=== PATIENT | male | born 1950 | race Caucasian/White ===

== ENCOUNTER → 2018-07-02 10:53 | Outpatient (CLI) | payer OTHER, MEDICARE, SELFPAY ==
[2017-02-09 10:44] VITALS: BMI 40.9
--- NOTE | 2018-07-02 10:58 | ART_ITS ---
Reason For Study: PVD Left Segmental Pressures The left dorsalis pedis waveforms are triphasic. The left posterior tibial artery waveforms are triphasic. Left brachial= 132mmHg. Right Segmental Pressures The right posterior tibial artery waveforms are triphasic. The right dorsalis pedis waveforms are triphasic. Right brachial= 124mmHg. Indices Ankle PT and Ankle DP are noncompressible. The left ankle brachial index by the dorsalis pedis is 1.16. The left ankle brachial index by the posterior tibial artery is 147. The left digital-brachial index is .64. Interpretation Summary Abnormal examination with non-compressible right PT and DP making ENEIDA's not obtainable Triphasic right PT and DP waveforms. Mildly abnormal right digital index Normal left ABIs and triphasic doppler waveforms. Moderately diminished left digital index. Volume pulse recordings mildly abnormal at digital level. Medial calcification of vessel hurst suspected particularly of the right lower extremity. Mild bilateral lower extremity occlusive disease Mild distal small vessel digital disease. Ordering Physician: Balaji Bates Performed By: BRANDAN GARCIA RVT
--- OUTSIDE RECORDS SUMMARY | 2018-09-03 13:51 | XMS RPT_ITS | Clinical Summary ---
:1950 Author Organization [facility] Address [address] [place] [address] Phone Care Team Providers Name Role Phone Sandy Maharaj PA-C Conditions or Problems Problem Name Problem Onset Status Entry Provider Comment Standard Annotate Code Date Date Description Sleep apnea 91286000 Active Balaji Reilly Sleep apnea (SNOMED 02/01 02/[address]) HTN 74730078 Active Balaji Reilly Hypertensive (Hypertension) (SNOMED 02/01 02/[address]) Osteoarthritis 922902114 Active Balaji Reilly Osteoarthritis (SNOMED 02/01 02/[address]) Diabetic 032632044 Active Balaji Reilly Diabetic neuropathy (SNOMED 02/01 02/[address]) DM 1 49985868 Active Balaji Reilly Type 1 diabetes (SNOMED 02/01 02/[address]) Peripheral 850465293 Active Balaji Reilly 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 Medications Medication Instructions Start Stop Generic Name ND Provider Date Date GLUCOPHAGE XR 500 MG Two tablets METFORMIN HCL [id number] Balaji Reilly [id number] by mouth 02/01 Paulo GALICIA daily NIFEDIPINE ER 30 MG One tablet by NIFEDIPINE [id number] Balaji Reilly [id number] mouth daily 02/01 Paulo GALICIA ATENOLOL 25 MG TABS One tablet by ATENOLOL [id number] Balaji Reilly mouth daily 02/01 Paulo GALICIA HYDROCHLOROTHIAZIDE One tablet by HYDROCHLOROTHIAZIDE 07023635519 Balaji Reilly 25 MG TABS mouth daily 02/01 Paulo GALICIA ASPIRIN 325 MG TABS One tablet by ASPIRIN [id number] Balaji Reilly mouth daily 02/01 Paulo GALICIA SIMVASTATIN 20 MG One tablet by SIMVASTATIN 31537655591 Balaji Reilly TABS mouth daily 02/01 Paulo GALICIA GABAPENTIN 300 MG One tablet by GABAPENTIN 60098047609 Balaji Reilly CAPS mouth daily 02/01 Paulo GALICIA NOVOLOG 100 UNIT/ML as directed INSULIN ASPART [id number] Balaji MACHADO 02/01 Paulo GALICIA LANMoyUS JEANNETTE as directed INSULIN GLARGINE 69298486575 Balaji Reilly 02/01 JEANNETTE Bates MD TRULICITY 1.5 as directed DULAGLUTIDE [id number] Balaji Reilly MG/0.5ML SOPN 02/01 Paulo GALICIA Medications Administered No information available. Allergies, Adverse Reactions, Alerts Allergy Name Reaction Description Start Date Severity Status Provider NKDA none Mild Active Balaji Bates MD Results Date Name Value Unit Range Flag Description Office Visit: Post Op APLL FALLPERCY No Fall risk assessment MEDS REVIEW Done Documentation of current medications (procedure) Plan of Care Type Date Detail Pending order PVR Procedures No information available. Vital Signs Date Name Value Unit Description BMI (Body Mass Index) 41.01 kg/m2 Body Mass Index [Ratio] Body Temperature 97.9 [degF] temperature E&M BP Diastolic 88 mm[Hg] blood pressure, diastolic - 8462-4 BP Systolic 149 mm[Hg] blood pressure, systolic - 8480-6 Heart Rate 80 /min pulse rate E&M - 8867-4 Height 67.5 [in_us] height E&M - 8302-2 Respiratory Rate 22 /min respiratory rate E&M - 9279-1 Weight Measured 265.8 [lb_av] weight E&M - 3141-9
--- OUTSIDE RECORDS SUMMARY | 2018-09-03 13:52 | XMS RPT_ITS | Clinical Summary ---
:1950 Author Organization [facility] Address [address] [place] [address] Phone Care Team Providers Name Role Phone Sandy Maharaj PA-C Conditions or Problems Problem Name Problem Onset Status Entry Provider Comment Standard Annotate Code Date Date Description Sleep apnea 73151764 Active Balaji Reilly Sleep apnea (SNOMED 02/01 02/[address]) HTN 03720906 Active Balaji Reilly Hypertensive (Hypertension) (SNOMED 02/01 02/[address]) Osteoarthritis 756163059 Active Balaji Reilly Osteoarthritis (SNOMED 02/01 02/[address]) Diabetic 592221181 Active Balaji Reilly Diabetic neuropathy (SNOMED 02/01 02/[address]) DM 1 35644801 Active Balaji Reilly Type 1 diabetes (SNOMED 02/01 02/[address]) Peripheral 257541827 Active Balaji Reilly 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 Medications Medication Instructions Start Stop Generic Name ND Provider Date Date GLUCOPHAGE XR 500 MG Two tablets METFORMIN HCL [id number] Balaji Reilly [id number] by mouth 02/01 Paulo GALICIA daily NIFEDIPINE ER 30 MG One tablet by NIFEDIPINE 14405753603 Balaji Reilly [id number] mouth daily 02/01 Paulo GALICIA ATENOLOL 25 MG TABS One tablet by ATENOLOL 11404560317 Balaji Reilly mouth daily 02/01 Paulo GALICIA HYDROCHLOROTHIAZIDE One tablet by HYDROCHLOROTHIAZIDE 36693268471 Balaji Reilly 25 MG TABS mouth daily 02/01 Paulo GALICIA ASPIRIN 325 MG TABS One tablet by ASPIRIN 97320339602 Balaji Reilly mouth daily 02/01 Paulo GALICIA SIMVASTATIN 20 MG One tablet by SIMVASTATIN 56965811894 Balaji Reilly TABS mouth daily 02/01 Paulo GALICIA GABAPENTIN 300 MG One tablet by GABAPENTIN 12867493964 Balaji Reilly CAPS mouth daily 02/01 Paulo GALICIA NOVOLOG 100 UNIT/ML as directed INSULIN ASPART 60482809880 Balaji MACHADO 02/01 Paulo GALICIA LANTUS JEANNETTE as directed INSULIN GLARGINE 38172777543 Balaji Reilly 02/01 JEANNETTE Bates MD TRULICITY 1.5 as directed DULAGLUTIDE 37431948363 Balaji Reilly MG/0.5ML SOPN 02/01 Paulo GALICIA [...] (procedure) Plan of Care Type Date Detail Appointment 01:00 PM Sandy Maharaj PA-C, [address] [place] [address], [address], [place], [address], Pending order PVR Procedures No information available. [...]
--- OUTSIDE RECORDS SUMMARY | 2018-09-03 13:52 | XMS RPT_ITS ---
:1950 Author Organization [facility] Care Team Providers Name Role Phone SABINE SURESH, DR. MARIANO Toth Attending Unavailable SABINE , DR. MARIANO Toth Primary Care Unavailable SABINE SURESH, DR. MARIANO Toth Attending Unavailable SABINE SURESH, DR. MARIANO Toth Primary Care Unavailable Balaji Bates Attending Unavailable Balaji Bates Referring Unavailable Mariano Reid Primary Care Unavailable Balaji Bates Attending Unavailable Balaji Bates Referring Unavailable Mariano Reid Primary Care Unavailable Balaji Bates Consulting Unavailable PROBLEMS PROBLEMS DATE TYPE CONDITION / CODE ATTENDING STATUS SOURCE 07/02/2018 Unknown I73.9 - Balaji Bates Active [place] [facility] vascular disease, [facility] unspecified / Repository I73.9(ICD-10) PROCEDURES PROCEDURES No Procedure Records FoundRESULTS RESULTS ARTERIAL Observed: 07/02/2018 Status: F Source: [place] 5:[address] [facility] REPOSITORY [facility] Cardiovascular Services [address] [place] [address] Lower Ext Art Exam w/o Exercis 07/02/18 1112 MR#: [id number] Acct: [id number] Name: MARCOS VENTURA Rep #: [id number] : 1950 68 From: Balaji Bates MD Attending Dr: Balaji Bates MD Status: REG CLI Ordering Dr: Balaji Bates MD Date: 07/02/18 Location: [facility] Sex: M C Admitted: Reason For Study: PVD Left Segmental Pressures The left dorsalis pedis waveforms are triphasic. The left posterior tibial artery waveforms are triphasic. Left brachial= 132mmHg. Right Segmental Pressures The right posterior tibial artery waveforms are triphasic. The right dorsalis pedis waveforms are triphasic. Right brachial= 124mmHg. Indices Ankle PT and Ankle DP are noncompressible. The left ankle brachial index by the dorsalis pedis is 1.16. The left ankle brachial index by the posterior tibial artery is 147. The left digital-brachial index is .64. Interpretation Summary Abnormal examination with non-compressible right PT and DP making ENEIDA's not obtainable Triphasic right PT and DP waveforms. Mildly abnormal right digital index Normal left ABIs and triphasic doppler waveforms. Moderately diminished left digital index. Volume pulse recordings mildly abnormal at digital level. Medial calcification of vessel hurst suspected particularly of the right lower extremity. Mild bilateral lower extremity occlusive disease Mild distal small vessel digital disease. 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 9:31 AM [facility] REPOSITORY TYPE CODE TESTS RESULT OUT OF REFERENCE UNITS RANGE LAB CHOL(LOINC 0-200 mg/dL ) Cholesterol 128 Result Comment: Cholesterol Reference Interval: Less than 200 Desirable 200-239 Borderline high risk 240 and above High risk LAB TRIG(LOINC) 0-150 mg/dL Triglycerides 37 Result Comment: Triglyceride Reference Interval: Less than 150 Normal 150-199 Borderline high risk 200-499 High risk 500 or higher Very high risk LAB HD(LOINC) 40-60 mg/dL HDL Cholesterol 45 LAB LDL(LOINC) 0-130 mg/dL LDL Cholesterol 76 Performed By: #### LIPID, CMP, GFR #### [place] [address] CMP Collected: 05/18/2018 Status: F Source: [facility] 9:31 AM [facility] REPOSITORY TYPE CODE TESTS RESULT OUT OF REFERENCE UNITS RANGE LAB GLU(LOINC) 80-115 mg/dL Glucose Level 109 LAB NA(LOINC) 136-145 mmol/L Sodium Level 139 LAB K(LOINC) 3.5-5.1 mmol/L Potassium Level 4.7 LAB CL(LOINC) 98-107 mmol/L Chloride 101 LAB CO2(LOINC) 23-31 mmol/L CO2 27 LAB EBAL(LOINC mEq/L ) Electrolyte Balance 11.0 LAB BUN(LOINC) 7-18 mg/dL BUN 18 LAB CRE(LOINC) 0.70-1.30 mg/dL Creatinine Lvl (s) 0.82 LAB BC(LOINC) 7-27 ratio BUN/Creatinine 22 Ratio LAB CA(LOINC) 8.4-10.2 mg/dL Calcium Lvl 9.1 LAB PROT(LOINC 6.4-8.2 G/dL ) Total Protein 7.3 LAB ALB(LOINC) 3.4-4.8 G/dL Albumin Level 3.9 LAB GLB(LOINC) G/dL Globulin 3.4 LAB AG(LOINC) 1.1-2.5 ratio A/G Ratio 1.1 LAB BILT(LOINC 0.2-1.0 mg/dL ) Bili Total 0.7 LAB AP(LOINC) 40-135 U/L Low Alk Phos 34 LAB AST(LOINC) 10-40 U/L AST/SGOT 27 LAB ALT(LOINC) 10-35 U/L ALT/SGPT High 38 Performed By: #### LIPID, CMP, GFR #### [address] [address] .GFR Collected: 05/18/2018 Status: F Source: [facility] 9:31 AM [facility] TYPE CODE TESTS RESULT OUT OF REFERENCE UNITS RANGE LAB GFRAA(LOINC ml/min/1.73 ) sqm GFR 114 Citizen Of [place] Result Comment: GFR Population mean for , Non- Americans Ages 20-29 = 116 mL/min/1.73 sq.m. Ages 30-39 = 107 mL/min/1.73 sq.m. Ages 40-49 = 99 mL/min/1.73 sq.m. Ages 50-59 = 93 mL/min/1.73 sq.m. Ages 60-69 = 85 mL/min/1.73 sq.m. Ages 70+ = 75 mL/min/1.73 sq.m. Chronic Kidney Disease: Less than 60 mL/min/1.73 square meters End Stage Renal Disease: Less than 15 mL/min/1.73 square meters LAB GFRNO(LOINC) ml/min/1.73sqm GFR Non- 94 Result Comment: GFR Population mean for , Non- Americans Ages 20-29 = 116 mL/min/1.73 sq.m. Ages 30-39 = 107 mL/min/1.73 sq.m. Ages 40-49 = 99 mL/min/1.73 sq.m. Ages 50-59 = 93 mL/min/1.73 sq.m. Ages 60-69 = 85 mL/min/1.73 sq.m. Ages 70+ = 75 mL/min/1.73 sq.m. Chronic Kidney Disease: Less than 60 mL/min/1.73 square meters End Stage Renal Disease: Less than 15 mL/min/1.73 square meters Performed By: #### LIPID, CMP, GFR #### [address] [address] LIPID Collected: 01/05/2018 Status: F Source: [facility] 8:48 AM [facility] REPOSITORY TYPE CODE TESTS RESULT OUT OF REFERENCE UNITS RANGE LAB CHOL(LOINC 50-199 mg/dL ) Cholesterol 117 Result Comment: Cholesterol Reference Interval: Less than 200 Desirable 200-239 Borderline high risk 240 and above High risk LAB TRIG(LOINC) 3-149 mg/dL Triglycerides 55 Result Comment: Triglyceride Reference Interval: Less than 150 Normal 150-199 Borderline high risk 200-499 High risk 500 or higher Very high risk LAB HD(LOINC) 40-59 mg/dL HDL Cholesterol 44 Result Comment: HDL Reference Interval: Less than 40 Low - high risk 60 or above Optimal/lowers risk LAB LDL(LOINC) 0-129 mg/dL LDL Cholesterol 62 Result Comment: LDL is a calculated result and requires a 12-hr fast. LDL Reference Interval: Less than 100 Optimal 100-129 Near or above optimal 130-159 Borderline high risk 160-189 High risk 190 and above Very high risk Performed By: #### LIPID, CMP, GFR #### [place] [address] CMP Collected: 01/05/2018 Status: F Source: [facility] 8:48 AM [facility] REPOSITORY TYPE CODE TESTS RESULT OUT OF REFERENCE UNITS RANGE LAB GLU(LOINC) 82-115 mg/dL Glucose High Level 123 LAB NA(LOINC) 136-145 mEq/L Sodium Level 140 LAB K(LOINC) 3.5-5.0 mEq/L Potassium Level 5.0 LAB CL(LOINC) 98-110 mEq/L Chloride 102 LAB CO2(LOINC) 22-32 mEq/L CO2 29 LAB EBAL(LOINC 4.0-15.0 mEq/L ) Electrolyte Balance 9.0 LAB BUN(LOINC) 8.0-22.0 mg/dL BUN 14.0 LAB CRE(LOINC) 0.60-1.40 mg/dL Creatinine Lvl (s) 0.70 LAB BC(LOINC) 10.0-22.0 ratio BUN/Creatinine 20.0 Ratio LAB CA(LOINC) 8.4-10.1 mg/dL Calcium Lvl 9.3 LAB PROT(LOINC 6.0-8.5 G/dL ) Total Protein 7.2 LAB ALB(LOINC) 3.2-4.8 G/dL Albumin Level 3.9 LAB GLB(LOINC) 1.5-3.8 G/dL Globulin 3.3 LAB AG(LOINC) 0.9-1.6 ratio A/G Ratio 1.2 LAB BILT(LOINC 0.2-1.2 mg/dL ) Bili Total 0.7 LAB AP(LOINC) 38-126 U/L Low Alk Phos 34 LAB AST(LOINC) 8-34 U/L AST/SGOT 20 LAB ALT(LOINC) 12-55 U/L ALT/SGPT 27 Performed By: #### LIPID, CMP, GFR #### [facility] [address] [place] [address] .GFR Collected: 01/05/2018 Status: F Source: [facility] 8:48 AM [facility] TYPE CODE TESTS RESULT OUT OF REFERENCE UNITS RANGE LAB GFRAA(LOINC ml/min/1.73 ) sqm GFR >60 Citizen Of [place] Result Comment: GFR Population mean for , Non- Americans Ages 20-29 = 116 mL/min/1.73 sq.m. Ages 30-39 = 107 mL/min/1.73 sq.m. Ages 40-49 = 99 mL/min/1.73 sq.m. Ages 50-59 = 93 mL/min/1.73 sq.m. Ages 60-69 = 85 mL/min/1.73 sq.m. Ages 70+ = 75 mL/min/1.73 sq.m. Chronic Kidney Disease: Less than 60 mL/min/1.73 square meters End Stage Renal Disease: Less than 15 mL/min/1.73 square meters LAB GFRNO(LOINC) ml/min/1.73sqm GFR Non- >60 Result Comment: GFR Population mean for , Non- Americans Ages 20-29 = 116 mL/min/1.73 sq.m. Ages 30-39 = 107 mL/min/1.73 sq.m. Ages 40-49 = 99 mL/min/1.73 sq.m. Ages 50-59 = 93 mL/min/1.73 sq.m. Ages 60-69 = 85 mL/min/1.73 sq.m. Ages 70+ = 75 mL/min/1.73 sq.m. Chronic Kidney Disease: Less than 60 mL/min/1.73 square meters End Stage Renal Disease: Less than 15 mL/min/1.73 square meters Performed By: #### LIPID, CMP, GFR #### [facility] [address] [place] [address] ALLERGIES ALLERGIES DATE TYPE / CODE NAME / CODE REACTION SEVERITY SOURCE 01/06/2017 Drug No Known Unknown [facility] Allergy/4160 Allergies/F00 Hospital 19884(SNOMED 4995922(RXNOR Repository CT) M) ENCOUNTERS ENCOUNTERS ADMIT/DISCHARGE ACCOUNT NUMBER ADMITTING ENCOUNTER LOCATION SOURCE CLASS 07/02/2018 [id number] Ambulatory BMSBuilding: Angelika BMS.CF.A [facility] Repository 07/02/2018 [id number] Ambulatory [facility] ding:[facility] Repository 05/18/2018/05/18/20 [id number] Ambulatory BBuilding:OL [address] Repository 01/05/2018/01/06/20 [id number] Ambulatory BBuilding:[address] Repository PAYERS PAYERS ENCOUNTER GUARANTOR PAYER SUBSCRIBER SOURCE 07/02/2018 MARCOS Garcia Primary Insurance:[facility] MARCOS Parksoster [id number] [id number] EASTONDOB: [facility] RDLOT Number: [id number] [id number] Repository [address]Yqj: 330) Date:9513-28-20MJ [phone] (UO) [address], [place] [address]VZ: 07/02/2018 Secondary MARCOS Guzman Insurance:MMO EASTONDOB: [facility] [id number] Hospital Number: Repository [id number] Date:0078-46-96[address], [place] [address]FE: 07/02/2018 Tertiary NOT GIVENUNK Angelika Insurance:SELF PAY [facility] Number: Effective Repository Date:2018-07-02 07/02/2018 MARCOS Garcia Primary Insurance:UMR MARCOSMANNY Guzman [id number] [address] [id number] EASTONDOB: [facility] RDLOT Number: [id number] [place] [id number] Repository [address]Bzm: (330) Date:5250-80-36TY [phone] (HP) [address], [place] [address]PW: 07/02/2018 Secondary MARCOS R [place] Insurance:MMO EASTONDOB: Community MEDICAREPolicy [id number] Hospital Number: Repository [id number] Date:6895-77-03[address], [place] [address]TB: 07/02/2018 Tertiary NOT GIVENUNK Angelika Insurance:SELF PAY [facility] Number: Effective Repository Date:2018-06-17 05/18/2018 MARCOS R Primary Insurance:UMR MARCOS [facility] EASTONDOB: INSCOPolicy Number: EASTONDOB: [facility] [id number]ository [address] Date:2018-05-[address] [place], [place] [id number] [address] [place], [address]~EASTONRON1 Name:[place] [address]Vtv: [email or web address]: [address]kmo[place] [address]DJ: (HP)Tel: [phone] ([phone] (WP) 05/18/2018 Secondary MARCOS [facility] Insurance:SUMMACARE EASTONDOB: Foundation MEDICARE HMOPolicy [id number] Repository Number: [address] [id number] LOT , Date:2018-05-18 [place] [address]Lka: [id number] Name:[address] (HP)Tel: 000) [address], [place] [phone] (WP) [address]PE: 01/05/2018 MARCOS R Primary MARCOS R [facility] EASTONDOB: Insurance:UMRPolicy EASTONDOB: [facility] Number: [id number] [id number] [address] [facility], [place] Date:2018-01-05 - [address], [address]~LORENZORON1 [id number] [place] [address]Dey: [email or web address]: Name:ORE MINER [address] [place] [address], ()Tel: [phone] () [place] [address]XC: [phone] (WP) 01/05/2018 Secondary MARCOS Garcia [facility] Insurance:[facility] SARAOB: Foundation MEDICARE HMOPolicy [id number] Repository Number: [address] [id number] [facility], Date:2018-01-05 - [place] [address]Bsw: [id number] Name:[address] (HP)Tel: [phone], [place] [phone] (WP) [address]KM:
--- OUTSIDE RECORDS SUMMARY | 2018-09-03 13:52 | XMS RPT_ITS | Clinical Summary ---
:1950 Author Organization [facility] Address [address] [place] [address] Phone Care Team Providers Name Role Phone Aridana Daniel Unavailable Unavailable Conditions or Problems Problem Name Problem Onset Status Entry Provider Comment Standard Annotate Code Date Date Description Sleep apnea 87525520 Active Balaji Reilly Sleep apnea (SNOMED 02/01 02/[address]) HTN 00865036 Active Balaji Reilly Hypertensive (Hypertension) (SNOMED 02/01 02/[address]) Osteoarthritis 206111670 Active Balaji Reilly Osteoarthritis (SNOMED 02/01 02/[address]) Diabetic 514664156 Active Balaji Reilly Diabetic neuropathy (SNOMED 02/01 02/[address]) DM 1 97683659 Active Balaji Reilly Type 1 diabetes (SNOMED 02/01 02/[address]) Peripheral 187146195 Active Balaji Reilly 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 Medications Medication Instructions Start Stop Generic Name [facility] Provider Date Date GLUCOPHAGE XR 500 MG Two tablets METFORMIN HCL [id number] Balaji Reilly [id number] by mouth 02/01 Paulo GALICIA daily NIFEDIPINE ER 30 MG One tablet by NIFEDIPINE 05092768337 Balaji Reilly [id number] mouth daily 02/01 Paulo GALICIA ATENOLOL 25 MG TABS One tablet by ATENOLOL 91242308388 Balaji Reilly mouth daily 02/01 Paulo GALICIA HYDROCHLOROTHIAZIDE One tablet by HYDROCHLOROTHIAZIDE 78741577927 Balaji Reilly 25 MG TABS mouth daily 02/01 Paulo GALICIA ASPIRIN 325 MG TABS One tablet by ASPIRIN 99652126652 Balaji Reilly mouth daily 02/01 Paulo GALICIA SIMVASTATIN 20 MG One tablet by SIMVASTATIN 35561970956 Balaji Reilly TABS mouth daily 02/01 Paulo GALICIA GABAPENTIN 300 MG One tablet by GABAPENTIN 50272713744 Balaji Reilly CAPS mouth daily 02/01 Paulo GALICIA NOVOLOG 100 UNIT/ML as directed INSULIN ASPART 77092779986 Balaji MACHADO 02/01 Paulo GALICIA LANTUS SOLLindsay as directed INSULIN GLARGINE 96467352147 Balaji Reilly 02/01 JEANNETTE Bates MD TRULICITY 1.5 as directed DULAGLUTIDE 92860638632 Balaji Reilly MG/0.5ML SOPN 02/01 Paulo GALICIA Medications Administered No information available. Allergies, Adverse Reactions, Alerts Allergy Name Reaction Description Start Date Severity Status Provider NKDA none Mild Active Balaji Bates MD Results Date Name Value Unit Range Flag Description Office Visit: PAD, left great toe ulcer MEDS REVIEW Done Documentation of current medications (procedure) [facility] Fall risk assessment Plan of Care Type Date Detail Appointment 09:30 AM Balaji Bates MD, [address] [place] [address], [address], [address], Appointment 09:00 AM Balaji Bates MD, [address] [facility], [address], [address], Procedures No information available. Vital Signs Date [...]
== END ==
PROVIDERS: Family Provider Family Medicine; PCP Family Medicine; Referring Provider Surgery; Visit Provider Surgery
DX: I73.9 Peripheral vascular disease, unspecified (principal)
CPT/HCPCS: 93923

== ENCOUNTER 2018-09-16 19:28 | Inpatient (IN) | payer OTHER, MEDICARE, SELFPAY ==
[2018-07-08 14:20] VITALS: BMI 42.3
[2018-09-16] VITALS (7 sets, daily range): BP systolic 154–171; BP diastolic 80–95; PULSE 92–122; RESP 16–20; TEMP 37–38.1; O2SAT 93–97; BMI 41.2; BMI 40.7; BMI 40.8
--- NOTE | 2018-09-16 20:14 | EKG12_ITS ---
Test Reason : WOUND Blood Pressure : / mmHG Vent. Rate : 117 BPM Atrial Rate : 117 BPM P-R Int : 188 ms QRS Dur : 074 ms QT Int : 290 ms P-R-T Axes : 030 055 028 degrees QTc Int : 404 ms Sinus tachycardia Anteroseptal infarct , age undetermined Abnormal ECG Confirmed by KAYLA GALICIA, GIRMA ([id number]), marketing editor VENKATA WALLACE ([id number]) on 09/23/2018 4:05:15 PM Referred By: Confirmed By:GIRMA GARZA MD
--- NOTE | 2018-09-16 20:15 | RAD_ITS ---
STUDY: X-RAY - LEFT FOOT CLINICAL: Male, 68 years old. Diabetic foot ulcer TECHNIQUE: 3 view(s) of the foot. COMPARISON: Previous study of 10/23/2010 FINDINGS: There is a plantar aspect calcaneal spur. Normal visualized subtalar, talonavicular, calcaneocuboid, tarsal and tarsometatarsal articulations. There are degenerative changes of the first metatarsal head. There is degenerative arthrosis of the metatarsophalangeal joint of the hallux . Normal tibial and fibular sesamoid bones. Normal interphalangeal joint of the great toe. Normal phalanges of the great toe. Normal second through fifth metatarsophalangeal joints. 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 There is a small amount of soft tissue gas of the plantar aspect of the great toe. RAD/Foot min 3 Views IMPRESSION: Plantar aspect calcaneal spur. Degenerative changes of the first metatarsophalangeal joint. 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 There is soft tissue gas in the plantar aspect of the great toe Electronically Signed: Jamshid Hanson MD at 20:52 EDT , Service support ,
[2018-09-16 20:35] LABS: Absolute Lymphocyte Count 1.93 X10^3/ul (0.83-4.51); Absolute Neutrophil Count 14.5 X10^3/uL (2.0-7.7); Basophil# 0.04 X10^3/uL; Basophil% 0.2 % (0-1); Differential Indicated SCAN CRITERIA MET; Eosinophil# 0.04 X10^3/uL; Eosinophils% 0.2 % (0-5); Hematocrit 45.5 % (40-54); Hemoglobin 15.5 g/dl (13.0-16.5); Lymphocyte # 1.93 X10^3/ul (4.0); Lymphocyte % 9.8 % (19-41); Mean Corp Hgb Conc 34.1 g/gl (32-36); Mean Corpuscular Hgb 31.1 pg (27.0-32.0); Mean Corpuscular Volume 91.2 fL (80-94); Mean Platelet Vol. 11.2 fl (6.2-12.0); Monocyte# 2.98 X10^3/uL; Monocyte% 15.2 % (0-10); Neutrophil # 14.52 X10^3/uL (2.7-7.7); Neutrophil % 74.1 % (47-70); POSITIVE COUNT NO; POSITIVE DIFFERENTIAL YES; POSITIVE MORPHOLOGY NO; Platelet Count 260 K/mm3 (150-450); RBC Distribution Width CV 12.9 % (11.6-14.6); RBC Distribution Width SD 42.5 fl (35.1-43.9); Red Blood Count 4.99 M/mm3 (4.6-6.2); White Blood Count 19.6 K/mm3 (4.4-11.0)
[2018-09-16 20:36] LABS: International Normalized Ratio 1.1; Prothrombin Time (Protime)PT. 13.7 SECONDS (11.7-14.9)
[2018-09-16] MEDS: 0.9% Normal Saline 1,000 ML 250 ML IV (20:36)
[2018-09-16 20:37] LABS: Partial Thromboplast Time 37.9 Seconds (24.1-36.2)
[2018-09-16 20:45] LABS: AST(SGOT) 16 U/L (15-37); Alanine Aminotransfer ALT/SGPT 20 U/L (16-61); Albumin, Serum 3.8 g/dL (3.2-5.0); Alkaline Phosphatase 41 U/L (45-117); Anion Gap 6 (5-15); BUN 18 mg/dL (7-18); BUN/Creat Ratio 19.4 RATIO (10-20); Calcium,Total 9.1 mg/dL (8.5-10.1); Chloride 99 mmol/L (98-107); Creatinine, Serum 0.93 mg/dL (0.70-1.30); EST Glomerular Filtration Rate 86 mL/min (>60); Est Glom Filt Rate - Afr Amer 104 mL/min (>60); Estimated Creatinine Clearance 71.08 ml/min; Glucose 119 mg/dL (74-106); Potassium 4.4 mmol/L (3.5-5.1); Protein, Total 7.8 g/dL (6.4-8.2); Sodium Level 132 mmol/L (136-145)
[2018-09-16 20:54] LABS: Bacteria 0 SEEN /hpf (None Seen); Mucous, Urine 0 SEEN /hpf (<or=2+); Red Blood Cells-Urine 0 SEEN /hpf (0-5); White Blood Cells 0 SEEN /hpf (0-5)
[2018-09-16 20:55] LABS: Differential Comment SCANNED
[2018-09-16 20:57] LABS: Color, Urine Yellow (Yellow); Glucose, Dipstick Normal (Normal); Ketone-Dipstick Negative (Negative); Leukocyte Esterase-Dipstick Negative /ul (Negative); Nitrite-Dipstick Negative (Negative); Occult Blood-Urine Negative /ul (Negative); Protein-Dipstick 15 mg/dl (Negative); Urine Bilirubin Dipstick Negative (Negative); Urine Clarity Sl. Cloudy (Clear); Urine Urobilinogen Normal (Normal)
--- NOTE | 2018-09-16 21:00 | ED.VIS.GEN ---
History of Present Illness Chief Complaint: Wound Detail of Chief Complaint: Wound left great toe times 2 weeks Informant: Patient, Family Onset: Weeks - 2 weeks Context: Gradual Onset Timing: Continuous Quality: Patient was unaware that he had a lesion involving the left great toe Location: Left great toe Current Severity: Moderate Maximum Severity: Moderate Worsened by: Nothing per patient Relieved by: Patient was unaware that he had an infection Associated Symptoms: Chills Narrative: Patient is an elderly male with history of diabetes who presents with infected left great toe. He has 2 lesions noted on the plantar surface of the left great toe. He complains of mild pain. He has no other complaints. He states blood sugar this morning was 130. He states blood sugar varies between 110-130. Prior similar symptoms: No Recent Illness/Hospitalization: No - Past Medical History (1) Cellulitis and abscess of foot Status: Acute (2) PAD (peripheral artery disease) Status: Acute (3) Diabetes mellitus with polyneuropathy Status: Chronic (4) HTN (hypertension) Status: Chronic (5) Osteomyelitis Status: Chronic Past Medical History - Allergies and Home Meds Allergies/Adverse Reactions: Allergies No Known Allergies Allergy (Verified 09/16/18 19:29) Primary Care Physician: Dexter Reid DO [Primary Care Provider] - Prior records reviewed: Yes Surgical History: no surgical history Lives: Alone Smoking Status: Never smoker Alcohol: None Drugs: None - Family History Maternal Family History: Family History (Last Updated 07/08/18 @ 14:20 by Nadine Yeh) Mother Diabetes CVA (cerebral vascular accident) Family History: Reports: No pertinent history Review of Systems General: Reports: Chills, Malaise. Denies: Fever, Subjective, Sweats, Weight loss Eyes: Denies: Visual changes - bilaterally, Blurred Vision - bilaterally, Diplopia ENT: Denies: Rhinorrhea, Sore throat Cardiovascular: Denies: Chest pain, Palpitations Respiratory: Denies: Dyspnea, Cough, Dyspnea on exertion, Orthopnea, Paroxysmal nocturnal dyspnea Gastrointestinal: Denies: Abdominal pain, Nausea, Vomiting, Diarrhea, Melena, Hematochezia Genitourinary: Denies: Dysuria, Hematuria, Frequency Musculoskeletal: Denies: Back pain, Extremity Pain Skin: Denies: Rash, Wounds Neurological: Denies: Headache, Weakness, Numbness Endocrine: Denies: Polyuria, Polydipsia Hematologic: Denies: Easy bruising, Easy bleeding Allergy: Denies: Uticaria Physical Exam Vital Signs/Narrative: Vital Signs Temp Pulse Resp BP Pulse Ox 09/16/18 20:35 99.2 F H 121 H 18 171/87 H 95 09/16/18 19:49 100.5 F H 122 H 18 163/80 H 97 09/16/18 19:29 100.5 F H 122 H 17 163/80 H 97 Inital Vital Signs reviewed: Yes General: Well nourished, Well developed, No Acute Distress Head: Normocephalic, Atraumatic Eyes: Perrl, EOMI. Negative for: Pale conjunctiva, Scleral icterus, - ENT: Moist mucous membranes, No rhinorrhea, TM's clear Neck: Supple, Nontender Cardiovascular: Regular rate, Regular rhythm, No murmurs, Normal S1, Normal S2, Tachycardia Respiratory: No distress, CTA bilaterally, Chest nontender Abdomen: Soft, Nontender, Nondistended, Normal bowel sounds Back: Nontender, Normal Inspection Extremities: Nontender, No edema, - - There is swelling of the left great toe with erythema of the entire left great toe. There is erythema with lymphangitic streak noted on dorsal surface of left foot. Skin: Normal color, Rash - Cellulitis left great toe with lymphangitis and what appears to be 2 ulcers on the plantar surface of the left great toe Neurological: Alert, Oriented x3, Cranial nerves II-XII grossly intact, Normal Strength Psychological: Normal affect, Normal Mood Diagnostic/Tx/Re-eval Chest X-Ray - ED: Read by ED Physician, - - Three-view x-ray of the foot was obtained. There is calcification of arteries noted. There is degenerative changes noted joint of the great toe. There is subcu is air/ulcer plantar surface of the left great toe. Impressions Foot X-Ray 09/16/18 20:15 IMPRESSION: Plantar aspect calcaneal spur. Degenerative changes of the first metatarsophalangeal joint. 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 There is soft tissue gas in the plantar aspect of the great toe Electronically Signed: Jamshid Hanson MD at 20:52 EDT , Service support , 09/16/18 20:15 Foot min 3 Views [RAD] Stat Laboratory Results 09/16/18 09/16/18 09/16/18 19:55 19:55 19:55 WBC 19.6 H RBC 4.99 Hgb 15.5 Hct 45.5 MCV 91.2 MCH 31.1 MCHC 34.1 RDW 12.9 RDW Differential 42.5 Plt Count 260 MPV 11.2 Immature Gran % (Auto) 0.500 Neut % (Auto) 74.1 H Lymph % (Auto) 9.8 L [place] % (Auto) 15.2 H Eos % (Auto) 0.2 Baso % (Auto) 0.2 Absolute Neuts (auto) 14.5 H Absolute Lymphs (auto) 1.93 Total Counted Not Reportable Differential Comment SCANNED Diff Path Review October foll PT 13.7 INR 1.1 APTT 37.9 H Sodium 132 L Potassium 4.4 Chloride 99 Carbon Dioxide 27.0 Anion Gap 6 BUN 18 Creatinine 0.93 Estim Creat Clear Calc 71.08 Est GFR (MDRD) Af Amer 104 Est GFR (MDRD) Non-Af 86 BUN/Creatinine Ratio 19.4 Glucose 119 H Lactic Acid Calcium 9.1 Total Bilirubin 0.80 AST 16 ALT 20 Alkaline Phosphatase 41 L Total Protein 7.8 Albumin 3.8 Globulin 4.0 Albumin/Globulin Ratio 1.0 Urine Color Urine Clarity Urine pH Ur Specific [place] Urine Protein Urine Glucose (UA) Urine Ketones Urine Occult Blood Urine Nitrite Urine Bilirubin Urine Urobilinogen Ur Leukocyte Esterase 09/16/18 09/16/18 19:55 20:40 WBC RBC Hgb Hct MCV MCH MCHC RDW RDW Differential Plt Count MPV Immature Gran % (Auto) Neut % (Auto) Lymph % (Auto) [place] % (Auto) Eos % (Auto) Baso % (Auto) Absolute Neuts (auto) Absolute Lymphs (auto) Total Counted Differential Comment Diff Path Review PT INR APTT Sodium Potassium Chloride Carbon Dioxide Anion Gap BUN Creatinine Estim Creat Clear Calc Est GFR (MDRD) Af Amer Est GFR (MDRD) Non-Af BUN/Creatinine Ratio Glucose Lactic Acid 1.0 Calcium Total Bilirubin AST ALT Alkaline Phosphatase Total Protein Albumin Globulin Albumin/Globulin Ratio Urine Color Yellow Urine Clarity Sl. Cloudy Urine pH 7.0 Ur Specific [place] 1.010 Urine Protein 15 H Urine Glucose (UA) Normal Urine Ketones Negative Urine Occult Blood Negative Urine Nitrite Negative Urine Bilirubin Negative Urine Urobilinogen Normal Ur Leukocyte Esterase Negative In light of x-ray findings elevated white count ESR and CRP were obtained. Will need consult with podiatry. Patient is status post amputation of the left little toe. - Rhythm Strip Rhythm Strip: Sinus Rhythm Rate: 122 Ectopy: None - EKG Initial EKG Interpretation: Sinus Tachycardia - Ventricular rate is 117. MS interval, Q yazidi, QT interval and axis are normal. Decreased anterior force noted. - Medical Decision Making Patient presents with symptoms consistent with sepsis secondary to infected left great toe. Sepsis workup was undertaken. X-ray was obtained to evaluate for ostium myelitis. This A are noted. Additional blood work was ordered. He was treated with 4.5 g of Zosyn. Hospitalist was paged for admission. ED Disposition - Plan for ED Patient: Disposition: Acute Care Hospital [facility] Diagnosis: Type 2 diabetes mellitus with left diabetic foot infection, Sepsis, Sinus tachycardia seen on application security consultant Referrals: Dexter Reid DO [Primary Care Provider] -
[2018-09-16 21:03] LABS: Squamous Epithelial Cells - UA 0-5 SEEN /hpf (0-5)
[2018-09-16 21:04] LABS: Amorphous Sediment 1+ PHOS
--- NOTE | 2018-09-16 21:05 | ED.DCSUM_ITS ---
History of Present Illness Chief Complaint: Wound Detail of Chief Complaint: Wound left great toe times 2 weeks Informant: Patient, Family Onset: Weeks - 2 weeks Context: Gradual Onset Timing: Continuous Quality: Patient was unaware that he had a lesion involving the left great toe Location: Left great toe Current Severity: Moderate Maximum Severity: Moderate Worsened by: Nothing per patient Relieved by: Patient was unaware that he had an infection Associated Symptoms: Chills Narrative: Patient is an elderly male with history of diabetes who presents with infected left great toe. He has 2 lesions noted on the plantar surface of the left great toe. He complains of mild pain. He has no other complaints. He states blood sugar this morning was 130. He states blood sugar varies between 110-130. Prior similar symptoms: No Recent Illness/Hospitalization: No - Past Medical History (1) Cellulitis and abscess of foot Status: Acute (2) PAD (peripheral artery disease) Status: Acute (3) Diabetes mellitus with polyneuropathy Status: Chronic (4) HTN (hypertension) Status: Chronic (5) Osteomyelitis Status: Chronic Past Medical History - Allergies and Home Meds Allergies/Adverse Reactions: Allergies No Known Allergies Allergy (Verified 09/16/18 19:29) Primary Care Physician: Dexter Reid DO [Primary Care Provider] - Prior records reviewed: Yes Surgical History: no surgical history Lives: Alone Smoking Status: Never smoker Alcohol: None Drugs: None - Family History Maternal Family History: Family History (Last Updated 07/08/18 @ 14:20 by Nadine Yeh) Mother Diabetes CVA (cerebral vascular accident) Family History: Reports: No pertinent history Review of Systems General: Reports: Chills, Malaise. Denies: Fever, Subjective, Sweats, Weight loss Eyes: Denies: Visual changes - bilaterally, Blurred Vision - bilaterally, Diplopia ENT: Denies: Rhinorrhea, Sore throat Cardiovascular: Denies: Chest pain, Palpitations Respiratory: Denies: Dyspnea, Cough, Dyspnea on exertion, Orthopnea, Paroxysmal nocturnal dyspnea Gastrointestinal: Denies: Abdominal pain, Nausea, Vomiting, Diarrhea, Melena, Hematochezia Genitourinary: Denies: Dysuria, Hematuria, Frequency Musculoskeletal: Denies: Back pain, Extremity Pain Skin: Denies: Rash, Wounds Neurological: Denies: Headache, Weakness, Numbness Endocrine: Denies: Polyuria, Polydipsia Hematologic: Denies: Easy bruising, Easy bleeding Allergy: Denies: Uticaria Physical Exam Vital Signs/Narrative: Vital Signs Temp Pulse Resp BP Pulse Ox 09/16/18 20:35 99.2 F H 121 H 18 171/87 H 95 09/16/18 19:49 100.5 F H 122 H 18 163/80 H 97 09/16/18 19:29 100.5 F H 122 H 17 163/80 H 97 Inital Vital Signs reviewed: Yes General: Well nourished, Well developed, No Acute Distress Head: Normocephalic, Atraumatic Eyes: Perrl, EOMI. Negative for: Pale conjunctiva, Scleral icterus, - ENT: Moist mucous membranes, No rhinorrhea, TM's clear Neck: Supple, Nontender Cardiovascular: Regular rate, Regular rhythm, No murmurs, Normal S1, Normal S2, Tachycardia Respiratory: No distress, CTA bilaterally, Chest nontender Abdomen: Soft, Nontender, Nondistended, Normal bowel sounds Back: Nontender, Normal Inspection Extremities: Nontender, No edema, - - There is swelling of the left great toe with erythema of the entire left great toe. There is erythema with lymphangitic streak noted on dorsal surface of left foot. Skin: Normal color, Rash - Cellulitis left great toe with lymphangitis and what appears to be 2 ulcers on the plantar surface of the left great toe Neurological: Alert, Oriented x3, Cranial nerves II-XII grossly intact, Normal Strength Psychological: Normal affect, Normal Mood Diagnostic/Tx/Re-eval Chest X-Ray - ED: Read by ED Physician, - - Three-view x-ray of the foot was obtained. There is calcification of arteries noted. There is degenerative changes noted joint of the great toe. There is subcu is air/ulcer plantar surface of the left great toe. Impressions Foot X-Ray 09/16/18 20:15 IMPRESSION: Plantar aspect calcaneal spur. Degenerative changes of the first metatarsophalangeal joint. 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 There is soft tissue gas in the plantar aspect of the great toe Electronically Signed: Jamshid Hanson MD at 20:52 EDT , Service support , 09/16/18 20:15 Foot min 3 Views [RAD] Stat Laboratory Results 09/16/18 09/16/18 09/16/18 19:55 19:55 19:55 WBC 19.6 H RBC 4.99 Hgb 15.5 Hct 45.5 MCV 91.2 MCH 31.1 MCHC 34.1 RDW 12.9 RDW Differential 42.5 Plt Count 260 MPV 11.2 Immature Gran % (Auto) 0.500 Neut % (Auto) 74.1 H Lymph % (Auto) 9.8 L [place] % (Auto) 15.2 H Eos % (Auto) 0.2 Baso % (Auto) 0.2 Absolute Neuts (auto) 14.5 H Absolute Lymphs (auto) 1.93 Total Counted Not Reportable Differential Comment SCANNED Diff Path Review October foll PT 13.7 INR 1.1 APTT 37.9 H Sodium 132 L Potassium 4.4 Chloride 99 Carbon Dioxide 27.0 Anion Gap 6 BUN 18 Creatinine 0.93 Estim Creat Clear Calc 71.08 Est GFR (MDRD) Af Amer 104 Est GFR (MDRD) Non-Af 86 BUN/Creatinine Ratio 19.4 Glucose 119 H Lactic Acid Calcium 9.1 Total Bilirubin 0.80 AST 16 ALT 20 Alkaline Phosphatase 41 L Total Protein 7.8 Albumin 3.8 Globulin 4.0 Albumin/Globulin Ratio 1.0 Urine Color Urine Clarity Urine pH Ur Specific [place] Urine Protein Urine Glucose (UA) Urine Ketones Urine Occult Blood Urine Nitrite Urine Bilirubin Urine Urobilinogen Ur Leukocyte Esterase 09/16/18 09/16/18 19:55 20:40 WBC RBC Hgb Hct MCV MCH MCHC RDW RDW Differential Plt Count MPV Immature Gran % (Auto) Neut % (Auto) Lymph % (Auto) [place] % (Auto) Eos % (Auto) Baso % (Auto) Absolute Neuts (auto) Absolute Lymphs (auto) Total Counted Differential Comment Diff Path Review PT INR APTT Sodium Potassium Chloride Carbon Dioxide Anion Gap BUN Creatinine Estim Creat Clear Calc Est GFR (MDRD) Af Amer Est GFR (MDRD) Non-Af BUN/Creatinine Ratio Glucose Lactic Acid 1.0 Calcium Total Bilirubin AST ALT Alkaline Phosphatase Total Protein Albumin Globulin Albumin/Globulin Ratio Urine Color Yellow Urine Clarity Sl. Cloudy Urine pH 7.0 Ur Specific [place] 1.010 Urine Protein 15 H Urine Glucose (UA) Normal Urine Ketones Negative Urine Occult Blood Negative Urine Nitrite Negative Urine Bilirubin Negative Urine Urobilinogen Normal Ur Leukocyte Esterase Negative In light of x-ray findings elevated white count ESR and CRP were obtained. Will need consult with podiatry. Patient is status post amputation of the left little toe. - Rhythm Strip Rhythm Strip: Sinus Rhythm Rate: 122 Ectopy: None - EKG Initial EKG Interpretation: Sinus Tachycardia - Ventricular rate is 117. NV interval, Q latter-day, QT interval and axis are normal. Decreased anterior force noted. - Medical Decision Making Patient presents with symptoms consistent with sepsis secondary to infected left great toe. Sepsis workup was undertaken. X-ray was obtained to evaluate for ostium myelitis. This A are noted. Additional blood work was ordered. He was treated with 4.5 g of Zosyn. Hospitalist was paged for admission. ED Disposition - Plan for ED Patient: Disposition: Acute Care [facility] Diagnosis: Type 2 diabetes mellitus with left diabetic foot infection, Sepsis, Sinus tachycardia seen on potline monitor Referrals: Dexter Reid DO [Primary Care Provider] -
--- NOTE | 2018-09-16 21:18 | ED.RN ---
LARGE BLACK GARBAGE BAG OF BELONGINGS WITH PATIENT. NO FAMILY AT BEDSIDE.
[2018-09-16 21:31] LABS: Erythrocyte Sedimentation Rate 50 mm/hr (0-20)
--- NOTE | 2018-09-16 22:00 | PCM.HP.STD ---
Problem List (1) Type 2 diabetes mellitus with left diabetic foot infection Status: Acute (2) Diabetes mellitus with polyneuropathy Status: Chronic Qualifiers: (3) Cellulitis of toe, left Status: Acute (4) HTN (hypertension) Status: Chronic (5) Type II diabetes mellitus Status: Chronic History of Present Illness Date of Admission: 09/16/18 Chief Complaint: left foot infection The patient is a 68 year old male patient with a significant past medical history of diabetes with previous amputation of the fifth toe on his left foot present with another infection of his left foot. The onset began a little over one week ago and has gradually become worse. His great toe on left foot has become inflamed and red along with increased redness on his foot to his lower leg. WBC count is 19,000 with a left shift. Lactate is 1.0 and temperature is 99 degrees and blood pressure is normal to high normal. He has seen Dr Payton for his diabetic foot care. Dr. Quiñonez is covering this evening and is consulted. No chest pain or shortness of breath or other constitutional symptoms. Xray of the toe shows gas distally in the great toe. Past Medical History Past Medical History (Chronic Problems): Chronic Problems (Last Updated 07/08/18 @ 14:20 by Nadine Yeh) Hallux varus (acquired), left foot (Chronic) Diabetes mellitus with polyneuropathy (Chronic) Osteomyelitis (Chronic) HTN (hypertension) (Chronic) Type II diabetes mellitus (Chronic) Medical History: Medical History (Last Updated 07/08/18 @ 14:20 by Nadine Yeh) PAD (peripheral artery disease) (Acute) I73.9 Hallux varus (acquired), left foot (Chronic) M20.32 Diabetes mellitus with polyneuropathy (Chronic) E11.42 Cellulitis of toe, left (Acute) L03.032 HTN (hypertension) (Chronic) I10 Type II diabetes mellitus (Chronic) E11.9 History of amputation of toe Onset Date: ~2012 Z89.429 PAD (peripheral artery disease) I73.9 Sleep apnea G47.30 Allergies No Known Allergies Allergy (Verified 09/16/18 19:29) Home Medications: Ambulatory Orders Medication Instructions Recorded Dulaglutide [Trulicity] 1.5 mg SQ ONEIL 01/06/17 Hydrochlorothiazide [Hctz] 25 mg PO DAILY 01/06/17 Insulin Glargine,Hum.rec.anlog 75 unit SQ QHS 01/06/17 [Lantus] Nifedipine [Nifedipine ER] 30 mg PO DAILY 01/06/17 Simvastatin [Zocor] 20 mg PO QHS 01/06/17 Cholecalciferol (Vitamin D3) 6,000 unit PO DAILY 09/16/18 [Vitamin D3] Cyanocobalamin (Vitamin B-12) 1,000 mcg PO DAILY 09/16/18 [B-12] Gabapentin 600 mg PO TID 09/16/18 Insulin Lispro [Humalog KwikPen] 12 units SQ TID 09/16/18 Metformin HCl 1,000 mg PO BID 09/16/18 Surgical History: Surgical History (Last Updated 07/08/18 @ 14:20 by Nadine Yeh) History of detached retina repair Z98.890, Z86.69 S/P peripheral artery angioplasty Onset Date: ~2016 Z98.62 Status post peripheral artery angioplasty Z98.62 Surgical History: no surgical history Lives: Alone Smoking Status: Never smoker Alcohol: None Drugs: None - *Family History Maternal Family History: Family History (Last Updated 07/08/18 @ 14:20 by Nadine Yeh) Mother Diabetes CVA (cerebral vascular accident) History Items: No pertinent history Review of Systems Constitutional: Reports: Fever. Denies: Chills, Weight Change HEENT: Denies: Head Aches, Sinus Congestion, Sinus Drainage Cardiovascular: Denies: Chest Pain, Palpitations Respiratory: Denies: Cough, Shortness of breath at rest, Sputum production Gastrointestinal: Denies: Abdominal Pain, Nausea, Vomiting Genitourinary: Denies: Dysuria Musculoskeletal: Denies: Joint Pain, Joint Tenderness Skin: Reports: Wounds - left ffot. Denies: Rash Neurological: Denies: Numbness, Tingling, Focal weakness Psychiatric: Denies: Anxiety, Depression, Homicidal Ideations, Suicidal Ideations Hematologic/ Lymphatic: Denies: Easy Bruising, Easy Bleeding VTE Information - Inpt Only VTE Present on Admission: No VTE Mechan Device Prophylaxis: None VTE Pharm Prophylaxis ordered?: Yes Patient Problems: Active and Suspected Problems (Last Updated 07/08/18 @ 14:20 by Nadine Yeh) Type 2 diabetes mellitus with left diabetic foot infection (Acute) Sepsis (Acute) Sinus tachycardia seen on human resources file clerk (Acute) - Physical Exam General: Alert, Oriented x3, Cooperative HEENT: Atraumatic, Normocephalic Neck: Supple Lungs: Clear to auscultation, Normal air movement Cardiovascular: Regular rate, Normal S1, Normal S2, No murmurs Abdomen: Bowel Sounds Present, Soft, Non Tender, Obese Extremities: Edema - LLE 1-2+ with distal erythema on the dorsum of the left foot and ankle Skin: No rashes, Ulcer/ Wound - left foot Musculoskeletal: No Tenderness to Palpation of Joints or Extremities Neurological: Neuro grossly intact Psych/Mental Status: Normal Affect, Appropriate Vital Signs Temp Pulse Resp BP Pulse Ox 99.4 F H 92 20 H 166/95 H 93 09/16/18 21:17 09/16/18 21:17 09/16/18 21:17 09/16/18 21:17 09/16/18 21:17 Oxygen Delivery Method Room Air Weight: 267 lb Body Mass Index (BMI) 41.2 Laboratory Tests Past 24 Hrs 09/16/18 09/16/18 09/16/18 19:55 19:55 19:55 WBC 19.6 H RBC 4.99 Hgb 15.5 Hct 45.5 MCV 91.2 MCH 31.1 MCHC 34.1 RDW 12.9 RDW Differential 42.5 Plt Count 260 MPV 11.2 Immature Gran % (Auto) 0.500 Neut % (Auto) 74.1 H Lymph % (Auto) 9.8 L [place] % (Auto) 15.2 H Eos % (Auto) 0.2 Baso % (Auto) 0.2 Absolute Neuts (auto) 14.5 H Absolute Lymphs (auto) 1.93 Total Counted Not Reportable Differential Comment SCANNED Diff Path Review October ESR PT 13.7 INR 1.1 APTT 37.9 H Sodium 132 L Potassium 4.4 Chloride 99 Carbon Dioxide 27.0 Anion Gap 6 BUN 18 Creatinine 0.93 Estim Creat Clear Calc 71.08 Est GFR (MDRD) Af Amer 104 Est GFR (MDRD) Non-Af 86 BUN/Creatinine Ratio 19.4 Glucose 119 H Lactic Acid Calcium 9.1 Total Bilirubin 0.80 AST 16 ALT 20 Alkaline Phosphatase 41 L C-React Prot Ext Range Total Protein 7.8 Albumin 3.8 Globulin 4.0 Albumin/Globulin Ratio 1.0 Urine Color Urine Clarity Urine pH Ur Specific [place] Urine Protein Urine Glucose (UA) Urine Ketones Urine Occult Blood Urine Nitrite Urine Bilirubin Urine Urobilinogen Ur Leukocyte Esterase Urine RBC Urine WBC Ur Squamous Epith Cells Amorphous Sediment Urine Bacteria Urine Mucus 09/16/18 09/16/18 09/16/18 19:55 19:55 19:55 WBC RBC Hgb Hct MCV MCH MCHC RDW RDW Differential Plt Count MPV Immature Gran % (Auto) Neut % (Auto) Lymph % (Auto) [place] % (Auto) Eos % (Auto) Baso % (Auto) Absolute Neuts (auto) Absolute Lymphs (auto) Total Counted Differential Comment Diff Path Review ESR 50 H PT INR APTT Sodium Potassium Chloride Carbon Dioxide Anion Gap BUN Creatinine Estim Creat Clear Calc Est GFR (MDRD) Af Amer Est GFR (MDRD) Non-Af BUN/Creatinine Ratio Glucose Lactic Acid 1.0 Calcium Total Bilirubin AST ALT Alkaline Phosphatase C-React Prot Ext Range 30.30 H Total Protein Albumin Globulin Albumin/Globulin Ratio Urine Color Urine Clarity Urine pH Ur Specific [place] Urine Protein Urine Glucose (UA) Urine Ketones Urine Occult Blood Urine Nitrite Urine Bilirubin Urine Urobilinogen Ur Leukocyte Esterase Urine RBC Urine WBC Ur Squamous Epith Cells Amorphous Sediment Urine Bacteria Urine Mucus 09/16/18 20:40 WBC RBC Hgb Hct MCV MCH MCHC RDW RDW Differential Plt Count MPV Immature Gran % (Auto) Neut % (Auto) Lymph % (Auto) [place] % (Auto) Eos % (Auto) Baso % (Auto) Absolute Neuts (auto) Absolute Lymphs (auto) Total Counted Differential Comment Diff Path Review ESR PT INR APTT Sodium Potassium Chloride Carbon Dioxide Anion Gap BUN Creatinine Estim Creat Clear Calc Est GFR (MDRD) Af Amer Est GFR (MDRD) Non-Af BUN/Creatinine Ratio Glucose Lactic Acid Calcium Total Bilirubin AST ALT Alkaline Phosphatase C-React Prot Ext Range Total Protein Albumin Globulin Albumin/Globulin Ratio Urine Color Yellow Urine Clarity Sl. Cloudy Urine pH 7.0 Ur Specific [place] 1.010 Urine Protein 15 H Urine Glucose (UA) Normal Urine Ketones Negative Urine Occult Blood Negative Urine Nitrite Negative Urine Bilirubin Negative Urine Urobilinogen Normal Ur Leukocyte Esterase Negative Urine RBC 0 SEEN Urine WBC 0 SEEN Ur Squamous Epith Cells 0-5 SEEN Amorphous Sediment 1+ PHOS Urine Bacteria 0 SEEN Urine Mucus 0 SEEN Assessment/Plan All Active Problems (Last Updated 07/08/18 @ 14:20 by Nadine Yeh) Type 2 diabetes mellitus with left diabetic foot infection (Acute) Sepsis (Acute) Sinus tachycardia seen on human resources file clerk (Acute) PAD (peripheral artery disease) (Acute) Cellulitis of toe, left (Acute) Chronic ulcer of left foot with fat layer exposed (Resolved) Cellulitis and abscess of foot (Acute) Chronic Problems (Last Updated 07/08/18 @ 14:20 by Nadine Yeh) Hallux varus (acquired), left foot (Chronic) Diabetes mellitus with polyneuropathy (Chronic) Osteomyelitis (Chronic) HTN (hypertension) (Chronic) Type II diabetes mellitus (Chronic) Plan 1. Cellulitis of left foot and distal LLE- Consult Dr. Quiñonez (he will determine if further imaging is needed)-- make NPO, IV vancomycin and Zosyn, CBC, BMP, A1C in am, Normal saline at 100cc/hour 2. diabetes-- q6hr BS checks with medium SSI coverage 3. Hypertension-- continue routine medications DVT prophylaxis -- LMWH Code Visit Inpatient E&M: 18545 Init Hosp L3
[2018-09-16] MEDS: 0.9% Normal Saline 1,000 ML 100 ML IV (22:38)
[2018-09-16 23:02] LABS: Hemoglobin A1c 6.9 % (4.2-6.3)
[2018-09-16 23:21] LABS: Bedside Glucose 89 mg/dL (70-110)
--- NOTE | 2018-09-16 23:25 | PCM.RX.CS ---
Consult Pharmacy has been consulted to manage selected antiobiotic: Vancomycin Type of Consult: New start Suspected Infection: Skin/Soft tissue Prior Doses of Antibiotics Received/Current Regimen: Medications Vancomycin HCl 1,750 mg/ (Sodium Chloride) 535 mls @ 250 mls/hr IV Q12H ONESIMO Vancomycin HCl 1,750 mg/ (Sodium Chloride) 535 mls @ 250 mls/hr IV X1 ONE Stop: 09/17/18 01:08 Last Admin: 09/16/18 23:02 Dose: 250 mls/hr Labs: Sodium 132 mmol/L (136-145) L 09/16/18 19:55 Potassium 4.4 mmol/L (3.5-5.1) 09/16/18 19:55 Chloride 99 mmol/L (98-107) 09/16/18 19:55 Carbon Dioxide 27.0 mmol/L (21.0-32.0) 09/16/18 19:55 Anion Gap 6 (5-15) 09/16/18 19:55 BUN 18 mg/dL (7-18) 09/16/18 19:55 Creatinine 0.93 mg/dL (0.70-1.30) 09/16/18 19:55 Est GFR (MDRD) Af Amer 104 mL/min (>60) 09/16/18 19:55 Est GFR (MDRD) Non-Af 86 mL/min (>60) 09/16/18 19:55 BUN/Creatinine Ratio 19.4 RATIO (10-20) 09/16/18 19:55 Glucose 119 mg/dL (74-106) H 09/16/18 19:55 Weight used for dosin.8 kg Estimated Creatinine Clearance: 71 Goal Trough: 15-20 mcg/mL Pharmacy Plan for Drug Dosing: Pharmacy Service will continue to monitor and adjust dosing as required. Follow-Up Labs: Trough Vancomycin Labs to be done on [date and time ordered]: 09/18/18 @1030
[2018-09-17 04:07] VITALS: BP 150/72; PULSE 96; RESP 20; TEMP 37.1; O2SAT 96
[2018-09-17] MEDS: 0.9% Normal Saline 1,000 ML 100 ML IV (04:22)
[2018-09-17 05:54] LABS: International Normalized Ratio 1.1; Prothrombin Time (Protime)PT. 14.1 SECONDS (11.7-14.9)
[2018-09-17 05:58] LABS: Absolute Neutrophil Count 11.5 X10^3/uL (2.0-7.7); Basophil# 0.05 X10^3/uL; Basophil% 0.3 % (0-1); Eosinophil# 0.09 X10^3/uL; Eosinophils% 0.6 % (0-5); Hematocrit 42.4 % (40-54); Hemoglobin 14.2 g/dl (13.0-16.5); Lymphocyte % 10.7 % (19-41); Mean Corp Hgb Conc 33.5 g/gl (32-36); Mean Corpuscular Hgb 30.5 pg (27.0-32.0); Mean Corpuscular Volume 91.2 fL (80-94); Mean Platelet Vol. 10.9 fl (6.2-12.0); Monocyte# 2.43 X10^3/uL; Monocyte% 15.3 % (0-10); Neutrophil # 11.48 X10^3/uL (2.7-7.7); Neutrophil % 72.5 % (47-70); Platelet Count 209 K/mm3 (150-450); RBC Distribution Width CV 12.9 % (11.6-14.6); RBC Distribution Width SD 42.1 fl (35.1-43.9); Red Blood Count 4.65 M/mm3 (4.6-6.2); White Blood Count 15.9 K/mm3 (4.4-11.0)
[2018-09-17 06:03] LABS: Differential Indicated SCAN CRITERIA MET; POSITIVE COUNT NO; POSITIVE DIFFERENTIAL YES; POSITIVE MORPHOLOGY NO
[2018-09-17 06:06] LABS: Bedside Glucose 132 mg/dL (70-110)
[2018-09-17 06:06] LABS: ALB/GLOB Ratio 0.8 RATIO (0.9-2.4); AST(SGOT) 11 U/L (15-37); Alanine Aminotransfer ALT/SGPT 16 U/L (16-61); Albumin, Serum 3.1 g/dL (3.2-5.0); Alkaline Phosphatase 35 U/L (45-117); Anion Gap 7 (5-15); BUN 13 mg/dL (7-18); BUN/Creat Ratio 16.6 RATIO (10-20); Calcium,Total 8.7 mg/dL (8.5-10.1); Chloride 102 mmol/L (98-107); Creatinine, Serum 0.78 mg/dL (0.70-1.30); EST Glomerular Filtration Rate 105 mL/min (>60); Est Glom Filt Rate - Afr Amer 127 mL/min (>60); Globulin 3.9 g/dL (2.2-4.2); Glucose 140 mg/dL (74-106); Magnesium 1.6 mg/dL (1.6-2.6); Potassium 4.1 mmol/L (3.5-5.1); Sodium Level 136 mmol/L (136-145)
[2018-09-17 06:49] LABS: Differential Comment SCANNED
--- NOTE | 2018-09-17 07:14 | PCM.CONS.GEN ---
Reason for Consult Date of Consultation: 09/17/18 Reason for Consultation: Left 1st toe infection History of Present Illness: The patient is a 68 year old male with history of diabetes, peripheral vascular disease s/p vascular intervention left lower extremity, s/p previous left 5th toe amputation was seen today for left 1st toe infection. He presented to the ER last night and was admitted due to infection, had low grade fever, leukocytosis, and signs/symptoms of infection to the left 1st toe. Patient relates he noticed swelling start ~2 weeks ago, and 1st toe because much worse over weekend. He has some pain. He has no reports of fever, chills, nausea or vomiting this morning, and is sitting up in bed comfortably. He relates otherwise feet have been doing well. Past Medical History Past Medical History (Chronic Problems): Chronic Problems (Last Updated 07/08/18 @ 14:20 by Nadine Yeh) Hallux varus (acquired), left foot (Chronic) Diabetes mellitus with polyneuropathy (Chronic) Osteomyelitis (Chronic) HTN (hypertension) (Chronic) Type II diabetes mellitus (Chronic) Medical History: Medical History (Last Updated 07/08/18 @ 14:20 by Nadine Yeh) PAD (peripheral artery disease) (Acute) I73.9 Hallux varus (acquired), left foot (Chronic) M20.32 Diabetes mellitus with polyneuropathy (Chronic) E11.42 Cellulitis of toe, left (Acute) L03.032 HTN (hypertension) (Chronic) I10 Type II diabetes mellitus (Chronic) E11.9 History of amputation of toe Onset Date: ~2012 Z89.429 PAD (peripheral artery disease) I73.9 Sleep apnea G47.30 Allergies No Known Allergies Allergy (Verified 09/16/18 19:29) Home Medications: Ambulatory Orders Medication Instructions Recorded Dulaglutide [Trulicity] 1.5 mg SQ ONEIL 01/06/17 Hydrochlorothiazide [Hctz] 25 mg PO DAILY 01/06/17 Insulin Glargine,Hum.rec.anlog 75 unit SQ QHS 01/06/17 [Lantus] Nifedipine [Nifedipine ER] 30 mg PO DAILY 01/06/17 Simvastatin [Zocor] 20 mg PO QHS 01/06/17 Cholecalciferol (Vitamin D3) 6,000 unit PO DAILY 09/16/18 [Vitamin D3] Cyanocobalamin (Vitamin B-12) 1,000 mcg PO DAILY 09/16/18 [B-12] Gabapentin 600 mg PO TID 09/16/18 Insulin Lispro [Humalog KwikPen] 12 units SQ TID 09/16/18 Metformin HCl 1,000 mg PO BID 09/16/18 Surgical History: Surgical History (Last Updated 07/08/18 @ 14:20 by Nadine Yeh) History of detached retina repair Z98.890, Z86.69 S/P peripheral artery angioplasty Onset Date: ~2016 Z98.62 Status post peripheral artery angioplasty Z98.62 Surgical History: no surgical history Lives: Alone Smoking Status: Never smoker Tobacco Use: Non-smoker Alcohol: None Drugs: None - *Family History Maternal Family History: Family History (Last Updated 07/08/18 @ 14:20 by Nadine Yeh) Mother Diabetes CVA (cerebral vascular accident) History Items: No pertinent history Review of Systems Constitutional: Denies: Chills, Fever Gastrointestinal: Denies: Nausea, Vomiting Skin: Reports: Wounds - Left 1st toe, previous left 5th toe ulcer Patient Problems: Active and Suspected Problems (Last Updated 07/08/18 @ 14:20 by Nadine Yeh) Type 2 diabetes mellitus with left diabetic foot infection (Acute) Sepsis (Acute) Sinus tachycardia seen on radiation monitor (Acute) - Physical Exam General: Alert, Oriented x3, Cooperative, No apparent distress Extremities: Capillary Refill Less than 3 Seconds, Diminished Peripheral Pulses, - - Left 1st toe with 2 ulcerations plantar apsect, 1 is a blister with purulence, down to the subcutaneous tissue, and the other ulceration probes deep very close to bone, there is nonviable and necrotic tissue present - there is some maloder, there is cellulitis and edema, and there is edema to the foot extending to the ankle with some cellulitis; there is no fluctuance or visible abscess. There are no other open lesions bilateral foot or ankle. Sensation is diminished bilateral foot, however patient does have POP to the left 1st toe with pressure. Motor function intact to the foot/ankle bilateral. s/p left 5th toe amputation - site is well healed. There is contracture of toes - chronic. Reviewed left foot xrays from yesterday, 3 views - there is soft tissue defect to the left hallux, degenerative changes noted. Vital Signs Temp Pulse Resp BP Pulse Ox 98.7 F 96 20 H 150/72 H 96 09/17/18 04:07 09/17/18 04:07 09/17/18 04:07 09/17/18 04:07 09/17/18 04:07 Oxygen Delivery Method Room Air Weight: 119.8 kg Body Mass Index (BMI) 40.7 Intake and Output for Last 24 Hours 09/15/18 09/16/18 09/17/18 23:59 23:59 23:59 Intake Total 1779 Balance 1779 Laboratory Tests Past 24 Hrs 09/16/18 09/16/18 09/16/18 19:55 19:55 19:55 WBC 19.6 H RBC 4.99 Hgb 15.5 Hct 45.5 MCV 91.2 MCH 31.1 MCHC 34.1 RDW 12.9 RDW Differential 42.5 Plt Count 260 MPV 11.2 Immature Gran % (Auto) 0.500 Neut % (Auto) 74.1 H Lymph % (Auto) 9.8 L [place] % (Auto) 15.2 H Eos % (Auto) 0.2 Baso % (Auto) 0.2 Absolute Neuts (auto) 14.5 H Absolute Lymphs (auto) 1.93 Total Counted Not Reportable Differential Comment SCANNED Diff Path Review October ESR PT 13.7 INR 1.1 APTT 37.9 H Sodium 132 L Potassium 4.4 Chloride 99 Carbon Dioxide 27.0 Anion Gap 6 BUN 18 Creatinine 0.93 Estim Creat Clear Calc 71.08 Est GFR (MDRD) Af Amer 104 Est GFR (MDRD) Non-Af 86 BUN/Creatinine Ratio 19.4 Glucose 119 H Hemoglobin A1c Lactic Acid Calcium 9.1 Magnesium Total Bilirubin 0.80 AST 16 ALT 20 Alkaline Phosphatase 41 L C-React Prot Ext Range Total Protein 7.8 Albumin 3.8 Globulin 4.0 Albumin/Globulin Ratio 1.0 Urine Color Urine Clarity Urine pH Ur Specific [place] Urine Protein Urine Glucose (UA) Urine Ketones Urine Occult Blood Urine Nitrite Urine Bilirubin Urine Urobilinogen Ur Leukocyte Esterase Urine RBC Urine WBC Ur Squamous Epith Cells Amorphous Sediment Urine Bacteria Urine Mucus 09/16/18 09/16/18 09/16/18 19:55 19:55 19:55 WBC RBC Hgb Hct MCV MCH MCHC RDW RDW Differential Plt Count MPV Immature Gran % (Auto) Neut % (Auto) Lymph % (Auto) [place] % (Auto) Eos % (Auto) Baso % (Auto) Absolute Neuts (auto) Absolute Lymphs (auto) Total Counted Differential Comment Diff Path Review ESR 50 H PT INR APTT Sodium Potassium Chloride Carbon Dioxide Anion Gap BUN Creatinine Estim Creat Clear Calc Est GFR (MDRD) Af Amer Est GFR (MDRD) Non-Af BUN/Creatinine Ratio Glucose Hemoglobin A1c Lactic Acid 1.0 Calcium Magnesium Total Bilirubin AST ALT Alkaline Phosphatase C-React Prot Ext Range 30.30 H Total Protein Albumin Globulin Albumin/Globulin Ratio Urine Color Urine Clarity Urine pH Ur Specific [place] Urine Protein Urine Glucose (UA) Urine Ketones Urine Occult Blood Urine Nitrite Urine Bilirubin Urine Urobilinogen Ur Leukocyte Esterase Urine RBC Urine WBC Ur Squamous Epith Cells Amorphous Sediment Urine Bacteria Urine Mucus 09/16/18 09/16/18 09/17/18 19:55 20:40 05:40 WBC 15.9 H RBC 4.65 Hgb 14.2 Hct 42.4 MCV 91.2 MCH 30.5 MCHC 33.5 RDW 12.9 RDW Differential 42.1 Plt Count 209 MPV 10.9 Immature Gran % (Auto) 0.600 Neut % (Auto) 72.5 H Lymph % (Auto) 10.7 L [place] % (Auto) 15.3 H Eos % (Auto) 0.6 Baso % (Auto) 0.3 Absolute Neuts (auto) 11.5 H Absolute Lymphs (auto) 1.70 Total Counted Not Reportable Differential Comment SCANNED Diff Path Review May foll ESR PT INR APTT Sodium Potassium Chloride Carbon Dioxide Anion Gap BUN Creatinine Estim Creat Clear Calc Est GFR (MDRD) Af Amer Est GFR (MDRD) Non-Af BUN/Creatinine Ratio Glucose Hemoglobin A1c 6.9 H Lactic Acid Calcium Magnesium Total Bilirubin AST ALT Alkaline Phosphatase C-React Prot Ext Range Total Protein Albumin Globulin Albumin/Globulin Ratio Urine Color Yellow Urine Clarity Sl. Cloudy Urine pH 7.0 Ur Specific [place] 1.010 Urine Protein 15 H Urine Glucose (UA) Normal Urine Ketones Negative Urine Occult Blood Negative Urine Nitrite Negative Urine Bilirubin Negative Urine Urobilinogen Normal Ur Leukocyte Esterase Negative Urine RBC 0 SEEN Urine WBC 0 SEEN Ur Squamous Epith Cells 0-5 SEEN Amorphous Sediment 1+ PHOS Urine Bacteria 0 SEEN Urine Mucus 0 SEEN 09/17/18 09/17/18 05:40 05:40 WBC RBC Hgb Hct MCV MCH MCHC RDW RDW Differential Plt Count MPV Immature Gran % (Auto) Neut % (Auto) Lymph % (Auto) [place] % (Auto) Eos % (Auto) Baso % (Auto) Absolute Neuts (auto) Absolute Lymphs (auto) Total Counted Differential Comment Diff Path Review ESR PT 14.1 INR 1.1 APTT Sodium 136 Potassium 4.1 Chloride 102 Carbon Dioxide 27.0 Anion Gap 7 BUN 13 Creatinine 0.78 Estim Creat Clear Calc 66.10 Est GFR (MDRD) Af Amer 127 Est GFR (MDRD) Non-Af 105 BUN/Creatinine Ratio 16.6 Glucose 140 H Hemoglobin A1c Lactic Acid Calcium 8.7 Magnesium 1.6 Total Bilirubin 0.90 AST 11 L ALT 16 Alkaline Phosphatase 35 L C-React Prot Ext Range Total Protein 7.0 Albumin 3.1 L Globulin 3.9 Albumin/Globulin Ratio 0.8 L Urine Color Urine Clarity Urine pH Ur Specific [place] Urine Protein Urine Glucose (UA) Urine Ketones Urine Occult Blood Urine Nitrite Urine Bilirubin Urine Urobilinogen Ur Leukocyte Esterase Urine RBC Urine WBC Ur Squamous Epith Cells Amorphous Sediment Urine Bacteria Urine Mucus POC Glucose 09/17/18 09/16/18 05:58 23:11 POC Glucose 132 H 89 Assessment/Plan All Active Problems (Last Updated 07/08/18 @ 14:20 by Nadine Yeh) Type 2 diabetes mellitus with left diabetic foot infection (Acute) Sepsis (Acute) Sinus tachycardia seen on radiation monitor (Acute) PAD (peripheral artery disease) (Acute) Cellulitis of toe, left (Acute) Chronic ulcer of left foot with fat layer exposed (Resolved) Cellulitis and abscess of foot (Acute) Left 1st toe ulceration probes deep close to bone Probably osteomyelitis left 1st toe Cellulitis left 1st toe Diabetes with neuropathy Peripheral arterial disease to the lower extremity Reviewed diagnostic data, reviewed findings with patient. The ulceration left 1st toe was debrided today in selective fashion removing HPK nonviable tissue. There is concern for osteomyelitis - an MRI was ordered for further evaluation, the MRI was obtained and reviewed - there is findings c/w osteomyelitis to the distal phalanx of the left 1st toe. Will further speak with patient about partial 1st toe amputation, which would be performed tomorrow, as long as ok with medicine team; patient also with hx of PAD s/p vascular intervention - new noninvasive lower extreity arterial studies were ordered, and consult Dr. Bates (patient's vascular specialist) prior to amputation procedure. A dressing was applied to the left 1st toe- gauze, thad and armando - keep clean, dry and intact. No weightbearing to the left forefoot. Reviewed case with Dr. Quintanilla this morning. Thank you for consultation.
--- NOTE | 2018-09-17 07:15 | MRI_ITS ---
STUDY: MRI LEFT FOREFOOT WITHOUT CONTRAST REASON FOR EXAM: Great toe infection with 2 open wounds, redness and inflammation. TECHNIQUE: Standardized fat and water weighted pulse sequences were obtained in all 3 orthogonal planes. COMPARISON: Radiographs 09/16/2018 and MRI images 01/08/2017. FINDINGS: There are marginal osteophytes and joint space narrowing of the metatarsophalangeal joint of the hallux (T2 series 7 images 7-9). There is joint space narrowing of the tibial and fibular sesamoids-first metatarsal articulations (T2 series 6 image 24). Normal interphalangeal joint of the hallux. There is bone edema of the first distal phalanx (inversion recovery sagittal images 5-7) with decreased T1 bone marrow signal (T1 sagittal image 7), suspicious of osteomyelitis. Normal medial and lateral heads of the flexor hallucis brevis tendons. Normal flexor and extensor hallucis longus tendons. Normal second through fifth metatarsophalangeal (MTP) joints. There is amputation of the fifth digit at the proximal phalangeal base. Normal interphalangeal joints of the second through fourth toes. Normal proximal, middle and distal phalanges of the second through fourth toes. Normal flexor and extensor tendons of the second through fourth toes. Normal visualized metatarsi. Normal intrinsic muscles of the forefoot. There is edema in the subcutis adipose space. There is no focal fluid collection to indicate soft tissue abscess. MRI/Lower Ext/No Jt/w/o IMPRESSION: Signal alteration of the distal phalanx of the great toe suspicious of osteomyelitis. Arthrosis of the first metatarsophalangeal joint and sesamoids-first metatarsal articulations. Edema in the subcutis adipose space without demonstrated soft tissue abscess. Electronically Signed: Apollo Najera MD at 12:05 EDT Tel , Service support ,
--- NOTE | 2018-09-17 07:15 | ART_ITS ---
Reason For Study: PVD Left Segmental Pressures Left posterior tibial artery = 101mmHg. Left dorsalis pedis artery = 183mmHg. The left dorsalis pedis waveforms are biphasic. The left posterior tibial artery waveforms are biphasic. Right Segmental Pressures Right brachial= 166mmHg. Right posterior tibial artery = 189mmHg. Right dorsalis pedis artery = 196mmHg. Right digit = 86 mmHg. The right dorsalis pedis waveforms are triphasic. The right posterior tibial artery waveforms are triphasic. Indices The right ankle brachial index by the dorsalis pedis is 1.18. The right ankle brachial index by the posterior tibial artery is 1.14. The right digital-brachial index is .52. The left ankle brachial index by the posterior tibial artery is .61. The left ankle brachial index by the dorsalis pedis is 1.1. Interpretation Summary Normal right lower extremity ankle brachial indices and waveforms. Diminished right TBI of 0.52 consistent with moderate small vessel disease. Normal left DP ankle brachial index of 1.1 although with biphasic doppler waveforms suggestive of possible medial calcification of vessel hurst and lack of normal compliance and moderate disease. Volume pulse recordings are maintained bilaterally to the ankle. Ordering Physician: Galileo Quiñonez Performed By: BRANDAN GARCIA T
--- NOTE | 2018-09-17 07:16 | ADUL_ITS ---
Reason For Study: ulcer ist toe LLE Left Velocities Common Femoral Artery, mid = 104.6 cm./sec. Supf Femoral Artery, prox = 102.7 cm./sec. Supf Femoral Artery, mid = 159.2 cm./sec. Supf Femoral Artery, dist. = 122.7 cm./sec. Profunda Femoral Artery = 104.5 cm./sec. Popliteal Artery, mid = 135.5 cm./sec. Post. Tibial Artery, prox = 37.2 cm./sec. Post. Tibial Artery, mid = 82.7 cm./sec. Post. Tibial Artery, dist = 55.2. cm./sec. Peroneal Artery, mid = 142.9 cm./sec. Peroneal Artery,dist = 72.8 cm./sec. Ant. Tibial Artery, prox = 156.4 cm./sec. Ant. Tibial Artery, mid = 149.8 cm./sec. Ant. Tibial Artery, dist = 162.9 cm./sec. Interpretation Summary Diminished flow proximal left posterior tibial artery suspicious for >50% stenosis. Velocity decline left distal peroneal suggestive of occlusive disease. Patent left anterior tibial artery Ordering Physician: Galileo Quiñonez Performed By: Jaron Massey RVT
--- NOTE | 2018-09-17 08:25 | PCM.PROGNOTE ---
Patient Problems: Active and Suspected Problems (Last Updated 07/08/18 @ 14:20 by Nadine Yeh) Type 2 diabetes mellitus with left diabetic foot infection (Acute) Sepsis (Acute) Sinus tachycardia seen on vehicle monitor technician (Acute) Subjective: The patient is a 68-year-old male with a past medical history of hypertension, diabetes mellitus type 2, hyperlipidemia, PVD (he has had stents placed by Dr. 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 He is a patient of Dr. Payton. Vital signs presentation to the emergency room were temperature 100.5?F, pulse rate 121, respiratory rate 18 and he was 95-97% saturated on room air. Significant lab included a white blood cell count of 19.6 with 74% neutrophils. ESR was elevated at 50. C-reactive protein is elevated to 30.3. Lactic acid was normal at 1.0. Sodium was low at 132 with a glucose of 119. Hemoglobin A1c is 6.9. UA had no evidence of infection. Blood cultures were sent from the emergency department. Plain x-ray of the left foot showed soft tissue gas in the plantar aspect of the great toe. He was admitted to the hospital and started on IV vancomycin and Zosyn for diabetic foot infection. Dr. Quiñonez was consulted. All events of the past 24 hours been reviewed. He is afebrile with a temp of 98.7 today. He is persistently tachycardic. Blood pressures have been elevated and have ranged from 150/72-171/87. Has never had a stress test. Denies CP. He does get MONSIVAIS with steps. Had two stents in the left LE by Dr. Bates ....the last was in February of 2017 - he thinks. Has some aching in the LLE at night and with ambulation. Had swelling and redness that started 1 week ago and he never went to the doctor. EKG is normal - Physical Exam General: Alert, Oriented x3, Cooperative, No apparent distress HEENT: Atraumatic, Normocephalic Oral: Dry Mucosa Neck: Supple, Trachea Midline Lungs: Clear to auscultation, Diminished - likely due to body habitus Cardiovascular: Regular Rhythm, Normal S1, Normal S2, No murmurs, No Ectopic Activity, No rub noted, No Gallop, Tachycardic Abdomen: Bowel Sounds Present, Soft, Non Tender, Non-Distended, Obese Extremities: No clubbing, No cyanosis, Edema - of the LLE distally and in the ankle and foot, - - he has calf tenderness on the left. There is increased warmth to touch of the distal Left LE. No spread of the erythema beyond the marked border. I did not examine the left foot as the wound was just examined by Dr. Quiñonez and redressed. Please see Dr. Quiñonez's dictation for description of the wound. Popliteal pulses are 2/3 bilaterally. The femoral pulses could not be adequately palpated secondary to the patient's body habitus. He has superficial varicosities of both lower extremities. He has calf tenderness on the left. there is some patchy erythema of the medial left calf. He denies any hx of VTE. Skin: Ulcer/ Wound - Left great toe Musculoskeletal: No Muscle Wasting Neurological: Cranial nerves II-XII grossly intact, Neuro grossly intact Psych/Mental Status: Normal Affect, Appropriate Vital Signs Temp Pulse Resp BP Pulse Ox 98.7 F 96 20 H 150/72 H 96 09/17/18 04:07 09/17/18 04:07 09/17/18 04:07 09/17/18 04:07 09/17/18 04:07 Oxygen Delivery Method Room Air Weight: 264 lb 1.82 oz Body Mass Index (BMI) 40.7 Intake and Output for Last 24 Hours 09/15/18 09/16/18 09/17/18 23:59 23:59 23:59 Intake Total 1779 / 178 Balance [id number] Laboratory Tests Past 24 Hrs 09/16/18 09/16/18 09/16/18 19:55 19:55 19:55 WBC 19.6 H RBC 4.99 Hgb 15.5 Hct 45.5 MCV 91.2 MCH 31.1 MCHC 34.1 RDW 12.9 RDW Differential 42.5 Plt Count 260 MPV 11.2 Immature Gran % (Auto) 0.500 Neut % (Auto) 74.1 H Lymph % (Auto) 9.8 L Dickenson % (Auto) 15.2 H Eos % (Auto) 0.2 Baso % (Auto) 0.2 Absolute Neuts (auto) 14.5 H Absolute Lymphs (auto) 1.93 Total Counted Not Reportable Differential Comment SCANNED Diff Path Review May foll ESR PT 13.7 INR 1.1 APTT 37.9 H Sodium 132 L Potassium 4.4 Chloride 99 Carbon Dioxide 27.0 Anion Gap 6 BUN 18 Creatinine 0.93 Estim Creat Clear Calc 71.08 Est GFR (MDRD) Af Amer 104 Est GFR (MDRD) Non-Af 86 BUN/Creatinine Ratio 19.4 Glucose 119 H Hemoglobin A1c Lactic Acid Calcium 9.1 Magnesium Total Bilirubin 0.80 AST 16 ALT 20 Alkaline Phosphatase 41 L C-React Prot Ext Range Total Protein 7.8 Albumin 3.8 Globulin 4.0 Albumin/Globulin Ratio 1.0 Urine Color Urine Clarity Urine pH Ur Specific Ramsey Urine Protein Urine Glucose (UA) Urine Ketones Urine Occult Blood Urine Nitrite Urine Bilirubin Urine Urobilinogen Ur Leukocyte Esterase Urine RBC Urine WBC Ur Squamous Epith Cells Amorphous Sediment Urine Bacteria Urine Mucus 09/16/18 09/16/18 09/16/18 19:55 19:55 19:55 WBC RBC Hgb Hct MCV MCH MCHC RDW RDW Differential Plt Count MPV Immature Gran % (Auto) Neut % (Auto) Lymph % (Auto) Dickenson % (Auto) Eos % (Auto) Baso % (Auto) Absolute Neuts (auto) Absolute Lymphs (auto) Total Counted Differential Comment Diff Path Review ESR 50 H PT INR APTT Sodium Potassium Chloride Carbon Dioxide Anion Gap BUN Creatinine Estim Creat Clear Calc Est GFR (MDRD) Af Amer Est GFR (MDRD) Non-Af BUN/Creatinine Ratio Glucose Hemoglobin A1c Lactic Acid 1.0 Calcium Magnesium Total Bilirubin AST ALT Alkaline Phosphatase C-React Prot Ext Range 30.30 H Total Protein Albumin Globulin Albumin/Globulin Ratio Urine Color Urine Clarity Urine pH Ur Specific Ramsey Urine Protein Urine Glucose (UA) Urine Ketones Urine Occult Blood Urine Nitrite Urine Bilirubin Urine Urobilinogen Ur Leukocyte Esterase Urine RBC Urine WBC Ur Squamous Epith Cells Amorphous Sediment Urine Bacteria Urine Mucus 09/16/18 09/16/18 09/17/18 19:55 20:40 05:40 WBC 15.9 H RBC 4.65 Hgb 14.2 Hct 42.4 MCV 91.2 MCH 30.5 MCHC 33.5 RDW 12.9 RDW Differential 42.1 Plt Count 209 MPV 10.9 Immature Gran % (Auto) 0.600 Neut % (Auto) 72.5 H Lymph % (Auto) 10.7 L Dickenson % (Auto) 15.3 H Eos % (Auto) 0.6 Baso % (Auto) 0.3 Absolute Neuts (auto) 11.5 H Absolute Lymphs (auto) 1.70 Total Counted Not Reportable Differential Comment SCANNED Diff Path Review May foll ESR PT INR APTT Sodium Potassium Chloride Carbon Dioxide Anion Gap BUN Creatinine Estim Creat Clear Calc Est GFR (MDRD) Af Amer Est GFR (MDRD) Non-Af BUN/Creatinine Ratio Glucose Hemoglobin A1c 6.9 H Lactic Acid Calcium Magnesium Total Bilirubin AST ALT Alkaline Phosphatase C-React Prot Ext Range Total Protein Albumin Globulin Albumin/Globulin Ratio Urine Color Yellow Urine Clarity Sl. Cloudy Urine pH 7.0 Ur Specific Ramsey 1.010 Urine Protein 15 H Urine Glucose (UA) Normal Urine Ketones Negative Urine Occult Blood Negative Urine Nitrite Negative Urine Bilirubin Negative Urine Urobilinogen Normal Ur Leukocyte Esterase Negative Urine RBC 0 SEEN Urine WBC 0 SEEN Ur Squamous Epith Cells 0-5 SEEN Amorphous Sediment 1+ PHOS Urine Bacteria 0 SEEN Urine Mucus 0 SEEN 09/17/18 09/17/18 05:40 05:40 WBC RBC Hgb Hct MCV MCH MCHC RDW RDW Differential Plt Count MPV Immature Gran % (Auto) Neut % (Auto) Lymph % (Auto) Dickenson % (Auto) Eos % (Auto) Baso % (Auto) Absolute Neuts (auto) Absolute Lymphs (auto) Total Counted Differential Comment Diff Path Review ESR PT 14.1 INR 1.1 APTT Sodium 136 Potassium 4.1 Chloride 102 Carbon Dioxide 27.0 Anion Gap 7 BUN 13 Creatinine 0.78 Estim Creat Clear Calc 66.10 Est GFR (MDRD) Af Amer 127 Est GFR (MDRD) Non-Af 105 BUN/Creatinine Ratio 16.6 Glucose 140 H Hemoglobin A1c Lactic Acid Calcium 8.7 Magnesium 1.6 Total Bilirubin 0.90 AST 11 L ALT 16 Alkaline Phosphatase 35 L C-React Prot Ext Range Total Protein 7.0 Albumin 3.1 L Globulin 3.9 Albumin/Globulin Ratio 0.8 L Urine Color Urine Clarity Urine pH Ur Specific Ramsey Urine Protein Urine Glucose (UA) Urine Ketones Urine Occult Blood Urine Nitrite Urine Bilirubin Urine Urobilinogen Ur Leukocyte Esterase Urine RBC Urine WBC Ur Squamous Epith Cells Amorphous Sediment Urine Bacteria Urine Mucus POC Glucose 09/17/18 09/16/18 05:58 23:11 POC Glucose 132 H 89 Medical Necessity - Tobacco Use Smoking Status: Never smoker Tobacco Use: Non-smoker Assessment/Plan All Active Problems (Last Updated 07/08/18 @ 14:20 by Nadine Yeh) Type 2 diabetes mellitus with left diabetic foot infection (Acute) Sepsis (Acute) Sinus tachycardia seen on vehicle monitor technician (Acute) PAD (peripheral artery disease) (Acute) Cellulitis of toe, left (Acute) Chronic ulcer of left foot with fat layer exposed (Resolved) Cellulitis and abscess of foot (Acute) Impressions 1. Sepsis secondary to diabetic foot infection involving the left great toe. Treated with Vancomycin and Zosyn. Dr. Quiñonez on Consult. MRI ordered. 2. PVD with hx of stents to LLE on 2 occasions in the past he thinks [address] Bates consulted. 3. Diabetes mellitus type [id number] with hemoglobin A1c of 6.9% 4. Obstructive sleep apnea-compliant with CPAP 5. Morbid obesity 6. Hypertension 7. Sinus tachycardia-likely secondary to infection and dehydration. Creatinine has improved with hydration and so has the heart rate. 8. Hyperlipidemia 9. Diabetic peripheral polyneuropathy MRI ordered. Await the results - if he has osteomyelitis he will likely need amputation The patient was instructed to examine his feet every night. If he has any opening in the skin, redness, swelling or increased pain he is to go to his PCP or Dr. Payton as soon as possible. This patient has multiple risk factors for coronary artery disease which include age, diabetes mellitus, hypertension, hyperlipidemia, hx of vascular disease. He has neuropathy secondary to his diabetes. Would obtain a stress test in the future because he has MONSIVAIS and walks very slowly due to this. Start a 2000-calorie cardiac diet and change Accu-Cheks to before meals and at bedtime. Restart antihypertensives Decrease the IV fluids since he is going to be eating and drinking today. Weight loss was advised. We will discuss plans for treatment with Dr. Quiñonez once the results of the MRI of the left foot are available. Code Visit Inpatient E&M: 22082 Subs Hosp L2
[2018-09-17 09:13] VITALS: BP 154/78; PULSE 90; RESP 18; TEMP 37.2; O2SAT 98
--- NOTE | 2018-09-17 09:27 | VDLE_ITS ---
Reason For Study: pain RIGHT LEFT CFV is compressible, spontaneous, phasic, GSV is normal. competent and demonstrates normal CFV is compressible, spontaneous, phasic, augmentation. competent, and demonstrates normal Procedure augmentation. Exam performed in department. FV is compressible, spontaneous, phasic, The exam was diagnostic. competent and demonstrates normal A preliminary report was called and/or faxed augmentation. to the pt's RN. POP V is compressible, spontaneous, phasic, competent and demonstrates normal augmentation. T/P Trunk is compressible. PTV is compressible. LT PerV is compressible. Interpretation Summary There is no evidence of left lower extremity deep vein thrombosis. Left greater saphenous vein appears patent and compressible segmentally. Normal flow patterns right common femoral vein Ordering Physician: Diana Quintanilla Performed By: Jaron Massey RVT
[2018-09-17 10:04] LABS: Cholesterol 98 mg/dL (200); High Density Lipoprotein 47 mg/dL; Triglycerides 46 mg/dL; Very Low Density Lipoprotein 9 mg/dL (5-40)
[2018-09-17] MEDS: LORazepam 2 MG/ML Syringe 0.5 MG IV (10:10)
[2018-09-17] MEDS: Gabapentin 600 MG Tablet PO ×3 (10:10→21:18)
--- NOTE | 2018-09-17 11:33 | CASEMGMT ---
RN CM Assessment Presentation: Cellulitis of L foot and distal LLE. MRI of foot pending. Intro role of CM and purpose of RN CM assessment to patient in room. He is awake, alert and able to partcipate in assessment. Demographics, PCP and Pharmacy verified. PCP: DO Dexter Reid Specialists: Dr. Quiñonez, Dr. Bates Preferred Pharmacy: [facility] preferred Insurance: [facility] Prescription Benefit: yes LNOK: Kraig Mayberry Living Arrangements: pt lives in mobile home, 3 steps into home. Pt states he was independent in all ADL. No assistance at this time. Transportation: Drives DME:cane, CPAP. Preferred DME company: [employer] HHC: [facility] in past, pt does not know which agency. Patient DC goals: Home DC PLAN: anticipate home on discharge. Dmitri SANTOS RN ACM
[2018-09-17] MEDS: NIFEdipine 30 MG Tablet PO (12:02)
[2018-09-17] MEDS: Glucerna Shake 120 ML LIQUID PO ×3 (12:02→17:15)
[2018-09-17] MEDS: 0.9% NaCl Peripheral Flush Adult/Peds IV (12:09)
--- NOTE | 2018-09-17 12:16 | PCM.CONS.GEN ---
Problem List (1) PAD (peripheral artery disease) Status: Acute (2) Cellulitis of toe, left Status: Acute (3) Osteomyelitis Status: Chronic Reason for Consult Date of Consultation: 09/17/18 Reason for Consultation: peripheral arterial disease History of Present Illness: The patient is a 68 year old M who presented with 1 week history of left lower ankle and foot swelling. Patient stated he recently switched to a new pair of shoes at work. He had a neighbor look at his left foot yesterday and noted two openings in the left great toe on the bottom. Patient notes he had very little drainage, maybe pus coming out. Patient follows with Dr. Payton as an outpatient. He is a known patient to Dr. Bates. Most recent lower extremity intervention was performed in February 13, 2017 because of an ischemic ulceration of the left great toe. Dr. Bates performed an abdominal pelvic left lower extremity arteriogram with a 3.5 tapering to 3 mm 210 are long Jodee cross balloon angioplasty of the posterior tibial artery. The patient is noted to have small vessel disease of the left foot with occlusive disease of the digital vessels. There was a 10 cm long area of diffuse stenosis of the left posterior tibial with a focal area as high as 80%. Patient denies any recent symptoms of claudication. Patient denies previous myocardial infarction. Patient's most recent creatinine was 0.78. Past Medical History Past Medical History (Chronic Problems): Chronic Problems (Last Updated 07/08/18 @ 14:20 by Nadine Yeh) Hallux varus (acquired), left foot (Chronic) Diabetes mellitus with polyneuropathy (Chronic) Osteomyelitis (Chronic) HTN (hypertension) (Chronic) Type II diabetes mellitus (Chronic) Medical History: Medical History (Last Reviewed 09/17/18 @ 16:48 by Sandy Maharaj PA-C) PAD (peripheral artery disease) (Acute) I73.9 Hallux varus (acquired), left foot (Chronic) M20.32 Diabetes mellitus with polyneuropathy (Chronic) E11.42 Cellulitis of toe, left (Acute) L03.032 HTN (hypertension) (Chronic) I10 Type II diabetes mellitus (Chronic) E11.9 History of amputation of toe Onset Date: ~2012 Z89.429 PAD (peripheral artery disease) I73.9 Sleep apnea G47.30 Allergies No Known Allergies Allergy (Verified 09/16/18 19:29) Home Medications: Ambulatory Orders Medication Instructions Recorded Dulaglutide [Trulicity] 1.5 mg SQ ONEIL 01/06/17 Hydrochlorothiazide [Hctz] 25 mg PO DAILY 01/06/17 Insulin Glargine,Hum.rec.anlog 75 unit SQ QHS 01/06/17 [Lantus] Nifedipine [Nifedipine ER] 30 mg PO DAILY 01/06/17 Simvastatin [Zocor] 20 mg PO QHS 01/06/17 Cholecalciferol (Vitamin D3) 6,000 unit PO DAILY 09/16/18 [Vitamin D3] Cyanocobalamin (Vitamin B-12) 1,000 mcg PO DAILY 09/16/18 [B-12] Gabapentin 600 mg PO TID 09/16/18 Insulin Lispro [Humalog KwikPen] 12 units SQ TID 09/16/18 Metformin HCl 1,000 mg PO BID 09/16/18 Surgical History: Surgical History (Last Reviewed 09/17/18 @ 16:48 by Sandy Maharaj PA-C) History of detached retina repair Z98.890, Z86.69 S/P peripheral artery angioplasty Onset Date: ~2016 Z98.62 Status post peripheral artery angioplasty Z98.62 Surgical History: no surgical history Lives: Alone Smoking Status: Never smoker Tobacco Use: Non-smoker Alcohol: None Drugs: None - *Family History Maternal Family History: Family History (Last Reviewed 09/17/18 @ 16:48 by Sandy Maharaj PA-C) Mother Diabetes CVA (cerebral vascular accident) History Items: No pertinent history Review of Systems Constitutional: Denies: Chills, Fever, Weight Change HEENT: Denies: Head Aches, Sinus Congestion, Sinus Drainage Cardiovascular: Denies: Chest Pain, Palpitations Respiratory: Denies: Cough, Shortness of breath at rest, Sputum production Gastrointestinal: Denies: Abdominal Pain, Nausea, Vomiting Genitourinary: Denies: Dysuria Musculoskeletal: Reports: Foot Pain. Denies: Joint Pain, Joint Tenderness Skin: Denies: Rash, Wounds Neurological: Denies: Numbness, Tingling, Focal weakness Psychiatric: Denies: Anxiety, Depression, Homicidal Ideations, Suicidal Ideations Hematologic/ Lymphatic: Denies: Easy Bruising, Easy Bleeding Patient Problems: Active and Suspected Problems (Last Updated 07/08/18 @ 14:20 by Nadine Yeh) Type 2 diabetes mellitus with left diabetic foot infection (Acute) Sepsis (Acute) Sinus tachycardia seen on monitoring and evaluation advisor (Acute) - Physical Exam General: Alert, Oriented x3, Cooperative HEENT: Atraumatic, PERRLA, EOMI, Normocephalic Neck: Supple, No JVD, Negative Carotid Bruits Lungs: Clear to auscultation, Normal air movement Cardiovascular: Regular rate, No murmurs Abdomen: Bowel Sounds Present, Soft, Non Tender Extremities: Diminished Peripheral Pulses, - - Pulses: Bilateral femoral- 1+, Popliteal- 1+, Pedal- 0. Difficult exam due to body habitus. Bilateral lower extremities warm. Skin: Ulcer/ Wound - left great toe. Previous left fifth digit amputation. Musculoskeletal: No Tenderness to Palpation of Joints or Extremities Neurological: Neuro grossly intact Psych/Mental Status: Normal Affect, Appropriate Vital Signs Temp Pulse Resp BP Pulse Ox 98.9 F 90 18 154/78 H 98 09/17/18 09:13 09/17/18 09:13 09/17/18 09:13 09/17/18 09:13 09/17/18 09:13 Oxygen Delivery Method Room Air Weight: 264 lb 1.82 oz Body Mass Index (BMI) 40.7 Intake and Output for Last 24 Hours 09/15/18 09/16/18 09/17/18 23:59 23:59 23:59 Intake Total 1780 / 1780 Balance 1780 / 1780 Microbiology Past 72 Hours 09/17/18 07:15 Gram Stain - Final Wound - Left Foot Laboratory Tests Past 24 Hrs 09/16/18 09/16/18 09/16/18 19:55 19:55 19:55 WBC 19.6 H RBC 4.99 Hgb 15.5 Hct 45.5 MCV 91.2 MCH 31.1 MCHC 34.1 RDW 12.9 RDW Differential 42.5 Plt Count 260 MPV 11.2 Immature Gran % (Auto) 0.500 Neut % (Auto) 74.1 H Lymph % (Auto) 9.8 L [place] % (Auto) 15.2 H Eos % (Auto) 0.2 Baso % (Auto) 0.2 Absolute Neuts (auto) 14.5 H Absolute Lymphs (auto) 1.93 Total Counted Not Reportable Differential Comment SCANNED Diff Path Review May foll ESR PT 13.7 INR 1.1 APTT 37.9 H Sodium 132 L Potassium 4.4 Chloride 99 Carbon Dioxide 27.0 Anion Gap 6 BUN 18 Creatinine 0.93 Estim Creat Clear Calc 71.08 Est GFR (MDRD) Af Amer 104 Est GFR (MDRD) Non-Af 86 BUN/Creatinine Ratio 19.4 Glucose 119 H Hemoglobin A1c Lactic Acid Calcium 9.1 Magnesium Total Bilirubin 0.80 AST 16 ALT 20 Alkaline Phosphatase 41 L C-React Prot Ext Range Total Protein 7.8 Albumin 3.8 Globulin 4.0 Albumin/Globulin Ratio 1.0 Triglycerides Cholesterol LDL Cholesterol VLDL Cholesterol HDL Cholesterol Urine Color Urine Clarity Urine pH Ur Specific [place] Urine Protein Urine Glucose (UA) Urine Ketones Urine Occult Blood Urine Nitrite Urine Bilirubin Urine Urobilinogen Ur Leukocyte Esterase Urine RBC Urine WBC Ur Squamous Epith Cells Amorphous Sediment Urine Bacteria Urine Mucus S.aureus Protein A PCR MRSA (PCR) 09/16/18 09/16/18 09/16/18 19:55 19:55 19:55 WBC RBC Hgb Hct MCV MCH MCHC RDW RDW Differential Plt Count MPV Immature Gran % (Auto) Neut % (Auto) Lymph % (Auto) [place] % (Auto) Eos % (Auto) Baso % (Auto) Absolute Neuts (auto) Absolute Lymphs (auto) Total Counted Differential Comment Diff Path Review ESR 50 H PT INR APTT Sodium Potassium Chloride Carbon Dioxide Anion Gap BUN Creatinine Estim Creat Clear Calc Est GFR (MDRD) Af Amer Est GFR (MDRD) Non-Af BUN/Creatinine Ratio Glucose Hemoglobin A1c Lactic Acid 1.0 Calcium Magnesium Total Bilirubin AST ALT Alkaline Phosphatase C-React Prot Ext Range 30.30 H Total Protein Albumin Globulin Albumin/Globulin Ratio Triglycerides Cholesterol LDL Cholesterol VLDL Cholesterol HDL Cholesterol Urine Color Urine Clarity Urine pH Ur Specific [place] Urine Protein Urine Glucose (UA) Urine Ketones Urine Occult Blood Urine Nitrite Urine Bilirubin Urine Urobilinogen Ur Leukocyte Esterase Urine RBC Urine WBC Ur Squamous Epith Cells Amorphous Sediment Urine Bacteria Urine Mucus S.aureus Protein A PCR MRSA (PCR) 09/16/18 09/16/18 09/17/18 19:55 20:40 05:40 WBC 15.9 H RBC 4.65 Hgb 14.2 Hct 42.4 MCV 91.2 MCH 30.5 MCHC 33.5 RDW 12.9 RDW Differential 42.1 Plt Count 209 MPV 10.9 Immature Gran % (Auto) 0.600 Neut % (Auto) 72.5 H Lymph % (Auto) 10.7 L [place] % (Auto) 15.3 H Eos % (Auto) 0.6 Baso % (Auto) 0.3 Absolute Neuts (auto) 11.5 H Absolute Lymphs (auto) 1.70 Total Counted Not Reportable Differential Comment SCANNED Diff Path Review May foll ESR PT INR APTT Sodium Potassium Chloride Carbon Dioxide Anion Gap BUN Creatinine Estim Creat Clear Calc Est GFR (MDRD) Af Amer Est GFR (MDRD) Non-Af BUN/Creatinine Ratio Glucose Hemoglobin A1c 6.9 H Lactic Acid Calcium Magnesium Total Bilirubin AST ALT Alkaline Phosphatase C-React Prot Ext Range Total Protein Albumin Globulin Albumin/Globulin Ratio Triglycerides Cholesterol LDL Cholesterol VLDL Cholesterol HDL Cholesterol Urine Color Yellow Urine Clarity Sl. Cloudy Urine pH 7.0 Ur Specific [place] 1.010 Urine Protein 15 H Urine Glucose (UA) Normal Urine Ketones Negative Urine Occult Blood Negative Urine Nitrite Negative Urine Bilirubin Negative Urine Urobilinogen Normal Ur Leukocyte Esterase Negative Urine RBC 0 SEEN Urine WBC 0 SEEN Ur Squamous Epith Cells 0-5 SEEN Amorphous Sediment 1+ PHOS Urine Bacteria 0 SEEN Urine Mucus 0 SEEN S.aureus Protein A PCR MRSA (PCR) 09/17/18 09/17/18 09/17/18 05:40 05:40 05:40 WBC RBC Hgb Hct MCV MCH MCHC RDW RDW Differential Plt Count MPV Immature Gran % (Auto) Neut % (Auto) Lymph % (Auto) [place] % (Auto) Eos % (Auto) Baso % (Auto) Absolute Neuts (auto) Absolute Lymphs (auto) Total Counted Differential Comment Diff Path Review ESR PT 14.1 INR 1.1 APTT Sodium 136 Potassium 4.1 Chloride 102 Carbon Dioxide 27.0 Anion Gap 7 BUN 13 Creatinine 0.78 Estim Creat Clear Calc 66.10 Est GFR (MDRD) Af Amer 127 Est GFR (MDRD) Non-Af 105 BUN/Creatinine Ratio 16.6 Glucose 140 H Hemoglobin A1c Lactic Acid Calcium 8.7 Magnesium 1.6 Total Bilirubin 0.90 AST 11 L ALT 16 Alkaline Phosphatase 35 L C-React Prot Ext Range Total Protein 7.0 Albumin 3.1 L Globulin 3.9 Albumin/Globulin Ratio 0.8 L Triglycerides 46 Cholesterol 98 LDL Cholesterol 42 VLDL Cholesterol 9 HDL Cholesterol 47 Urine Color Urine Clarity Urine pH Ur Specific [place] Urine Protein Urine Glucose (UA) Urine Ketones Urine Occult Blood Urine Nitrite Urine Bilirubin Urine Urobilinogen Ur Leukocyte Esterase Urine RBC Urine WBC Ur Squamous Epith Cells Amorphous Sediment Urine Bacteria Urine Mucus S.aureus Protein A PCR MRSA (PCR) 09/17/18 07:15 WBC RBC Hgb Hct MCV MCH MCHC RDW RDW Differential Plt Count MPV Immature Gran % (Auto) Neut % (Auto) Lymph % (Auto) [place] % (Auto) Eos % (Auto) Baso % (Auto) Absolute Neuts (auto) Absolute Lymphs (auto) Total Counted Differential Comment Diff Path Review ESR PT INR APTT Sodium Potassium Chloride Carbon Dioxide Anion Gap BUN Creatinine Estim Creat Clear Calc Est GFR (MDRD) Af Amer Est GFR (MDRD) Non-Af BUN/Creatinine Ratio Glucose Hemoglobin A1c Lactic Acid Calcium Magnesium Total Bilirubin AST ALT Alkaline Phosphatase C-React Prot Ext Range Total Protein Albumin Globulin Albumin/Globulin Ratio Triglycerides Cholesterol LDL Cholesterol VLDL Cholesterol HDL Cholesterol Urine Color Urine Clarity Urine pH Ur Specific [place] Urine Protein Urine Glucose (UA) Urine Ketones Urine Occult Blood Urine Nitrite Urine Bilirubin Urine Urobilinogen Ur Leukocyte Esterase Urine RBC Urine WBC Ur Squamous Epith Cells Amorphous Sediment Urine Bacteria Urine Mucus S.aureus Protein A PCR Cancelled MRSA (PCR) Cancelled POC Glucose 09/17/18 09/16/18 05:58 23:11 POC Glucose 132 H 89 Assessment/Plan All Active Problems (Last Updated 07/08/18 @ 14:20 by Nadine Yeh) Type 2 diabetes mellitus with left diabetic foot infection (Acute) Sepsis (Acute) Sinus tachycardia seen on monitoring and evaluation advisor (Acute) PAD (peripheral artery disease) (Acute) Cellulitis of toe, left (Acute) Chronic ulcer of left foot with fat layer exposed (Resolved) Cellulitis and abscess of foot (Acute) I have been consulted in conjunction with Dr. Bates. He will independently evaluate this patient. Impression: Cellulitis and infection of the left great toe. Peripheral arterial disease. Plan: Patient has been discussed with Dr. Bates. Dr. Bates will plan to perform an APLL with possible intervention of the left lower extremity on Sunday. Patient has had the opportunity to ask and have questions answered. Patient verbally understands and agrees with the plan. Thank you for allowing us to participate in this patient's care. Code Visit Office Visits / Consults: [id number] IP Consult L3
[2018-09-17 12:20] LABS: Bedside Glucose 247 mg/dL (70-110)
[2018-09-17 12:32] LABS: Pathologist Review Reviewed
[2018-09-17 12:36] LABS: Pathologist Review Reviewed
[2018-09-17] MEDS: Insulin Lispro 100 UNIT/ML INSULN.PEN 8 UNIT SC ×2 (13:23→17:12)
[2018-09-17] MEDS: Insulin Lispro 100 UNIT/ML INSULN.PEN SQ ×3 (13:24→21:19)
[2018-09-17 15:36] VITALS: BP 148/84; PULSE 97; RESP 16; TEMP 37.3; O2SAT 96
[2018-09-17 16:11] LABS: Bedside Glucose 237 mg/dL (70-110)
[2018-09-17 20:20] VITALS: BP 152/74; PULSE 106; RESP 16; TEMP 37.5; O2SAT 95
--- NOTE | 2018-09-17 21:10 | NURSING ---
Per Darwin in pharmacy, okay to hang 2300 vanc after 4 hr zosyn infusing. Lolis LAWSON notified.
[2018-09-17] MEDS: 0.9% Normal Saline 1,000 ML 40 ML IV (21:16)
[2018-09-17] MEDS: Atorvastatin Calcium 10 MG Tablet PO (21:18)
[2018-09-17 21:35] LABS: Bedside Glucose 280 mg/dL (70-110)
[2018-09-18 02:00] VITALS: BP 143/68; PULSE 86; RESP 16; TEMP 37; O2SAT 94
[2018-09-18] MEDS: Gabapentin 600 MG Tablet PO ×3 (05:35→22:44)
--- NOTE | 2018-09-18 06:14 | PCM.PN.SRG ---
Patient Problems: Active and Suspected Problems (Last Reviewed 09/17/18 @ 16:48 by Sandy Maharaj PA-C) Type 2 diabetes mellitus with left diabetic foot infection (Acute) Sepsis (Acute) Sinus tachycardia seen on nurse monitoring (Acute) Subjective: No particular complaints. Interested in timeline of treatment - Physical Exam Vital Signs Temp Pulse Resp BP Pulse Ox 98.6 F 86 16 143/68 H 94 09/18/18 02:00 09/18/18 02:00 09/18/18 02:00 09/18/18 02:00 09/18/18 02:00 Oxygen Delivery Method CPAP Weight: 264 lb 1.82 oz Body Mass Index (BMI) 40.7 Intake and Output for Last 24 Hours 09/16/18 09/17/18 09/18/18 23:59 23:59 23:59 Intake Total 2815 / 2815 928 / 928 Balance 2815 / 2815 928 / 928 Microbiology Past 72 Hours 09/17/18 07:15 Gram Stain - Final Wound - Left Foot Laboratory Tests Past 24 Hrs 09/16/18 09/17/18 09/17/18 19:55 05:40 05:40 WBC RBC Hgb Hct MCV MCH MCHC RDW RDW Differential Plt Count Neut % (Auto) Absolute Neuts (auto) Total Counted Not Reportable Differential Comment SCANNED Diff Path Review Reviewed Reviewed Sodium Potassium Chloride Carbon Dioxide Anion Gap BUN Creatinine Est GFR (MDRD) Af Amer Est GFR (MDRD) Non-Af BUN/Creatinine Ratio Glucose Hemoglobin A1c Calcium Triglycerides 46 Cholesterol 98 LDL Cholesterol 42 VLDL Cholesterol 9 HDL Cholesterol 47 S.aureus Protein A PCR MRSA (PCR) 09/17/18 09/18/18 09/18/18 07:15 05:58 05:58 WBC Pending RBC Pending Hgb Pending Hct Pending MCV Pending MCH Pending MCHC Pending RDW Pending RDW Differential Pending Plt Count Pending Neut % (Auto) Pending Absolute Neuts (auto) Pending Total Counted Pending Differential Comment Diff Path Review Sodium Pending Potassium Pending Chloride Pending Carbon Dioxide Pending Anion Gap Pending BUN Pending Creatinine Pending Est GFR (MDRD) Af Amer Pending Est GFR (MDRD) Non-Af Pending BUN/Creatinine Ratio Pending Glucose Pending Hemoglobin A1c Calcium Pending Triglycerides Cholesterol LDL Cholesterol VLDL Cholesterol HDL Cholesterol S.aureus Protein A PCR Cancelled MRSA (PCR) Cancelled 09/18/18 05:58 WBC RBC Hgb Hct MCV MCH MCHC RDW RDW Differential Plt Count Neut % (Auto) Absolute Neuts (auto) Total Counted Differential Comment Diff Path Review Sodium Potassium Chloride Carbon Dioxide Anion Gap BUN Creatinine Est GFR (MDRD) Af Amer Est GFR (MDRD) Non-Af BUN/Creatinine Ratio Glucose Hemoglobin A1c Pending Calcium Triglycerides Cholesterol LDL Cholesterol VLDL Cholesterol HDL Cholesterol S.aureus Protein A PCR MRSA (PCR) POC Glucose 09/17/18 09/17/18 09/17/18 21:18 16:02 12:16 POC Glucose 280 H 237 H 247 H Medical Necessity - Tobacco Use Smoking Status: Never smoker Tobacco Use: Non-smoker Assessment/Plan All Active Problems (Last Reviewed 09/17/18 @ 16:48 by Sandy Maharaj PA-C) Type 2 diabetes mellitus with left diabetic foot infection (Acute) Sepsis (Acute) Sinus tachycardia seen on nurse monitoring (Acute) PAD (peripheral artery disease) (Acute) Cellulitis of toe, left (Acute) Chronic ulcer of left foot with fat layer exposed (Resolved) Cellulitis and abscess of foot (Acute) Non invasive testing suggests moderated occlusive disease left lower extremity with probable recurrent stenosis left posterior tibial. Critical ischemia does not seem to be present but vascular disease is likely contributing to the overall process. I believe neuropathy was the primary etiology however. Will work with incinerator plant laborer on scheduling LLE arteriogram. Tentative Sunday unless other time is available. Luana
--- NOTE | 2018-09-18 06:18 | PN.SURG_ITS ---
Patient Problems: Active and Suspected Problems (Last Reviewed 09/17/18 @ 16:48 by Sandy Maharaj PA-C) Type 2 diabetes mellitus with left diabetic foot infection (Acute) Sepsis (Acute) Sinus tachycardia seen on ent physician (Acute) Subjective: No particular complaints. Interested in timeline of treatment - Physical Exam Vital Signs Temp Pulse Resp BP Pulse Ox 98.6 F 86 16 143/68 H 94 09/18/18 02:00 09/18/18 02:00 09/18/18 02:00 09/18/18 02:00 09/18/18 02:00 Oxygen Delivery Method CPAP Weight: 264 lb 1.82 oz Body Mass Index (BMI) 40.7 Intake and Output for Last 24 Hours 09/16/18 09/17/18 09/18/18 23:59 23:59 23:59 Intake Total 2815 / 2815 928 / 928 Balance 2815 / 2815 928 / 928 Microbiology Past 72 Hours 09/17/18 07:15 Gram Stain - Final Wound - Left Foot Laboratory Tests Past 24 Hrs 09/16/18 09/17/18 09/17/18 19:55 05:40 05:40 WBC RBC Hgb Hct MCV MCH MCHC RDW RDW Differential Plt Count Neut % (Auto) Absolute Neuts (auto) Total Counted Not Reportable Differential Comment SCANNED Diff Path Review Reviewed Reviewed Sodium Potassium Chloride Carbon Dioxide Anion Gap BUN Creatinine Est GFR (MDRD) Af Amer Est GFR (MDRD) Non-Af BUN/Creatinine Ratio Glucose Hemoglobin A1c Calcium Triglycerides 46 Cholesterol 98 LDL Cholesterol 42 VLDL Cholesterol 9 HDL Cholesterol 47 S.aureus Protein A PCR MRSA (PCR) 09/17/18 09/18/18 09/18/18 07:15 05:58 05:58 WBC Pending RBC Pending Hgb Pending Hct Pending MCV Pending MCH Pending MCHC Pending RDW Pending RDW Differential Pending Plt Count Pending Neut % (Auto) Pending Absolute Neuts (auto) Pending Total Counted Pending Differential Comment Diff Path Review Sodium Pending Potassium Pending Chloride Pending Carbon Dioxide Pending Anion Gap Pending BUN Pending Creatinine Pending Est GFR (MDRD) Af Amer Pending Est GFR (MDRD) Non-Af Pending BUN/Creatinine Ratio Pending Glucose Pending Hemoglobin A1c Calcium Pending Triglycerides Cholesterol LDL Cholesterol VLDL Cholesterol HDL Cholesterol S.aureus Protein A PCR Cancelled MRSA (PCR) Cancelled 09/18/18 05:58 WBC RBC Hgb Hct MCV MCH MCHC RDW RDW Differential Plt Count Neut % (Auto) Absolute Neuts (auto) Total Counted Differential Comment Diff Path Review Sodium Potassium Chloride Carbon Dioxide Anion Gap BUN Creatinine Est GFR (MDRD) Af Amer Est GFR (MDRD) Non-Af BUN/Creatinine Ratio Glucose Hemoglobin A1c Pending Calcium Triglycerides Cholesterol LDL Cholesterol VLDL Cholesterol HDL Cholesterol S.aureus Protein A PCR MRSA (PCR) POC Glucose 09/17/18 09/17/18 09/17/18 21:18 16:02 12:16 POC Glucose 280 H 237 H 247 H Medical Necessity - Tobacco Use Smoking Status: Never smoker Tobacco Use: Non-smoker Assessment/Plan All Active Problems (Last Reviewed 09/17/18 @ 16:48 by Sandy Maharaj PA-C) Type 2 diabetes mellitus with left diabetic foot infection (Acute) Sepsis (Acute) Sinus tachycardia seen on ent physician (Acute) PAD (peripheral artery disease) (Acute) Cellulitis of toe, left (Acute) Chronic ulcer of left foot with fat layer exposed (Resolved) Cellulitis and abscess of foot (Acute) Non invasive testing suggests moderated occlusive disease left lower extremity with probable recurrent stenosis left posterior tibial. Critical ischemia does not seem to be present but vascular disease is likely contributing to the overall process. I believe neuropathy was the primary etiology however. Will work with phlebotomist medical lab assistant on scheduling LLE arteriogram. Tentative Sunday unless other time is available. Luana
[2018-09-18 06:29] LABS: Anion Gap 8 (5-15); BUN 11 mg/dL (7-18); BUN/Creat Ratio 12.1 RATIO (10-20); Chloride 100 mmol/L (98-107); Creatinine, Serum 0.91 mg/dL (0.70-1.30); EST Glomerular Filtration Rate 88 mL/min (>60); Est Glom Filt Rate - Afr Amer 107 mL/min (>60); Estimated Creatinine Clearance 72.64 ml/min; Glucose 198 mg/dL (74-106); Potassium 4.7 mmol/L (3.5-5.1); Sodium Level 133 mmol/L (136-145)
[2018-09-18 06:32] LABS: Absolute Lymphocyte Count 2.68 X10^3/ul (0.83-4.51); Absolute Neutrophil Count 11.4 X10^3/uL (2.0-7.7); Basophil% 0.6 % (0-1); Eosinophil# 0.21 X10^3/uL; Eosinophils% 1.2 % (0-5); Hematocrit 46.5 % (40-54); Hemoglobin 15.8 g/dl (13.0-16.5); Lymphocyte # 2.68 X10^3/ul (4.0); Lymphocyte % 15.7 % (19-41); Mean Corpuscular Hgb 31.1 pg (27.0-32.0); Mean Corpuscular Volume 91.5 fL (80-94); Mean Platelet Vol. 10.9 fl (6.2-12.0); Monocyte# 2.56 X10^3/uL; Neutrophil # 11.42 X10^3/uL (2.7-7.7); Platelet Count 235 K/mm3 (150-450); RBC Distribution Width SD 43.2 fl (35.1-43.9); Red Blood Count 5.08 M/mm3 (4.6-6.2); White Blood Count 17.1 K/mm3 (4.4-11.0)
[2018-09-18 06:35] LABS: Differential Indicated SCAN CRITERIA MET; POSITIVE COUNT NO; POSITIVE DIFFERENTIAL YES; POSITIVE MORPHOLOGY NO
[2018-09-18] MEDS: Insulin Lispro 100 UNIT/ML INSULN.PEN SQ ×3 (06:48→17:24)
[2018-09-18 06:56] LABS: Bedside Glucose 188 mg/dL (70-110)
--- NOTE | 2018-09-18 07:51 | PCM.PROGNOTE ---
Patient Problems: Active and Suspected Problems (Last Reviewed 09/17/18 @ 16:48 by Sandy Maharaj PA-C) Type 2 diabetes mellitus with left diabetic foot infection (Acute) Sepsis (Acute) Sinus tachycardia seen on electronic device monitor (Acute) Subjective: Patient was seen today for follow up on left 1st toe. MRI shows osteomyelitis to the distal phalanx of the 1st toe. Patient also has lower extremity PAD, has been seen by Dr. Bates, with tentative planning to go to research laboratory manager possibly Sunday. Patient resting comfortably in bed, no complaints, but does relate to some pain to the left 1st toe. Last set of vitals shows patient afebrile, pulse 86; patient does not complain of fever, chills, nausea or vomiting. - Physical Exam General: Alert, Oriented x3, Cooperative, No apparent distress Extremities: No Calf Tenderness, - - Left 1st toe with 2 ulcerations plantar apsect, down to the subcutan, and lateral ulceration probes deep very close to bone, there is nonviable tissue present - there is no maloder today, there is cellulitis and edema which is improved, and there is edema to the foot extending to the ankle with some cellulitis - again this is improved; there is no fluctuance, no crepitus, no visible abscess. There is some drainage from the ulceration c/w infection, are no other open lesions bilateral foot or ankle. Sensation is diminished bilateral foot, however patient does have POP to the left 1st toe with pressure. There is chronic PAD to the left foot, no acute worsening clinically since yesterday. Vital Signs Temp Pulse Resp BP Pulse Ox 98.6 F 86 16 143/68 H 94 09/18/18 02:00 09/18/18 02:00 09/18/18 02:00 09/18/18 02:00 09/18/18 02:00 Oxygen Delivery Method CPAP Weight: 119.8 kg Body Mass Index (BMI) 40.7 Intake and Output for Last 24 Hours 09/16/18 09/17/18 09/18/18 23:59 23:59 23:59 Intake Total 2815 / 2815 1863 / 1863 Output Total 850 / 850 Balance 2815 / 2815 1013 / 1013 Microbiology Past 72 Hours 09/17/18 07:15 Gram Stain - Final Wound - Left Foot Laboratory Tests Past 24 Hrs 09/16/18 09/17/18 09/17/18 19:55 05:40 05:40 WBC RBC Hgb Hct MCV MCH MCHC RDW RDW Differential Plt Count MPV Immature Gran % (Auto) Neut % (Auto) Lymph % (Auto) [place] % (Auto) Eos % (Auto) Baso % (Auto) Absolute Neuts (auto) Absolute Lymphs (auto) Total Counted Diff Path Review Reviewed Reviewed Sodium Potassium Chloride Carbon Dioxide Anion Gap BUN Creatinine Estim Creat Clear Calc Est GFR (MDRD) Af Amer Est GFR (MDRD) Non-Af BUN/Creatinine Ratio Glucose Hemoglobin A1c Calcium Triglycerides 46 Cholesterol 98 LDL Cholesterol 42 VLDL Cholesterol 9 HDL Cholesterol 47 S.aureus Protein A PCR MRSA (PCR) 09/17/18 09/18/18 09/18/18 07:15 05:58 05:58 WBC 17.1 H RBC 5.08 Hgb 15.8 Hct 46.5 MCV 91.5 MCH 31.1 MCHC 34.0 RDW 13.0 RDW Differential 43.2 Plt Count 235 MPV 10.9 Immature Gran % (Auto) 0.500 Neut % (Auto) 67.0 Lymph % (Auto) 15.7 L [place] % (Auto) 15.0 H Eos % (Auto) 1.2 Baso % (Auto) 0.6 Absolute Neuts (auto) 11.4 H Absolute Lymphs (auto) 2.68 Total Counted Not Reportable Diff Path Review Sodium 133 L Potassium 4.7 Chloride 100 Carbon Dioxide 25.0 Anion Gap 8 BUN 11 Creatinine 0.91 Estim Creat Clear Calc 72.64 Est GFR (MDRD) Af Amer 107 Est GFR (MDRD) Non-Af 88 BUN/Creatinine Ratio 12.1 Glucose 198 H Hemoglobin A1c Calcium 9.0 Triglycerides Cholesterol LDL Cholesterol VLDL Cholesterol HDL Cholesterol S.aureus Protein A PCR Cancelled MRSA (PCR) Cancelled 09/18/18 05:58 WBC RBC Hgb Hct MCV MCH MCHC RDW RDW Differential Plt Count MPV Immature Gran % (Auto) Neut % (Auto) Lymph % (Auto) [place] % (Auto) Eos % (Auto) Baso % (Auto) Absolute Neuts (auto) Absolute Lymphs (auto) Total Counted Diff Path Review Sodium Potassium Chloride Carbon Dioxide Anion Gap BUN Creatinine Estim Creat Clear Calc Est GFR (MDRD) Af Amer Est GFR (MDRD) Non-Af BUN/Creatinine Ratio Glucose Hemoglobin A1c Pending Calcium Triglycerides Cholesterol LDL Cholesterol VLDL Cholesterol HDL Cholesterol S.aureus Protein A PCR MRSA (PCR) POC Glucose 09/18/18 09/17/18 09/17/18 06:46 21:18 16:02 POC Glucose 188 H 280 H 237 H 09/17/18 12:16 POC Glucose 247 H Medical Necessity - Tobacco Use Smoking Status: Never smoker Tobacco Use: Non-smoker Assessment/Plan All Active Problems (Last Reviewed 09/17/18 @ 16:48 by Sandy Maharaj PA-C) Type 2 diabetes mellitus with left diabetic foot infection (Acute) Sepsis (Acute) Sinus tachycardia seen on electronic device monitor (Acute) PAD (peripheral artery disease) (Acute) Cellulitis of toe, left (Acute) Chronic ulcer of left foot with fat layer exposed (Resolved) Cellulitis and abscess of foot (Acute) Left 1st toe ulceration w/ osteomyelitis Cellulitis left 1st toe/foot - improving Diabetes with neuropathy Peripheral arterial disease to the lower extremity Reviewed diagnostic data, reviewed findings with patient. Clinically cellulitis improving with IV antibiotics and local care (bedside debridement yesterday), however patient with continued leukocytosis, and noted MRI osteomyelitis findings to the distal phalanx of the left 1st toe. Discussed further options, and patient is agreeable for 1st toe amputation; however patient with PAD, discussed with Dr. Bates who is planning tentative arteriogram w/ possible intervention on Sunday; right now toe and patient appear stable and will continue to monitor closely while patient is maintained on antibiotics until patient can have vascular procedure to try to optimize arterial flow to foot to help heal amputation. If this turns into more emergent situation we will need to proceed sooner with the amputation. This was discussed with patient. Cultures have been obtained and pending; continue with board spectrum antibiotics at this time - patient on Vancomycin and Zosyn. A dressing was applied to the left 1st toe- betadine to wound sites, gauze, thad and armando - keep clean, dry and intact. No weightbearing to the left forefoot. Podiatry will continue to follow.
[2018-09-18 08:00] VITALS: BP 147/70; PULSE 93; RESP 18; TEMP 36.9; O2SAT 96
--- NOTE | 2018-09-18 08:01 | PN_ITS ---
Patient Problems: Active and Suspected Problems (Last Reviewed 09/17/18 @ 16:48 by Sandy Maharaj PA-C) Type 2 diabetes mellitus with left diabetic foot infection (Acute) Sepsis (Acute) Sinus tachycardia seen on cardiac cath lab radiology technologist (Acute) Subjective: Patient was seen today for follow up on left 1st toe. MRI shows osteomyelitis to the distal phalanx of the 1st toe. Patient also has lower extremity PAD, has been seen by Dr. Bates, with tentative planning to go to photographic laboratory supervisor possibly Sunday. Patient resting comfortably in bed, no complaints, but does relate to some pain to the left 1st toe. Last set of vitals shows patient afebrile, pulse 86; patient does not complain of fever, chills, nausea or vomiting. - Physical Exam General: Alert, Oriented x3, Cooperative, No apparent distress Extremities: No Calf Tenderness, - - Left 1st toe with 2 ulcerations plantar ap sect, down to the subcutan, and lateral ulceration probes deep very close to bone, there is nonviable tissue present - there is no maloder today, there is cellulitis and edema which is improved, and there is edema to the foot extending to the ankle with some cellulitis - again this is improved; there is no fluctuance, no crepitus, no visible abscess. There is some drainage from the ulceration c/w infection, are no other open lesions bilateral foot or ankle. Sensation is diminished bilateral foot, however patient does have POP to the left 1st toe with pressure. There is chronic PAD to the left foot, no acute worsening clinically since yesterday. Vital Signs Temp Pulse Resp BP Pulse Ox 98.6 F 86 16 143/68 H 94 09/18/18 02:00 09/18/18 02:00 09/18/18 02:00 09/18/18 02:00 09/18/18 02:00 Oxygen Delivery Method CPAP Weight: 119.8 kg Body Mass Index (BMI) 40.7 Intake and Output for Last 24 Hours 09/16/18 09/17/18 09/18/18 23:59 23:59 23:59 Intake Total 2815 / 2815 1863 / 1863 Output Total 850 / 850 Balance 2815 / 2815 1013 / 1013 Microbiology Past 72 Hours 09/17/18 07:15 Gram Stain - Final Wound - Left Foot Laboratory Tests Past 24 Hrs 09/16/18 09/17/18 09/17/18 19:55 05:40 05:40 WBC RBC Hgb Hct MCV MCH MCHC RDW RDW Differential Plt Count MPV Immature Gran % (Auto) Neut % (Auto) Lymph % (Auto) [place] % (Auto) Eos % (Auto) Baso % (Auto) Absolute Neuts (auto) Absolute Lymphs (auto) Total Counted Diff Path Review Reviewed Reviewed Sodium Potassium Chloride Carbon Dioxide Anion Gap BUN Creatinine Estim Creat Clear Calc Est GFR (MDRD) Af Amer Est GFR (MDRD) Non-Af BUN/Creatinine Ratio Glucose Hemoglobin A1c Calcium Triglycerides 46 Cholesterol 98 LDL Cholesterol 42 VLDL Cholesterol 9 HDL Cholesterol 47 S.aureus Protein A PCR MRSA (PCR) 09/17/18 09/18/18 09/18/18 07:15 05:58 05:58 WBC 17.1 H RBC 5.08 Hgb 15.8 Hct 46.5 MCV 91.5 MCH 31.1 MCHC 34.0 RDW 13.0 RDW Differential 43.2 Plt Count 235 MPV 10.9 Immature Gran % (Auto) 0.500 Neut % (Auto) 67.0 Lymph % (Auto) 15.7 L [place] % (Auto) 15.0 H Eos % (Auto) 1.2 Baso % (Auto) 0.6 Absolute Neuts (auto) 11.4 H Absolute Lymphs (auto) 2.68 Total Counted Not Reportable Diff Path Review Sodium 133 L Potassium 4.7 Chloride 100 Carbon Dioxide 25.0 Anion Gap 8 BUN 11 Creatinine 0.91 Estim Creat Clear Calc 72.64 Est GFR (MDRD) Af Amer 107 Est GFR (MDRD) Non-Af 88 BUN/Creatinine Ratio 12.1 Glucose 198 H Hemoglobin A1c Calcium 9.0 Triglycerides Cholesterol LDL Cholesterol VLDL Cholesterol HDL Cholesterol S.aureus Protein A PCR Cancelled MRSA (PCR) Cancelled 09/18/18 05:58 WBC RBC Hgb Hct MCV MCH MCHC RDW RDW Differential Plt Count MPV Immature Gran % (Auto) Neut % (Auto) Lymph % (Auto) [place] % (Auto) Eos % (Auto) Baso % (Auto) Absolute Neuts (auto) Absolute Lymphs (auto) Total Counted Diff Path Review Sodium Potassium Chloride Carbon Dioxide Anion Gap BUN Creatinine Estim Creat Clear Calc Est GFR (MDRD) Af Amer Est GFR (MDRD) Non-Af BUN/Creatinine Ratio Glucose Hemoglobin A1c Pending Calcium Triglycerides Cholesterol LDL Cholesterol VLDL Cholesterol HDL Cholesterol S.aureus Protein A PCR MRSA (PCR) POC Glucose 09/18/18 09/17/18 09/17/18 06:46 21:18 16:02 POC Glucose 188 H 280 H 237 H 09/17/18 12:16 POC Glucose 247 H Medical Necessity - Tobacco Use Smoking Status: Never smoker Tobacco Use: Non-smoker Assessment/Plan All Active Problems (Last Reviewed 09/17/18 @ 16:48 by Sandy Maharaj PA-C) Type 2 diabetes mellitus with left diabetic foot infection (Acute) Sepsis (Acute) Sinus tachycardia seen on cardiac cath lab radiology technologist (Acute) PAD (peripheral artery disease) (Acute) Cellulitis of toe, left (Acute) Chronic ulcer of left foot with fat layer exposed (Resolved) Cellulitis and abscess of foot (Acute) Left 1st toe ulceration w/ osteomyelitis Cellulitis left 1st toe/foot - improving Diabetes with neuropathy Peripheral arterial disease to the lower extremity Reviewed diagnostic data, reviewed findings with patient. Clinically cellulitis improving with IV antibiotics and local care (bedside debridement yesterday), however patient with continued leukocytosis, and noted MRI osteomyelitis findings to the distal phalanx of the left 1st toe. Discussed further options, and patient is agreeable for 1st toe amputation; however patient with PAD, discussed with Dr. Bates who is planning tentative arteriogram w/ possible intervention on Sunday; right now toe and patient appear stable and will continue to monitor closely while patient is maintained on antibiotics until patient can have vascular procedure to try to optimize arterial flow to foot to help heal amputation. If this turns into more emergent situation we will need to proceed sooner with the amputation. This was discussed with patient. Cultures have been obtained and pending; continue with board spectrum antibiotics at this time - patient on Vancomycin and Zosyn. A dressing was applied to the left 1st toe- betadine to wound sites, gauze, thad and armando - keep clean, dry and intact. No weightbearing to the left forefoot. Podiatry will continue to follow.
[2018-09-18 08:30] LABS: Hemoglobin A1c 6.8 % (4.2-6.3)
[2018-09-18 08:46] LABS: Bedside Glucose 218 mg/dL (70-110)
[2018-09-18] MEDS: NIFEdipine 30 MG Tablet PO (09:11)
[2018-09-18] MEDS: Insulin Lispro 100 UNIT/ML INSULN.PEN 8 UNIT SC ×3 (09:12→17:23)
[2018-09-18] MEDS: Glucerna Shake 120 ML LIQUID PO ×3 (09:13→22:45)
--- NOTE | 2018-09-18 09:22 | PCM.PROGNOTE ---
Patient Problems: Active and Suspected Problems (Last Reviewed 09/17/18 @ 16:48 by Sandy Maharaj PA-C) Type 2 diabetes mellitus with left diabetic foot infection (Acute) Sepsis (Acute) Sinus tachycardia seen on quality assurance monitor chassis (Acute) Subjective: #3 antibiotics-Zosyn/vancomycin He is afebrile Systolic blood pressure is mildly increased but vital signs are stable. Tachycardia has resolved. He is 96% saturated on room air currently. White blood cell count today is 17.1 with 67% neutrophils, down from 74 at admission. Sodium is 133 today and the remainder of the BMP is unremarkable. LDL is good at 42 and his HDL is 47. Blood cultures are pending. Gram stain on the discharge from the wound has rare white blood cells and rare gram-positive cocci I reviewed Dr. Bates's consult and appreciate his input. Plan is for left lower extremity arteriogram on Sunday. Doppler had no evidence of left lower extremity deep vein thrombosis. States pain is adequately controlled. Denies nausea/vomiting. No shortness of breath no chest pain. No diarrhea no sores in his mouth Wound culture is growing 3+ staph aureus-sensitivities pending and another gram-positive organism Objective: PHYSICAL EXAM: GENERAL: alert, oriented X 3, Cooperative, NAD ORAL: moist mucosa, no mucosal lesions NECK: No JVD, supple, trachea midline LUNGS: CTA, symmetric chest expansion, diminished secondary to body habitus HEART: RRR, Normal S1 and S2, no rub, no gallop, no murmur ABDOMEN: soft, NT, ND, BS present, obese, no guarding with palpation EXTREMITIES: no edema, no cyanosis, no calf tenderness..... Left foot was examined by Dr. Quiñonez earlier today-please see his dictation SKIN: No rashes, no breakdown NEUROLOGIC: no focal neurologic deficits PSYCH: appropriate, normal affect, pleasant - Physical Exam Vital Signs Temp Pulse Resp BP Pulse Ox 98.5 F 93 18 147/70 H 96 09/18/18 08:00 09/18/18 08:00 09/18/18 08:00 09/18/18 08:00 09/18/18 08:00 Oxygen Delivery Method Room Air Weight: 264 lb 1.82 oz Body Mass Index (BMI) 40.7 Intake and Output for Last 24 Hours 09/16/18 09/17/18 09/18/18 23:59 23:59 23:59 Intake Total 2815 / 2815 1863 / 1863 Output Total 850 / 850 Balance 2815 / 2815 1013 / 1013 Microbiology Past 72 Hours 09/17/18 07:15 Gram Stain - Final Wound - Left Foot Laboratory Tests Past 24 Hrs 09/16/18 09/17/18 09/17/18 19:55 05:40 05:40 WBC RBC Hgb Hct MCV MCH MCHC RDW RDW Differential Plt Count MPV Immature Gran % (Auto) Neut % (Auto) Lymph % (Auto) [place] % (Auto) Eos % (Auto) Baso % (Auto) Absolute Neuts (auto) Absolute Lymphs (auto) Total Counted Diff Path Review Reviewed Reviewed Sodium Potassium Chloride Carbon Dioxide Anion Gap BUN Creatinine Estim Creat Clear Calc Est GFR (MDRD) Af Amer Est GFR (MDRD) Non-Af BUN/Creatinine Ratio Glucose Hemoglobin A1c Calcium Triglycerides 46 Cholesterol 98 LDL Cholesterol 42 VLDL Cholesterol 9 HDL Cholesterol 47 09/18/18 09/18/18 09/18/18 05:58 05:58 05:58 WBC 17.1 H RBC 5.08 Hgb 15.8 Hct 46.5 MCV 91.5 MCH 31.1 MCHC 34.0 RDW 13.0 RDW Differential 43.2 Plt Count 235 MPV 10.9 Immature Gran % (Auto) 0.500 Neut % (Auto) 67.0 Lymph % (Auto) 15.7 L [place] % (Auto) 15.0 H Eos % (Auto) 1.2 Baso % (Auto) 0.6 Absolute Neuts (auto) 11.4 H Absolute Lymphs (auto) 2.68 Total Counted Not Reportable Diff Path Review Sodium 133 L Potassium 4.7 Chloride 100 Carbon Dioxide 25.0 Anion Gap 8 BUN 11 Creatinine 0.91 Estim Creat Clear Calc 72.64 Est GFR (MDRD) Af Amer 107 Est GFR (MDRD) Non-Af 88 BUN/Creatinine Ratio 12.1 Glucose 198 H Hemoglobin A1c 6.8 H Calcium 9.0 Triglycerides Cholesterol LDL Cholesterol VLDL Cholesterol HDL Cholesterol POC Glucose 09/18/18 09/18/18 09/17/18 08:37 06:46 21:18 POC Glucose 218 H 188 H 280 H 09/17/18 09/17/18 16:02 12:16 POC Glucose 237 H 247 H Medical Necessity - Tobacco Use Smoking Status: Never smoker Tobacco Use: Non-smoker Assessment/Plan All Active Problems (Last Reviewed 09/17/18 @ 16:48 by Sandy Maharaj PA-C) Type 2 diabetes mellitus with left diabetic foot infection (Acute) Sepsis (Acute) Sinus tachycardia seen on quality assurance monitor chassis (Acute) PAD (peripheral artery disease) (Acute) Cellulitis of toe, left (Acute) Chronic ulcer of left foot with fat layer exposed (Resolved) Cellulitis and abscess of foot (Acute) Impressions 1. Sepsis secondary to diabetic foot infection involving the left great toe. Treated with Vancomycin and Zosyn. Dr. Quiñonez on Consult. 2. PVD with hx of stents to LLE on 2 occasions in the past he thinks [address] Bates consulted and is going to do an arteriogram of the left lower extremity. 3. Diabetes mellitus type 4-[id number] with hemoglobin A1c of 6.9% 4. Obstructive sleep apnea-compliant with CPAP 5. Morbid obesity 6. Hypertension 7. Sinus tachycardia-likely secondary to infection and dehydration. Creatinine has improved with hydration and so has the heart rate. 8. Hyperlipidemia 9. Diabetic peripheral polyneuropathy MRI is positive for osteomyelitis in the distal phalanx of the great toe. Wound culture is positive for staph aureus and another gram-positive. Continue Zosyn and vancomycin until the sensitivities are resulted. Dr. Bates plans an arteriogram, possibly Sunday and the patient will have an amputation on Sunday Once the sensitivities have been resulted will consult Dr. Pires for antibiotic recommendations Adjust insulin Code Visit Inpatient E&M: 67694 Subs Hosp L2
--- NOTE | 2018-09-18 09:25 | PN_ITS ---
Patient Problems: Active and Suspected Problems (Last Reviewed 09/17/18 @ 16:48 by Sandy Maharaj PA-C) Type 2 diabetes mellitus with left diabetic foot infection (Acute) Sepsis (Acute) Sinus tachycardia seen on telemetry monitor (Acute) Subjective: #3 antibiotics-Zosyn/vancomycin He is afebrile Systolic blood pressure is mildly increased but vital signs are stable. Tachycardia has resolved. He is 96% saturated on room air currently. White blood cell count today is 17.1 with 67% neutrophils, down from 74 at admission. Sodium is 133 today and the remainder of the BMP is unremarkable. LDL is good at 42 and his HDL is 47. Blood cultures are pending. Gram stain on the discharge from the wound has rare white blood cells and rare gram-positive cocci I reviewed Dr. Bates's consult and appreciate his input. Plan is for left lower extremity arteriogram on Sunday. Doppler had no evidence of left lower extremity deep vein thrombosis. States pain is adequately controlled. Denies nausea/vomiting. No shortness of breath no chest pain. No diarrhea no sores in his mouth Wound culture is growing 3+ staph aureus-sensitivities pending and another gram- positive organism Objective: PHYSICAL EXAM: GENERAL: alert, oriented X 3, Cooperative, NAD ORAL: moist mucosa, no mucosal lesions NECK: No JVD, supple, trachea midline LUNGS: CTA, symmetric chest expansion, diminished secondary to body habitus HEART: RRR, Normal S1 and S2, no rub, no gallop, no murmur ABDOMEN: soft, NT, ND, BS present, obese, no guarding with palpation EXTREMITIES: no edema, no cyanosis, no calf tenderness..... Left foot was examined by Dr. Quiñonez earlier today-please see his dictation SKIN: No rashes, no breakdown NEUROLOGIC: no focal neurologic deficits PSYCH: appropriate, normal affect, pleasant - Physical Exam Vital Signs Temp Pulse Resp BP Pulse Ox 98.5 F 93 18 147/70 H 96 09/18/18 08:00 09/18/18 08:00 09/18/18 08:00 09/18/18 08:00 09/18/18 08:00 Oxygen Delivery Method Room Air Weight: 264 lb 1.82 oz Body Mass Index (BMI) 40.7 Intake and Output for Last 24 Hours 09/16/18 09/17/18 09/18/18 23:59 23:59 23:59 Intake Total 2815 / 2815 1863 / 1863 Output Total 850 / 850 Balance 2815 / 2815 1013 / 1013 Microbiology Past 72 Hours 09/17/18 07:15 Gram Stain - Final Wound - Left Foot Laboratory Tests Past 24 Hrs 09/16/18 09/17/18 09/17/18 19:55 05:40 05:40 WBC RBC Hgb Hct MCV MCH MCHC RDW RDW Differential Plt Count MPV Immature Gran % (Auto) Neut % (Auto) Lymph % (Auto) [place] % (Auto) Eos % (Auto) Baso % (Auto) Absolute Neuts (auto) Absolute Lymphs (auto) Total Counted Diff Path Review Reviewed Reviewed Sodium Potassium Chloride Carbon Dioxide Anion Gap BUN Creatinine Estim Creat Clear Calc Est GFR (MDRD) Af Amer Est GFR (MDRD) Non-Af BUN/Creatinine Ratio Glucose Hemoglobin A1c Calcium Triglycerides 46 Cholesterol 98 LDL Cholesterol 42 VLDL Cholesterol 9 HDL Cholesterol 47 09/18/18 09/18/18 09/18/18 05:58 05:58 05:58 WBC 17.1 H RBC 5.08 Hgb 15.8 Hct 46.5 MCV 91.5 MCH 31.1 MCHC 34.0 RDW 13.0 RDW Differential 43.2 Plt Count 235 MPV 10.9 Immature Gran % (Auto) 0.500 Neut % (Auto) 67.0 Lymph % (Auto) 15.[address] [place] % (Auto) 15.0 H Eos % (Auto) 1.2 Baso % (Auto) 0.6 Absolute Neuts (auto) 11.4 H Absolute Lymphs (auto) 2.68 Total Counted Not Reportable Diff Path Review Sodium 133 L Potassium 4.7 Chloride 100 Carbon Dioxide 25.0 Anion Gap 8 BUN 11 Creatinine 0.91 Estim Creat Clear Calc 72.64 Est GFR (MDRD) Af Amer 107 Est GFR (MDRD) Non-Af 88 BUN/Creatinine Ratio 12.1 Glucose 198 H Hemoglobin A1c 6.8 H Calcium 9.0 Triglycerides Cholesterol LDL Cholesterol VLDL Cholesterol HDL Cholesterol POC Glucose 09/18/18 09/18/18 09/17/18 08:37 06:46 21:18 POC Glucose 218 H 188 H 280 H 09/17/18 09/17/18 16:02 12:16 POC Glucose 237 H 247 H Medical Necessity - Tobacco Use Smoking Status: Never smoker Tobacco Use: Non-smoker Assessment/Plan All Active Problems (Last Reviewed 09/17/18 @ 16:48 by Sandy Maharaj PA-C) Type 2 diabetes mellitus with left diabetic foot infection (Acute) Sepsis (Acute) Sinus tachycardia seen on telemetry monitor (Acute) PAD (peripheral artery disease) (Acute) Cellulitis of toe, left (Acute) Chronic ulcer of left foot with fat layer exposed (Resolved) Cellulitis and abscess of foot (Acute) Impressions 1. Sepsis secondary to diabetic foot infection involving the left great toe. Treated with Vancomycin and Zosyn. Dr. Quiñonez on Consult. 2. PVD with hx of stents to LLE on 2 occasions in the past he thinks 2 and [address] Bates consulted and is going to do an arteriogram of the left lower extremity. 3. Diabetes mellitus type 5-[id number] with hemoglobin A1c of 6.9% 4. Obstructive sleep apnea-compliant with CPAP 5. Morbid obesity 6. Hypertension 7. Sinus tachycardia-likely secondary to infection and dehydration. Creatinine has improved with hydration and so has the heart rate. 8. Hyperlipidemia 9. Diabetic peripheral polyneuropathy MRI is positive for osteomyelitis in the distal phalanx of the great toe. Wound culture is positive for staph aureus and another gram-positive. Continue Zosyn and vancomycin until the sensitivities are resulted. Dr. Bates plans an arteriogram, possibly Sunday and the patient will have an amputation on Sunday Once the sensitivities have been resulted will consult Dr. Pires for antibiotic recommendations Adjust insulin Code Visit Inpatient E&M: 24949 Subs Hosp L2
--- NOTE | 2018-09-18 11:33 | PCM.RX.CS ---
Consult Pharmacy has been consulted to manage selected antiobiotic: Vancomycin Type of Consult: Follow-up Suspected Infection: Sepsis, Skin/Soft tissue, Osteomyelitis Prior Doses of Antibiotics Received/Current Regimen: Currently on 1750mg IV q12h with doses last given today at 01:21 and 10:50 Labs: Sodium 133 mmol/L (136-145) L 09/18/18 05:58 Potassium 4.7 mmol/L (3.5-5.1) 09/18/18 05:58 Chloride 100 mmol/L (98-107) 09/18/18 05:58 Carbon Dioxide 25.0 mmol/L (21.0-32.0) 09/18/18 05:58 Anion Gap 8 (5-15) 09/18/18 05:58 BUN 11 mg/dL (7-18) 09/18/18 05:58 Creatinine 0.91 mg/dL (0.70-1.30) 09/18/18 05:58 Est GFR (MDRD) Af Amer 107 mL/min (>60) 09/18/18 05:58 Est GFR (MDRD) Non-Af 88 mL/min (>60) 09/18/18 05:58 BUN/Creatinine Ratio 12.1 RATIO (10-20) 09/18/18 05:58 Glucose 198 mg/dL (74-106) H 09/18/18 05:58 Vancomycin Trough 12.0 ug/mL (5.0-15.0) 09/18/18 10:05 Microbiology: Microbiology 09/17/18 07:15 Wound - Left Foot Gram Stain - Final 09/17/18 07:15 Wound - Left Foot Wound Culture - Preliminary Staphylococcus aureus Gram positive organism Weight used for dosin.8 kg Estimated Creatinine Clearance: 73 ml/min Goal Trough: 15-20 mcg/mL Pharmacy Plan for Drug Dosing: Trough obtained before this morning's dose was 12.0 mg/L. Since it was drawn at about 9 hours after the previous dose due to that dose starting late, the trough would have come back at an even lower level if it had been drawn at the desired 12 hour hugo. Therefore, since it is below the goal range, the plan is to change the dosing to 2000mg IV q12h and obtain another trough before the 4th new dose. The patient's renal function has remained stable (SCr 0.91 today) from 09-16-18 where SCr was 0.93. Pharmacy Service will continue to monitor and adjust dosing as required. Follow-Up Labs: Trough Vancomycin Labs to be done on [date and time ordered]: 09/20/18 10:30
[2018-09-18 12:56] LABS: Bedside Glucose 284 mg/dL (70-110)
[2018-09-18 14:28] VITALS: BP 154/68; PULSE 91; RESP 16; TEMP 37.1; O2SAT 97
--- NOTE | 2018-09-18 15:47 | NURSING ---
zosyn started late due to pt accidental IV removal. New IV started and zosyn initiated.
[2018-09-18 17:35] LABS: Bedside Glucose 271 mg/dL (70-110)
[2018-09-18] MEDS: Insulin Lispro 100 UNIT/ML INSULN.PEN 6 UNIT SC (19:55)
[2018-09-18 19:58] VITALS: BP 136/74; PULSE 98; RESP 16; TEMP 37.4; O2SAT 96
[2018-09-18 20:11] LABS: Bedside Glucose 293 mg/dL (70-110)
[2018-09-18] MEDS: Atorvastatin Calcium 10 MG Tablet PO (22:44)
[2018-09-18 23:01] LABS: Bedside Glucose 251 mg/dL (70-110)
[2018-09-19] VITALS (8 sets, daily range): BP systolic 125–161; BP diastolic 57–91; PULSE 78–94; RESP 14–20; TEMP 36.5–37.8; O2SAT 93–97; BMI 41.3
[2018-09-19] MEDS: Gabapentin 600 MG Tablet PO ×2 (06:03→21:35)
--- NOTE | 2018-09-19 06:05 | PN.SURG_ITS ---
Patient Problems: Active and Suspected Problems (Last Reviewed 09/17/18 @ 16:48 by Sandy Maharaj PA-C) Type 2 diabetes mellitus with left diabetic foot infection (Acute) Sepsis (Acute) Sinus tachycardia seen on cardiac cath technologist (Acute) Subjective: Pt comfortable, no complaints Leukocytosis noted - Physical Exam Extremities: - - left foot pink and warm, no palpable pulses Vital Signs Temp Pulse Resp BP Pulse Ox 97.7 F L 80 18 141/71 H 96 09/19/18 01:58 09/19/18 01:58 09/19/18 01:58 09/19/18 01:58 09/19/18 01:58 Oxygen Delivery Method CPAP Weight: 264 lb 1.82 oz Body Mass Index (BMI) 40.7 Intake and Output for Last 24 Hours 09/17/18 09/18/18 09/19/18 23:59 23:59 23:59 Intake Total 2815 / 2815 4985 / 4985 1358 / 1358 Output Total 3300 / 3300 750 / 750 Balance 2815 / 2815 1685 / 1685 608 / 608 Microbiology Past 72 Hours 09/17/18 07:15 Gram Stain - Final Wound - Left Foot Wound Culture - Preliminary Staphylococcus aureus Gram positive organism Laboratory Tests Past 24 Hrs 09/18/18 09/18/18 09/18/18 05:58 05:58 05:58 WBC 17.1 H RBC 5.08 Hgb 15.8 Hct 46.5 MCV 91.5 MCH 31.1 MCHC 34.0 RDW 13.0 RDW Differential 43.2 Plt Count 235 MPV 10.9 Immature Gran % (Auto) 0.500 Neut % (Auto) 67.0 Lymph % (Auto) 15.7 L Emmet % (Auto) 15.0 H Eos % (Auto) 1.2 Baso % (Auto) 0.6 Absolute Neuts (auto) 11.4 H Absolute Lymphs (auto) 2.68 Total Counted Not Reportable Sodium 133 L Potassium 4.7 Chloride 100 Carbon Dioxide 25.0 Anion Gap 8 BUN 11 Creatinine 0.91 Estim Creat Clear Calc 72.64 Est GFR (MDRD) Af Amer 107 Est GFR (MDRD) Non-Af 88 BUN/Creatinine Ratio 12.1 Glucose 198 H Hemoglobin A1c 6.8 H Calcium 9.0 Vancomycin Trough 09/18/18 10:05 WBC RBC Hgb Hct MCV MCH MCHC RDW RDW Differential Plt Count MPV Immature Gran % (Auto) Neut % (Auto) Lymph % (Auto) Emmet % (Auto) Eos % (Auto) Baso % (Auto) Absolute Neuts (auto) Absolute Lymphs (auto) Total Counted Sodium Potassium Chloride Carbon Dioxide Anion Gap BUN Creatinine Estim Creat Clear Calc Est GFR (MDRD) Af Amer Est GFR (MDRD) Non-Af BUN/Creatinine Ratio Glucose Hemoglobin A1c Calcium Vancomycin Trough 12.0 POC Glucose 09/18/18 09/18/18 09/18/18 22:43 19:54 17:21 POC Glucose 251 H 293 H 271 H 09/18/18 09/18/18 09/18/18 12:43 08:37 06:46 POC Glucose 284 H 218 H 188 H Medical Necessity - Tobacco Use Smoking Status: Never smoker Tobacco Use: Non-smoker Assessment/Plan All Active Problems (Last Reviewed 09/17/18 @ 16:48 by Sandy Maharaj PA-C) Type 2 diabetes mellitus with left diabetic foot infection (Acute) Sepsis (Acute) Sinus tachycardia seen on cardiac cath technologist (Acute) PAD (peripheral artery disease) (Acute) Cellulitis of toe, left (Acute) Chronic ulcer of left foot with fat layer exposed (Resolved) Cellulitis and abscess of foot (Acute) Will check CBC If persistent leukocytosis then might have to make schedule change. Will hold pt NPO for the moment.
[2018-09-19] MEDS: Insulin Lispro 100 UNIT/ML INSULN.PEN SQ ×2 (06:09→16:54)
[2018-09-19 06:15] LABS: Bedside Glucose 210 mg/dL (70-110)
[2018-09-19 06:46] LABS: Absolute Lymphocyte Count 1.85 X10^3/ul (0.83-4.51); Absolute Neutrophil Count 10.5 X10^3/uL (2.0-7.7); Basophil# 0.07 X10^3/uL; Basophil% 0.5 % (0-1); Eosinophil# 0.34 X10^3/uL; Eosinophils% 2.3 % (0-5); Hematocrit 42.6 % (40-54); Hemoglobin 14.2 g/dl (13.0-16.5); Lymphocyte # 1.85 X10^3/ul (4.0); Lymphocyte % 12.3 % (19-41); Mean Corp Hgb Conc 33.3 g/gl (32-36); Mean Corpuscular Hgb 30.1 pg (27.0-32.0); Mean Corpuscular Volume 90.3 fL (80-94); Mean Platelet Vol. 10.8 fl (6.2-12.0); Monocyte# 2.11 X10^3/uL; Neutrophil # 10.53 X10^3/uL (2.7-7.7); Platelet Count 239 K/mm3 (150-450); RBC Distribution Width SD 42.3 fl (35.1-43.9); Red Blood Count 4.72 M/mm3 (4.6-6.2)
[2018-09-19 06:50] LABS: Differential Indicated SCAN CRITERIA MET; POSITIVE COUNT NO; POSITIVE DIFFERENTIAL YES; POSITIVE MORPHOLOGY NO
--- NOTE | 2018-09-19 07:12 | PCM.PROGNOTE ---
Patient Problems: Active and Suspected Problems (Last Reviewed 09/17/18 @ 16:48 by Sandy Maharaj PA-C) Type 2 diabetes mellitus with left diabetic foot infection (Acute) Sepsis (Acute) Sinus tachycardia seen on desk monitor (Acute) Subjective: Day #4 antibiotics vancomycin and Zosyn All events of the past 24 hours of been reviewed. He is afebrile. Vital signs are stable. He is 96-97% saturated on room air. Fluid balance is +5 L since admission. White blood cell count today is 15,000, down from 19.6 at admission. Hemoglobin and platelets are within normal limits. Blood sugars on 410 ranged from 188-293. Fasting blood sugar today is 210 despite increase in Lantus at bedtime. At bedtime blood sugar was 250. Mealtime insulin has been increased. Complaining of left knee pain today. He went for abdominal pelvic left lower extremity arteriogram. Preoperatively there was complete occlusion of the left posterior tibial artery. Angioplasty of the proximal left posterior tibial artery was done but attempts to advance the balloon further were not successful. Final views failed to demonstrate recanalized flow distally in the posterior tibial. - Physical Exam Vital Signs Temp Pulse Resp BP Pulse Ox 97.7 F L 80 18 141/71 H 96 09/19/18 01:58 09/19/18 01:58 09/19/18 01:58 09/19/18 01:58 09/19/18 01:58 Oxygen Delivery Method CPAP Weight: 264 lb 1.82 oz Body Mass Index (BMI) 40.7 Intake and Output for Last 24 Hours 09/17/18 09/18/18 09/19/18 23:59 23:59 23:59 Intake Total 2815 / 2815 4985 / 4985 1358 / 1358 Output Total 3300 / 3300 750 / 750 Balance 2815 / 2815 1685 / 1685 608 / 608 Microbiology Past 72 Hours 09/17/18 07:15 Gram Stain - Final Wound - Left Foot Wound Culture - Preliminary Staphylococcus aureus Gram positive organism Laboratory Tests Past 24 Hrs 09/18/18 09/18/18 09/19/18 05:58 10:05 06:28 WBC 15.0 H RBC 4.72 Hgb 14.2 Hct 42.6 MCV 90.3 MCH 30.1 MCHC 33.3 RDW 13.0 RDW Differential 42.3 Plt Count 239 MPV 10.8 Immature Gran % (Auto) 0.900 Neut % (Auto) 70.0 Lymph % (Auto) 12.3 L [place] % (Auto) 14.0 H Eos % (Auto) 2.3 Baso % (Auto) 0.5 Absolute Neuts (auto) 10.5 H Absolute Lymphs (auto) 1.85 Total Counted Not Reportable Diff Path Review May foll Hemoglobin A1c 6.8 H Vancomycin Trough 12.0 POC Glucose 09/19/18 09/18/18 09/18/18 06:08 22:43 19:54 POC Glucose 210 H 251 H 293 H 09/18/18 09/18/18 09/18/18 17:21 12:43 08:37 POC Glucose 271 H 284 H 218 H Medical Necessity - Tobacco Use Smoking Status: Never smoker Tobacco Use: Non-smoker Assessment/Plan All Active Problems (Last Reviewed 09/17/18 @ 16:48 by Sandy Maharaj PA-C) Type 2 diabetes mellitus with left diabetic foot infection (Acute) Sepsis (Acute) Sinus tachycardia seen on desk monitor (Acute) PAD (peripheral artery disease) (Acute) Cellulitis of toe, left (Acute) Chronic ulcer of left foot with fat layer exposed (Resolved) Cellulitis and abscess of foot (Acute)
--- NOTE | 2018-09-19 07:16 | PN_ITS ---
Patient Problems: Active and Suspected Problems (Last Reviewed 09/17/18 @ 16:48 by Sandy Maharaj PA-C) Type 2 diabetes mellitus with left diabetic foot infection (Acute) Sepsis (Acute) Sinus tachycardia seen on court monitor (Acute) Subjective: Day #4 antibiotics vancomycin and Zosyn All events of the past 24 hours of been reviewed. He is afebrile. Vital signs are stable. He is 96-97% saturated on room air. Fluid balance is +5 L since admission. White blood cell count today is 15,000, down from 19.6 at admission. Hemoglobin and platelets are within normal limits. Blood sugars on 410 ranged from 188-293. Fasting blood sugar today is 210 despite increase in Lantus at bedtime. At bedtime blood sugar was 250. Me altime insulin has been increased. Complaining of left knee pain today. He went for abdominal pelvic left lower extremity arteriogram. Preoperatively there was complete occlusion of the left posterior tibial artery. Angioplasty of the proximal left posterior tibial artery was done but attempts to advance the balloon further were not successful. Final views failed to demonstrate recanalized flow distally in the posterior tibial. - Physical Exam Vital Signs Temp Pulse Resp BP Pulse Ox 97.7 F L 80 18 141/71 H 96 09/19/18 01:58 09/19/18 01:58 09/19/18 01:58 09/19/18 01:58 09/19/18 01:58 Oxygen Delivery Method CPAP Weight: 264 lb 1.82 oz Body Mass Index (BMI) 40.7 Intake and Output for Last 24 Hours 09/17/18 09/18/18 09/19/18 23:59 23:59 23:59 Intake Total 2815 / 2815 4985 / 4985 1358 / 1358 Output Total 3300 / 3300 750 / 750 Balance 2815 / 2815 1685 / 1685 608 / 608 Microbiology Past 72 Hours 09/17/18 07:15 Gram Stain - Final Wound - Left Foot Wound Culture - Preliminary Staphylococcus aureus Gram positive organism Laboratory Tests Past 24 Hrs 09/18/18 09/18/18 09/19/18 05:58 10:05 06:28 WBC 15.0 H RBC 4.72 Hgb 14.2 Hct 42.6 MCV 90.3 MCH 30.1 MCHC 33.3 RDW 13.0 RDW Differential 42.3 Plt Count 239 MPV 10.8 Immature Gran % (Auto) 0.900 Neut % (Auto) 70.0 Lymph % (Auto) 12.3 L [place] % (Auto) 14.0 H Eos % (Auto) 2.3 Baso % (Auto) 0.5 Absolute Neuts (auto) 10.5 H Absolute Lymphs (auto) 1.85 Total Counted Not Reportable Diff Path Review May foll Hemoglobin A1c 6.8 H Vancomycin Trough 12.0 POC Glucose 09/19/18 09/18/18 09/18/18 06:08 22:43 19:54 POC Glucose 210 H 251 H 293 H 09/18/18 09/18/18 09/18/18 17:21 12:43 08:37 POC Glucose 271 H 284 H 218 H Medical Necessity - Tobacco Use Smoking Status: Never smoker Tobacco Use: Non-smoker Assessment/Plan All Active Problems (Last Reviewed 09/17/18 @ 16:48 by Sandy Maharaj PA-C) Type 2 diabetes mellitus with left diabetic foot infection (Acute) Sepsis (Acute) Sinus tachycardia seen on court monitor (Acute) PAD (peripheral artery disease) (Acute) Cellulitis of toe, left (Acute) Chronic ulcer of left foot with fat layer exposed (Resolved) Cellulitis and abscess of foot (Acute)
[2018-09-19] MEDS: 0.9% Normal Saline 1,000 ML 40 ML IV (07:34)
[2018-09-19] MEDS: Insulin Lispro 100 UNIT/ML INSULN.PEN 12 UNIT SC ×2 (08:11→16:53)
[2018-09-19] MEDS: 0.9% NaCl IVPB Med Flush (250 mL) 15 ML IV (10:11)
--- NOTE | 2018-09-19 11:11 | CASEMGMT ---
Addendum entered by María Lujan 09/20/18 09:27: Dr. Reid's office faxed over LW/POA, SW placed in medical chart. ROSITA Uribe Original Note: Addendum entered by María Lujan 09/20/18 09:09: Lacie from Dr. Reid's office called this SW back, confirms that they have POA papers on chart, asked for a release to fax over the forms. SW spoke w/pt, he signed release, SW faxed release to Dr. Reid's office. ROSITA Uribe Original Note: SW spoke w/pt, informed him LW/POA forms are not on the chart as had been indicated. Pt states they are on file at Dr. Reid's office and agreeable to SW calling physician's office. SW called Dr. Reid's office, message left for nurse there requesting POA/LW forms faxed here if they do indeed have them on file. ROSITA Uribe
[2018-09-19 11:20] LABS: Bedside Glucose 169 mg/dL (70-110)
[2018-09-19 12:18] LABS: Pathologist Review Reviewed
--- NOTE | 2018-09-19 13:58 | PCM.OPRPT ---
Problem List (1) PAD (peripheral artery disease) Status: Acute Report of Operation Date of Procedure: 09/19/18 Pre-Operative Diagnosis: Osteomyelitis left great toe with cellulitis of the foot and distal lower extremity Post-Operative Diagnosis: Complete occlusion left posterior tibial Surgery/Procedure Performed:: Abdominal pelvic left lower extremity arteriogram with selective access to the posterior tibial and tapering 2-2.5 mm angioplasty of the proximal left posterior tibial Description of Surgical Findings:: Timeout and informed consent was obtained. 68-year-old gent was taken to the special procedure lab placed upon the table. 50 mcg of fentanyl and 2 mg of Versed were given intravenous sedation. The right groin was sterilely prepped draped. Ultrasound was used. The patient is morbidly obese. Access to the artery was challenging it bifurcated and I had to use ultrasound to get up above the bifurcation instilled 2% lidocaine and ultrasound guidance with a micropuncture needle into the arterial ultrasound guidance micropuncture wire micropuncture sheath and 035 J-wire was used to place a 5 [place]an Terumo sheath then using a 035 angled Glidewire a 5 Eritrean flush catheter placed in the distal abdominal aorta using Visipaque contrast a AP aortogram was obtained then using the angled Glidewire the flush catheter access was gained to the left superficial femoral and static views were obtained the superficial femoral I changed out the flush catheter for an quick cross catheter and obtain static views of the left lower extremity. This demonstrated that the anterior tibial appeared to be patent down to the dorsalis pedis. The left peroneal was patent to the ankle mortise. The left posterior tibial was patent proximally but then completely occluded. I initially attempted to use an 035 Magic wire through the quick cross catheter to exchange out for a 6 [place] 70 cm Rabie sheath. That was not successful so I exchanged out for an 035 Amplatz wire and was able then to remove the 5 [place] Terumo sheath in place a 6 [place] Amilcar sheath into the proximal left superficial femoral artery. I then exchanged out for a 014 command wire and a 018 quick cross catheter I gained access to the posterior tibial artery was able to advance to approximately the mid posterior tibial artery I could then get the wire to advance down to the ankle mortise but I could not get it to advance further. I placed a tapering 2-2.5 mm Jodee cross balloon. It is of note that the patient received 12,000 units of heparin upon placement of the larger sheath. I was able to do balloon angioplasty of the proximal portion of the left posterior tibial artery but attempts to advance the balloon further were not successful despite multiple attempts. Final views failed to demonstrate recanalized flow distally in the posterior tibial I felt that further intervention was not warranted. So the balloon and wires were removed. A 035 Amplatz wire was replaced. A Perclose device was placed in the right groin. 2 separate applications were required to the first 1 did not deploy appropriately. The second deployed correctly. Good hemostasis was achieved. There was a good right popliteal pulse at the completion no apparent complication. He was taken to the recovery area in satisfactory condition. Angiogram demonstrates a patent abdominal aorta common iliacs and external iliacs and internal iliacs left common femoral fundus femoral and superficial femoral and popliteal. The left anterior tibial is nicely patent down to dorsalis pedis. Left peroneal is patent to the ankle mortise. The left posterior tibial occludes completely in the mid calf and we did not see good refill distally. Subsequent to angioplasty the left proximal and mid posterior tibial was not able to further reestablish in-line flow thoughts of the procedure at that point was aborted. Impression: Maintain two-vessel infrageniculate runoff of the anterior tibial and peroneal. Densely occluded left posterior tibial. I have discussed my findings with Dr. Olamide Bates M.D., F.A.C.S. Type of Anesthesia:: IV Sedation, Local
--- NOTE | 2018-09-19 14:04 | OP.PCM_ITS ---
Problem List (1) PAD (peripheral artery disease) Status: Acute Report of Operation Date of Procedure: 09/19/18 Pre-Operative Diagnosis: Osteomyelitis left great toe with cellulitis of the foot and distal lower extremity Post-Operative Diagnosis: Complete occlusion left posterior tibial Surgery/Procedure Performed:: Abdominal pelvic left lower extremity arteriogram with selective access to the posterior tibial and tapering 2-2.5 mm angioplasty of the proximal left posterior tibial Description of Surgical Findings:: Timeout and informed consent was obtained. 68-year-old gent was taken to the special procedure lab placed upon the table. 50 mcg of fentanyl and 2 mg of Versed were given intravenous sedation. The right groin was sterilely prepped draped. Ultrasound was used. The patient is morbidly obese. Access to the artery was challenging it bifurcated and I had to use ultrasound to get up above the bifurcation instilled 2% lidocaine and ultrasound guidance with a micropun cture needle into the arterial ultrasound guidance micropuncture wire micropuncture sheath and 035 J-wire was used to place a 5 [place]an Terumo sheath then using a 035 angled Glidewire a 5 [place]an flush catheter placed in the distal abdominal aorta using Visipaque contrast a AP aortogram was obtained then using the angled Glidewire the flush catheter access was gained to the left superficial femoral and static views were obtained the superficial femoral I changed out the flush catheter for an quick cross catheter and obtain static views of the left lower extremity. This demonstrated that the anterior tibial appeared to be patent down to the dorsalis pedis. The left peroneal was patent to the ankle mortise. The left posterior tibial was patent proximally but then completely occluded. I initially attempted to use an 035 Magic wire through the quick cross catheter to exchange out for a 6 [place]an 70 cm Rabie sheath. That was not successful so I exchanged out for an 035 Amplatz wire and was able then to remove the 5 [place] Terumo sheath in place a 6 [place] Amilcar sheath into the proximal left superficial femoral artery. I then exchanged out for a 014 command wire and a 018 quick cross catheter I gained access to the posterior tibial artery was able to advance to approximately the mid posterior tibial artery I could then get the wire to advance down to the ankle mortise but I could not get it to advance further. I placed a tapering 2-2.5 mm Jodee cross balloon. It is of note that the patient received 12,000 units of heparin upon placement of the larger sheath. I was able to do balloon angioplasty of the proximal portion of the left posterior tibial artery but attempts to advance the balloon further were not successful despite multiple attempts. Final views failed to demonstrate recanalized flow distally in the posterior tibial I felt that further intervention was not warranted. So the balloon and wires were removed. A 035 Amplatz wire was replaced. A Perclose device was placed in the right groin. 2 separate applications were required to the first 1 did not deploy appropriately. The second deployed correctly. Good hemostasis was achieved. There was a good right popliteal pulse at the completion no apparent complication. He was taken to the recovery area in satisfactory condition. Angiogram demonstrates a patent abdominal aorta common iliacs and external iliacs and internal iliacs left common femoral fundus femoral and superficial femoral and popliteal. The left anterior tibial is nicely patent down to dorsalis pedis. Left peroneal is patent to the ankle mortise. The left posterior tibial occludes completely in the mid calf and we did not see good refill distally. Subsequent to angioplasty the left proximal and mid posterior tibial was not able to further reestablish in-line flow thoughts of the procedure at that point was aborted. Impression: Maintain two-vessel infrageniculate runoff of the anterior tibial and peroneal. Densely occluded left posterior tibial. I have discussed my findings with Dr. Olamide Bates M.D., F.A.C.S. Type of Anesthesia:: IV Sedation, Local
[2018-09-19 14:07] LABS: ACT Activated Clotting Time 131 sec (74-137)
[2018-09-19 14:07] LABS: ACT Activated Clotting Time 219 sec (74-137)
[2018-09-19] MEDS: Glucerna Shake 120 ML LIQUID PO ×2 (16:42→21:44)
[2018-09-19 16:56] LABS: Bedside Glucose 151 mg/dL (70-110)
--- NOTE | 2018-09-19 17:17 | PN_ITS ---
Patient Problems: Active and Suspected Problems (Last Reviewed 09/17/18 @ 16:48 by Sandy Maharaj PA-C) Type 2 diabetes mellitus with left diabetic foot infection (Acute) Sepsis (Acute) Sinus tachycardia seen on customer facilities supervisor (Acute) Subjective: This 68-year-old male with multiple comorbidities was seen bedside for left hallux ulcer with resolving cellulitis and underlying osteomyelitis. He also had vascular surgery intervention performed earlier today with Dr. Bates in which his status was optimized. He does have toe pain that is moderate. - Physical Exam General: Alert, Oriented x3, Cooperative HEENT: Atraumatic Extremities: No cyanosis, Capillary Refill Less than 3 Seconds, No Calf Tenderness - Negative Laci and Eldridge sign left lower extremity, Diminished Peripheral Pulses, Edema - Bulbous left hallux with toe edema noted and induration and chronic inflammation Skin: Ulcer/ Wound - No purulence on expression of the plantar left hallux ulcer site. There is some peripheral erythema and edema with no odor or streaking. No adjacent maceration. Musculoskeletal: No Tenderness to Palpation of Joints or Extremities, Muscle Wasting, - - Various hallux position left foot. There is some palpation pain noted to the left hallux. The compartments to the left foot and leg remain soft. Neurological: - - Lack of normal epicritic sensation light touch consistent with neuropathy left foot Psych/Mental Status: Normal Affect, Appropriate Vital Signs Temp Pulse Resp BP Pulse Ox 98.7 F 90 18 159/89 H 93 09/19/18 11:30 09/19/18 16:45 09/19/18 16:45 09/19/18 16:45 09/19/18 16:45 Oxygen Delivery Method Room Air Weight: 119.8 kg Body Mass Index (BMI) 41.3 Intake and Output for Last 24 Hours 09/17/18 09/18/18 09/19/18 23:59 23:59 23:59 Intake Total 2815 / 2815 4985 / 4985 1358 / 1358 Output Total 3300 / 3300 750 / 750 Balance 2815 / 2815 1685 / 1685 608 / 608 Microbiology Past 72 Hours 09/17/18 07:15 Gram Stain - Final Wound - Left Foot Wound Culture - Final Staphylococcus aureus 09/16/18 20:35 Blood Culture - Preliminary Blood Culture (Wb) - Anticubital Right No growth in 48 hours. 09/16/18 19:55 Blood Culture - Preliminary Blood Culture (Wb) - Anticubital Left No growth in 48 hours. Laboratory Tests Past 24 Hrs 09/19/18 09/19/18 09/19/18 06:28 12:29 13:15 WBC 15.0 H RBC 4.72 Hgb 14.2 Hct 42.6 MCV 90.3 MCH 30.1 MCHC 33.3 RDW 13.0 RDW Differential 42.3 Plt Count 239 MPV 10.8 Immature Gran % (Auto) 0.900 Neut % (Auto) 70.0 Lymph % (Auto) 12.3 L [place] % (Auto) 14.0 H Eos % (Auto) 2.3 Baso % (Auto) 0.5 Absolute Neuts (auto) 10.5 H Absolute Lymphs (auto) 1.85 Total Counted Not Reportable Diff Path Review Reviewed Activated Clotting Time 131 219 H POC Glucose 09/19/18 09/19/18 09/19/18 16:39 11:10 06:08 POC Glucose 151 H 169 H 210 H 09/18/18 09/18/18 09/18/18 22:43 19:54 17:21 POC Glucose 251 H 293 H 271 H Medical Necessity - Tobacco Use Smoking Status: Never smoker Tobacco Use: Non-smoker Assessment/Plan All Active Problems (Last Reviewed 09/17/18 @ 16:48 by Sandy Maharaj PA-C) Type 2 diabetes mellitus with left diabetic foot infection (Acute) Sepsis (Acute) Sinus tachycardia seen on customer facilities supervisor (Acute) PAD (peripheral artery disease) (Acute) Cellulitis of toe, left (Acute) Chronic ulcer of left foot with fat layer exposed (Resolved) Cellulitis and abscess of foot (Acute) Left 1st toe ulceration w/ osteomyelitis Cellulitis left 1st toe/foot - improving Diabetes with neuropathy Peripheral arterial disease to the lower extremity s/p intervention (Dr. Bates on 09/19/18: Abdominal pelvic left lower extremity arteriogram with selective access to the posterior tibial and tapering 2-2.5 mm angioplasty of the proximal left posterior tibial) I reviewed his case and discussed his care plan recommendations. Clinically but cellulitis is improving with IV antibiotics and debridements. His MRI was reviewed with increased osseous intensity on STIR and T2 images correlate with decrease intensity on T1 at the location of the distal phalanx. His white blood cell count is still elevated and was at a level of 15.1 today. His blood cultures are negative. His wound cultures demonstrating Staphylococcus aureus at this time. I discussed further options, and patient is agreeable for 1st toe amputation. I recommend performing surgery tomorrow at 11:45 AM. The preoperative indications, planned procedure, possible benefits, risks, complications, and anticipated healing time and management were discussed in detail with the patient today. He understands that risks and complications include but are not limited to the following: Continued infection, continued delayed or nonhealing, need for further surgery, further limb loss, allergic reaction, blood clot, scarring, swelling, loss of function, and . No guarantees were made. Informed surgical consent will need to be signed. I recommend he is n.p.o. prior to surgery. It is okay for him to continue on blood thinners during the foot surgical process. Preoperative orders will be entered into the computer. I answered all of his questions to his satisfaction. This plan was discussed with Dr. Quintanilla. A dressing was applied to the left 1st toe- betadine to wound sites, gauze, thad and armando - keep clean, dry and intact. No weightbearing to the left forefoot. At this time, I recommend he continues with heel weightbearing to the left foot in a surgical shoe. To optimize healing with nutritional supplementation, Juven. Maria A Payton DPM, [facility] [phone]
[2018-09-19] MEDS: Acetaminophen 325 MG Tablet PO (17:43)
--- NOTE | 2018-09-19 18:23 | NURSING ---
walked pt in room and to bathroom after bedrest was up. pt tolerated well. checked puncture site post walk and dressing CDI, no bleeding noted.
--- NOTE | 2018-09-19 18:24 | NURSING ---
this RN gave verbal report to Sanket RN
[2018-09-19] MEDS: Atorvastatin Calcium 10 MG Tablet PO (21:35)
[2018-09-19] MEDS: Capsaicin 0.025% 1 APPLIC Tube TOPICAL (21:36)
[2018-09-19 21:51] LABS: Bedside Glucose 253 mg/dL (70-110)
[2018-09-20] VITALS (9 sets, daily range): BP systolic 132–161; BP diastolic 60–83; PULSE 80–95; RESP 13–20; TEMP 36.5–37.4; O2SAT 91–96; BMI 41.4; BMI 40.8
--- NOTE | 2018-09-20 | MISC_PTH ---
PATIENT: MARCOS VENTURA LOC: MS2 U#:[id number] AGE/SX: 68/M ROOM: [facility] [id number] RE09/16/[address]: Dr. Shannon Quintanilla DO : 1950 BED: 1 DIS: 09/24/2018 SPEC #: [id number] RECD: 09/20/18 14:36 STATUS: [place] REQ #: [id number] OZZIE: 09/20/18 00:[address]: Maria A Payton DEPT: SURGICAL PATHOLOGY RECD BY: Candido Cornelius ENTERED: 09/23/18 13:06 SP TYPE: MISC OTHR DR: DO Dr. Shannon Ford DO Dr. Jeffrey Wunning, MARCELM MD Dr. Balaji Calderon MD Dr. Robert Leininger, MD Tissues: A - Toe, NOS B - Bone of foot, NOS Procedures: PAS Fungus (control) Decalcification bone/plaque Special Stain Group I Surgery Specimen Level III Surgery Specimen Level IV AFB Stain (control) Comments: @ Ordering doctor for DEC edited from to @ by NIDIA at 09/23/18 143 @ Ordering doctor for SUIII edited from to @ by NIDIA at 09/23/18 143 @ Submitting doctor edited from to @ by NIDIA at 09/23/18 1433 HEADER OPERATION: Amputation hallux PRE-OP DIAGNOSIS: Osteomyelitis left great toe TISSUE SUBMITTED: A - Left great toe, B - Clearance fragment bone left great toe MICROSCOPIC DIAGNOSIS A. Left great toe, amputation: Focal ulceration, acute inflammation and abscess formation. Underlying bone with acute osteomyelitis. Special stains for acid fast bacilli and fungi are negative for organisms; matched controls are appropriate. B. Clearance fragment bone left great toe: A piece of bone, negative for acute osteomyelitis. SJ:karyn 09/26/18 MICROSCOPIC DESCRIPTION Slides are reviewed. GROSS DESCRIPTION A - Received in fixative is one container labeled with the patient's name and designated left great toe. The specimen consists of a toe measuring 5 x 4.5 x 3.5 cm. Two focal areas of ulceration are noted close to the resection margin of the specimen measuring 1 and 2 cm in greatest dimension. One of the ulcer surfaces shows brownish-black discoloration. Also present in the container is a detached piece of bone measuring 2.5 x 2 x 1 cm. Range Manager sections are submitted in five cassettes as follows: 1 & 2 - area of ulceration, 3-4 - bone underneath the area of ulceration on the toe after decalcification, 5 - separate piece of bone after decalcification. B - Received in fixative is one container labeled with the patient's name and designated clearance fragment bone left great toe. The specimen consists of a piece of bone measuring 1.5 x 1 x 0.2 cm. The entire specimen is submitted in one cassette after decalcification. / FIDEL:karyn 09/23/18 TC:2 CPT: 05511, 16297, 02271 x2, 86912 x2
[2018-09-20] MEDS: Acetaminophen 325 MG Tablet PO ×2 (02:29→20:52)
--- NOTE | 2018-09-20 05:17 | PN.SURG_ITS ---
Patient Problems: Active and Suspected Problems (Last Reviewed 09/17/18 @ 16:48 by Sandy Maharaj PA-C) Type 2 diabetes mellitus with left diabetic foot infection (Acute) Sepsis (Acute) Sinus tachycardia seen on cardiac/vascular sonographer (Acute) Subjective: Pt without complaint - Physical Exam Extremities: - - right groin puncture site supple left foot warm Vital Signs Temp Pulse Resp BP Pulse Ox 99.2 F H 92 20 H 161/83 H 96 09/20/18 02:15 09/20/18 02:15 09/20/18 02:15 09/20/18 02:15 09/20/18 02:15 Oxygen Delivery Method Room Air Weight: 264 lb 1.82 oz Body Mass Index (BMI) 41.3 Intake and Output for Last 24 Hours 09/18/18 09/19/18 09/20/18 23:59 23:59 23:59 Intake Total 4985 / 4985 2236 / 2236 Output Total 3300 / 3300 750 / 750 Balance 1685 / 1685 1486 / 1486 Microbiology Past 72 Hours 09/17/18 07:15 Gram Stain - Final Wound - Left Foot Wound Culture - Final Staphylococcus aureus 09/16/18 20:35 Blood Culture - Preliminary Blood Culture (Wb) - Anticubital Right No growth in 48 hours. 09/16/18 19:55 Blood Culture - Preliminary Blood Culture (Wb) - Anticubital Left No growth in 48 hours. Laboratory Tests Past 24 Hrs 09/19/18 09/19/18 09/19/18 06:28 12:29 13:15 WBC 15.0 H RBC 4.72 Hgb 14.2 Hct 42.6 MCV 90.3 MCH 30.1 MCHC 33.3 RDW 13.0 RDW Differential 42.3 Plt Count 239 MPV 10.8 Immature Gran % (Auto) 0.900 Neut % (Auto) 70.0 Lymph % (Auto) 12.3 L [place] % (Auto) 14.0 H Eos % (Auto) 2.3 Baso % (Auto) 0.5 Absolute Neuts (auto) 10.5 H Absolute Lymphs (auto) 1.85 Total Counted Not Reportable Diff Path Review Reviewed Activated Clotting Time 131 219 H POC Glucose 09/19/18 09/19/18 09/19/18 21:40 16:39 11:10 POC Glucose 253 H 151 H 169 H 09/19/18 06:08 POC Glucose 210 H Medical Necessity - Tobacco Use Smoking Status: Never smoker Tobacco Use: Non-smoker Assessment/Plan All Active Problems (Last Reviewed 09/17/18 @ 16:48 by Sandy Maharaj PA-C) Type 2 diabetes mellitus with left diabetic foot infection (Acute) Sepsis (Acute) Sinus tachycardia seen on cardiac/vascular sonographer (Acute) PAD (peripheral artery disease) (Acute) Cellulitis of toe, left (Acute) Chronic ulcer of left foot with fat layer exposed (Resolved) Cellulitis and abscess of foot (Acute) Satis s/p LLE arteriogram Ongoing care per podiatry Will sign off
[2018-09-20] MEDS: 0.9% Normal Saline 1,000 ML 40 ML IV (05:58)
[2018-09-20 07:36] LABS: Bedside Glucose 186 mg/dL (70-110)
[2018-09-20] MEDS: NIFEdipine 30 MG Tablet PO (07:54)
--- NOTE | 2018-09-20 09:53 | NURSING ---
Report called to Heather LAWSON.
--- NOTE | 2018-09-20 10:10 | PCM.PROGNOTE ---
Patient Problems: Active and Suspected Problems (Last Reviewed 09/17/18 @ 16:48 by Sandy Maharaj PA-C) Type 2 diabetes mellitus with left diabetic foot infection (Acute) Sepsis (Acute) Sinus tachycardia seen on java enterprise architect (Acute) Subjective: Day 5 antibiotics -vancomycin and Zosyn All events of the past 24 hours of been reviewed. T-max is 100 ?F. Temp today is 98.3. Blood pressures are mildly elevated. Pulse ox on room air is 95-97%. Blood sugar record was reviewed. wound culture is + for MSSA and the blood cultures are negative Patient had an arteriogram and attempted angioplasty of the posterior tibial artery however distal flow failed to be restored. Dr. Bates has signed off. Plan is for amputation of the great toe today. Seen pre-operatively No SOB, No CP, pain is adequately controlled. His R knee is still a little stiff and sore but PT gave him exercises. Most of the swelling is in the bursa Objective: PHYSICAL EXAM: GENERAL: alert, oriented X 3, Cooperative, NAD but a little tearful when we talked about the unsuccessful attempt to improve the blood flow in the posterior tibial artery. ORAL: moist mucosa, no mucosal lesions NECK: No JVD, supple, trachea midline LUNGS: CTA, symmetric chest expansion, diminished secondary to body habitus HEART: RRR, Normal S1 and S2, no rub, no gallop, no murmur ABDOMEN: soft, NT, ND, BS present, obese, no guarding with palpation EXTREMITIES: no edema, no cyanosis, no calf tenderness. The left knee is swollen, mostly in the bursa and not the joint. There is no increased warmth to touch and no erythema NEUROLOGIC: no focal neurologic deficits PSYCH: appropriate, normal affect, pleasant - Physical Exam Vital Signs Temp Pulse Resp BP Pulse Ox 98.3 F 81 16 160/80 H 95 09/20/18 09:41 09/20/18 09:41 09/20/18 09:41 09/20/18 09:41 09/20/18 09:41 Oxygen Delivery Method Room Air Weight: 264 lb 1.82 oz Body Mass Index (BMI) 41.4 Intake and Output for Last 24 Hours 09/18/18 09/19/18 09/20/18 23:59 23:59 23:59 Intake Total 4985 / 4985 2236 / 2236 340 / 340 Output Total 3300 / 3300 750 / 750 550 / 550 Balance 1685 / 1685 1486 / 1486 -210 / -210 Microbiology Past 72 Hours 09/17/18 07:15 Gram Stain - Final Wound - Left Foot Wound Culture - Final Staphylococcus aureus 09/16/18 20:35 Blood Culture - Preliminary Blood Culture (Wb) - Anticubital Right No growth in 48 hours. 09/16/18 19:55 Blood Culture - Preliminary Blood Culture (Wb) - Anticubital Left No growth in 48 hours. Laboratory Tests Past 24 Hrs 09/19/18 09/19/18 09/19/18 06:28 12:29 13:15 Diff Path Review Reviewed Activated Clotting Time 131 219 H POC Glucose 09/20/18 09/19/18 09/19/18 07:28 21:40 16:39 POC Glucose 186 H 253 H 151 H 09/19/18 11:10 POC Glucose 169 H Medical Necessity - Tobacco Use Smoking Status: Never smoker Tobacco Use: Non-smoker Assessment/Plan All Active Problems (Last Reviewed 09/17/18 @ 16:48 by Sandy Maharaj PA-C) Type 2 diabetes mellitus with left diabetic foot infection (Acute) Sepsis (Acute) Sinus tachycardia seen on java enterprise architect (Acute) PAD (peripheral artery disease) (Acute) Cellulitis of toe, left (Acute) Chronic ulcer of left foot with fat layer exposed (Resolved) Cellulitis and abscess of foot (Acute) Impressions 1. Sepsis secondary to diabetic foot infection involving the left great toe. Treated with Vancomycin and Zosyn. Dr. Quiñonez on Consult. 2. PVD with hx of stents to LLE on 2 occasions in the past he thinks [address] Bates consulted and is going to do an arteriogram of the left lower extremity. 3. Diabetes mellitus type [id number] with hemoglobin A1c of 6.9% 4. Obstructive sleep apnea-compliant with CPAP 5. Morbid obesity 6. Hypertension 7. Sinus tachycardia-likely secondary to infection and dehydration. Creatinine has improved with hydration and so has the heart rate. 8. Hyperlipidemia 9. Diabetic peripheral polyneuropathy Will consult Dr. Pires to manage the antibiotics. Can probably DC the Vanco since the SA is methicillin sensitive but, may wait for the cultures of the bone and tissue at the time of surgery. Recheck lab in the AM Continue PT/OT Will check on him post-op Code Visit Inpatient E&M: 57578 Subs Hosp L3
--- NOTE | 2018-09-20 10:13 | PN_ITS ---
Patient Problems: Active and Suspected Problems (Last Reviewed 09/17/18 @ 16:48 by Sandy Maharaj PA-C) Type 2 diabetes mellitus with left diabetic foot infection (Acute) Sepsis (Acute) Sinus tachycardia seen on manager monitoring (Acute) Subjective: Day 5 antibiotics -vancomycin and Zosyn All events of the past 24 hours of been reviewed. T-max is 100 ?F. Temp today is 98.3. Blood pressures are mildly elevated. Pulse ox on room air is 95-97%. Blood sugar record was reviewed. wound culture is + for MSSA and the blood cultures are negative Patient had an arteriogram and attempted angioplasty of the posterior tibial artery however distal flow failed to be restored. Dr. Bates has signed off. Plan is for amputation of the great toe today. Seen pre-operatively No SOB, No CP, pain is adequately controlled. His R knee is still a little stiff and sore but PT gave him exercises. Most of the swelling is in the bursa Objective: PHYSICAL EXAM: GENERAL: alert, oriented X 3, Cooperative, NAD but a little tearful when we talked about the unsuccessful attempt to improve the blood flow in the po sterior tibial artery. ORAL: moist mucosa, no mucosal lesions NECK: No JVD, supple, trachea midline LUNGS: CTA, symmetric chest expansion, diminished secondary to body habitus HEART: RRR, Normal S1 and S2, no rub, no gallop, no murmur ABDOMEN: soft, NT, ND, BS present, obese, no guarding with palpation EXTREMITIES: no edema, no cyanosis, no calf tenderness. The left knee is swollen, mostly in the bursa and not the joint. There is no increased warmth to touch and no erythema NEUROLOGIC: no focal neurologic deficits PSYCH: appropriate, normal affect, pleasant - Physical Exam Vital Signs Temp Pulse Resp BP Pulse Ox 98.3 F 81 16 160/80 H 95 09/20/18 09:41 09/20/18 09:41 09/20/18 09:41 09/20/18 09:41 09/20/18 09:41 Oxygen Delivery Method Room Air Weight: 264 lb 1.82 oz Body Mass Index (BMI) 41.4 Intake and Output for Last 24 Hours 09/18/18 09/19/18 09/20/18 23:59 23:59 23:59 Intake Total 4985 / 4985 2236 / 2236 340 / 340 Output Total 3300 / 3300 750 / 750 550 / 550 Balance 1685 / 1685 1486 / 1486 -210 / -210 Microbiology Past 72 Hours 09/17/18 07:15 Gram Stain - Final Wound - Left Foot Wound Culture - Final Staphylococcus aureus 09/16/18 20:35 Blood Culture - Preliminary Blood Culture (Wb) - Anticubital Right No growth in 48 hours. 09/16/18 19:55 Blood Culture - Preliminary Blood Culture (Wb) - Anticubital Left No growth in 48 hours. Laboratory Tests Past 24 Hrs 09/19/18 09/19/18 09/19/18 06:28 12:29 13:15 Diff Path Review Reviewed Activated Clotting Time 131 219 H POC Glucose 09/20/18 09/19/18 09/19/18 07:28 21:40 16:39 POC Glucose 186 H 253 H 151 H 09/19/18 11:10 POC Glucose 169 H Medical Necessity - Tobacco Use Smoking Status: Never smoker Tobacco Use: Non-smoker Assessment/Plan All Active Problems (Last Reviewed 09/17/18 @ 16:48 by Sandy Maharaj PA-C) Type 2 diabetes mellitus with left diabetic foot infection (Acute) Sepsis (Acute) Sinus tachycardia seen on manager monitoring (Acute) PAD (peripheral artery disease) (Acute) Cellulitis of toe, left (Acute) Chronic ulcer of left foot with fat layer exposed (Resolved) Cellulitis and abscess of foot (Acute) Impressions 1. Sepsis secondary to diabetic foot infection involving the left great toe. Treated with Vancomycin and Zosyn. Dr. Quiñonez on Consult. 2. PVD with hx of stents to LLE on 2 occasions in the past he thinks 2 and [address] Bates consulted and is going to do an arteriogram of the left lower extremity. 3. Diabetes mellitus type [id number] with hemoglobin A1c of 6.9% 4. Obstructive sleep apnea-compliant with CPAP 5. Morbid obesity 6. Hypertension 7. Sinus tachycardia-likely secondary to infection and dehydration. Creatinine has improved with hydration and so has the heart rate. 8. Hyperlipidemia 9. Diabetic peripheral polyneuropathy Will consult Dr. Pires to manage the antibiotics. Can probably DC the Vanco since the SA is methicillin sensitive but, may wait for the cultures of the bone and tissue at the time of surgery. Recheck lab in the AM Continue PT/OT Will check on him post-op Code Visit Inpatient E&M: 96461 Subs Hosp L3
--- NOTE | 2018-09-20 10:39 | CASEMGMT ---
Addendum entered by María Lujan 09/20/18 11:03: SW spoke w/pt, brother and sister in law in room, let them know that TCU will have a bed on Sunday. SW explained on Sunday we will ask insurance for precert, and as long as insurance authorizes, pt will be able to go to TCU. SW did explain to pt if he is walking [address] they may not authorize. SW explained will need to see how pt is moving Sunday and will have TCU start precert. SW explained we will also need to see if pt needs IV antibiotics. Pt and family state understanding. Pt's sister asked how long pt will need to be in TCU. SW explained to pt and family that this will be determined by care team, pt and insurance all together. SW explained they will have plan of care meetings in TCU to review progress and discharge plan, will get pt set up with what he may need when he goes home such as home health care. SW to follow up Sunday. ROSITA Uribe Original Note: CARMELA received referral from that pt will need SNF at discharge, pt would like TCU if possible. Pt will be here through weekend as precert is needed so should be started after pt has surgery and PT after surgery, surgery is today. CARMELA called [facility], TCU will have a bed on Sunday, they will start precert Sunday. SW will let pt know. ROSITA Uribe
[2018-09-20] MEDS: Insulin Lispro 100 UNIT/ML INSULN.PEN 12 UNIT SC ×2 (11:07→15:04)
[2018-09-20 11:11] LABS: Bedside Glucose 185 mg/dL (70-110)
--- NOTE | 2018-09-20 11:22 | NURSING ---
sylvester sent to
[2018-09-20 11:43] LABS: Vancomycin, Trough Level 13.1 ug/mL (5.0-15.0)
--- NOTE | 2018-09-20 11:45 | RAD_ITS ---
STUDY: X-RAY - LEFT FOOT CLINICAL: Male, 68 years old. Great toe amputation TECHNIQUE: AP and lateral intraoperative fluoroscopic spot images of the foot. COMPARISON: None. Fluoroscopy time: 4 seconds FINDINGS: Normal visualized metatarsals. Moderate degenerative change of the first metatarsophalangeal joint. Postoperative change from transphalangeal amputation at the proximal phalanx of the hallux. Soft tissue defect noted in the post amputation bed. Normal second through fifth metatarsophalangeal joints. Mild degenerative change of the interphalangeal joints of the visualized lesser toes. RAD/Foot min 3 Views IMPRESSION: 1. Postoperative change from transphalangeal amputation of the hallux 2. Moderate degenerative change of the first metatarsophalangeal joint. Electronically Signed: Canddio Thompson MD at 4:51 EDT Tel , Service support ,
[2018-09-20] MEDS: Bupivacaine Mpf 0.5% 30 ML VIAL (11:55)
--- NOTE | 2018-09-20 12:53 | PHA.PHARE_ITS ---
Consult Pharmacy has been consulted to manage selected antiobiotic: Vancomycin Type of Consult: Follow-up Suspected Infection: Sepsis, Skin/Soft tissue, Osteomyelitis Prior Doses of Antibiotics Received/Current Regimen: Currently on 2gm iv q12h. Labs: Sodium 133 mmol/L (136-145) L 09/18/18 05:58 Potassium 4.7 mmol/L (3.5-5.1) 09/18/18 05:58 Chloride 100 mmol/L (98-107) 09/18/18 05:58 Carbon Dioxide 25.0 mmol/L (21.0-32.0) 09/18/18 05:58 Anion Gap 8 (5-15) 09/18/18 05:58 BUN 11 mg/dL (7-18) 09/18/18 05:58 Creatinine 0.91 mg/dL (0.70-1.30) 09/18/18 05:58 Est GFR (MDRD) Af Amer 107 mL/min (>60) 09/18/18 05:58 Est GFR (MDRD) Non-Af 88 mL/min (>60) 09/18/18 05:58 BUN/Creatinine Ratio 12.1 RATIO (10-20) 09/18/18 05:58 Glucose 198 mg/dL (74-106) H 09/18/18 05:58 Vancomycin Trough 13.1 ug/mL (5.0-15.0) 09/20/18 10:24 Microbiology: Microbiology 09/17/18 07:15 Wound - Left Foot Gram Stain - Final 09/17/18 07:15 Wound - Left Foot Wound Culture - Final Staphylococcus aureus 09/16/18 20:35 Blood Culture (Wb) - Anticubital Right Blood Culture - Pr eliminary No growth in 48 hours. 09/16/18 19:55 Blood Culture (Wb) - Anticubital Left Blood Culture - Preliminary No growth in 48 hours. Weight used for dosin.8 kg Estimated Creatinine Clearance: ~73ml/min Goal Trough: 15-20 mcg/mL Pharmacy Plan for Drug Dosing: Vancomycin trough this AM 09.20.18 was 13.1. Culture reported as MSSA 09.19.18 and antibiotic may be changed. Will leave vancomycin dose the same for now and order another trough for 09.21.18 before 2300 dose in case vancomycin is not DC'd. Pharmacy Service will continue to monitor and adjust dosing as required. Follow-Up Labs: Trough Vancomycin - 4.13.19 @2230 before 2300 dose
[2018-09-20 13:55] LABS: Bedside Glucose 184 mg/dL (70-110)
[2018-09-20] MEDS: Gabapentin 600 MG Tablet PO ×2 (14:21→20:53)
--- NOTE | 2018-09-20 14:24 | PCM.HP.ID ---
Problem List (1) Osteomyelitis Status: Chronic Reason for Consult: osteo Consulted by: Dr. Quintanilla History of Present Illness: The patient is a 68 year old M with PAD, DM neuropathy, presented with 1-2 weeks of progressive L foot pain, swelling, redness, and purulent drainage. Some fever and chills. Came to ED, started on vanc/zosyn, wound cx with MSSA, taken to OR today for I&D and partial amputation. Pain controlled, redness improved, no n/v/d. Full ROS performed and neg except as noted above. - Medical History Past Medical History (Chronic Problems): Chronic Problems (Last Reviewed 09/17/18 @ 16:48 by Sandy Maharaj PA-C) Hallux varus (acquired), left foot (Chronic) Diabetes mellitus with polyneuropathy (Chronic) Osteomyelitis (Chronic) HTN (hypertension) (Chronic) Type II diabetes mellitus (Chronic) Allergies/Adverse Reactions: Allergies No Known Allergies Allergy (Verified 09/16/18 19:29) Home Medications: Ambulatory Orders Medication Instructions Recorded Dulaglutide [Trulicity] 1.5 mg SQ ONEIL 01/06/17 Hydrochlorothiazide [Hctz] 25 mg PO DAILY 01/06/17 Insulin Glargine,Hum.rec.anlog 75 unit SQ QHS 01/06/17 [Lantus] Nifedipine [Nifedipine ER] 30 mg PO DAILY 01/06/17 Simvastatin [Zocor] 20 mg PO QHS 01/06/17 Cholecalciferol (Vitamin D3) 6,000 unit PO DAILY 09/16/18 [Vitamin D3] Cyanocobalamin (Vitamin B-12) 1,000 mcg PO DAILY 09/16/18 [B-12] Gabapentin 600 mg PO TID 09/16/18 Insulin Lispro [Humalog KwikPen] 12 units SQ TID 09/16/18 Metformin HCl 1,000 mg PO BID 09/16/18 - Social History SMOKING STATUS:: Never smoker Vital Signs Temp Pulse Resp BP Pulse Ox 98.0 F 80 13 139/65 H 91 09/20/18 14:09 09/20/18 14:09 09/20/18 14:09 09/20/18 14:09 09/20/18 14:09 Oxygen Delivery Method Room Air Weight: 119.8 kg Body Mass Index (BMI) 41.4 Microbiology Past 72 Hours 09/17/18 07:15 Gram Stain - Final Wound - Left Foot Wound Culture - Final Staphylococcus aureus 09/16/18 20:35 Blood Culture - Preliminary Blood Culture (Wb) - Anticubital Right No growth in 48 hours. 09/16/18 19:55 Blood Culture - Preliminary Blood Culture (Wb) - Anticubital Left No growth in 48 hours. Laboratory Tests Past 24 Hrs 09/20/18 10:24 Vancomycin Trough 13.1 - Other Studies Radiology: [] reviewed Other Studies: [] Route of nutrition/ use of supplements: [] Nutritional Intake: [] IV Site: [] Shell Catheter: [] - Physical Exam General: Alert, Oriented x3, Cooperative, No apparent distress HEENT: Atraumatic, PERRLA, EOMI Neck: Supple, No Nodes Lungs: Clear to auscultation, Normal air movement Cardiovascular: Regular rate, Regular Rhythm Abdomen: Soft, Non Tender, Non-Distended Extremities: Edema Skin: Ulcer/ Wound - Foot wrapped sp OR IV Site: Peripheral, without redness Musculoskeletal: No Tenderness to Palpation of Joints or Extremities Neurological: Cranial nerves II-XII grossly intact - Assessment/Plan Antibiotics: [] Assessment/Plan: [] Active and Suspected Problems (Last Reviewed 09/17/18 @ 16:48 by Sandy Maharaj PA-C) Type 2 diabetes mellitus with left diabetic foot infection (Acute) Sepsis (Acute) Sinus 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 Nava. Surg cx and path pending. Will stop vanc, continue zosyn for now. Will follow, thank you, d/w Dr. Quintanilla.
--- NOTE | 2018-09-20 14:39 | OP.PCM_ITS ---
Problem List (1) 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 Status: Acute Qualifiers: Diabetic foot ulcer location: toe Diabetes mellitus type: type 2 Qualified Code(s): E11.621 - Type 2 diabetes mellitus with foot ulcer; L97.526 - Non-pressure chronic ulcer of other part of left foot with bone involvement without evidence of necrosis (2) Chronic ulcer of left foot with necrosis of bone Status: Chronic (3) PAD (peripheral artery disease) Status: Chronic (4) Diabetes mellitus with polyneuropathy Status: Chronic Qualifiers: (5) Osteomyelitis Status: Chronic Qualifiers: Osteomyelitis location: foot Laterality: left Report of Operation Date of Procedure: 09/20/18 Pre-Operative Diagnosis: Osteomyelitis left distal phalanx hallux. Hallux varus left. Infected ulcer left hallux Post-Operative Diagnosis: Osteomyelitis left distal phalanx hallux. Hallux varus left. Infected ulcer left hallux Surgery/Procedure Performed:: Partial left hallux amputation Description of Surgical Findings:: Hemostasis: Controlled Materials: 3-0 Vicryl and 3-0 nylon The patient tolerated the procedure and anesthesia well. Intraoperative x-rays were obtained after the amputation was performed. His neurovascular status was intact at the time of transfer to the PACU. Postoperative orders were entered electronically. Type of Anesthesia:: Local - Preoperative: 10 cc of 0.5% Marcaine plain administered in typical first ray block fashion to the left foot Specimen's removed: pathology: Infected left hallux. Pathology: Clearance fragment left hallux. microbiology: Clearance fragment left hallux (Anaerobic, aerobic, acid-fast, fungal) Estimated Blood Loss (mL): <200 mL Description of Procedure: Indications: This 68-year-old male with significant past medical history of diabetic neuropathy, peripheral vascular disease, hypertension sustained a chronic left plantar hallux ulceration with progressive formation of infection. He has been treated with bedside debridements and IV antibiotics. During his hospital admission is also recognized that he had impaired vascular flow to the left lower extremity and intervention with Dr. Bates was performed on 09/19/2018 as a following: Abdominal pelvic left lower extremity arteriogram with selective access to the posterior tibial and tapering 2-2.5 mm angioplasty of the proximal left posterior tibial. His vascular status to his left lower extremity is optimize at this time. The preoperative indication, planned procedure, possible benefits, risks, complications, and anticipated healing time and management were discussed in detail with the patient. He understands and elects to proceed with surgery at this time. He understands risks and complications include but are not limited to the following: Swelling, pain, scarring, continued infection, delayed or nonhealing, loss of additional limb, loss of function in life, blood clot, allergic reaction, foot deformity. Surgical consents in the surgical limb were signed. I answered all his questions. Medical preop optimization was assisted by the hospitalist service. His preoperative diagnostic data including labs, foot x-ray, and MRI were reviewed which also supports a diagnosis of osteomyelitis of the distal phalanx. It is also noted clinically that he does have a hallux varus position and medial deviation of the lesser toes as well. The ulcer site to the plantar left hallux does probe to bone and the ulcer bed is fibrous and necrotic. Procedure in detail: The patient was transferred to the operating room via cart and placed on the operating table. Final verification of the patient, surgery, limb designation was performed via the timeout procedure. LMA was initially by the anesthesia team. Preoperative local anesthetic was administered by the cytogenetics laboratory manager. The left lower extremity was prepped and draped in the usual aseptic manner according to standard protocol. No tourniquet was utilized given he just had vascular intervention performed yesterday. Attention was first directed to the left hallux was a fishmouth incision was made directly down to bone creating a full-thickness flap. Care was taken to identify, protect, and preserve the neurovascular structures there were not involved with the removal of nonviable amputated tissue. The distal phalanx was disarticulated at the interphalangeal joint and was removed from the table in total without difficulty. This was sent to pathology. Next a full-thickness flap was reflected off of the proximal phalanx and a sagittal saw was used to remove any prominent bone. The surgical site was copiously irrigated with normal saline. Next a clean sagittal saw blade was used to obtain a clearance fragment in which this was further sent to pathology and microbiology for further aerobic, anaerobic, acid-fast, fungal testing. It was noted there was no purulence, necrosis, odor or devitalized tissue noted at this level. All clean instruments, drapes, and gloves were used at this point prior to obtaining the clearance fragment and the remainder of the surgery. There was perfusion to the amputation level. Any dysvascular remaining structures were excised. Minimal Vicryl suture was used to reapproximate the dorsal and plantar flap. Intraoperative x-ray was used to confirm adequate resection and care was taken to bevel the bone at the amputation site to reduce future prominent pressure areas. The skin was next reapproximated utilizing simple and vertical mattress technique with 3-0 nylon. A postoperative dressing consisting of Betadine soaked gauze, gauze, abdominal pad, Kerlix, and Keo wrap were applied. After procedure: The patient was transported to the PACU with vital signs stable vascular status intact and consistent with preoperative status to left lower extremity. He will be transferred back to the medical surgical floor upon continued stability. He was advised to keep his dressing clean, dry, and intact. To complete a nonweightbearing status to the left lower extremity with assistive device. His intraoperative specimen results are pending. He will continue on antibiotics per infectious disease recommendations which is appreciated. To continue to optimize healing with improved glycemic control and nutritional supplementation. He will [facility] at time of discharge. Meanwhile I will continue to follow him close while in house. All orders were entered electronically. Maria A Payton DPM, F[facility] - Complications none - Admit VTE Documentation VTE Present on Admission: No VTE Mechan Device Prophylaxis: SCD's VTE Pharm Prophylaxis ordered?: Yes
[2018-09-20] MEDS: Insulin Lispro 100 UNIT/ML INSULN.PEN SQ (15:05)
[2018-09-20] MEDS: Atorvastatin Calcium 10 MG Tablet PO (20:53)
[2018-09-20 22:25] LABS: Bedside Glucose 245 mg/dL (70-110)
[2018-09-21] MEDS: 0.9% Normal Saline 1,000 ML 40 ML IV (00:24)
[2018-09-21] MEDS: 0.9% NaCl Peripheral Flush Adult/Peds IV (00:28)
[2018-09-21 03:23] VITALS: BP 160/81; PULSE 84; RESP 18; TEMP 37.1; O2SAT 97
[2018-09-21] MEDS: Gabapentin 600 MG Tablet PO ×3 (06:05→21:37)
[2018-09-21] MEDS: Insulin Lispro 100 UNIT/ML INSULN.PEN 12 UNIT SC ×2 (08:12→11:49)
[2018-09-21] MEDS: Insulin Lispro 100 UNIT/ML INSULN.PEN SQ ×3 (08:12→16:43)
[2018-09-21 09:10] VITALS: BP 155/81; PULSE 81; RESP 18; TEMP 36.7; O2SAT 98
--- NOTE | 2018-09-21 10:13 | PCM.PROGNOTE ---
Patient Problems: Active and Suspected Problems (Last Reviewed 09/17/18 @ 16:48 by Sandy Maharaj PA-C) Type 2 diabetes mellitus with left diabetic foot infection (Acute) Sepsis (Acute) Sinus tachycardia seen on photogrammetric compilation specialist (Acute) 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 (Acute) Subjective: 68 year old male was seen bedside for post operative day #1 partial hallux amputation secondary to osteomyelitis. He denies foot pain, fever, chills, nausea, vomiting, calf pain, shortness of breath, chest pain. His post operative hiccups have resolved. His dressing is intact. - Physical Exam General: Alert, Oriented x3, Cooperative HEENT: Atraumatic Extremities: No cyanosis, Capillary Refill Less than 3 Seconds - dorsal and plantar amputation stump site and remaining left 2,3,4 toes., Diminished Peripheral Pulses, Edema - mild left foot Skin: Incision - amputation incision is well aligned, coapted, and without gapping or necrosis. erythema has resolved and there is no purulence, odor or new ulcers. adjacent skin is atrophic Musculoskeletal: No Tenderness to Palpation of Joints or Extremities, Muscle Wasting, - - medial deviation of central toes. partial left hallux amputation noted Neurological: - - lack of epicritic sensation via light touch consistent with neuropathy Psych/Mental Status: Normal Affect, Appropriate Vital Signs Temp Pulse Resp BP Pulse Ox 98.0 F 81 18 155/81 H 98 09/21/18 09:10 09/21/18 09:10 09/21/18 09:10 09/21/18 09:10 09/21/18 09:10 Oxygen Delivery Method Room Air Weight: 119.8 kg Body Mass Index (BMI) 41.4 Intake and Output for Last 24 Hours 09/19/18 09/20/18 09/21/18 23:59 23:59 23:59 Intake Total 2236 / 2236 1170 / 1170 2052 / 2052 Output Total 750 / 750 1750 / 1750 1875 / 1875 Balance 1486 / 1486 -580 / -580 178 / 178 Microbiology Past 72 Hours 09/20/18 12:54 Gram Stain - Final Bone - Toe 09/17/18 07:15 Gram Stain - Final Wound - Left Foot Wound Culture - Final Staphylococcus aureus Anaerobic Culture - Final No anaerobic bacteria isolated. 09/16/18 20:35 Blood Culture - Preliminary Blood Culture (Wb) - Anticubital Right No growth in 48 hours. 09/16/18 19:55 Blood Culture - Preliminary Blood Culture (Wb) - Anticubital Left No growth in 48 hours. Laboratory Tests Past 24 Hrs 09/20/18 10:24 Vancomycin Trough 13.1 POC Glucose 09/20/18 09/20/18 09/20/18 21:55 13:50 10:58 POC Glucose 245 H 184 H 185 H Medical Necessity - Tobacco Use Smoking Status: Never smoker Tobacco Use: Non-smoker Assessment/Plan All Active Problems (Last Reviewed 09/17/18 @ 16:48 by Sandy Maharaj PA-C) Type 2 diabetes mellitus with left diabetic foot infection (Acute) Sepsis (Acute) Sinus tachycardia seen on photogrammetric compilation specialist (Acute) 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 (Acute) Cellulitis of toe, left (Acute) Chronic ulcer of left foot with fat layer exposed (Resolved) Cellulitis and abscess of foot (Acute) POD #1 partial left hallux amputation diabetes with neuropathy peripheral vascular disease s/p recent intervention other comorbities I reviewed his case and discussed his care plan recommendations. His vital signs remained stable and he is afebrile overnight. Clinically the cellulitis has resolved and his amputation stump site is intact. It is noted he still has an elevated white blood cell count of 15.0;this will be monitored. To continue on IV zosyn in the meantime to address the soft tissue envelope. Infectious disease input is greatly appreciated. Intraoperative clearance fragments including pathology and microbiology specimen results are pending. In surgery, the bone that was resected was not discolored or soft. A new dressing with Betadine gauze was applied this morning. To remain nonweightbearing to left lower extremity with surgical shoe in place. It is okay to transfer to the transitional care unit or other jail facility at this time from a surgical standpoint. I will monitor on him on a weekly or biweekly basis at this point. Medical management and DVT prophylaxis per primary team is appreciated. To optimize healing with nutritional supplementation, Zhao. I answered his questions and discussed the case with his sister and Dr. Quintanilla. Maria A Payton, [place], [facility] [phone]
[2018-09-21] MEDS: NIFEdipine 30 MG Tablet PO (10:50)
--- NOTE | 2018-09-21 11:04 | PN_ITS ---
Patient Problems: Active and Suspected Problems (Last Reviewed 09/17/18 @ 16:48 by Sandy Maharaj PA-C) Type 2 diabetes mellitus with left diabetic foot infection (Acute) Sepsis (Acute) Sinus tachycardia seen on patient monitor (Acute) 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 (Acute) Subjective: All events of the past 24 hours of been reviewed. Day #6 antibiotics-Pipracil and/tazobactam. Seen by Dr. Pires on 09/20/2018 and vancomycin was discontinued. He is afebrile. Systolic blood pressure is mildly increased but the blood pressures are stable. Pulse ox is 95-98% on room air. All lab was personally reviewed. But sugars are coming under better control and all blood sugars except the at bedtime sugars are under 200 yesterday. The at bedtime blood sugar was 245. FBS is not recorded today. When I spoke with nursing it was 277. I reviewed the operative report from 09/20/[address] Payton and the patient had a partial left hallux amputation. Pain is adequately controlled. He denies shortness of breath or chest pain. He says he coughed up some clear sputum last night but he does not have a cough this morning. He also had some hiccups but this has resolved. Clearance fragment cultures were sent and also wound culture. Gram stain of the bone shows no organisms and no white blood cells. Objective: PHYSICAL EXAM: GENERAL: alert, oriented X 3, Cooperative, NAD, sitting up in the bedside chair today ORAL: moist mucosa, no mucosal lesions NECK: No JVD, supple, trachea midline LUNGS: CTA after a few deep breaths, symmetric chest expansion, diminished secondary to body habitus HEART: RRR, Normal S1 and S2, no rub, no gallop, no murmur ABDOMEN: soft, NT, ND, BS present, obese, no guarding with palpation EXTREMITIES: I was able to examine the left foot with Dr. Payton while she was doing the dressing change today. There is minimal erythema over the dorsum of the foot but no ankle redness today and no redness extending up his distal left lower extremity. She was able to close the toe yesterday and stated the bone looked very healthy and a good clearance fragment was sent. The margins of the wound are coapted well with no bleeding and no purulent discharge. The plan is to leave the sutures in for 3-4 weeks. NEUROLOGIC: no focal neurologic deficits PSYCH: appropriate, normal affect, pleasant - Physical Exam Vital Signs Temp Pulse Resp BP Pulse Ox 98.0 F 81 18 155/81 H 98 09/21/18 09:10 09/21/18 09:10 09/21/18 09:10 09/21/18 09:10 09/21/18 09:10 Oxygen Delivery Method Room Air Weight: 264 lb 1.82 oz Body Mass Index (BMI) 41.4 Intake and Output for Last 24 Hours 09/19/18 09/20/18 09/21/18 23:59 23:59 23:59 Intake Total 2236 / 2236 1170 / 1170 205 / 2052 Output Total 750 / 750 1750 / 1750 1875 / 1875 Balance 1486 / 1486 -580 / -580 178 / 178 Microbiology Past 72 Hours 09/20/18 12:54 Gram Stain - Final Bone - Toe 09/17/18 07:15 Gram Stain - Final Wound - Left Foot Wound Culture - Final Staphylococcus aureus Anaerobic Culture - Final No anaerobic bacteria isolated. 09/16/18 20:35 Blood Culture - Preliminary Blood Culture (Wb) - Anticubital Right No growth in 48 hours. 09/16/18 19:55 Blood Culture - Preliminary Blood Culture (Wb) - Anticubital Left No growth in 48 hours. Laboratory Tests Past 24 Hrs 09/20/18 10:24 Vancomycin Trough 13.1 POC Glucose 09/20/18 09/20/18 09/20/18 21:55 13:50 10:58 POC Glucose 245 H 184 H 185 H Medical Necessity - Tobacco Use Smoking Status: Never smoker Tobacco Use: Non-smoker Assessment/Plan All Active Problems (Last Reviewed 09/17/18 @ 16:48 by Sandy Maharaj PA-C) Type 2 diabetes mellitus with left diabetic foot infection (Acute) Sepsis (Acute) Sinus tachycardia seen on patient monitor (Acute) 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 Sepsis secondary to diabetic foot infection involving the left great toe. Treated with Vancomycin and Zosyn. Dr. Quiñonez on Consult. 2. PVD with hx of stents to LLE on 2 occasions in the past he thinks [address] Bates performed an arteriogram of the left lower extremity and an attempt at opening the posterior tibial artery however this was unsuccessful. 3. Diabetes mellitus type 6-vayg-[id number] as OP with hemoglobin A1c of 6.9% but BS's have not been adequately controlled in the hospital, likely due to the infection/stress of surgery 4. Obstructive sleep apnea-compliant with CPAP 5. Morbid obesity 6. Hypertension 7. Sinus tachycardia-likely secondary to infection and dehydration. Creatinine has improved with hydration and so has the heart rate. 8. Hyperlipidemia 9. Diabetic peripheral polyneuropathy 10. Status post partial amputation of the left great toe Continue Zosyn and await the results of the cultures done at the time of surgery Dr. Pires will manage antibiotics at discharge Continue to adjust insulin to achieve good blood sugar control Change the diet to a 2000-calorie controlled diet Continue Zhao 1 packet twice daily Recheck CBC with differential and BMP in the a.m. Start lisinopril to better control hypertension. DENICE inhibitor will also help to prevent renovascular disease secondary to diabetes. Plan TCU on Sunday Code Visit Inpatient E&M: 42668 Subs Hosp L2
[2018-09-21 11:06] LABS: Bedside Glucose 277 mg/dL (70-110)
[2018-09-21 11:31] LABS: Bedside Glucose 339 mg/dL (70-110)
[2018-09-21] MEDS: Lisinopril 5 MG Tablet PO (11:48)
--- NOTE | 2018-09-21 12:25 | DCINST_ITS ---
Discharge Activity: Use Walker Weight Bearing Status: No weight bearing - left with surgical shoe Call your doctor if your incision/area has: Continuous Slow Oozing, Sudden Increased Bleeding, Increased Pain/ Swelling, Increased Redness, Foul Smelling Discharge, Swelling at the incision site Cleanse incision/area with: Keep Dressing Clean & Dry Allergies/Adverse Reactions: Allergies No Known Allergies Allergy (Verified 09/16/18 19:29) Medications to take at Discharge Dulaglutide [Trulicity] 1.5 mg SQ ONEIL 01/06/17 Hydrochlorothiazide [Hctz] 25 mg PO DAILY 01/06/17 Insulin Glargine,Hum.rec.anlog [Lantus] 75 unit SQ QHS 01/06/17 Nifedipine [Nifedipine ER] 30 mg PO DAILY 01/06/17 Simvastatin [Zocor] 20 mg PO QHS 01/06/17 Cholecalciferol (Vitamin D3) [Vitamin D3] 6,000 unit PO DAILY 09/16/18 Cyanocobalamin (Vitamin B-12) [B-12] 1,000 mcg PO DAILY 09/16/18 Gabapentin 600 mg PO TID 09/16/18 Insulin Lispro [Humalog KwikPen] 12 units SQ TID 09/16/18 Metformin HCl 1,000 mg PO BID 09/16/18 Primary Care Physician: Dexter Reid DO [Primary Care Provider] - Test Results: Test results from this visit will be discussed in further detail at your follow- up appointment, if applicable. Please Follow Up With: Maria A Payton DPM - Will follow while at TCU When: one week after hospital d/c at [facility];[phone] Proposed Discharge Date: 09/23/18
[2018-09-21 16:11] LABS: Bedside Glucose 278 mg/dL (70-110)
[2018-09-21 16:41] VITALS: BP 140/80; PULSE 80; RESP 18; TEMP 37; O2SAT 98
[2018-09-21] MEDS: Insulin Lispro 100 UNIT/ML INSULN.PEN 16 UNIT SC (16:42)
[2018-09-21 20:43] VITALS: BP 142/63; PULSE 82; RESP 18; TEMP 37.3; O2SAT 94
[2018-09-21] MEDS: Atorvastatin Calcium 10 MG Tablet PO (21:37)
[2018-09-21 22:01] LABS: Bedside Glucose 212 mg/dL (70-110)
[2018-09-21 23:06] LABS: Vancomycin, Trough Level 9.7 ug/mL (5.0-15.0)
[2018-09-22 02:40] VITALS: BP 143/73; PULSE 83; RESP 18; TEMP 36.8; O2SAT 95
[2018-09-22] MEDS: Gabapentin 600 MG Tablet PO ×3 (05:28→21:16)
[2018-09-22] MEDS: 0.9% Normal Saline 1,000 ML 40 ML IV (05:28)
[2018-09-22 06:05] LABS: Anion Gap 6 (5-15); BUN 33 mg/dL (7-18); BUN/Creat Ratio 17.3 RATIO (10-20); Calcium,Total 8.5 mg/dL (8.5-10.1); Chloride 105 mmol/L (98-107); Creatinine, Serum 1.91 mg/dL (0.70-1.30); EST Glomerular Filtration Rate 37 mL/min (>60); Est Glom Filt Rate - Afr Amer 45 mL/min (>60); Glucose 207 mg/dL (74-106); Potassium 4.3 mmol/L (3.5-5.1); Sodium Level 138 mmol/L (136-145)
[2018-09-22 06:13] LABS: Absolute Lymphocyte Count 1.65 X10^3/ul (0.83-4.51); Absolute Neutrophil Count 12.5 X10^3/uL (2.0-7.7); Basophil# 0.05 X10^3/uL; Basophil% 0.3 % (0-1); Eosinophil# 0.43 X10^3/uL; Eosinophils% 2.6 % (0-5); Hematocrit 39.7 % (40-54); Hemoglobin 13.1 g/dl (13.0-16.5); Lymphocyte # 1.65 X10^3/ul (4.0); Mean Corpuscular Hgb 30.2 pg (27.0-32.0); Mean Corpuscular Volume 91.5 fL (80-94); Mean Platelet Vol. 10.9 fl (6.2-12.0); Monocyte# 1.79 X10^3/uL; Monocyte% 10.8 % (0-10); Neutrophil # 12.48 X10^3/uL (2.7-7.7); Neutrophil % 75.7 % (47-70); Platelet Count 236 K/mm3 (150-450); RBC Distribution Width SD 42.9 fl (35.1-43.9); Red Blood Count 4.34 M/mm3 (4.6-6.2); White Blood Count 16.5 K/mm3 (4.4-11.0)
[2018-09-22 06:20] LABS: POSITIVE COUNT NO; POSITIVE MORPHOLOGY NO
[2018-09-22] MEDS: Insulin Lispro 100 UNIT/ML INSULN.PEN SQ ×3 (06:27→17:24)
[2018-09-22 06:36] LABS: Differential Indicated SCAN CRITERIA MET; POSITIVE DIFFERENTIAL YES
[2018-09-22 06:37] LABS: Differential Comment SCANNED
[2018-09-22 06:46] LABS: Bedside Glucose 222 mg/dL (70-110)
--- NOTE | 2018-09-22 07:17 | PCM.PROGNOTE ---
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 White blood cell count is 16.5 today with 76% neutrophils. Hemoglobin is stable at 13.1 and platelets are within normal limits. The BUN is 33 with a creatinine of 1.91, up from 0.91 on 09/18/2018. Urine output on 09/21/2018 was 1075. Fluid balance on 09/21/2018 was +2368. Preliminary report on the bone culture is no growth No complaints today tells me that he is feeling better every day. Denies diarrhea, painful sores in his mouth, painful swallowing, abdominal pain, shortness of breath. \Blood sugars are not adequately controlled despite daily changes in the insulin regimen. Objective: PHYSICAL EXAM: GENERAL: alert, oriented X 3, Cooperative, NAD, sitting up in the bedside chair today ORAL: moist mucosa, no mucosal lesions NECK: No JVD, supple, trachea midline LUNGS: CTA after a few deep breaths, symmetric chest expansion, diminished secondary to body habitus HEART: RRR, Normal S1 and S2, no rub, no gallop, no murmur ABDOMEN: soft, NT, ND, BS present, obese, no guarding with palpation EXTREMITIES: No edema. Wound is dressed and I did not examine today NEUROLOGIC: no focal neurologic deficits PSYCH: appropriate, normal affect, pleasant - Physical Exam Vital Signs Temp Pulse Resp BP Pulse Ox 98.3 F 83 18 143/73 H 95 09/22/18 02:40 09/22/18 02:40 09/22/18 02:40 09/22/18 02:40 09/22/18 02:40 Oxygen Delivery Method CPAP Weight: 264 lb 1.82 oz Body Mass Index (BMI) 41.4 Intake and Output for Last 24 Hours 09/20/18 09/21/18 09/22/18 23:59 23:59 23:59 Intake Total 1170 / 1170 4243 / 4243 1139 / 1139 Output Total 1750 / 1750 1875 / 1875 550 / 550 Balance -580 / -580 2368 / 2368 589 / 589 Microbiology Past 72 Hours 09/20/18 12:54 Gram Stain - Final Bone - Toe Wound Culture - Preliminary No growth-Final to follow 09/17/18 07:15 Gram Stain - Final Wound - Left Foot Wound Culture - Final Staphylococcus aureus Anaerobic Culture - Final No anaerobic bacteria isolated. 09/16/18 20:35 Blood Culture - Preliminary Blood Culture (Wb) - Anticubital Right No growth in 48 hours. 09/16/18 19:55 Blood Culture - Preliminary Blood Culture (Wb) - Anticubital Left No growth in 48 hours. Laboratory Tests Past 24 Hrs 09/21/18 09/22/18 09/22/18 22:30 05:25 05:25 WBC 16.5 H RBC 4.34 L Hgb 13.1 Hct 39.7 L MCV 91.5 MCH 30.2 MCHC 33.0 RDW 13.0 RDW Differential 42.9 Plt Count 236 MPV 10.9 Immature Gran % (Auto) 0.600 Neut % (Auto) 75.7 H Lymph % (Auto) 10.0 L [place] % (Auto) 10.8 H Eos % (Auto) 2.6 Baso % (Auto) 0.3 Absolute Neuts (auto) 12.5 H Absolute Lymphs (auto) 1.65 Total Counted Not Reportable Differential Comment SCANNED Diff Path Review October foll Sodium 138 Potassium 4.3 Chloride 105 Carbon Dioxide 27.0 Anion Gap 6 BUN 33 H Creatinine 1.91 H Estim Creat Clear Calc 33.40 Est GFR (MDRD) Af Amer 45 L Est GFR (MDRD) Non-Af 37 L BUN/Creatinine Ratio 17.3 Glucose 207 H Calcium 8.5 Magnesium 2.0 Vancomycin Trough 9.7 POC Glucose 09/22/18 09/21/18 09/21/18 06:25 21:35 16:03 POC Glucose 222 H 212 H 278 H 09/21/18 09/21/18 11:24 08:11 POC Glucose 339 H 277 H Medical Necessity - Tobacco Use Smoking Status: Never smoker Tobacco Use: Non-smoker Assessment/Plan All Active Problems (Last Reviewed 09/17/18 @ 16:48 by Sandy Maharaj, PA-C) Type 2 diabetes mellitus with left diabetic foot infection (Acute) Sepsis (Acute) 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 Sepsis secondary to diabetic foot infection involving the left great toe. Treated with Vancomycin and Zosyn. Dr. Quiñonez on Consult. 2. PVD with hx of stents to LLE on 2 occasions in the past he thinks [address] Bates performed an arteriogram of the left lower extremity and an attempt at opening the posterior tibial artery however this was unsuccessful. 3. Diabetes mellitus type [id number] as OP with hemoglobin A1c of 6.9% but BS's have not been adequately controlled in the hospital, likely due to the infection/stress of surgery 4. Obstructive sleep apnea-compliant with CPAP 5. Morbid obesity 6. Hypertension 7. Sinus tachycardia-likely secondary to infection and dehydration. Creatinine has improved with hydration and so has the heart rate. 8. Hyperlipidemia 9. Diabetic peripheral polyneuropathy 10. 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 ARF - due to Vanco? this has been discontinued. Or due to the DENICE started for BP control Continue Zosyn and await the results of the cultures done at the time of surgery Dr. Pires will manage antibiotics at discharge - can likely be oral meds if the bone clearance fragment continues to be no growth Continue to adjust insulin to achieve good blood sugar control Continue Zhao 1 packet twice daily Recheck CBC with differential and BMP in the a.m. Start lisinopril to better control hypertension. DENICE inhibitor will also help to prevent renovascular disease secondary to diabetes. Increase the insulin with breakfast Plan TCU on Sunday if renal function is stable. If it continues to rise will DC the Lisinopril and consult nephrology Code Visit Inpatient E&M: 64326 Subs Hosp L2
[2018-09-22] MEDS: Insulin Lispro 100 UNIT/ML INSULN.PEN 12 UNIT SC ×2 (07:52→12:02)
[2018-09-22 08:40] VITALS: BP 132/74; PULSE 83; RESP 18; TEMP 37.1; O2SAT 95
[2018-09-22] MEDS: Lisinopril 5 MG Tablet PO (10:15)
[2018-09-22] MEDS: NIFEdipine 30 MG Tablet PO (10:15)
[2018-09-22 12:46] LABS: Bedside Glucose 287 mg/dL (70-110)
[2018-09-22 15:47] VITALS: BP 151/74; PULSE 86; RESP 18; TEMP 37.2; O2SAT 93
[2018-09-22 16:36] LABS: Bedside Glucose 293 mg/dL (70-110)
[2018-09-22] MEDS: Insulin Lispro 100 UNIT/ML INSULN.PEN 16 UNIT SC (17:23)
[2018-09-22 20:15] VITALS: BP 135/67; PULSE 83; RESP 18; TEMP 36.9; O2SAT 94
[2018-09-22] MEDS: Atorvastatin Calcium 10 MG Tablet PO (21:16)
[2018-09-22 21:20] LABS: Bedside Glucose 214 mg/dL (70-110)
[2018-09-22] MEDS: 0.9% NaCl Peripheral Flush Adult/Peds IV ×2 (21:21→21:24)
[2018-09-23 02:07] VITALS: BP 154/71; PULSE 85; RESP 18; TEMP 35.9; O2SAT 95
[2018-09-23] MEDS: 0.9% NaCl Peripheral Flush Adult/Peds IV (05:44)
[2018-09-23] MEDS: Gabapentin 600 MG Tablet PO ×3 (05:44→21:53)
[2018-09-23 06:10] LABS: Anion Gap 7 (5-15); BUN 39 mg/dL (7-18); BUN/Creat Ratio 21.8 RATIO (10-20); Calcium,Total 8.8 mg/dL (8.5-10.1); Chloride 105 mmol/L (98-107); Creatinine, Serum 1.79 mg/dL (0.70-1.30); EST Glomerular Filtration Rate 40 mL/min (>60); Est Glom Filt Rate - Afr Amer 49 mL/min (>60); Estimated Creatinine Clearance 35.64 ml/min; Glucose 198 mg/dL (74-106); Magnesium 2.1 mg/dL (1.6-2.6); Potassium 4.1 mmol/L (3.5-5.1); Sodium Level 138 mmol/L (136-145)
[2018-09-23 06:35] LABS: Bedside Glucose 178 mg/dL (70-110)
[2018-09-23 06:38] LABS: Absolute Lymphocyte Count 1.72 X10^3/ul (0.83-4.51); Absolute Neutrophil Count 10.7 X10^3/uL (2.0-7.7); Basophil# 0.09 X10^3/uL; Basophil% 0.6 % (0-1); Eosinophil# 0.49 X10^3/uL; Eosinophils% 3.3 % (0-5); Hematocrit 41.1 % (40-54); Hemoglobin 13.5 g/dl (13.0-16.5); Lymphocyte # 1.72 X10^3/ul (4.0); Lymphocyte % 11.6 % (19-41); Mean Corp Hgb Conc 32.8 g/gl (32-36); Mean Corpuscular Hgb 29.7 pg (27.0-32.0); Mean Corpuscular Volume 90.3 fL (80-94); Monocyte# 1.62 X10^3/uL; Neutrophil # 10.69 X10^3/uL (2.7-7.7); Neutrophil % 72.3 % (47-70); Platelet Count 276 K/mm3 (150-450); RBC Distribution Width SD 42.2 fl (35.1-43.9); Red Blood Count 4.55 M/mm3 (4.6-6.2); White Blood Count 14.8 K/mm3 (4.4-11.0)
[2018-09-23 06:46] LABS: Differential Indicated SCAN CRITERIA MET; POSITIVE COUNT NO; POSITIVE DIFFERENTIAL YES; POSITIVE MORPHOLOGY NO
[2018-09-23 08:13] VITALS: BP 116/68; PULSE 73; RESP 18; TEMP 36.5; O2SAT 96
[2018-09-23] MEDS: NIFEdipine 30 MG Tablet PO (08:15)
[2018-09-23] MEDS: Insulin Lispro 100 UNIT/ML INSULN.PEN SC (08:15)
[2018-09-23] MEDS: Lisinopril 5 MG Tablet PO (08:17)
[2018-09-23] MEDS: Insulin Lispro 100 UNIT/ML INSULN.PEN SQ (08:17)
[2018-09-23] MEDS: Insulin Lispro 100 UNIT/ML INSULN.PEN 15 UNIT SC (08:19)
--- NOTE | 2018-09-23 08:51 | PCM.TXEXTCAR ---
<Azucena Quintanillae - Last Filed: 09/23/18 08:51> - Diet 09/22/18 10:37 Diet: Cardiac: Calorie-Controlled Is pt able to select menu?: Yes How many daily calories?: 2000 calorie Zhao 1 carton BID - Routine Orders/Code Status Enema Type: Fleetz Enema Frequency: Daily PRN Suppository Type: Dulcolax 10mg Suppository Frequency: Daily PRN Routine Lab Work: - - BMP, CBC 09/26/18 - Wound(s) LEFT GREAT TOE Wound Type: Surgical Incision right groin Wound Type: Surgical Incision - Therapies Weight Bearing: Non weight bearing Extremity Affected:: surgical shoe to the left foot Physical Therapy: Eval and Treat Occupational Therapy: Eval and Treat - Problem/Diagnosis (1) Osteomyelitis of great toe of left foot Status: Acute Current Visit: Yes (2) 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 Status: Acute Current Visit: Yes (3) Sepsis Status: Acute Current Visit: Yes (4) Sinus tachycardia seen on compliance monitor Status: Acute Current Visit: Yes (5) Type 2 diabetes mellitus with diabetic polyneuropathy Status: Acute Current Visit: No (6) Type 2 diabetes mellitus with left diabetic foot infection Status: Acute Current Visit: Yes (7) Chronic ulcer of left foot with necrosis of bone Status: Chronic Current Visit: Yes (8) Cellulitis and abscess of foot Status: Acute Current Visit: No (9) Cellulitis of toe, left Status: Acute Current Visit: No (10) Diabetes mellitus with polyneuropathy Status: Chronic Current Visit: No (11) HTN (hypertension) Status: Chronic Current Visit: No (12) Hallux varus (acquired), left foot Status: Chronic Current Visit: No (13) PAD (peripheral artery disease) Status: Chronic Current Visit: No (14) Chronic ulcer of left foot with fat layer exposed Status: Resolved Current Visit: No (15) Status post amputation of left great toe Status: Acute Current Visit: Yes (16) Hyperlipidemia Status: Acute Current Visit: Yes (17) Obstructive sleep apnea Status: Acute Current Visit: Yes (18) Acute renal failure Status: Acute Current Visit: Yes (19) Morbid obesity Status: Acute Current Visit: Yes - Allergies/Procedures Done in Hospital Allergies/Adverse Reactions: Allergies No Known Allergies Allergy (Verified 09/16/18 19:29) - Dietary and Speech Recommendations Dietitian Recommendations/Changes: Rec continue 2000 Calorie Diet. Rec continue Zhao 1 packet BID for additional protein to promote wound healing if consumed. Will d/c merissa galvez on medpass as PO is good & BMI >40 - Follow Up Care Primary Care Physician: Dexter Reid DO [Primary Care Provider] - Please Follow Up With: Maria A Payton DPM - Will follow while at TCU When: one week after hospital d/[facility];[phone] <Ana Rosa Denny - Last Filed: 09/24/18 16:33> - Allergies/Procedures Done in Hospital Procedures: - - s/p partial hallux amputation - Type of Care/Length of Stay Estimated LOS: Convalescent Care Less Than 30 days Type of Care Needed: Skilled Rehab Potential: Good Prognosis: Good - Additional Orders/Day of Discharge Day of Discharge: 09/24/18 - Follow Up Care Please follow up with your Primary Care Physician in: within 1-2 weeks of discharge from SNF Please Follow Up With: Balaji Pires MD When: [facility]; call for appointment
--- NOTE | 2018-09-23 08:59 | TREXTCAR_ITS ---
<Azucena Quintanillae - Last Filed: 09/23/18 08:51> - Diet 09/22/18 10:37 Diet: Cardiac: Calorie-Controlled Is pt able to select menu?: Yes How many daily calories?: 2000 calorie Zhao 1 carton BID - Routine Orders/Code Status Enema Type: Fleetz Enema Frequency: Daily PRN Suppository Type: Dulcolax 10mg Suppository Frequency: Daily PRN Routine Lab Work: - - BMP, CBC 09/26/18 - Wound(s) LEFT GREAT TOE Wound Type: Surgical Incision right groin Wound Type: Surgical Incision - Therapies Weight Bearing: Non weight bearing Extremity Affected:: surgical shoe to the left foot Physical Therapy: Eval and Treat Occupational Therapy: Eval and Treat - Problem/Diagnosis (1) Osteomyelitis of great toe of left foot Status: Acute Current Visit: Yes (2) 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 Status: Acute Current Visit: Yes (3) Sepsis Status: Acute Current Visit: Yes (4) Sinus tachycardia seen on cardiac exercise physiologist Status: Acute Current Visit: Yes (5) Type 2 diabetes mellitus with diabetic polyneuropathy Status: Acute Current Visit: No (6) Type 2 diabetes mellitus with left diabetic foot infection Status: Acute Current Visit: Yes (7) Chronic ulcer of left foot with necrosis of bone Status: Chronic Current Visit: Yes (8) Cellulitis and abscess of foot Status: Acute Current Visit: No (9) Cellulitis of toe, left Status: Acute Current Visit: No (10) Diabetes mellitus with polyneuropathy Status: Chronic Current Visit: No (11) HTN (hypertension) Status: Chronic Current Visit: No (12) Hallux varus (acquired), left foot Status: Chronic Current Visit: No (13) PAD (peripheral artery disease) Status: Chronic Current Visit: No (14) Chronic ulcer of left foot with fat layer exposed Status: Resolved Current Visit: No (15) Status post amputation of left great toe Status: Acute Current Visit: Yes (16) Hyperlipidemia Status: Acute Current Visit: Yes (17) Obstructive sleep apnea Status: Acute Current Visit: Yes (18) Acute renal failure Status: Acute Current Visit: Yes (19) Morbid obesity Status: Acute Current Visit: Yes - Allergies/Procedures Done in Hospital Allergies/Adverse Reactions: Allergies No Known Allergies Allergy (Verified 09/16/18 19:29) - Dietary and Speech Recommendations Dietitian Recommendations/Changes: Rec continue 2000 Calorie Diet. Rec continue Zhao 1 packet BID for additional protein to promote wound healing if consumed. Will d/c merissa galvez on medpass as PO is good & BMI >40 - Follow Up Care Primary Care Physician: Dexter Reid DO [Primary Care Provider] - Please Follow Up With: Maria A Payton DPM - Will follow while at TCU When: one week after hospital d/c at [facility];[phone] <Ana Rosa Denny - Last Filed: 09/24/18 16:33> - Allergies/Procedures Done in Hospital Procedures: - - s/p partial hallux amputation - Type of Care/Length of Stay Estimated LOS: Convalescent Care Less Than 30 days Type of Care Needed: Skilled Rehab Potential: Good Prognosis: Good - Additional Orders/Day of Discharge Day of Discharge: 09/24/18 - Follow Up Care Please follow up with your Primary Care Physician in: within 1-2 weeks of discharge from SNF Please Follow Up With: Balaji Pires MD When: [facility] [place]; call for appointment
--- NOTE | 2018-09-23 09:59 | CASEMGMT ---
Addendum entered by Chaya Clark 09/23/18 12:18: SW received message from Anusha in TCU stating she has submitted for pre-cert. Original Note: Social Work Note SW placed a call to Anusha in TCU confirming that she is starting pre-cert today for pt. CARMELA waiting for call back. Plan: TCU pending pre-cert Chaya Clark EDUCATIONAL SIGN LANGUAGE INTERPRETER, SEEING EYE DOG TRAINER
[2018-09-23 11:46] LABS: Bedside Glucose 257 mg/dL (70-110)
[2018-09-23] MEDS: Insulin Lispro 100 UNIT/ML INSULN.PEN 14 UNIT SC (12:20)
[2018-09-23] MEDS: Cephalexin 500 MG Capsule PO ×2 (12:21→21:54)
--- NOTE | 2018-09-23 12:46 | PCM.PN.ID ---
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 - Physical Exam General: Alert, Cooperative, No apparent distress Lungs: Clear to auscultation, Normal air movement Cardiovascular: Regular rate, Regular Rhythm Abdomen: Soft, Non Tender, Non-Distended Skin: Ulcer/ Wound - foot wrapped Vital Signs Temp Pulse Resp BP Pulse Ox 97.7 F L 73 18 116/68 96 09/23/18 08:13 09/23/18 08:13 09/23/18 08:13 09/23/18 08:13 09/23/18 08:13 Oxygen Delivery Method Room Air Weight: 119.8 kg Body Mass Index (BMI) 41.4 Intake and Output for Last 24 Hours 09/21/18 09/22/18 09/23/18 23:59 23:59 23:59 Intake Total 4243 / 4243 3814 / 3814 1000 / 1000 Output Total 1875 / 1875 550 / 550 1575 / 1575 Balance 2368 / 2368 3264 / 3264 -575 / -575 Microbiology Past 72 Hours 09/20/18 12:54 Gram Stain - Final Bone - Toe Wound Culture - Final No growth aerobically. 09/16/18 20:35 Blood Culture - Final Blood Culture (Wb) - Anticubital Right No growth in 5 days. 09/16/18 19:55 Blood Culture - Final Blood Culture (Wb) - Anticubital Left No growth in 5 days. 09/17/18 07:15 Gram Stain - Final Wound - Left Foot Wound Culture - Final Staphylococcus aureus Anaerobic Culture - Final No anaerobic bacteria isolated. Laboratory Tests Past 24 Hrs 09/23/18 09/23/18 05:20 05:20 WBC 14.8 H RBC 4.55 L Hgb 13.5 Hct 41.1 MCV 90.3 MCH 29.7 MCHC 32.8 RDW 13.0 RDW Differential 42.2 Plt Count 276 MPV 11.0 Immature Gran % (Auto) 1.200 H Neut % (Auto) 72.3 H Lymph % (Auto) 11.6 L [place] % (Auto) 11.0 H Eos % (Auto) 3.3 Baso % (Auto) 0.6 Absolute Neuts (auto) 10.7 H Absolute Lymphs (auto) 1.72 Total Counted Not Reportable Differential Comment COMMENT Diff Path Review May foll Sodium 138 Potassium 4.1 Chloride 105 Carbon Dioxide 26.0 Anion Gap 7 BUN 39 H Creatinine 1.79 H Estim Creat Clear Calc 35.64 Est GFR (MDRD) Af Amer 49 L Est GFR (MDRD) Non-Af 40 L BUN/Creatinine Ratio 21.8 H Glucose 198 H Calcium 8.8 Magnesium 2.1 POC Glucose 09/23/18 09/23/18 09/22/18 11:41 06:30 21:13 POC Glucose 257 H 178 H 214 H 09/22/18 09/22/18 16:28 11:58 POC Glucose 293 H 287 H Medical Necessity - Tobacco Use Smoking Status: Never smoker Tobacco Use: Non-smoker Route of nutrition/ use of supplements: [] Nutritional Intake: [] IV Site: [] Shell Catheter: [] - Assessment/Plan Antibiotics: [] Assessment/Plan: [] Active and Suspected Problems (Last Reviewed 09/17/18 @ 16:48 by Sandy Maharaj PA-C) Type 2 diabetes mellitus with left diabetic foot infection (Acute) Sepsis (Acute) Sinus tachycardia seen on cardiac catheterization technologist (Acute) L toe MSSA osteomyelitis - taken to OR 09/[address] Nava for amputation. Surg cx and path pending. With clean margins, plan will be for 5 days of keflex. Will follow, d/w Dr. Quintanilla.
[2018-09-23 13:20] LABS: Pathologist Review Reviewed
[2018-09-23 14:40] VITALS: BP 156/73; PULSE 78; RESP 18; TEMP 36.9; O2SAT 96
[2018-09-23 17:00] LABS: Bedside Glucose 212 mg/dL (70-110)
[2018-09-23] MEDS: Insulin Lispro 100 UNIT/ML INSULN.PEN 16 UNIT SC (17:24)
--- NOTE | 2018-09-23 19:33 | PCM.PROGNOTE ---
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 Afebrile with stable vital signs All lab was personally reviewed. The white blood cell count today is 14.8, down from 16.5 yesterday. Hemoglobin and platelets are within normal limits. BMP is remarkable for a BUN of 39 and a creatinine of 1.79 down from 1.99 yesterday He has no complaints. He denies pain in his left foot today. No shortness of breath. - Physical Exam General: Alert, Oriented x3, Cooperative Oral: Moist Mucosa Lungs: Clear to auscultation, No rhonchi, No wheeze, No rales, Diminished Cardiovascular: Regular rate, Regular Rhythm, Normal S1, Normal S2, No Gallop Abdomen: Bowel Sounds Present, Soft, Non Tender, Non-Distended Extremities: Edema - Trace of pretibial edema Skin: No rashes Psych/Mental Status: Normal Affect, Appropriate Vital Signs Temp Pulse Resp BP Pulse Ox 98.4 F 78 18 156/73 H 96 09/23/18 14:40 09/23/18 14:40 09/23/18 14:40 09/23/18 14:40 09/23/18 14:40 Oxygen Delivery Method Room Air Weight: 264 lb 1.82 oz Body Mass Index (BMI) 41.4 Intake and Output for Last 24 Hours 09/21/18 09/22/18 09/23/18 23:59 23:59 23:59 Intake Total 4243 / 4243 3814 / 3814 2074 / 2074 Output Total 1875 / 1875 550 / 550 2024 / 2024 Balance 2368 / 2368 3264 / 3264 50 / 50 Microbiology Past 72 Hours 09/20/18 12:54 Gram Stain - Final Bone - Toe Wound Culture - Final No growth aerobically. Anaerobic Culture - Preliminary No growth in 48 hours. 09/16/18 20:35 Blood Culture - Final Blood Culture (Wb) - Anticubital Right No growth in 5 days. 09/16/18 19:55 Blood Culture - Final Blood Culture (Wb) - Anticubital Left No growth in 5 days. Laboratory Tests Past 24 Hrs 09/22/18 09/23/18 09/23/18 05:25 05:20 05:20 WBC 14.8 H RBC 4.55 L Hgb 13.5 Hct 41.1 MCV 90.3 MCH 29.7 MCHC 32.8 RDW 13.0 RDW Differential 42.2 Plt Count 276 MPV 11.0 Immature Gran % (Auto) 1.200 H Neut % (Auto) 72.3 H Lymph % (Auto) 11.6 L [place] % (Auto) 11.0 H Eos % (Auto) 3.3 Baso % (Auto) 0.6 Absolute Neuts (auto) 10.7 H Absolute Lymphs (auto) 1.72 Total Counted Not Reportable Differential Comment COMMENT Diff Path Review Reviewed October foll Sodium 138 Potassium 4.1 Chloride 105 Carbon Dioxide 26.0 Anion Gap 7 BUN 39 H Creatinine 1.79 H Estim Creat Clear Calc 35.64 Est GFR (MDRD) Af Amer 49 L Est GFR (MDRD) Non-Af 40 L BUN/Creatinine Ratio 21.8 H Glucose 198 H Calcium 8.8 Magnesium 2.1 POC Glucose 09/23/18 09/23/18 09/23/18 16:51 11:41 06:30 POC Glucose 212 H 257 H 178 H 09/22/18 21:13 POC Glucose 214 H Medical Necessity - Tobacco Use Smoking Status: Never smoker Tobacco Use: Non-smoker Assessment/Plan All Active Problems (Last Reviewed 09/17/18 @ 16:48 by Sandy Maharaj PA-C) Osteomyelitis of great toe of left foot (Acute) Status post amputation of left great toe (Acute) Hyperlipidemia (Acute) Obstructive sleep apnea (Acute) Acute renal failure (Acute) Morbid obesity (Acute) Type 2 diabetes mellitus with diabetic polyneuropathy (Acute) Type 2 diabetes mellitus with left diabetic foot infection (Acute) Sepsis (Acute) Sinus tachycardia seen on cardiac/vascular sonographer (Acute) 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 Sepsis secondary to diabetic foot infection involving the left great toe. Treated with Vancomycin and Zosyn. Dr. Quiñonez on Consult. 2. PVD with hx of stents to LLE on 2 occasions in the past he thinks 2 and [address] Bates performed an arteriogram of the left lower extremity and an attempt at opening the posterior tibial artery however this was unsuccessful. 3. Diabetes mellitus type [id number] as OP with hemoglobin A1c of 6.9% but BS's have not been adequately controlled in the hospital, likely due to the infection/stress of surgery 4. Obstructive sleep apnea-compliant with CPAP 5. Morbid obesity 6. Hypertension 7. Sinus tachycardia-likely secondary to infection and dehydration. Creatinine has improved with hydration and so has the heart rate. 8. Hyperlipidemia 9. Diabetic peripheral polyneuropathy 10. 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 ARF - due to Vanco? this has been discontinued. Or due to the DENICE started for BP control Discontinue Zosyn. Start 5 days of Keflex 500 mg 3 times daily Adjust insulin Awaiting precertification for transfer to TCU. Code Visit Inpatient E&M: 65315 [facility] Hosp L1
[2018-09-23 21:47] VITALS: BP 137/76; PULSE 73; RESP 18; TEMP 36.8; O2SAT 98
[2018-09-23] MEDS: Atorvastatin Calcium 10 MG Tablet PO (21:53)
[2018-09-23 22:00] VITALS: PULSE 73; RESP 18; O2SAT 98
[2018-09-23 23:11] LABS: Bedside Glucose 218 mg/dL (70-110)
[2018-09-24 03:25] VITALS: BP 154/68; PULSE 73; RESP 18; TEMP 36.4; O2SAT 98
[2018-09-24 03:30] VITALS: PULSE 73
[2018-09-24] MEDS: Cephalexin 500 MG Capsule PO ×2 (06:15→14:34)
[2018-09-24] MEDS: Gabapentin 600 MG Tablet PO ×2 (06:15→14:34)
[2018-09-24] MEDS: Insulin Lispro 100 UNIT/ML INSULN.PEN 20 UNIT SC (08:27)
[2018-09-24 08:36] LABS: Bedside Glucose 173 mg/dL (70-110)
[2018-09-24 09:25] VITALS: BP 138/70; PULSE 88; RESP 16; TEMP 36.4; O2SAT 94
[2018-09-24] MEDS: NIFEdipine 30 MG Tablet PO (09:36)
[2018-09-24] MEDS: Lisinopril 5 MG Tablet PO (09:38)
[2018-09-24 11:10] LABS: Bedside Glucose 269 mg/dL (70-110)
--- NOTE | 2018-09-24 11:13 | PN.ID_ITS ---
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 - Physical Exam General: Alert, Cooperative, No apparent distress Lungs: Clear to auscultation, Normal air movement Cardiovascular: Regular rate, Regular Rhythm Abdomen: Soft, Non Tender, Non-Distended Skin: Ulcer/ Wound - foot wrapped Vital Signs Temp Pulse Resp BP Pulse Ox 97.6 F L 88 16 138/70 H 94 09/24/18 09:25 09/24/18 09:25 09/24/18 09:25 09/24/18 09:25 09/24/18 09:25 Oxygen Delivery Method Room Air Weight: 119.8 kg Body Mass Index (BMI) 41.4 Intake and Output for Last 24 Hours 09/22/18 09/23/18 09/24/18 23:59 23:59 23:59 Intake Total 3814 / 3814 2074 / 5 1620 / 1620 Output Total 550 / 550 2024 / 2024 1475 / 1475 Balance 3264 / 3264 50 / 50 145 / 145 Microbiology Past 72 Hours 09/20/18 12:54 Gram Stain - Final Bone - Toe Wound Culture - Final No growth aerobically. Anaerobic Culture - Preliminary No growth in 48 hours. 09/16/18 20:35 Blood Culture - Final Blood Culture (Wb) - Anticubital Right No growth in 5 days. 09/16/18 19:55 Blood Culture - Final Blood Culture (Wb) - Anticubital Left No growth in 5 days. Laboratory Tests Past 24 Hrs 09/22/18 05:25 Diff Path Review Reviewed POC Glucose 09/24/18 09/24/18 09/23/18 11:02 08:24 21:58 POC Glucose 269 H 173 H 218 H 09/23/18 09/23/18 16:51 11:41 POC Glucose 212 H 257 H Medical Necessity - Tobacco Use Smoking Status: Never smoker Tobacco Use: Non-smoker Route of nutrition/ use of supplements: [] Nutritional Intake: [] IV Site: [] Shell Catheter: [] - Assessment/Plan Antibiotics: [] Assessment/Plan: [] Active and Suspected Problems (Last Reviewed 09/17/18 @ 16:48 by Sandy Maharaj PA-C) Type 2 diabetes mellitus with left diabetic foot infection (Acute) Sepsis (Acute) Sinus tachycardia seen on cafeteria monitor (Acute) L toe MSSA osteomyelitis - taken to OR 09/[address] Nava for amputation. Surg cx and path pending. With clean margins, plan will be for 4 more days of keflex. Will follow
[2018-09-24] MEDS: Insulin Lispro 100 UNIT/ML INSULN.PEN 14 UNIT SC (11:49)
--- NOTE | 2018-09-24 13:43 | CASEMGMT ---
Precert was attained for pt to go to TCU. SW let pt know, he is agreeable. He will call his brother to let him know. SW let RN know also. SW texted physician to let her know pt can go to TCU today. SW let medical unit secretary know also pt will go to TCU today, she does not need a green sheet for the discharge to TCU. It is likely pt will be discharged after this SW leaves for the day, medical unit secretary able to assist w/discharge to TCU as needed. ROSITA Uribe
[2018-09-24 14:00] VITALS: BP 143/62; PULSE 87; RESP 16; TEMP 36.9; O2SAT 96
[2018-09-24 14:07] LABS: Pathologist Review Reviewed
--- NOTE | 2018-09-24 14:44 | NURSING ---
report called to nirmal in tcu. pt will go to room 15 when cleaned. nirmal to call when room is ready, pt aware
[2018-09-24 17:06] LABS: Bedside Glucose 177 mg/dL (70-110)
--- NOTE | 2018-09-24 21:33 | PCM.DC.SUM ---
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 Acute renal failure Possibly secondary to sepsis plus vancomycin Osteomyelitis of the left great toe - Secondary Discharge Diagnosis Chronic Problems (Last Reviewed 09/17/18 @ 16:48 by aSndy Maharaj PA-C) 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 Degenerative changes of the first metatarsophalangeal joint. 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 There is soft tissue gas in the plantar aspect of the great toe Electronically Signed: Jamshid Hanson MD at 20:52 EDT , Service support , Lower Extremity MRI 09/17/18 07:15 IMPRESSION: Signal alteration of the distal phalanx of the great toe suspicious of osteomyelitis. Arthrosis of the first metatarsophalangeal joint and sesamoids-first metatarsal articulations. Edema in the subcutis adipose space without demonstrated soft tissue abscess. Electronically Signed: Apollo Najera MD at 12:05 EDT Tel , Service support , Foot X-Ray 09/20/18 11:45 IMPRESSION: 1. Postoperative change from transphalangeal amputation of the hallux 2. Moderate degenerative change of the first metatarsophalangeal joint. Electronically Signed: Candido Thompson MD at 4:51 EDT Tel , Service support , Laboratory Results - last 24 hr 09/23/18 09/23/18 09/24/18 05:20 21:58 08:24 Diff Path Review Reviewed POC Glucose 218 H 173 H 09/24/18 09/24/18 11:02 17:00 Diff Path Review POC Glucose 269 H 177 H Microbiology 09/20/18 12:54 Bone - Toe Gram Stain - Final 09/20/18 12:54 Bone - Toe Wound Culture - Final No growth aerobically. 09/20/18 12:54 Bone - Toe Anaerobic Culture - Preliminary No growth in 48 hours. 09/16/18 20:35 Blood Culture (Wb) - Anticubital Right Blood Culture - Final No growth in 5 days. 09/16/18 19:55 Blood Culture (Wb) - Anticubital Left Blood Culture - Final No growth in 5 days. 09/17/18 07:15 Wound - Left Foot Gram Stain - Final 09/17/18 07:15 Wound - Left Foot Wound Culture - Final Staphylococcus aureus 09/17/18 07:15 Wound - Left Foot Anaerobic Culture - Final No anaerobic bacteria isolated. Dr. Quiñonez And Dr. Payton-podiatry Dr. Balaji Pires-infectious disease Dr. Balaji Bates-vascular surgery Operations: - - Subcutaneous debridement of the left hallux ulcer. Partial amputation of the left great toe-clearance fragment with growth Procedures: - - Abdominal pelvic left lower extremity arteriogram with selective access to the posterior tibial and tapering angioplasty of the proximal left posterior tibial artery-unsuccessful Summary of Care Provided: The patient is a 68-year-old male with a past medical history of hypertension, diabetes mellitus type 2, hyperlipidemia, PVD (he has had stents placed by Dr. Bates), diabetic peripheral polyneuropathy and history of diabetic foot infections with previous amputation of the fifth toe on the left foot who presented to the emergency department at [facility] on 09/16/2018 complaining of redness of his left foot and distal left lower extremity that had been increasing over the preceding week. He is a patient of Dr. Payton. Vital signs presentation to the emergency room were temperature 100.5?F, pulse rate 121, respiratory rate 18 and he was 95-97% saturated on room air. Significant lab included a white blood cell count of 19.6 with 74% neutrophils. ESR was elevated at 50. C-reactive protein is elevated to 30.3. Lactic acid was normal at 1.0. Sodium was low at 132 with a glucose of 119. Hemoglobin A1c is 6.9. UA had no evidence of infection. Blood cultures were sent from the emergency department. Plain x-ray of the left foot showed soft tissue gas in the plantar aspect of the great toe. He was admitted to the hospital and started on IV vancomycin and Zosyn for diabetic foot infection. Dr. Quiñonez was consulted. He debrided the ulceration of the big toe at the bedside. Culture of the drainage from the left foot grew methicillin sensitive staph aureus. Dr. Pires was consulted and vancomycin was discontinued. MRI of the foot showed signal alteration of the distal phalanx of the left great toe suspicious for osteomyelitis. Venous Doppler of the left lower extremity was negative for DVT. Arterial study showed diminished flow proximal left posterior tibial artery suspicious for greater than 50% stenosis. There was velocity decline in the left distal peroneal suggestive of occlusive disease. The left anterior tibial artery was patent. Dr. Bates was consulted and performed arteriogram to attempt to open the left posterior tibial artery however it was not successful. The patient was taken to surgery on 09/20/[address] Payton who performed a partial left hallux amputation. While in the hospital he experienced acute renal failure and his creatinine increased from 0.91 on 09/18/2018 to 1.91 on 09/22/2018. I suspect this may be related to vancomycin. On 415 the creatinine had decreased to 1.79 and the patient had good urine output. Insulin was adjusted daily to achieve good blood sugar control. Blood sugars are much better controlled at discharge however the lunchtime blood sugar is still markedly elevated and will likely need to increase the a.m. Humalog if this continues. He was discharged to transitional care on 09/24/2018 and remains nonweightbearing on the left foot. He will require additional PT/OT prior to returning home. He will follow-up with his primary care doctor, Dr. Dexter Reid, when he is discharged from TCU. Dr. Payton will follow him while in TCU and have him follow-up in the office 1 week after hospital discharge. He will follow-up with Dr. Balaji Pires in the wound care center in 1-2 weeks post discharge. He was discharged on Keflex for 4 additional days. GENERAL: alert, oriented X 3, Cooperative, NAD, sitting up in the bedside chair today ORAL: moist mucosa, no mucosal lesions NECK: No JVD, supple, trachea midline LUNGS: CTA after a few deep breaths, symmetric chest expansion, diminished secondary to body habitus HEART: RRR, Normal S1 and S2, no rub, no gallop, no murmur ABDOMEN: soft, NT, ND, BS present, obese, no guarding with palpation EXTREMITIES: No edema. Wound is dressed and I did not examine today NEUROLOGIC: no focal neurologic deficits PSYCH: appropriate, normal affect, pleasant This note was generated with [employer] dictation software. It may contain incorrect words, spelling, and punctuation that were not noted in checking the note before signing. - Physical Exam Vital Signs Temp Pulse Resp BP Pulse Ox 98.4 F 87 16 143/62 H 96 09/24/18 14:00 09/24/18 14:00 09/24/18 14:00 09/24/18 14:00 09/24/18 14:00 Oxygen Delivery Method Room Air Weight: 264 lb 1.82 oz Body Mass Index (BMI) 41.4 Intake and Output for Last 24 Hours 09/22/18 09/23/18 09/24/18 23:59 23:59 23:59 Intake Total 3814 / 3814 2075 / 2075 1620 / 1620 Output Total 550 / 550 2025 / 2024 1475 / 1475 Balance 3264 / 3264 50 / 50 145 / 145 Microbiology Past 72 Hours 09/20/18 12:54 Gram Stain - Final Bone - Toe Wound Culture - Final No growth aerobically. Anaerobic Culture - Preliminary No growth in 48 hours. 09/16/18 20:35 Blood Culture - Final Blood Culture (Wb) - Anticubital Right No growth in 5 days. 09/16/18 19:55 Blood Culture - Final Blood Culture (Wb) - Anticubital Left No growth in 5 days. Laboratory Tests Past 24 Hrs 09/23/18 05:20 Diff Path Review Reviewed POC Glucose 09/24/18 09/24/18 09/24/18 17:00 11:02 08:24 POC Glucose 177 H 269 H 173 H 09/23/18 21:58 POC Glucose 218 H Discharge Activity: Use Walker Weight Bearing Status: No weight bearing - left with surgical shoe Call your doctor if your incision/area has: Continuous Slow Oozing, Sudden Increased Bleeding, Increased Pain/ Swelling, Increased Redness, Foul Smelling Discharge, Swelling at the incision site Cleanse incision/area with: Keep Dressing Clean & Dry Home Medications: Medications to take at Discharge Dulaglutide [Trulicity] 1.5 mg SQ ONEIL 01/06/17 Nifedipine [Nifedipine ER] 30 mg PO DAILY 01/06/17 Cholecalciferol (Vitamin D3) [Vitamin D3] 6,000 unit PO DAILY 09/16/18 Cyanocobalamin (Vitamin B-12) [B-12] 1,000 mcg PO DAILY 09/16/18 Gabapentin 600 mg PO TID 09/16/18 Acetaminophen [Tylenol Tablet] 325 - 650 mg PO Q6H PRN PRN tablet 09/23/18 Atorvastatin Calcium [Lipitor] 10 mg PO QHS 09/24/18 Cephalexin [Keflex] 500 mg PO Q8 09/24/18 Insulin Glargine [Lantus SoloStar Pen] 36 units SC QHS 09/24/18 Insulin Lispro [Humalog KwikPen] 14 unit SC LUNCH 09/24/18 Insulin Lispro [Humalog KwikPen] 16 unit SC DINNER 09/24/18 Insulin Lispro [Humalog KwikPen] 20 unit SC BREAKFAST 09/24/18 Lisinopril [Zestril] 5 mg PO DAILY 09/24/18 Metformin HCl 500 mg PO BID 09/24/18 Nutritional Supplement [Zhao - ORANGE FLAVOR] 1 packet PO BIDCM 09/24/18 Primary Care Physician: Dexter Reid DO [Primary Care Provider] - Please follow up with your Primary Care Physician in: within 1-2 weeks of discharge from SNF Please Follow Up With: Maria A Payton DPM - Will follow while at TCU When: one week after hospital d/c [facility];[phone] Please Follow Up With: Balaji Pires MD When: wound center at [place]; call for appointment Disposition: Retirement facility Minutes spent on discharge:: 40 Patient Condition:: Good Medical Necessity - Tobacco Use Smoking Status: Never smoker Tobacco Use: Non-smoker Meaningful Use Info Meaningful Use Diagnoses (Choose all that apply): None applicable Code Visit Inpatient E&M: 88252 Disch Hosp
--- NOTE | 2018-09-24 21:38 | DS.PCM_ITS ---
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 Acute renal failure Possibly secondary to sepsis plus vancomycin Osteomyelitis of the left great toe - Secondary Discharge Diagnosis Chronic Problems (Last Reviewed 09/17/18 @ 16:48 by Sandy Maharaj PA-C) 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 Degenerative changes of the first metatarsophalangeal joint. 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 There is soft tissue gas in the plantar aspect of the great toe Electronically Signed: Jamshid Hanson MD at 20:52 EDT , Service support , Lower Extremity MRI 09/17/18 07:15 IMPRESSION: Signal alteration of the distal phalanx of the great toe suspicious of osteomyelitis. Arthrosis of the first metatarsophalangeal joint and sesamoids-first metatarsal articulations. Edema in the subcutis adipose space without demonstrated soft tissue abscess. Electronically Signed: Apollo Najera MD at 12:05 EDT Tel , Service support , Foot X-Ray 09/20/18 11:45 IMPRESSION: 1. Postoperative change from transphalangeal amputation of the hallux 2. Moderate degenerative change of the first metatarsophalangeal joint. Electronically Signed: Candido Thompson MD at 4:51 EDT Tel , Service support , Laboratory Results - last 24 hr 09/23/18 09/23/18 09/24/18 05:20 21:58 08:24 Diff Path Review Reviewed POC Glucose 218 H 173 H 09/24/18 09/24/18 11:02 17:00 Diff Path Review POC Glucose 269 H 177 H Microbiology 09/20/18 12:54 Bone - Toe Gram Stain - Final 09/20/18 12:54 Bone - Toe Wound Culture - Final No growth aerobically. 09/20/18 12:54 Bone - Toe Anaerobic Culture - Preliminary No growth in 48 hours. 09/16/18 20:35 Blood Culture (Wb) - Anticubital Right Blood Culture - Final No growth in 5 days. 09/16/18 19:55 Blood Culture (Wb) - Anticubital Left Blood Culture - Final No growth in 5 days. 09/17/18 07:15 Wound - Left Foot Gram Stain - Final 09/17/18 07:15 Wound - Left Foot Wound Culture - Final Staphylococcus aureus 09/17/18 07:15 Wound - Left Foot Anaerobic Culture - Final No anaerobic bacteria isolated. Dr. Quiñonez And Dr. Payton-podiatry Dr. Balaji Pires-infectious disease Dr. Balaji Bates-vascular surgery Operations: - - Subcutaneous debridement of the left hallux ulcer. Partial amputation of the left great toe-clearance fragment with growth Procedures: - - Abdominal pelvic left lower extremity arteriogram with selective access to the posterior tibial and tapering angioplasty of the proximal left posterior tibial artery-unsuccessful Summary of Care Provided: The patient is a 68-year-old male with a past medical history of hypertension, diabetes mellitus type 2, hyperlipidemia, PVD (he has had stents placed by Dr. Bates), diabetic peripheral polyneuropathy and history of diabeti c foot infections with previous amputation of the fifth toe on the left foot who presented to the emergency department at [facility] on 09/16/2018 complaining of redness of his left foot and distal left lower extremity that had been increasing over the preceding week. He is a patient of Dr. Payton. Vital signs presentation to the emergency room were temperature 100.5?F, pulse rate 121, respiratory rate 18 and he was 95-97% saturated on room air. Significant lab included a white blood cell count of 19.6 with 74% neutrophils. ESR was elevated at 50. C-reactive protein is elevated to 30.3. Lactic acid was normal at 1.0. Sodium was low at 132 with a glucose of 119. Hemoglobin A1c is 6.9. UA had no evidence of infection. Blood cultures were sent from the emergency department. Plain x-ray of the left foot showed soft tissue gas in the plantar aspect of the great toe. He was admitted to the hospital and started on IV vancomycin and Zosyn for diabetic foot infection. Dr. Quiñonez was consulted. He debrided the ulceration of the big toe at the bedside. Culture of the drainage from the left foot grew methicillin sensitive staph aureus. Dr. Pires was consulted and vancomycin was discontinued. MRI of the foot showed signal alteration of the distal phalanx of the left great toe suspicious for osteomyelitis. Venous Doppler of the left lower extremity was negative for DVT. Arterial study showed diminished flow proximal left posterior tibial artery suspicious for greater than 50% stenosis. There was velocity decline in the left distal peroneal suggestive of occlusive disease. The left anterior tibial artery was patent. Dr. Bates was consulted and performed arteriogram to attempt to open the left posterior tibial artery however it was not successful. The patient was taken to surgery on 09/20/[address] Payton who performed a partial left hallux amputation. While in the hospital he experienced acute renal failure and his creatinine increased from 0.91 on 09/18/2018 to 1.91 on 09/22/2018. I suspect this may be related to vancomycin. On 415 the creatinine had decreased to 1.79 and the patient had good urine output. Insulin was adjusted daily to achieve good blood sugar control. Blood sugars are much better controlled at discharge however the lunchtime blood sugar is still markedly elevated and will likely need to increase the a.m. Humalog if this continues. He was discharged to transitional care on 09/24/2018 and remains nonweightbearing on the left foot. He will require additional PT/OT prior to returning home. He will follow-up with his primary care doctor, Dr. Dexter Reid, when he is discharged from [facility]. Dr. Payton will follow him while in TCU and have him follow-up in the office 1 week after hospital discharge. He will follow-up with Dr. Balaji Pires in the wound care center in 1-2 weeks post discharge. He was discharged on Keflex for 4 additional days. GENERAL: alert, oriented X 3, Cooperative, NAD, sitting up in the bedside chair today ORAL: moist mucosa, no mucosal lesions NECK: No JVD, supple, trachea midline LUNGS: CTA after a few deep breaths, symmetric chest expansion, diminished secondary to body habitus HEART: RRR, Normal S1 and S2, no rub, no gallop, no murmur ABDOMEN: soft, NT, ND, BS present, obese, no guarding with palpation EXTREMITIES: No edema. Wound is dressed and I did not examine today NEUROLOGIC: no focal neurologic deficits PSYCH: appropriate, normal affect, pleasant This note was generated with [employer] dictation software. It may contain incorrect words, spelling, and punctuation that were not noted in checking the note before signing. - Physical Exam Vital Signs Temp Pulse Resp BP Pulse Ox 98.4 F 87 16 143/62 H 96 09/24/18 14:00 09/24/18 14:00 09/24/18 14:00 09/24/18 14:00 09/24/18 14:00 Oxygen Delivery Method Room Air Weight: 264 lb 1.82 oz Body Mass Index (BMI) 41.4 Intake and Output for Last 24 Hours 09/22/18 09/23/18 09/24/18 23:59 23:59 23:59 Intake Total 3814 / 3814 2075 / 2075 1620 / 1620 Output Total 550 / 550 2025 / 2024 1475 / 1475 Balance 3264 / 3264 50 / 50 145 / 145 Microbiology Past 72 Hours 09/20/18 12:54 Gram Stain - Final Bone - Toe Wound Culture - Final No growth aerobically. Anaerobic Culture - Preliminary No growth in 48 hours. 09/16/18 20:35 Blood Culture - Final Blood Culture (Wb) - Anticubital Right No growth in 5 days. 09/16/18 19:55 Blood Culture - Final Blood Culture (Wb) - Anticubital Left No growth in 5 days. Laboratory Tests Past 24 Hrs 09/23/18 05:20 Diff Path Review Reviewed POC Glucose 09/24/18 09/24/18 09/24/18 17:00 11:02 08:24 POC Glucose 177 H 269 H 173 H 09/23/18 21:58 POC Glucose 218 H Discharge Activity: Use Walker Weight Bearing Status: No weight bearing - left with surgical shoe Call your doctor if your incision/area has: Continuous Slow Oozing, Sudden Increased Bleeding, Increased Pain/ Swelling, Increased Redness, Foul Smelling Discharge, Swelling at the incision site Cleanse incision/area with: Keep Dressing Clean & Dry Home Medications: Medications to take at Discharge Dulaglutide [Trulicity] 1.5 mg SQ ONEIL 01/06/17 Nifedipine [Nifedipine ER] 30 mg PO DAILY 01/06/17 Cholecalciferol (Vitamin D3) [Vitamin D3] 6,000 unit PO DAILY 09/16/18 Cyanocobalamin (Vitamin B-12) [B-12] 1,000 mcg PO DAILY 09/16/18 Gabapentin 600 mg PO TID 09/16/18 Acetaminophen [Tylenol Tablet] 325 - 650 mg PO Q6H PRN PRN tablet 09/23/18 Atorvastatin Calcium [Lipitor] 10 mg PO QHS 09/24/18 Cephalexin [Keflex] 500 mg PO Q8 09/24/18 Insulin Glargine [Lantus SoloStar Pen] 36 units SC QHS 09/24/18 Insulin Lispro [Humalog KwikPen] 14 unit SC LUNCH 09/24/18 Insulin Lispro [Humalog KwikPen] 16 unit SC DINNER 09/24/18 Insulin Lispro [Humalog KwikPen] 20 unit SC BREAKFAST 09/24/18 Lisinopril [Zestril] 5 mg PO DAILY 09/24/18 Metformin HCl 500 mg PO BID 09/24/18 Nutritional Supplement [Zhao - ORANGE FLAVOR] 1 packet PO BIDCM 09/24/18 Primary Care Physician: Dexter Reid DO [Primary Care Provider] - Please follow up with your Primary Care Physician in: within 1-2 weeks of discharge from SNF Please Follow Up With: Maria A Payton DPM - Will follow while at TCU When: one week after hospital d/c at [facility];[phone] Please Follow Up With: Balaji Pires MD When: [place] center [place]; call for appointment Disposition: Detention facility Minutes spent on discharge:: 40 Patient Condition:: Good Medical Necessity - Tobacco Use Smoking Status: Never smoker Tobacco Use: Non-smoker Meaningful Use Info Meaningful Use Diagnoses (Choose all that apply): None applicable Code Visit Inpatient E&M: 35587 Disch Hosp
== END 2018-09-24 17:00 | disposition skilled nursing facility (03) | DRG 854 ==
LOC: ED 21:33 → MS2 22:19 → PCU 09-19 15:11 → MS2 09-19 18:27
PROVIDERS: Anesthesiology; Podiatrist; Surgery; Admitting Provider Family Medicine; Emergency Provider Emergency Medicine; Family Provider Family Medicine; PCP Family Medicine; Visit Provider Internal Medicine
PROC: 0Y6Q0Z3 Detachment at Left 1st Toe, Low, Open Approach (ICD-10-PCS; principal; 2018-09-20 11:30)
DX: A41.9 Sepsis, unspecified organism (principal); Z68.41 Body mass index [BMI] 40.0-44.9, adult; M86.8X7 Other osteomyelitis, ankle and foot; N17.9 Acute kidney failure, unspecified; L97.528 Non-pressure chronic ulcer of other part of left foot with other specified severity; L03.116 Cellulitis of left lower limb; E11.42 Type 2 diabetes mellitus with diabetic polyneuropathy; E11.69 Type 2 diabetes mellitus with other specified complication; B95.61 Methicillin susceptible Staphylococcus aureus infection as the cause of diseases classified elsewhere; E11.51 Type 2 diabetes mellitus with diabetic peripheral angiopathy without gangrene; E11.621 Type 2 diabetes mellitus with foot ulcer; E66.01 Morbid (severe) obesity due to excess calories; G47.33 Obstructive sleep apnea (adult) (pediatric); I10 Essential (primary) hypertension; E78.5 Hyperlipidemia, unspecified; L03.032 Cellulitis of left toe; R00.0 Tachycardia, unspecified; E86.0 Dehydration; M20.32 Hallux varus (acquired), left foot; Z89.422 Acquired absence of other left toe(s); Z79.4 Long term (current) use of insulin
CPT/HCPCS: 36200; 36245; 36415; 37228; 73630; 73718; 75625; 75710; 76000; 76937; 80048; 80053; 80061; 80202; 81001; 82962; 83036; 83605; 83735; 85025; 85347; 85610; 85652; 85730; 86140; 87015; 87040; 87070; 87075; 87077; 87102; 87116; 87186; 87205; 87206; 88304; 88305; 88311; 88312; 93005; 93923; 93926; 93971; 97110; 97116; 97162; 97166; 97530; 97535; 97802; 99152; 99153; 99285; J7030; J7040; J7050; Q9967; A4216; C1725; C1760; C1769; C1887; C1894; J2405

== ENCOUNTER 2018-09-24 17:09 | Inpatient (IN) | payer OTHER, MEDICARE, SELFPAY ==
[2018-09-20 09:41] VITALS: BMI 41.4
[2018-09-24 17:22] VITALS: BP 152/90; PULSE 84; RESP 18; TEMP 36.7; O2SAT 96
--- NOTE | 2018-09-24 17:22 | NURSING ---
Pt arrived at 16:45 via wheelchair from [facility]
[2018-09-24] MEDS: Gabapentin 600 MG Tablet PO (20:03)
[2018-09-24] MEDS: Cephalexin 500 MG Capsule PO (20:04)
[2018-09-24] MEDS: Atorvastatin Calcium 10 MG Tablet PO (20:05)
[2018-09-24 21:20] LABS: Bedside Glucose 262 mg/dL (70-110)
[2018-09-24 21:42] VITALS: BMI 41.3
[2018-09-24 21:52] VITALS: BMI 41.3
[2018-09-25] MEDS: Menthol/Lanolin/Calamine/Znox 113 GM Tube 1 APPLIC TOPICAL ×2 (06:15→21:41)
[2018-09-25] MEDS: Nystatin Powder 15gm Bottle 1 APPLIC TOPICAL ×2 (06:15→21:41)
[2018-09-25] MEDS: NIFEdipine 30 MG Tablet PO (06:16)
[2018-09-25] MEDS: Cephalexin 500 MG Capsule PO ×3 (06:16→21:38)
[2018-09-25] MEDS: Lisinopril 5 MG Tablet PO (06:16)
[2018-09-25 06:19] LABS: Anion Gap 5 (5-15); BUN 44 mg/dL (7-18); BUN/Creat Ratio 25.4 RATIO (10-20); Calcium,Total 9.1 mg/dL (8.5-10.1); Chloride 103 mmol/L (98-107); Creatinine, Serum 1.73 mg/dL (0.70-1.30); EST Glomerular Filtration Rate 42 mL/min (>60); Est Glom Filt Rate - Afr Amer 51 mL/min (>60); Estimated Creatinine Clearance 36.88 ml/min; Glucose 170 mg/dL (74-106); Potassium 4.3 mmol/L (3.5-5.1); Sodium Level 137 mmol/L (136-145)
[2018-09-25 06:41] LABS: Bedside Glucose 178 mg/dL (70-110)
[2018-09-25 06:52] LABS: Absolute Lymphocyte Count 2.04 X10^3/ul (0.83-4.51); Absolute Neutrophil Count 10.1 X10^3/uL (2.0-7.7); Basophil# 0.11 X10^3/uL; Basophil% 0.7 % (0-1); Eosinophil# 0.47 X10^3/uL; Eosinophils% 3.2 % (0-5); Hematocrit 42.3 % (40-54); Hemoglobin 13.9 g/dl (13.0-16.5); Lymphocyte # 2.04 X10^3/ul (4.0); Lymphocyte % 13.8 % (19-41); Mean Corp Hgb Conc 32.9 g/gl (32-36); Mean Corpuscular Hgb 29.8 pg (27.0-32.0); Mean Corpuscular Volume 90.6 fL (80-94); Mean Platelet Vol. 11.3 fl (6.2-12.0); Monocyte# 1.78 X10^3/uL; Monocyte% 12.1 % (0-10); Neutrophil # 10.05 X10^3/uL (2.7-7.7); Neutrophil % 68.3 % (47-70); Platelet Count 281 K/mm3 (150-450); RBC Distribution Width CV 13.1 % (11.6-14.6); RBC Distribution Width SD 43.2 fl (35.1-43.9); Red Blood Count 4.67 M/mm3 (4.6-6.2); White Blood Count 14.7 K/mm3 (4.4-11.0)
[2018-09-25 06:54] LABS: Differential Indicated SCAN CRITERIA MET; POSITIVE COUNT NO; POSITIVE DIFFERENTIAL YES; POSITIVE MORPHOLOGY YES
[2018-09-25 07:13] LABS: Differential Comment SCANNED
[2018-09-25] MEDS: Glucerna Shake 120 ML LIQUID PO ×2 (08:02→12:09)
[2018-09-25] MEDS: Gabapentin 600 MG Tablet PO ×3 (08:03→17:35)
[2018-09-25] MEDS: Cyanocobalamin 500 MCG Tablet 1000 MCG PO (08:03)
[2018-09-25] MEDS: Insulin Lispro 100 UNIT/ML INSULN.PEN 20 UNIT SC (08:45)
[2018-09-25 11:46] LABS: Bedside Glucose 255 mg/dL (70-110)
[2018-09-25] MEDS: Insulin Lispro 100 UNIT/ML INSULN.PEN 14 UNIT SC (12:05)
[2018-09-25] MEDS: Tuberculin,Purif.prot.deriv. 50 TU/ML Vial 5 ML ID (12:07)
[2018-09-25 13:50] LABS: Pathologist Review Reviewed
[2018-09-25 16:00] VITALS: BP 133/61; PULSE 87; RESP 20; TEMP 37; O2SAT 95
[2018-09-25 17:17] LABS: Bedside Glucose 193 mg/dL (70-110)
[2018-09-25] MEDS: Insulin Lispro 100 UNIT/ML INSULN.PEN 16 UNIT SC (17:36)
--- NOTE | 2018-09-25 18:27 | PCM.HP.STD ---
Problem List (1) PAD (peripheral artery disease) Status: Acute History of Present Illness Date of Admission: 09/24/18 Chief Complaint: s/p left big toe amputation/debility The patient is a 68 year old M admitted form [facility] inpatient unit yesterday. Had been admitted for infected diabetic foot ulcer involving the left big toe and secondary cellulitis and osteomyelitis. Patient initially underwent angiography and attempted angioplasty for revascularization but from what we are made to understand this was not fully successful. Patient then underwent amputation of the left big toe. Hospital stay complicated by debility and weakness and functional decline as a result of the hospital stay. Today he was seen and examined. Denies any undue pain, fever, chills, malaise, anorexia. 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) PAD (peripheral artery disease) (Chronic) Hallux varus (acquired), left foot (Chronic) Diabetes mellitus with polyneuropathy (Chronic) HTN (hypertension) (Chronic) Medical History: Medical History (Last Reviewed 09/17/18 @ 16:48 by Sandy Maharaj PA-C) PAD (peripheral artery disease) (Chronic) I73.9 Hallux varus (acquired), left foot (Chronic) M20.32 Diabetes mellitus with polyneuropathy (Chronic) E11.42 Cellulitis of toe, left (Acute) L03.032 HTN (hypertension) (Chronic) I10 History of amputation of toe Onset Date: ~2012 Z89.429 PAD (peripheral artery disease) I73.9 Sleep apnea G47.30 Allergies No Known Allergies Allergy (Verified 09/16/18 19:29) Home Medications: Ambulatory Orders Medication Instructions Recorded Dulaglutide [Trulicity] 1.5 mg SQ ONEIL 01/06/17 Nifedipine [Nifedipine ER] 30 mg PO DAILY 01/06/17 Cholecalciferol (Vitamin D3) 6,000 unit PO DAILY 09/16/18 [Vitamin D3] Cyanocobalamin (Vitamin B-12) 1,000 mcg PO DAILY 09/16/18 [B-12] Gabapentin 600 mg PO TID 09/16/18 Acetaminophen [Tylenol Tablet] 325 - 650 mg PO Q6H PRN PRN tablet 09/23/18 Atorvastatin Calcium [Lipitor] 10 mg PO QHS 09/24/18 Cephalexin [Keflex] 500 mg PO Q8 09/24/18 Insulin Glargine [Lantus SoloStar 36 units SC QHS 09/24/18 Pen] Insulin Lispro [Humalog KwikPen] 14 unit SC LUNCH 09/24/18 Insulin Lispro [Humalog KwikPen] 16 unit SC DINNER 09/24/18 Insulin Lispro [Humalog KwikPen] 20 unit SC BREAKFAST 09/24/18 Lisinopril [Zestril] 5 mg PO DAILY 09/24/18 Metformin HCl 500 mg PO BID 09/24/18 Nutritional Supplement [Zhao - 1 packet PO BIDCM 09/24/18 [place] FLAVOR] Surgical History: Surgical History (Last Reviewed 09/17/18 @ 16:48 by Sandy Maharaj PA-C) History of detached retina repair Z98.890, Z86.69 S/P peripheral artery angioplasty Onset Date: ~2016 Z98.62 Status post peripheral artery angioplasty Z98.62 Surgical History: no surgical history, angioplasty, - - left toe amputation Smoking Status: Never smoker Alcohol: Occasional Drugs: None - *Family History Maternal Family History: Family History (Last Reviewed 09/17/18 @ 16:48 by Sandy Maharaj PA-C) Mother Diabetes CVA (cerebral vascular accident) History Items: No pertinent history Review of Systems Constitutional: Denies: Anorexia, Chills, Fever, Night Sweats, Malaise, Weakness, Weight Change, Fatigue Eyes: Reports: Pain HEENT: Denies: Difficulty Hearing Cardiovascular: Reports: Edema. Denies: Chest Pain, Light Headedness Respiratory: Reports: Cough. Denies: Wheezing Gastrointestinal: Denies: Abdominal Pain Genitourinary: Denies: Incontinence Musculoskeletal: Reports: Leg Pain Skin: Reports: Wounds Neurological: Denies: Change in Speech, Slurred speech Psychiatric: Denies: Anxiety, Depression Endocrine: Denies: Change in Body Habitus Hematologic/ Lymphatic: Denies: Petechiae VTE Information - Inpt Only VTE Present on Admission: No VTE Mechan Device Prophylaxis: None VTE Pharm Prophylaxis ordered?: Yes Patient Problems: Active and Suspected Problems (Last Reviewed 09/17/18 @ 16:48 by Sandy Maharaj PA-C) PAD (peripheral artery disease) (Acute) - Physical Exam General: Alert, Oriented x3, Cooperative, No apparent distress, Well developed, Well nourished HEENT: Atraumatic, PERRLA, EOMI, Normocephalic Oral: Moist Mucosa Neck: Supple, No JVD Lungs: - - good air entry, occasional wheeze which cleared with cough Cardiovascular: Regular rate, Regular Rhythm, Normal S1, Normal S2, No murmurs, No Ectopic Activity Abdomen: Bowel Sounds Present, Soft, Non Tender, Non-Distended, No Hepato-splenomegaly, Obese Extremities: No clubbing, No cyanosis, - - dressing over the left foot, pitting edema up to left knee. varicose veins right LE Musculoskeletal: No Muscle Wasting Lymphatic: No Cervical, Supraclavicular, or Inguinal Adenopathy Neurological: Cranial nerves II-XII grossly intact, Deep Tendon Reflexes 2+/4 and Symmetrical, Motor Exam 5/5 strength throughout Psych/Mental Status: Normal Affect, Appropriate, Alert and oriented to time, place, person, mood and affect Vital Signs Temp Pulse Resp BP Pulse Ox 98.6 F 87 20 H 133/61 H 95 09/25/18 16:00 09/25/18 16:00 09/25/18 16:00 09/25/18 16:00 09/25/18 16:00 Oxygen Delivery Method Room Air Weight: 119.295 kg Body Mass Index (BMI) 41.3 Intake and Output for Last 24 Hours 09/23/18 09/24/18 09/25/18 23:59 23:59 23:59 Intake Total 360 / 360 1140 / 1140 Balance 360 / 360 1140 / 1140 Laboratory Tests Past 24 Hrs 09/25/18 09/25/18 05:10 05:10 WBC 14.7 H RBC 4.67 Hgb 13.9 Hct 42.3 MCV 90.6 MCH 29.8 MCHC 32.9 RDW 13.1 RDW Differential 43.2 Plt Count 281 MPV 11.3 Immature Gran % (Auto) 1.900 H Neut % (Auto) 68.3 Lymph % (Auto) 13.8 L [place] % (Auto) 12.1 H Eos % (Auto) 3.2 Baso % (Auto) 0.7 Absolute Neuts (auto) 10.1 H Absolute Lymphs (auto) 2.04 Total Counted Not Reportable Differential Comment SCANNED Diff Path Review Reviewed Sodium 137 Potassium 4.3 Chloride 103 Carbon Dioxide 29.0 Anion Gap 5 BUN 44 H Creatinine 1.73 H Estim Creat Clear Calc 36.88 Est GFR (MDRD) Af Amer 51 L Est GFR (MDRD) Non-Af 42 L BUN/Creatinine Ratio 25.4 H Glucose 170 H Calcium 9.1 POC Glucose 09/25/18 09/25/18 09/25/18 17:09 11:37 06:34 POC Glucose 193 H 255 H 178 H 09/24/18 21:15 POC Glucose 262 H Assessment/Plan All Active Problems (Last Reviewed 09/17/18 @ 16:48 by Sandy Maharaj PA-C) Osteomyelitis of great toe of left foot (Acute) Status post amputation of left great toe (Acute) Hyperlipidemia (Acute) Obstructive sleep apnea (Acute) Acute renal failure (Acute) Morbid obesity (Acute) PAD (peripheral artery disease) (Acute) Type 2 diabetes mellitus with diabetic polyneuropathy (Acute) Type 2 diabetes mellitus with left diabetic foot infection (Acute) Sepsis (Acute) Sinus tachycardia seen on property assessment monitor (Acute) 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 (Acute) Cellulitis of toe, left (Acute) Chronic ulcer of left foot with fat layer exposed (Resolved) Cellulitis and abscess of foot (Acute) 1. Debility and weakness and functional decline. Complicating recent acute hospitalization. Commence therapy with PT/OT 2. S/p left toe amputation for infected diabetic toe ulcer and osteomyelitis. Non weight bearing as per podiatry. Wound care as ordered. F/u with ID 1-2 weeks post discharge. 3. Nutrition. On diabetic diet as well as supplements. 4. DVT prophylaxis. Will place on SQ Lovenox 5. Bowels. Senokot S and Miralax as needed. 6. T2DM. Continue Basal and meal time insulin. Will increase Metformin as not well controlled. 7. HTN. Fairly well controlled. Continue on Lisinopril 8. PAD. Increase dose of statin to optimize. Start on ASA as well.
[2018-09-25] MEDS: Aspirin 81 MG TAB.CHEW PO (18:48)
[2018-09-25 21:11] LABS: Bedside Glucose 240 mg/dL (70-110)
[2018-09-25] MEDS: Atorvastatin Calcium 40 MG Tablet PO (21:38)
[2018-09-26] MEDS: Menthol/Lanolin/Calamine/Znox 113 GM Tube 1 APPLIC TOPICAL ×2 (05:53→21:12)
[2018-09-26] MEDS: Nystatin Powder 15gm Bottle 1 APPLIC TOPICAL ×2 (05:53→21:12)
[2018-09-26] MEDS: Lisinopril 5 MG Tablet PO (05:53)
[2018-09-26] MEDS: Cephalexin 500 MG Capsule PO ×3 (05:53→21:12)
[2018-09-26] MEDS: NIFEdipine 30 MG Tablet PO (05:53)
[2018-09-26 05:55] VITALS: BP 146/81; PULSE 88
[2018-09-26 06:36] LABS: Bedside Glucose 222 mg/dL (70-110)
--- NOTE | 2018-09-26 06:46 | NURSING ---
Pt denying need any teaching with insulin d/t being on it before admission. Questions were answered appropriately and pt administered own insulin this AM per his request.
[2018-09-26] MEDS: metFORMIN HCl 1,000 MG Tablet 1000 MG PO ×2 (08:04→17:06)
[2018-09-26] MEDS: Cyanocobalamin 500 MCG Tablet 1000 MCG PO (08:04)
[2018-09-26] MEDS: Aspirin 81 MG TAB.CHEW PO (08:04)
[2018-09-26] MEDS: Gabapentin 600 MG Tablet PO ×3 (08:04→17:06)
[2018-09-26] MEDS: Insulin Lispro 100 UNIT/ML INSULN.PEN 20 UNIT SC (08:04)
[2018-09-26 11:05] LABS: Bedside Glucose 298 mg/dL (70-110)
[2018-09-26] MEDS: Insulin Lispro 100 UNIT/ML INSULN.PEN 14 UNIT SC (12:22)
--- NOTE | 2018-09-26 12:34 | NURSING ---
Dr Payton returned call and pt is to be NWB to LT foot & NO shower at this time. will be in to assess foot today or tomorrow.
--- NOTE | 2018-09-26 15:18 | CASEMGMT ---
Student social work documentation of psychosocial assessment reveiwed. DON Frey
[2018-09-26 15:45] VITALS: BP 143/73; PULSE 90; RESP 20; TEMP 36.9; O2SAT 95
[2018-09-26 17:16] LABS: Bedside Glucose 197 mg/dL (70-110)
[2018-09-26] MEDS: Insulin Lispro 100 UNIT/ML INSULN.PEN 16 UNIT SC (17:28)
--- NOTE | 2018-09-26 19:44 | NURSING ---
Addendum entered by Angela Mcknight 09/26/18 22:47: Dr Payton changed drsg to Lt lower extrem. Original Note: Dr Payton present on unit to see pt.
[2018-09-26 21:05] LABS: Bedside Glucose 310 mg/dL (70-110)
[2018-09-26] MEDS: Atorvastatin Calcium 40 MG Tablet PO (21:12)
--- NOTE | 2018-09-26 23:00 | PCM.PROGNOTE ---
Patient Problems: Active and Suspected Problems (Last Reviewed 09/17/18 @ 16:48 by Sandy Maharaj PA-C) PAD (peripheral artery disease) (Acute) Subjective: This 68 year old male with diabetes and peripheral vascular disease was seen bedside post operative 1 week partial left hallux amputation. He denies fever, chills, nausea, vomiting. He has been wearing his surgical shoe. His brother is bedside. - Physical Exam General: Alert, Oriented x3, Cooperative HEENT: Atraumatic Extremities: No cyanosis, Capillary Refill Less than 3 Seconds - dorsal and plantar stump hallux amputation and to remaining lesser toes 2,3,4., No Calf Tenderness - negative nikia and aponte signs bilateral, Diminished Peripheral Pulses, Edema - decreased left foot Skin: Incision - sutures intact and skin margins are well aligned to hallux partial toe amputation site without gapping, necrosis or infection. no peripheral erythema or streaking is seen. no odor Musculoskeletal: No Tenderness to Palpation of Joints or Extremities, Muscle Wasting Neurological: - - lack of epicritic sensation via light touch Psych/Mental Status: Normal Affect, Appropriate Vital Signs Temp Pulse Resp BP Pulse Ox 98.4 F 90 20 H 143/73 H 95 09/26/18 15:45 09/26/18 15:45 09/26/18 15:45 09/26/18 15:45 09/26/18 15:45 Oxygen Delivery Method Room Air Weight: 119.295 kg Body Mass Index (BMI) 41.3 Intake and Output for Last 24 Hours 09/25/18 09/26/18 09/27/18 23:59 23:59 23:59 Intake Total 1140 / 1140 1320 / 1320 Balance 1140 / 1140 1320 / 1320 POC Glucose 09/26/18 09/26/18 09/26/18 20:57 16:56 10:47 POC Glucose 310 H 197 H 298 H 09/26/18 06:23 POC Glucose 222 H Medical Necessity - Tobacco Use Smoking Status: Never smoker Assessment/Plan All Active Problems (Last Reviewed 09/17/18 @ 16:48 by Sandy Maharaj PA-C) Osteomyelitis of great toe of left foot (Acute) Status post amputation of left great toe (Acute) Hyperlipidemia (Acute) Obstructive sleep apnea (Acute) Acute renal failure (Acute) Morbid obesity (Acute) PAD (peripheral artery disease) (Acute) Type 2 diabetes mellitus with diabetic polyneuropathy (Acute) Type 2 diabetes mellitus with left diabetic foot infection (Acute) Sepsis (Acute) Sinus tachycardia seen on secured entrance monitor (Acute) 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 (Acute) Cellulitis of toe, left (Acute) Chronic ulcer of left foot with fat layer exposed (Resolved) Cellulitis and abscess of foot (Acute) s/p one week partial left hallux amputation diabetes with neuropathy peripheral vascular disease s/p recent intervention other comorbidities I reviewed his case and discussed his care plan recommendations. His surgical wound is intact and a new dressing was applied today with betadine and gauze. To keep clean, dry, intact. To remain non weight bearing at this time. Clearance fragment from surgery was negative from a microbiology and pathology standpoint. To complete keflex per ID and hospitalist. It is noted he is still at risk for delayed healing given his comorbidities and he will be monitored weekly while in the transitional care unit. Walking progression will be changed once healing is noted at the amputation stump site; this is to protect this friable tissue. Medical management per primary team is appreciated. Please do not hesitate to call if you have any questions. Maria A Payton DPM, [facility] [phone] late note entry from visit 09/26/18 at 19:45 pm.
--- NOTE | 2018-09-27 00:01 | PN_ITS ---
Patient Problems: Active and Suspected Problems (Last Reviewed 09/17/18 @ 16:48 by Sandy Maharaj PA-C) PAD (peripheral artery disease) (Acute) Subjective: This 68 year old male with diabetes and peripheral vascular disease was seen bedside post operative 1 week partial left hallux amputation. He denies fever, chills, nausea, vomiting. He has been wearing his surgical shoe. His brother is bedside. - Physical Exam General: Alert, Oriented x3, Cooperative HEENT: Atraumatic Extremities: No cyanosis, Capillary Refill Less than 3 Seconds - dorsal and plantar stump hallux amputation and to remaining lesser toes 2,3,4., No Calf Tenderness - negative nikia and aponte signs bilateral, Diminished Peripheral Pulses, Edema - decreased left foot Skin: Incision - sutures intact and skin margins are well aligned to hallux partial toe amputation site without gapping, necrosis or infection. no peripheral erythema or streaking is seen. no odor Musculoskeletal: No Tenderness to Palpation of Joints or Extremities, Muscle Wasting Neurological: - - lack of epicritic sensation via light touch Psych/Mental Status: Normal Affect, Appropriate Vital Signs Temp Pulse Resp BP Pulse Ox 98.4 F 90 20 H 143/73 H 95 09/26/18 15:45 09/26/18 15:45 09/26/18 15:45 09/26/18 15:45 09/26/18 15:45 Oxygen Delivery Method Room Air Weight: 119.295 kg Body Mass Index (BMI) 41.3 Intake and Output for Last 24 Hours 09/25/18 09/26/18 09/27/18 23:59 23:59 23:59 Intake Total 1140 / 1140 1320 / 1320 Balance 1140 / 1140 1320 / 1320 POC Glucose 09/26/18 09/26/18 09/26/18 20:57 16:56 10:47 POC Glucose 310 H 197 H 298 H 09/26/18 06:23 POC Glucose 222 H Medical Necessity - Tobacco Use Smoking Status: Never smoker Assessment/Plan All Active Problems (Last Reviewed 09/17/18 @ 16:48 by Sandy Maharaj PA-C) Osteomyelitis of great toe of left foot (Acute) Status post amputation of left great toe (Acute) Hyperlipidemia (Acute) Obstructive sleep apnea (Acute) Acute renal failure (Acute) Morbid obesity (Acute) PAD (peripheral artery disease) (Acute) Type 2 diabetes mellitus with diabetic polyneuropathy (Acute) Type 2 diabetes mellitus with left diabetic foot infection (Acute) Sepsis (Acute) Sinus tachycardia seen on court recording monitor (Acute) 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 (Acute) Cellulitis of toe, left (Acute) Chronic ulcer of left foot with fat layer exposed (Resolved) Cellulitis and abscess of foot (Acute) s/p one week partial left hallux amputation diabetes with neuropathy peripheral vascular disease s/p recent intervention other comorbidities I reviewed his case and discussed his care plan recommendations. His surgical wound is intact and a new dressing was applied today with betadine and gauze. To keep clean, dry, intact. To remain non weight bearing at this time. Clearance fragment from surgery was negative from a microbiology and pathology standpoint. To complete keflex per ID and hospitalist. It is noted he is still at risk for delayed healing given his comorbidities and he will be monitored weekly while in the transitional care unit. Walking progression will be changed once healing is noted at the amputation stump site; this is to protect this friable tissue. Medical management per primary team is appreciated. Please do not hesitate to call if you have any questions. Maria A Payton DPM, [facility] [phone] late note entry from visit 09/26/18 at 19:45 pm.
[2018-09-27] MEDS: Menthol/Lanolin/Calamine/Znox 113 GM Tube 1 APPLIC TOPICAL ×2 (06:05→22:01)
[2018-09-27] MEDS: Lisinopril 5 MG Tablet PO (06:05)
[2018-09-27] MEDS: Cephalexin 500 MG Capsule PO ×3 (06:05→21:58)
[2018-09-27] MEDS: NIFEdipine 30 MG Tablet PO (06:05)
[2018-09-27] MEDS: Nystatin Powder 15gm Bottle 1 APPLIC TOPICAL ×2 (06:05→22:01)
[2018-09-27 06:50] LABS: Bedside Glucose 196 mg/dL (70-110)
[2018-09-27] MEDS: Insulin Lispro 100 UNIT/ML INSULN.PEN 20 UNIT SC (08:32)
[2018-09-27] MEDS: Cyanocobalamin 500 MCG Tablet 1000 MCG PO (08:33)
[2018-09-27] MEDS: Aspirin 81 MG TAB.CHEW PO (08:33)
[2018-09-27] MEDS: metFORMIN HCl 1,000 MG Tablet 1000 MG PO ×2 (08:33→17:35)
[2018-09-27] MEDS: Gabapentin 600 MG Tablet PO ×3 (08:33→17:34)
[2018-09-27] MEDS: Insulin Lispro 100 UNIT/ML INSULN.PEN SC ×3 (08:34→17:35)
[2018-09-27 11:50] LABS: Bedside Glucose 191 mg/dL (70-110)
[2018-09-27] MEDS: Insulin Lispro 100 UNIT/ML INSULN.PEN 14 UNIT SC (11:54)
[2018-09-27 15:14] VITALS: BP 142/70; PULSE 100; RESP 16; TEMP 37.1; O2SAT 95
[2018-09-27 17:06] LABS: Bedside Glucose 175 mg/dL (70-110)
[2018-09-27] MEDS: Insulin Lispro 100 UNIT/ML INSULN.PEN 16 UNIT SC (17:35)
[2018-09-27 21:45] LABS: Bedside Glucose 154 mg/dL (70-110)
[2018-09-27] MEDS: Atorvastatin Calcium 40 MG Tablet PO (21:58)
[2018-09-28] MEDS: Cephalexin 500 MG Capsule PO ×3 (05:44→21:03)
[2018-09-28] MEDS: Nystatin Powder 15gm Bottle 1 APPLIC TOPICAL ×2 (05:44→22:11)
[2018-09-28] MEDS: Menthol/Lanolin/Calamine/Znox 113 GM Tube 1 APPLIC TOPICAL ×2 (05:44→21:04)
[2018-09-28] MEDS: Lisinopril 5 MG Tablet PO (05:45)
[2018-09-28] MEDS: NIFEdipine 30 MG Tablet PO (05:45)
[2018-09-28 06:41] LABS: Bedside Glucose 160 mg/dL (70-110)
[2018-09-28] MEDS: metFORMIN HCl 1,000 MG Tablet 1000 MG PO ×2 (09:11→18:20)
[2018-09-28] MEDS: Aspirin 81 MG TAB.CHEW PO (09:11)
[2018-09-28] MEDS: Cyanocobalamin 500 MCG Tablet 1000 MCG PO (09:11)
[2018-09-28] MEDS: Insulin Lispro 100 UNIT/ML INSULN.PEN 20 UNIT SC (09:12)
[2018-09-28] MEDS: Gabapentin 600 MG Tablet PO ×3 (09:12→18:20)
[2018-09-28] MEDS: Insulin Lispro 100 UNIT/ML INSULN.PEN SC ×2 (09:12→11:59)
[2018-09-28 11:20] LABS: Bedside Glucose 213 mg/dL (70-110)
[2018-09-28] MEDS: Insulin Lispro 100 UNIT/ML INSULN.PEN 14 UNIT SC (11:58)
[2018-09-28 16:00] VITALS: BP 130/74; PULSE 85; RESP 18; TEMP 36.6; O2SAT 94
[2018-09-28 17:21] LABS: Bedside Glucose 102 mg/dL (70-110)
[2018-09-28] MEDS: Insulin Lispro 100 UNIT/ML INSULN.PEN 16 UNIT SC (18:21)
[2018-09-28] MEDS: Atorvastatin Calcium 40 MG Tablet PO (21:03)
[2018-09-28 21:40] LABS: Bedside Glucose 193 mg/dL (70-110)
[2018-09-29] MEDS: NIFEdipine 30 MG Tablet PO (05:11)
[2018-09-29] MEDS: Gabapentin 600 MG Tablet PO ×3 (05:11→17:31)
[2018-09-29] MEDS: Cephalexin 500 MG Capsule PO ×3 (05:12→21:13)
[2018-09-29] MEDS: Lisinopril 5 MG Tablet PO (05:12)
[2018-09-29] MEDS: Nystatin Powder 15gm Bottle 1 APPLIC TOPICAL ×2 (05:13→21:13)
[2018-09-29] MEDS: Menthol/Lanolin/Calamine/Znox 113 GM Tube 1 APPLIC TOPICAL ×2 (05:13→21:13)
[2018-09-29 06:45] LABS: Bedside Glucose 130 mg/dL (70-110)
[2018-09-29] MEDS: Insulin Lispro 100 UNIT/ML INSULN.PEN 20 UNIT SC (08:32)
[2018-09-29] MEDS: Cyanocobalamin 500 MCG Tablet 1000 MCG PO (08:33)
[2018-09-29] MEDS: Aspirin 81 MG TAB.CHEW PO (08:33)
[2018-09-29] MEDS: metFORMIN HCl 1,000 MG Tablet 1000 MG PO ×2 (08:33→17:31)
--- NOTE | 2018-09-29 11:24 | VDLE_ITS ---
Reason For Study: red, warm edematous RLE RIGHT LEFT GSV is normal. GSV is normal. CFV is compressible, spontaneous, phasic, CFV is compressible, spontaneous, phasic, competent and demonstrates normal competent, and demonstrates normal augmentation. augmentation. FV is compressible, spontaneous, phasic, FV is compressible, spontaneous, phasic, competent and demonstrates normal competent and demonstrates normal augmentation. augmentation. POP V is compressible, spontaneous, phasic, POP V is compressible, spontaneous, phasic, competent and demonstrates normal competent and demonstrates normal augmentation. augmentation. T/P Trunk is compressible. T/P Trunk is compressible. PTV is compressible. PTV is compressible. RT PerV is compressible. LT PerV is compressible. Procedure Exam performed portable in patient room. The exam was diagnostic. A preliminary report was called and/or faxed to TCU RN. Interpretation Summary No evidence for acute deep venous thrombosis bilateral lower extremities with patent and compressible bilateral great saphenous veins. Ordering Physician: Diaz Buitrago Referring Physician: Diaz Buitrago Chi Performed By: Yanet Carias, BONNIE, RVT
[2018-09-29 11:31] LABS: Bedside Glucose 232 mg/dL (70-110)
[2018-09-29] MEDS: Insulin Lispro 100 UNIT/ML INSULN.PEN 14 UNIT SC (12:21)
[2018-09-29] MEDS: Insulin Lispro 100 UNIT/ML INSULN.PEN SC (12:22)
--- NOTE | 2018-09-29 14:02 | NURSING ---
Dr. Biutrago notified of raised, warm, red area on RLE, doppler US ordered. Results negative, ordered doxycycline
[2018-09-29 15:28] VITALS: BP 139/68; PULSE 85; RESP 16; TEMP 36.9; O2SAT 96
[2018-09-29 17:16] LABS: Bedside Glucose 109 mg/dL (70-110)
[2018-09-29] MEDS: Doxycycline 100 MG CAPSULE PO (17:33)
[2018-09-29] MEDS: Insulin Lispro 100 UNIT/ML INSULN.PEN 16 UNIT SC (17:35)
[2018-09-29] MEDS: Atorvastatin Calcium 40 MG Tablet PO (21:13)
[2018-09-29 21:16] LABS: Bedside Glucose 166 mg/dL (70-110)
[2018-09-30] MEDS: Menthol/Lanolin/Calamine/Znox 113 GM Tube 1 APPLIC TOPICAL ×2 (05:29→22:07)
[2018-09-30] MEDS: NIFEdipine 30 MG Tablet PO (05:29)
[2018-09-30] MEDS: Lisinopril 5 MG Tablet PO (05:29)
[2018-09-30] MEDS: Nystatin Powder 15gm Bottle 1 APPLIC TOPICAL ×2 (05:29→22:07)
[2018-09-30] MEDS: Doxycycline 100 MG CAPSULE PO ×2 (05:29→17:50)
[2018-09-30 06:40] LABS: Bedside Glucose 145 mg/dL (70-110)
[2018-09-30] MEDS: Aspirin 81 MG TAB.CHEW PO (08:05)
[2018-09-30] MEDS: Cyanocobalamin 500 MCG Tablet 1000 MCG PO (08:05)
[2018-09-30] MEDS: Insulin Lispro 100 UNIT/ML INSULN.PEN 20 UNIT SC (08:05)
[2018-09-30] MEDS: Gabapentin 600 MG Tablet PO ×3 (08:05→17:50)
[2018-09-30] MEDS: metFORMIN HCl 1,000 MG Tablet 1000 MG PO ×2 (08:05→17:50)
--- NOTE | 2018-09-30 10:01 | PCM.PN.RX ---
Progress Note - Pharmacy Subjective: TCU Admission Objective: Allergies No Known Allergies Allergy (Verified 09/16/18 19:29) Current Medications Generic Name Dose Route Start Last Admin Trade Name Freq PRN Reason Stop Dose Admin Acetaminophen 1,000 mg 09/25/18 18:23 Tylenol PO Q6H PRN PRN PAIN Aspirin 81 mg 09/26/18 08:00 09/30/18 08:05 Aspirin, Baby PO 81 mg DAILY@0800 [facility] Administration Atorvastatin Calcium 40 mg 09/25/18 22:00 09/29/18 21:13 Lipitor PO 40 mg QHS ONESIMO Administration Calamine/Phenol 1 applic 09/25/18 06:00 09/30/18 05:29 Calmoseptine Ointment TOPICAL 1 applicatio 0600,2200 [facility] Administration Protocol Cholecalciferol 6,000 unit 09/25/18 08:00 09/30/18 08:05 Vitamin D PO 6,000 unit DAILYCM [facility] Administration Cyanocobalamin 1,000 mcg 09/25/18 08:00 09/30/18 08:05 Vitamin B12 PO 1,000 mcg DAILYCM ONESIMO Administration Doxycycline Monohydrate 100 mg 09/29/18 18:00 09/30/18 05:29 Doxycycline PO 10/06/18 18:01 100 mg BID ONESIMO Administration Gabapentin 600 mg 09/24/18 17:45 09/30/18 08:05 Neurontin PO 600 mg TIDCM ONESIMO Administration Insulin Glargine 44 units 09/26/18 22:00 09/29/18 21:14 Lantus (Bkc) SC 44 units QHS [facility] Administration Insulin Human Lispro 20 unit 09/25/18 08:00 09/30/18 08:05 Humalog Kwikpen (Bkc) SC 20 units BREAKFAST ONESIMO Administration Insulin Human Lispro 16 unit 09/25/18 17:00 09/29/18 17:35 Humalog Kwikpen (Bkc) SC 16 units DINNER [facility] Administration Insulin Human Lispro 14 unit 09/25/18 12:00 09/29/18 12:21 Humalog Kwikpen (Bkc) SC 14 units LUNCH ONESIMO Administration Insulin Human Lispro 0 unit 09/27/18 06:45 09/30/18 06:22 Humalog Kwikpen (Bk) SC Not Given TIDAC [facility] Protocol Lisinopril 5 mg 09/25/18 06:00 09/30/18 05:29 Zestril PO 5 mg DAILY ONESIMO Administration Metformin HCl 1,000 mg 09/26/18 08:00 09/30/18 08:05 Glucophage PO 1,000 mg BIDCM ONESIMO Administration Nifedipine 30 mg 09/25/18 06:00 09/30/18 05:29 Procardia Xl PO 30 mg DAILY ONESIMO Administration Nutritional Formula 1 packet 09/25/18 08:00 09/30/18 08:05 Zhao - Logan Flavor PO 1 packet BIDCM ONESIMO Administration Nystatin 1 applic 09/25/18 06:00 09/30/18 05:29 Mycostatin Powder TOPICAL 1 applicatio 0600,2200 ONESIMO Administration Protocol Tuberculin PPD 5 tu 10/02/18 10:00 Tubersol, Aplisol, Ppd ID 10/02/18 10:01 X1 ONE Problem List (Last Reviewed 09/17/18 @ 16:48 by Sandy Maharaj PA-C) PAD (peripheral artery disease) (Acute) Vital Signs Temp Pulse Resp BP Pulse Ox 98.4 F 85 16 139/68 H 96 09/29/18 15:28 09/29/18 15:28 09/29/18 15:28 09/29/18 15:28 09/29/18 15:28 Oxygen Delivery Method Room Air Weight: 119.295 kg Body Mass Index (BMI) 41.3 Sodium 137 mmol/L (136-145) 09/25/18 05:10 Potassium 4.3 mmol/L (3.5-5.1) 09/25/18 05:10 Chloride 103 mmol/L (98-107) 09/25/18 05:10 Carbon Dioxide 29.0 mmol/L (21.0-32.0) 09/25/18 05:10 Anion Gap 5 (5-15) 09/25/18 05:10 BUN 44 mg/dL (7-18) H 09/25/18 05:10 Creatinine 1.73 mg/dL (0.70-1.30) H 09/25/18 05:10 Est GFR (MDRD) Af Amer 51 mL/min (>60) L 09/25/18 05:10 Est GFR (MDRD) Non-Af 42 mL/min (>60) L 09/25/18 05:10 BUN/Creatinine Ratio 25.4 RATIO (10-20) H 09/25/18 05:10 Glucose 170 mg/dL (74-106) H 09/25/18 05:10 Assessment/Plan: 1) Pain APAP for pain, gabapentin. Continue to monitor prn medication use, daily pain scores. 2) DM2 Metformin, insulin glargine at HS, lispro with meals, ASA, atorvastatin. Continue to monitor renal function, BGT, s/s hyper/hypoglycemia, lipids. 3) HTN Lisinopril, nifedipine. Continue to monitor BP/HR, renal function, electrolytes. 4) ID Doxycycline thru 10/06. Continue to monitor s/s infection. 5) Nutrition D, B12, Zhao. Continue to monitor clinically. Psychotropic Medications: None Unnecessary Medications: None Bowel Regimen: None scheduled Date of Note:: 09/30/18 - Provider Comments Provider responsibility: Provider responsible to enter orders to implement recommendations
--- NOTE | 2018-09-30 10:04 | PHA.CONS_ITS ---
Progress Note - Pharmacy Subjective: TCU Admission Objective: Allergies No Known Allergies Allergy (Verified 09/16/18 19:29) Current Medications Generic Name Dose Route Start Last Admin Trade Name Freq PRN Reason Stop Dose Admin Acetaminophen 1,000 mg 09/25/18 18:23 Tylenol PO Q6H PRN PRN PAIN Aspirin 81 mg 09/26/18 08:00 09/30/18 08:05 Aspirin, Baby PO 81 mg DAILY@0800 [facility] Administration Atorvastatin Calcium 40 mg 09/25/18 22:00 09/29/18 21:13 Lipitor PO 40 mg QHS ONESIMO Administration Calamine/Phenol 1 applic 09/25/18 06:00 09/30/18 05:29 Calmoseptine Ointment TOPICAL 1 applicatio 0600,2200 [facility] Administration Protocol Cholecalciferol 6,000 unit 09/25/18 08:00 09/30/18 08:05 Vitamin D PO 6,000 unit DAILYCM [facility] Administration Cyanocobalamin 1,000 mcg 09/25/18 08:00 09/30/18 08:05 Vitamin B12 PO 1,000 mcg DAILYCM ONESIMO Administration Doxycycline Monohydrate 100 mg 09/29/18 18:00 09/30/18 05:29 Doxycycline PO 10/06/18 18:01 100 mg BID ONESIMO Administration Gabapentin 600 mg 09/24/18 17:45 09/30/18 08:05 Neurontin PO 600 mg TIDCM ONESIMO Administration Insulin Glargine 44 units 09/26/18 22:00 09/29/18 21:14 Lantus (Bkc) SC 44 units QHS [facility] Administration Insulin Human Lispro 20 unit 09/25/18 08:00 09/30/18 08:05 Humalog Kwikpen (Bkc) SC 20 units BREAKFAST ONESIMO Administration Insulin Human Lispro 16 unit 09/25/18 17:00 09/29/18 17:35 Humalog Kwikpen (Bkc) SC 16 units DINNER [facility] Administration Insulin Human Lispro 14 unit 09/25/18 12:00 09/29/18 12:21 Humalog Kwikpen (Bkc) SC 14 units LUNCH ONESIMO Administration Insulin Human Lispro 0 unit 09/27/18 06:45 09/30/18 06:22 Humalog Kwikpen (Bk) SC Not Given TIDAC [facility] Protocol Lisinopril 5 mg 09/25/18 06:00 09/30/18 05:29 Zestril PO 5 mg DAILY ONESIMO Administration Metformin HCl 1,000 mg 09/26/18 08:00 09/30/18 08:05 Glucophage PO 1,000 mg BIDCM ONESIMO Administration Nifedipine 30 mg 09/25/18 06:00 09/30/18 05:29 Procardia Xl PO 30 mg DAILY ONESIMO Administration Nutritional Formula 1 packet 09/25/18 08:00 09/30/18 08:05 Zhao - [place] Flavor PO 1 packet BIDCM ONESIMO Administration Nystatin 1 applic 09/25/18 06:00 09/30/18 05:29 Mycostatin Powder TOPICAL 1 applicatio 0600,2200 ONESIMO Administration Protocol Tuberculin PPD 5 tu 10/02/18 10:00 Tubersol, Aplisol, Ppd ID 10/02/18 10:01 X1 ONE Problem List (Last Reviewed 09/17/18 @ 16:48 by Sandy Maharaj PA-C) PAD (peripheral artery disease) (Acute) Vital Signs Temp Pulse Resp BP Pulse Ox 98.4 F 85 16 139/68 H 96 09/29/18 15:28 09/29/18 15:28 09/29/18 15:28 09/29/18 15:28 09/29/18 15:28 Oxygen Delivery Method Room Air Weight: 119.295 kg Body Mass Index (BMI) 41.3 Sodium 137 mmol/L (136-145) 09/25/18 05:10 Potassium 4.3 mmol/L (3.5-5.1) 09/25/18 05:10 Chloride 103 mmol/L (98-107) 09/25/18 05:10 Carbon Dioxide 29.0 mmol/L (21.0-32.0) 09/25/18 05:10 Anion Gap 5 (5-15) 09/25/18 05:10 BUN 44 mg/dL (7-18) H 09/25/18 05:10 Creatinine 1.73 mg/dL (0.70-1.30) H 09/25/18 05:10 Est GFR (MDRD) Af Amer 51 mL/min (>60) L 09/25/18 05:10 Est GFR (MDRD) Non-Af 42 mL/min (>60) L 09/25/18 05:10 BUN/Creatinine Ratio 25.4 RATIO (10-20) H 09/25/18 05:10 Glucose 170 mg/dL (74-106) H 09/25/18 05:10 Assessment/Plan: 1) Pain APAP for pain, gabapentin. Continue to monitor prn medication use, daily pain scores. 2) DM2 Metformin, insulin glargine at HS, lispro with meals, ASA, atorvastatin. Continue to monitor renal function, BGT, s/s hyper/hypoglycemia, lipids. 3) HTN Lisinopril, nifedipine. Continue to monitor BP/HR, renal function, electrolytes. 4) ID Doxycycline thru 10/06. Continue to monitor s/s infection. 5) Nutrition D, B12, Zhao. Continue to monitor clinically. Psychotropic Medications: None Unnecessary Medications: None Bowel Regimen: None scheduled Date of Note:: 09/30/18 - Provider Comments Provider responsibility: Provider responsible to enter orders to implement recommendations
[2018-09-30 11:30] LABS: Bedside Glucose 180 mg/dL (70-110)
[2018-09-30] MEDS: Insulin Lispro 100 UNIT/ML INSULN.PEN 14 UNIT SC (12:29)
[2018-09-30] MEDS: Insulin Lispro 100 UNIT/ML INSULN.PEN SC (12:29)
[2018-09-30 16:00] VITALS: BP 123/71; PULSE 92; RESP 18; TEMP 37.1; O2SAT 95
[2018-09-30 17:25] LABS: Bedside Glucose 70 mg/dL (70-110)
--- NOTE | 2018-09-30 17:49 | PCM.PN.BLA ---
Progress Note I have discussed this pt with Dr Buitrago I initially thought that he may have progressive PAD involving the right lower extremity similar to the left which we recently treated with PT angioplasty. I interpreted a venous duplex exam this a.m. with showed no DVT and a compressible right GSV However, on clinical exam in the medial right thigh and proximal calf he has palpable cords c/w superficial thrombophlebitis possibly involving varicosities. This was not identified on the venous exam I do not believe that he requires endovascular intervention at this time of the RLE as the right foot is viable and clean I would treat the tender erythema of the right thigh and calf as if phlebitis and if symptoms worsen then repeat the venous duplex at this area please Thank you for allowing me to participate Balaji Bates MD, FACS
[2018-09-30] MEDS: Insulin Lispro 100 UNIT/ML INSULN.PEN 16 UNIT SC (17:50)
--- NOTE | 2018-09-30 17:54 | NURSING ---
Addendum entered by Shannon Kelley 09/30/18 18:28: New order for warm compresses qshift. warm compress applied to RT inner calf. Original Note: Dr Bates in to assess pt RT post leg behind knee, warm to touch, red, edema. no new orders.
[2018-09-30 21:26] LABS: Bedside Glucose 143 mg/dL (70-110)
[2018-09-30] MEDS: Atorvastatin Calcium 40 MG Tablet PO (22:05)
[2018-10-01] MEDS: NIFEdipine 30 MG Tablet PO (05:15)
[2018-10-01] MEDS: Nystatin Powder 15gm Bottle 1 APPLIC TOPICAL ×2 (05:15→20:56)
[2018-10-01] MEDS: Menthol/Lanolin/Calamine/Znox 113 GM Tube 1 APPLIC TOPICAL ×2 (05:15→20:55)
[2018-10-01] MEDS: Doxycycline 100 MG CAPSULE PO ×2 (05:15→17:47)
[2018-10-01] MEDS: Lisinopril 5 MG Tablet PO (05:15)
[2018-10-01 07:01] LABS: Bedside Glucose 107 mg/dL (70-110)
[2018-10-01] MEDS: Aspirin 81 MG TAB.CHEW PO (07:42)
[2018-10-01] MEDS: Insulin Lispro 100 UNIT/ML INSULN.PEN 20 UNIT SC (07:42)
[2018-10-01] MEDS: metFORMIN HCl 1,000 MG Tablet 1000 MG PO ×2 (07:42→17:47)
[2018-10-01] MEDS: Cyanocobalamin 500 MCG Tablet 1000 MCG PO (07:42)
[2018-10-01] MEDS: Gabapentin 600 MG Tablet PO ×3 (07:42→12:11)
--- NOTE | 2018-10-01 09:59 | CASEMGMT ---
Addendum entered by Tracie Wilson 10/01/18 12:01: Student social work MDS documentation reviewed. DON Frey Original Note: Brief interview for mental status (BIMS) and mood (PHQ-9) completed on this day. BIMS score 15. PHQ-9 score . Nicolas Fletcher social work student
--- NOTE | 2018-10-01 11:27 | CASEMGMT ---
Insurance: Clinical updates faxed. Will await continued stay determination. Auth# [id number] DON Frey
[2018-10-01 11:36] LABS: Bedside Glucose 175 mg/dL (70-110)
[2018-10-01] MEDS: Insulin Lispro 100 UNIT/ML INSULN.PEN SC (12:11)
[2018-10-01] MEDS: Insulin Lispro 100 UNIT/ML INSULN.PEN 14 UNIT SC (12:11)
[2018-10-01 15:27] VITALS: RESP 18; O2SAT 95
[2018-10-01 16:00] VITALS: BP 130/72; PULSE 92; RESP 18; TEMP 35.8; O2SAT 96
[2018-10-01 17:41] LABS: Bedside Glucose 103 mg/dL (70-110)
[2018-10-01] MEDS: Insulin Lispro 100 UNIT/ML INSULN.PEN 16 UNIT SC (18:29)
[2018-10-01] MEDS: Atorvastatin Calcium 40 MG Tablet PO (20:54)
[2018-10-01 22:01] LABS: Bedside Glucose 104 mg/dL (70-110)
[2018-10-02] MEDS: NIFEdipine 30 MG Tablet PO (05:08)
[2018-10-02] MEDS: Doxycycline 100 MG CAPSULE PO ×2 (05:08→16:45)
[2018-10-02] MEDS: Lisinopril 5 MG Tablet PO (05:08)
[2018-10-02] MEDS: Menthol/Lanolin/Calamine/Znox 113 GM Tube 1 APPLIC TOPICAL ×2 (05:10→20:45)
[2018-10-02] MEDS: Nystatin Powder 15gm Bottle 1 APPLIC TOPICAL ×2 (05:11→20:45)
[2018-10-02 06:06] LABS: Bedside Glucose 118 mg/dL (70-110)
[2018-10-02 06:36] LABS: Anion Gap 8 (5-15); BUN 42 mg/dL (7-18); BUN/Creat Ratio 33.6 RATIO (10-20); Calcium,Total 9.1 mg/dL (8.5-10.1); Chloride 103 mmol/L (98-107); Creatinine, Serum 1.25 mg/dL (0.70-1.30); EST Glomerular Filtration Rate 61 mL/min (>60); Est Glom Filt Rate - Afr Amer 74 mL/min (>60); Estimated Creatinine Clearance 51.04 ml/min; Glucose 107 mg/dL (74-106); Potassium 4.4 mmol/L (3.5-5.1); Sodium Level 138 mmol/L (136-145)
[2018-10-02 06:49] LABS: Absolute Neutrophil Count 11.9 X10^3/uL (2.0-7.7); Basophil# 0.09 X10^3/uL; Basophil% 0.5 % (0-1); Eosinophil# 0.31 X10^3/uL; Eosinophils% 1.9 % (0-5); Hematocrit 41.9 % (40-54); Hemoglobin 13.8 g/dl (13.0-16.5); Lymphocyte % 14.4 % (19-41); Mean Corp Hgb Conc 32.9 g/gl (32-36); Mean Corpuscular Hgb 30.2 pg (27.0-32.0); Mean Corpuscular Volume 91.7 fL (80-94); Mean Platelet Vol. 11.9 fl (6.2-12.0); Monocyte% 10.2 % (0-10); Neutrophil # 11.93 X10^3/uL (2.7-7.7); Neutrophil % 71.9 % (47-70); Platelet Count 289 K/mm3 (150-450); RBC Distribution Width CV 13.2 % (11.6-14.6); RBC Distribution Width SD 43.6 fl (35.1-43.9); Red Blood Count 4.57 M/mm3 (4.6-6.2); White Blood Count 16.6 K/mm3 (4.4-11.0)
[2018-10-02 06:50] LABS: Differential Indicated SCAN CRITERIA MET; POSITIVE COUNT NO; POSITIVE DIFFERENTIAL YES; POSITIVE MORPHOLOGY NO
[2018-10-02] MEDS: Aspirin 81 MG TAB.CHEW PO (09:46)
[2018-10-02] MEDS: Cyanocobalamin 500 MCG Tablet 1000 MCG PO (09:46)
[2018-10-02] MEDS: metFORMIN HCl 1,000 MG Tablet 1000 MG PO ×2 (09:46→16:45)
[2018-10-02] MEDS: Gabapentin 600 MG Tablet PO ×3 (09:46→16:45)
[2018-10-02] MEDS: Insulin Lispro 100 UNIT/ML INSULN.PEN 20 UNIT SC (09:46)
--- NOTE | 2018-10-02 09:50 | CASEMGMT ---
Social Work Plan of care meeting held with pt and brother present. Pt is receiving PT/OT. Weight bearing status has changed to NWB which is affecting pt progressing with therapy. No d/c date set at this time. Pt lives at home alone with 5 steps into his mobile home. Pt states he does not yet have a ramp into the home and cannot negotiate stairs at this time. Brother acknowledges that he has been told a ramp needs installed but has not gotten to it yet. SW explained that insurance was updated yesterday and continued stay is not guaranteed. Encouraged that ramp be installed EREN. Will continue with treatment plan at this time. DON Frey
[2018-10-02] MEDS: Tuberculin,Purif.prot.deriv. 50 TU/ML Vial 5 ML ID (10:54)
[2018-10-02 11:05] LABS: Bedside Glucose 298 mg/dL (70-110)
[2018-10-02] MEDS: Insulin Lispro 100 UNIT/ML INSULN.PEN 14 UNIT SC (11:35)
[2018-10-02] MEDS: Insulin Lispro 100 UNIT/ML INSULN.PEN SC (11:36)
[2018-10-02 14:49] LABS: Pathologist Review Reviewed
[2018-10-02 16:00] VITALS: BP 135/80; PULSE 100; RESP 18; TEMP 36.9; O2SAT 100
[2018-10-02 17:11] LABS: Bedside Glucose 81 mg/dL (70-110)
[2018-10-02] MEDS: Atorvastatin Calcium 40 MG Tablet PO (20:45)
[2018-10-02 21:11] LABS: Bedside Glucose 182 mg/dL (70-110)
[2018-10-03] MEDS: Menthol/Lanolin/Calamine/Znox 113 GM Tube 1 APPLIC TOPICAL ×2 (05:03→21:54)
[2018-10-03] MEDS: Nystatin Powder 15gm Bottle 1 APPLIC TOPICAL ×2 (05:03→21:54)
[2018-10-03] MEDS: Doxycycline 100 MG CAPSULE PO ×2 (05:04→17:00)
[2018-10-03] MEDS: Lisinopril 5 MG Tablet PO (05:05)
[2018-10-03] MEDS: NIFEdipine 30 MG Tablet PO (05:05)
[2018-10-03 06:35] LABS: Bedside Glucose 108 mg/dL (70-110)
[2018-10-03] MEDS: metFORMIN HCl 1,000 MG Tablet 1000 MG PO ×2 (08:42→17:00)
[2018-10-03] MEDS: Cyanocobalamin 500 MCG Tablet 1000 MCG PO (08:42)
[2018-10-03] MEDS: Aspirin 81 MG TAB.CHEW PO (08:42)
[2018-10-03] MEDS: Gabapentin 600 MG Tablet PO ×3 (08:43→17:01)
[2018-10-03] MEDS: Insulin Lispro 100 UNIT/ML INSULN.PEN 15 UNIT SC ×3 (08:44→18:05)
[2018-10-03 11:30] LABS: Bedside Glucose 161 mg/dL (70-110)
[2018-10-03 16:00] VITALS: BP 127/67; PULSE 96; RESP 18; TEMP 36.9; O2SAT 94
[2018-10-03 17:06] LABS: Bedside Glucose 96 mg/dL (70-110)
--- NOTE | 2018-10-03 17:18 | PN_ITS ---
Patient Problems: Active and Suspected Problems (Last Reviewed 09/17/18 @ 16:48 by Sandy Maharaj PA-C) PAD (peripheral artery disease) (Acute) Subjective: This 68 year old male with diabetes and peripheral vascular disease was seen bedside post operative week 2 partial left hallux amputation. He denies fever, chills, nausea, vomiting. He has been wearing his surgical shoe. He denies any pain to the area currently. - Physical Exam General: Alert, Oriented x3, Cooperative, No apparent distress Extremities: No cyanosis, Capillary Refill Less than 3 Seconds - dorsal and plantar stump hallux amputation and to remaining lesser toes 2,3,4, No Calf Tenderness - Negative Laci and Eldridge signs bilateral, Diminished Peripheral Pulses Skin: Incision - Sutures remain intact and skin margins are well aligned to hallux partial toe amputation site without gapping, necrosis, or infection. No peripheral erythema or proximal streaking is noted. Musculoskeletal: No Tenderness to Palpation of Joints or Extremities Neurological: - - Epicritic sensation grossly absent lower extremities. Psych/Mental Status: Normal Affect, Appropriate Vital Signs Temp Pulse Resp BP Pulse Ox 98.5 F 96 18 127/67 H 94 10/03/18 16:00 10/03/18 16:00 10/03/18 16:00 10/03/18 16:00 10/03/18 16:00 Oxygen Delivery Method Room Air Weight: 118.614 kg Body Mass Index (BMI) 41.3 Intake and Output for Last 24 Hours 10/01/18 10/02/18 10/03/18 23:59 23:59 23:59 Intake Total 1200 / 1200 1220 / 1220 480 / 480 Output Total 1675 / 1675 1450 / 1450 Balance 1200 / 1200 -455 / -455 -970 / -970 POC Glucose 10/03/18 10/03/18 10/03/18 17:00 11:13 06:27 POC Glucose 96 161 H 108 10/02/18 21:04 POC Glucose 182 H Medical Necessity - Tobacco Use Smoking Status: Never smoker Assessment/Plan All Active Problems (Last Reviewed 09/17/18 @ 16:48 by Sandy Maharaj PA-C) Osteomyelitis of great toe of left foot (Acute) Status post amputation of left great toe (Acute) Hyperlipidemia (Acute) Obstructive sleep apnea (Acute) Acute renal failure (Acute) Morbid obesity (Acute) PAD (peripheral artery disease) (Acute) Type 2 diabetes mellitus with diabetic polyneuropathy (Acute) Type 2 diabetes mellitus with left diabetic foot infection (Acute) Sepsis (Acute) 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 His surgical wound is intact and a new dressing was applied today with betadine and gauze. To keep clean, dry, intact. To remain non weight bearing at this time. It is noted he is still at risk for delayed healing given his comorbidities and he will continue to be monitored weekly while in the transitional care unit. Medical management per primary team is appreciated. Podiatry will continue to follow while in house.
[2018-10-03 21:01] LABS: Bedside Glucose 127 mg/dL (70-110)
[2018-10-03] MEDS: Atorvastatin Calcium 40 MG Tablet PO (21:51)
[2018-10-04] MEDS: Doxycycline 100 MG CAPSULE PO ×2 (05:50→17:01)
[2018-10-04] MEDS: Lisinopril 5 MG Tablet PO (05:50)
[2018-10-04] MEDS: NIFEdipine 30 MG Tablet PO (05:50)
[2018-10-04] MEDS: Nystatin Powder 15gm Bottle 1 APPLIC TOPICAL ×2 (05:53→21:50)
[2018-10-04] MEDS: Menthol/Lanolin/Calamine/Znox 113 GM Tube 1 APPLIC TOPICAL ×2 (05:54→21:50)
[2018-10-04 06:00] LABS: Bedside Glucose 110 mg/dL (70-110)
[2018-10-04] MEDS: Aspirin 81 MG TAB.CHEW PO (08:03)
[2018-10-04] MEDS: Cyanocobalamin 500 MCG Tablet 1000 MCG PO (08:03)
[2018-10-04] MEDS: Gabapentin 600 MG Tablet PO ×3 (08:03→17:00)
[2018-10-04] MEDS: metFORMIN HCl 1,000 MG Tablet 1000 MG PO (08:03)
[2018-10-04] MEDS: Insulin Lispro 100 UNIT/ML INSULN.PEN 15 UNIT SC ×2 (08:04→11:55)
--- NOTE | 2018-10-04 08:07 | NURSING ---
Warm compress applied to right inner calf per order.
--- NOTE | 2018-10-04 11:24 | MDS.RN ---
Information for the mds was obtained from review of the clinical record, interview of resident, staff, and direct observation of resident's care.
[2018-10-04 11:31] LABS: Bedside Glucose 127 mg/dL (70-110)
[2018-10-04 13:09] VITALS: PULSE 86; O2SAT 95
[2018-10-04 15:59] VITALS: BP 132/68; PULSE 101; RESP 16; TEMP 36.8; O2SAT 95
[2018-10-04 17:06] LABS: Bedside Glucose 75 mg/dL (70-110)
--- NOTE | 2018-10-04 17:49 | NURSING ---
BLOOD SUGAR [address]. NOTIFIED DR. SUAREZ. HOLD EVENING DOSE OF HUMALOG AND METFORMIN.
[2018-10-04 21:45] LABS: Bedside Glucose 185 mg/dL (70-110)
[2018-10-04] MEDS: Atorvastatin Calcium 40 MG Tablet PO (21:49)
[2018-10-05] MEDS: Doxycycline 100 MG CAPSULE PO ×2 (06:50→16:26)
[2018-10-05] MEDS: NIFEdipine 30 MG Tablet PO (06:50)
[2018-10-05] MEDS: Lisinopril 5 MG Tablet PO (06:50)
[2018-10-05 06:51] LABS: Bedside Glucose 161 mg/dL (70-110)
[2018-10-05] MEDS: Nystatin Powder 15gm Bottle 1 APPLIC TOPICAL ×2 (06:51→19:43)
[2018-10-05] MEDS: Menthol/Lanolin/Calamine/Znox 113 GM Tube 1 APPLIC TOPICAL ×2 (06:51→19:43)
[2018-10-05] MEDS: Insulin Lispro 100 UNIT/ML INSULN.PEN 12 UNIT SC ×3 (08:39→17:01)
[2018-10-05] MEDS: Gabapentin 600 MG Tablet PO ×3 (08:39→16:26)
[2018-10-05] MEDS: metFORMIN HCl 1,000 MG Tablet 1000 MG PO ×2 (08:39→16:26)
[2018-10-05] MEDS: Aspirin 81 MG TAB.CHEW PO (08:40)
[2018-10-05] MEDS: Cyanocobalamin 500 MCG Tablet 1000 MCG PO (08:40)
[2018-10-05 10:36] LABS: Bedside Glucose 241 mg/dL (70-110)
[2018-10-05 15:55] VITALS: BP 125/70; PULSE 80; RESP 20; TEMP 37.2; O2SAT 93
[2018-10-05 16:45] LABS: Bedside Glucose 123 mg/dL (70-110)
[2018-10-05] MEDS: Atorvastatin Calcium 40 MG Tablet PO (19:43)
[2018-10-05 21:26] LABS: Bedside Glucose 150 mg/dL (70-110)
[2018-10-06] MEDS: Nystatin Powder 15gm Bottle 1 APPLIC TOPICAL ×2 (05:03→20:51)
[2018-10-06] MEDS: Menthol/Lanolin/Calamine/Znox 113 GM Tube 1 APPLIC TOPICAL ×2 (05:03→20:50)
[2018-10-06] MEDS: Lisinopril 5 MG Tablet PO (05:04)
[2018-10-06] MEDS: Doxycycline 100 MG CAPSULE PO ×2 (05:04→17:30)
[2018-10-06] MEDS: NIFEdipine 30 MG Tablet PO (05:04)
[2018-10-06 06:40] LABS: Bedside Glucose 100 mg/dL (70-110)
[2018-10-06] MEDS: Gabapentin 600 MG Tablet PO ×3 (08:28→17:30)
[2018-10-06] MEDS: Aspirin 81 MG TAB.CHEW PO (08:29)
[2018-10-06] MEDS: metFORMIN HCl 1,000 MG Tablet 1000 MG PO ×2 (08:29→17:30)
[2018-10-06] MEDS: Cyanocobalamin 500 MCG Tablet 1000 MCG PO (08:29)
[2018-10-06 11:21] LABS: Bedside Glucose 176 mg/dL (70-110)
[2018-10-06] MEDS: Insulin Lispro 100 UNIT/ML INSULN.PEN 12 UNIT SC ×2 (12:16→17:35)
[2018-10-06 16:00] VITALS: BP 112/62; PULSE 91; RESP 20; TEMP 36.9; O2SAT 96
[2018-10-06 17:00] LABS: Bedside Glucose 117 mg/dL (70-110)
[2018-10-06] MEDS: Atorvastatin Calcium 40 MG Tablet PO (20:51)
[2018-10-06 21:21] LABS: Bedside Glucose 168 mg/dL (70-110)
[2018-10-07] MEDS: Menthol/Lanolin/Calamine/Znox 113 GM Tube 1 APPLIC TOPICAL ×2 (05:16→22:20)
[2018-10-07] MEDS: NIFEdipine 30 MG Tablet PO (05:16)
[2018-10-07] MEDS: Lisinopril 5 MG Tablet PO (05:16)
[2018-10-07] MEDS: Nystatin Powder 15gm Bottle 1 APPLIC TOPICAL ×2 (05:16→22:20)
[2018-10-07 06:51] LABS: Bedside Glucose 105 mg/dL (70-110)
[2018-10-07] MEDS: metFORMIN HCl 1,000 MG Tablet 1000 MG PO ×2 (08:51→17:26)
[2018-10-07] MEDS: Insulin Lispro 100 UNIT/ML INSULN.PEN 12 UNIT SC ×3 (08:51→17:25)
[2018-10-07] MEDS: Aspirin 81 MG TAB.CHEW PO (08:51)
[2018-10-07] MEDS: Gabapentin 600 MG Tablet PO ×3 (08:51→17:26)
[2018-10-07] MEDS: Cyanocobalamin 500 MCG Tablet 1000 MCG PO (08:51)
[2018-10-07 11:41] LABS: Bedside Glucose 143 mg/dL (70-110)
[2018-10-07 15:22] VITALS: BP 131/70; PULSE 94; RESP 18; TEMP 36.9; O2SAT 95
[2018-10-07 17:01] LABS: Bedside Glucose 118 mg/dL (70-110)
[2018-10-07 21:10] LABS: Bedside Glucose 173 mg/dL (70-110)
[2018-10-07] MEDS: Atorvastatin Calcium 40 MG Tablet PO (22:18)
[2018-10-08] MEDS: NIFEdipine 30 MG Tablet PO (05:41)
[2018-10-08] MEDS: Lisinopril 5 MG Tablet PO (05:41)
[2018-10-08] MEDS: Menthol/Lanolin/Calamine/Znox 113 GM Tube 1 APPLIC TOPICAL ×2 (05:44→21:38)
[2018-10-08] MEDS: Nystatin Powder 15gm Bottle 1 APPLIC TOPICAL ×2 (05:44→21:38)
[2018-10-08 06:36] LABS: Bedside Glucose 159 mg/dL (70-110)
[2018-10-08] MEDS: Insulin Lispro 100 UNIT/ML INSULN.PEN 12 UNIT SC ×3 (08:16→17:07)
[2018-10-08] MEDS: Gabapentin 600 MG Tablet PO ×3 (08:17→16:34)
[2018-10-08] MEDS: Aspirin 81 MG TAB.CHEW PO (08:17)
[2018-10-08] MEDS: metFORMIN HCl 1,000 MG Tablet 1000 MG PO ×2 (08:17→16:34)
[2018-10-08] MEDS: Cyanocobalamin 500 MCG Tablet 1000 MCG PO (08:17)
[2018-10-08 11:40] LABS: Bedside Glucose 138 mg/dL (70-110)
--- NOTE | 2018-10-08 14:35 | CASEMGMT ---
Insurance Received fax that clinical update is due today. Clinicals faxed. Will await continued stay determination. Auth # [id number] DON Frey
[2018-10-08 16:00] VITALS: BP 135/65; PULSE 84; RESP 18; TEMP 36.8; O2SAT 98
[2018-10-08 16:46] LABS: Bedside Glucose 144 mg/dL (70-110)
[2018-10-08 21:06] LABS: Bedside Glucose 180 mg/dL (70-110)
[2018-10-08] MEDS: Atorvastatin Calcium 40 MG Tablet PO (21:39)
[2018-10-09] MEDS: Menthol/Lanolin/Calamine/Znox 113 GM Tube 1 APPLIC TOPICAL ×2 (05:36→21:30)
[2018-10-09] MEDS: Nystatin Powder 15gm Bottle 1 APPLIC TOPICAL ×2 (05:39→21:31)
[2018-10-09] MEDS: Lisinopril 5 MG Tablet PO (05:40)
[2018-10-09] MEDS: NIFEdipine 30 MG Tablet PO (05:40)
[2018-10-09 06:08] LABS: Absolute Lymphocyte Count 2.18 X10^3/ul (0.83-4.51); Absolute Neutrophil Count 7.6 X10^3/uL (2.0-7.7); Basophil# 0.07 X10^3/uL; Basophil% 0.6 % (0-1); Eosinophils% 3.4 % (0-5); Hematocrit 42.7 % (40-54); Hemoglobin 13.9 g/dl (13.0-16.5); Lymphocyte # 2.18 X10^3/ul (4.0); Lymphocyte % 18.8 % (19-41); Mean Corp Hgb Conc 32.6 g/gl (32-36); Mean Corpuscular Hgb 29.5 pg (27.0-32.0); Mean Corpuscular Volume 90.7 fL (80-94); Mean Platelet Vol. 12.2 fl (6.2-12.0); Monocyte# 1.25 X10^3/uL; Monocyte% 10.8 % (0-10); Neutrophil # 7.57 X10^3/uL (2.7-7.7); Neutrophil % 65.3 % (47-70); Platelet Count 238 K/mm3 (150-450); RBC Distribution Width CV 13.1 % (11.6-14.6); RBC Distribution Width SD 42.6 fl (35.1-43.9); Red Blood Count 4.71 M/mm3 (4.6-6.2); White Blood Count 11.6 K/mm3 (4.4-11.0)
[2018-10-09 06:09] LABS: POSITIVE COUNT NO; POSITIVE DIFFERENTIAL NO; POSITIVE MORPHOLOGY NO
[2018-10-09 06:21] LABS: Bedside Glucose 124 mg/dL (70-110)
[2018-10-09 06:29] LABS: Anion Gap 8 (5-15); BUN 30 mg/dL (7-18); BUN/Creat Ratio 31.8 RATIO (10-20); Calcium,Total 9.2 mg/dL (8.5-10.1); Chloride 103 mmol/L (98-107); Creatinine, Serum 0.94 mg/dL (0.70-1.30); EST Glomerular Filtration Rate 84 mL/min (>60); Est Glom Filt Rate - Afr Amer 102 mL/min (>60); Estimated Creatinine Clearance 67.87 ml/min; Glucose 107 mg/dL (74-106); Potassium 4.3 mmol/L (3.5-5.1); Sodium Level 139 mmol/L (136-145)
[2018-10-09] MEDS: metFORMIN HCl 1,000 MG Tablet 1000 MG PO ×2 (09:39→17:00)
[2018-10-09] MEDS: Cyanocobalamin 500 MCG Tablet 1000 MCG PO (09:39)
[2018-10-09] MEDS: Insulin Lispro 100 UNIT/ML INSULN.PEN 12 UNIT SC ×2 (09:39→12:08)
[2018-10-09] MEDS: Gabapentin 600 MG Tablet PO ×3 (09:39→17:00)
[2018-10-09] MEDS: Aspirin 81 MG TAB.CHEW PO (09:40)
[2018-10-09 11:41] LABS: Bedside Glucose 163 mg/dL (70-110)
[2018-10-09 16:00] VITALS: BP 121/75; PULSE 88; RESP 20; TEMP 36.8; O2SAT 96
[2018-10-09 17:01] LABS: Bedside Glucose 80 mg/dL (70-110)
[2018-10-09 21:21] LABS: Bedside Glucose 174 mg/dL (70-110)
[2018-10-09] MEDS: Atorvastatin Calcium 40 MG Tablet PO (21:28)
--- NOTE | 2018-10-09 22:30 | PN_ITS ---
Patient Problems: Active and Suspected Problems (Last Reviewed 09/17/18 @ 16:48 by Sanyd Maharaj PA-C) PAD (peripheral artery disease) (Acute) Subjective: Patient was seen this evening for follow up on left foot s/p partial hallux amputation. He relates he is doing well, no complaints. No pain or problems at this time. He was sitting up in chair watching TV this evening. He is asking when he can go home. He relates his brother will be living with him when he goes home. Patient with no complaints of fever, chills, nausea or vomiting. - Physical Exam General: Alert, Oriented x3, Cooperative, No apparent distress Extremities: Capillary Refill Less than 3 Seconds, No Calf Tenderness, - - Left foot: s/p partial hallux amputation - sutures intact, skin well coapted, no dehiscence and healing very well, no open lesions, no erythema, no cellulitis, no necrosis, no maloder, no drainage to the left foot or ankle, temperature normal and no evidence of acute ischemia to the left foot, there is no pain or evidence of complication at this time. Musculoskeletal: No Tenderness to Palpation of Joints or Extremities - to the left foot or ankle. Vital Signs Temp Pulse Resp BP Pulse Ox 98.3 F 88 20 H 121/75 H 96 10/09/18 16:00 10/09/18 16:00 10/09/18 16:00 10/09/18 16:00 10/09/18 16:00 Oxygen Delivery Method Room Air Weight: 117.934 kg Body Mass Index (BMI) 41.3 Intake and Output for Last 24 Hours 10/07/18 10/08/18 10/09/18 23:59 23:59 23:59 Intake Total 1520 / 1520 960 / 960 1080 / 1080 Output Total 1700 / 1700 975 / 975 Balance -180 / -180 960 / 960 105 / 105 Laboratory Tests Past 24 Hrs 10/09/18 10/09/18 05:20 05:20 WBC 11.6 H RBC 4.71 Hgb 13.9 Hct 42.7 MCV 90.7 MCH 29.5 MCHC 32.6 RDW 13.1 RDW Differential 42.6 Plt Count 238 MPV 12.2 H Immature Gran % (Auto) 1.100 H Neut % (Auto) 65.3 Lymph % (Auto) 18.8 L [place] % (Auto) 10.8 H Eos % (Auto) 3.4 Baso % (Auto) 0.6 Absolute Neuts (auto) 7.6 Absolute Lymphs (auto) 2.18 Total Counted Not Reportable Sodium 139 Potassium 4.3 Chloride 103 Carbon Dioxide 28.0 Anion Gap 8 BUN 30 H Creatinine 0.94 Estim Creat Clear Calc 67.87 Est GFR (MDRD) Af Amer 102 Est GFR (MDRD) Non-Af 84 BUN/Creatinine Ratio 31.8 H Glucose 107 H Calcium 9.2 POC Glucose 10/09/18 10/09/18 10/09/18 21:17 16:55 11:35 POC Glucose 174 H 80 163 H 10/09/18 06:18 POC Glucose 124 H Medical Necessity - Tobacco Use Smoking Status: Never smoker Assessment/Plan All Active Problems (Last Reviewed 09/17/18 @ 16:48 by Sandy Maharaj PA-C) Osteomyelitis of great toe of left foot (Acute) Status post amputation of left great toe (Acute) Hyperlipidemia (Acute) Obstructive sleep apnea (Acute) Acute renal failure (Acute) Morbid obesity (Acute) PAD (peripheral artery disease) (Acute) Type 2 diabetes mellitus with diabetic polyneuropathy (Acute) Type 2 diabetes mellitus with left diabetic foot infection (Acute) Sepsis (Acute) 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 Painted site with betadine solution and applied gauze and armando dressing - change daily. Cleanse foot with normal saline solution with each dressing change. Sutures were left intact, will likely need to be removed in 1 week. Apply topical moisturizer to foot (not at surgical site) daily for dry skin. There is no evidence of infection. Ok to progress to weightbearing on left heel with use of surgical shoe and walker. Discussed with patient would be ok to go home if he does well at physical therapy with heel weightbearing, and would also need home health for dressing changes every other day (wound care as noted above). Patient to otherwise limit activity. Podiatry will continue to follow weekly while in TCU, otherwise patient to follow up with Dr. Payton once discharged.
--- NOTE | 2018-10-09 22:38 | DCINST_ITS ---
Weight Bearing Status: Partial weight bearing - Weightbearing to left heel only, no weight to toes or ball of left foot. Must use surgical shoe and walker with any weightbearing. Call your doctor if your incision/area has: Continuous Slow Oozing, Sudden Increased Bleeding, Increased Pain/ Swelling, Foul Smelling Discharge Call your doctor if you observe: Fever of 101 or Higher, Coldness, Increased Pain, Shortness of breath, Chest pain, Increased palpitations (irregular heartbeat), Calf discomfort, Uncontrolled pain Cleanse incision/area with: Keep Dressing Clean & Dry - Will need to be changed every other day by home health nurse - cleanse with normal saline solution, paint incision / sutures with betadine solution and apply overlying gauze/armando dressing. Apply topical moisturizing skin cream to dry skin (not to surgical site/sutures) with each dressing change. Allergies/Adverse Reactions: Allergies No Known Allergies Allergy (Verified 09/16/18 19:29) Medications to take at Discharge RX: Dulaglutide [Trulicity] 1.5 mg SQ ONEIL 01/06/17 RX: Nifedipine [Nifedipine ER] 30 mg PO DAILY 01/06/17 RX: Cholecalciferol (Vitamin D3) [Vitamin D3] 6,000 unit PO DAILY 09/16/18 RX: Cyanocobalamin (Vitamin B-12) [B-12] 1,000 mcg PO DAILY 09/16/18 RX: Gabapentin 600 mg PO TID 09/16/18 RX: Insulin Glargine [Lantus SoloStar Pen] 36 units SC QHS 09/24/18 RX: Acetaminophen [Tylenol] 1,000 mg PO Q6H PRN PRN tablet 10/11/18 RX: Aspirin [Aspirin, Baby] 81 mg PO DAILY@0800 tab.chew 10/11/18 RX: Atorvastatin Calcium [Lipitor] 40 mg PO QHS #30 tablet 10/11/18 RX: Insulin Lispro [Humalog KwikPen] 12 unit SC TIDAC insuln.pen 10/11/18 RX: Lisinopril [Zestril] 5 mg PO DAILY #30 tablet 10/11/18 RX: Menthol/Lanolin/Calamine/Znox [Calmoseptine Ointment] 1 applic TOPICAL 0600,2200 tube 10/11/18 RX: Metformin HCl [Glucophage] 1,000 mg PO BIDCM #60 tablet 10/11/18 RX: Nutritional Supplement [Zhao - [place]ANGE FLAVOR] 1 packet PO BIDCM #60 packet 10/11/18 RX: Nystatin Powder [Mycostatin Powder] 1 applic TOPICAL 0600,2200 bottle 10/11/18 The following prescriptions were given: RX: Atorvastatin Calcium [Lipitor] 40 mg PO QHS #30 tablet RX: Lisinopril [Zestril] 5 mg PO DAILY #30 tablet RX: Metformin HCl [Glucophage] 1,000 mg PO BIDCM #60 tablet RX: Nutritional Supplement [Zhao - [place] FLAVOR] 1 packet PO BIDCM #60 packet Primary Care Physician: Dexter Reid DO [Primary Care Provider] - Test Results: Test results from this visit will be discussed in further detail at your follow- up appointment, if applicable. Please Follow Up With: Maria A Payton DPM When: within 1 week, sooner if needed
[2018-10-10] MEDS: NIFEdipine 30 MG Tablet PO (05:15)
[2018-10-10] MEDS: Lisinopril 5 MG Tablet PO (05:15)
[2018-10-10] MEDS: Nystatin Powder 15gm Bottle 1 APPLIC TOPICAL ×2 (05:17→22:07)
[2018-10-10] MEDS: Menthol/Lanolin/Calamine/Znox 113 GM Tube 1 APPLIC TOPICAL ×2 (05:17→22:08)
[2018-10-10 07:16] LABS: Bedside Glucose 127 mg/dL (70-110)
[2018-10-10] MEDS: Insulin Lispro 100 UNIT/ML INSULN.PEN 12 UNIT SC ×3 (08:05→17:21)
[2018-10-10] MEDS: Gabapentin 600 MG Tablet PO ×3 (08:06→17:20)
[2018-10-10] MEDS: metFORMIN HCl 1,000 MG Tablet 1000 MG PO ×2 (08:06→17:20)
[2018-10-10] MEDS: Cyanocobalamin 500 MCG Tablet 1000 MCG PO (08:06)
[2018-10-10] MEDS: Aspirin 81 MG TAB.CHEW PO (08:06)
[2018-10-10 11:41] LABS: Bedside Glucose 143 mg/dL (70-110)
[2018-10-10 16:00] VITALS: BP 138/66; PULSE 106; RESP 20; TEMP 36.9; O2SAT 95
[2018-10-10 16:41] LABS: Bedside Glucose 190 mg/dL (70-110)
[2018-10-10] MEDS: Atorvastatin Calcium 40 MG Tablet PO (22:02)
[2018-10-10 22:05] LABS: Bedside Glucose 197 mg/dL (70-110)
[2018-10-11] MEDS: NIFEdipine 30 MG Tablet PO (06:12)
[2018-10-11] MEDS: Lisinopril 5 MG Tablet PO (06:12)
[2018-10-11] MEDS: Nystatin Powder 15gm Bottle 1 APPLIC TOPICAL ×2 (06:13→22:37)
[2018-10-11] MEDS: Menthol/Lanolin/Calamine/Znox 113 GM Tube 1 APPLIC TOPICAL ×2 (06:13→22:36)
[2018-10-11 06:36] LABS: Bedside Glucose 117 mg/dL (70-110)
[2018-10-11] MEDS: Insulin Lispro 100 UNIT/ML INSULN.PEN 12 UNIT SC ×3 (07:56→17:06)
[2018-10-11] MEDS: Gabapentin 600 MG Tablet PO ×3 (07:57→17:05)
[2018-10-11] MEDS: Aspirin 81 MG TAB.CHEW PO (07:57)
[2018-10-11] MEDS: Cyanocobalamin 500 MCG Tablet 1000 MCG PO (07:57)
[2018-10-11] MEDS: metFORMIN HCl 1,000 MG Tablet 1000 MG PO ×2 (07:57→17:05)
[2018-10-11 11:51] LABS: Bedside Glucose 147 mg/dL (70-110)
--- NOTE | 2018-10-11 13:24 | CASEMGMT ---
Addendum entered by Tracie Wilson 10/11/18 14:29: [facility] needs to be added to services. [facility] is not in network with insurance. SW made referral to [facility] and they do accept insurance. Referral faxed. Plan: D/C home 10/12 with home health PT/OT/DON Carrington Original Note: Social Work SW met with pt who is requesting to d/c home tomorrow 10/12/18. PT stating he feels he can return home alone and therapy is agreeable and recommending home health PT/OT. Pt brother will transport home and assist as needed with errands and transportation. Pt is agreeable to home health and would like to use [facility]. [facility] Referral made to Carlie at [facility] for PT/OT. Referral made to Maryam for wheeled walker to be delivered to pt room prior to d/c. No further d/c needs at this time. Plan: D/C home alone 10/12/18 with [facility] PT/OT, DON Clifton
[2018-10-11 15:09] VITALS: BP 132/67; PULSE 96; RESP 18; TEMP 36.9; O2SAT 95
[2018-10-11 16:40] LABS: Bedside Glucose 159 mg/dL (70-110)
--- NOTE | 2018-10-11 20:28 | PCM.DC.SUM ---
Discharge Date and Diagnosis - Problem List Patient Problems: Active and Suspected Problems (Last Reviewed 09/17/18 @ 16:48 by Sandy Maharaj PA-C) PAD (peripheral artery disease) (Acute) Date of Admission: 09/24/18 Date of Discharge: 10/12/18 - Primary Discharge Diagnosis Active and Suspected Problems (Last Reviewed 09/17/18 @ 16:48 by Sandy Maharaj PA-C) PAD (peripheral artery disease) (Acute) - Secondary Discharge Diagnosis Chronic Problems (Last Reviewed 09/17/18 @ 16:48 by Sandy Maharaj PA-C) Chronic ulcer of left foot with necrosis of bone (Chronic) PAD (peripheral artery disease) (Chronic) Hallux varus (acquired), left foot (Chronic) Diabetes mellitus with polyneuropathy (Chronic) HTN (hypertension) (Chronic) Hospital Course and Treatment Imaging Results: 10/09/18 15:36 Diet: Regular Diet Is pt able to select menu?: Yes Labs (Last 48 Hours) 10/09/18 10/10/18 10/10/18 21:17 06:31 11:18 POC Glucose 174 H 127 H 143 H 10/10/18 10/10/18 10/11/18 16:30 21:59 06:12 POC Glucose 190 H 197 H 117 H 10/11/18 10/11/18 11:37 16:37 POC Glucose 147 H 159 H Operations: None, - - Subcutaneous debridement of the left hallux ulcer. Procedures: None Summary of Care Provided: The patient is a 68 year old Male with below past medical history status post left toe amputation for infected diabetic toe ulcer and osteomyelitis, admitted to TCU with debility, here for rehabilitation, strengthening, prior to discharge home alone. Discharge home alone with Home Health Services for PT/OT. Patient Problems: Active and Suspected Problems (Last Reviewed 09/17/18 @ 16:48 by Sandy Maharaj PA-C) PAD (peripheral artery disease) (Acute) - Physical Exam Vital Signs Temp Pulse Resp BP Pulse Ox 98.5 F 96 18 132/67 H 95 10/11/18 15:09 10/11/18 15:09 10/11/18 15:09 10/11/18 15:09 10/11/18 15:09 Oxygen Delivery Method Room Air Weight: 117.934 kg Body Mass Index (BMI) 41.3 Intake and Output for Last 24 Hours 10/09/18 10/10/18 10/11/18 23:59 23:59 23:59 Intake Total 1080 / 1080 820 / 820 1300 / 1300 Output Total 975 / 975 925 / 925 1675 / 1675 Balance 105 / 105 -105 / -105 -375 / -375 POC Glucose 10/11/18 10/11/18 10/11/18 16:37 11:37 06:12 POC Glucose 159 H 147 H 117 H 10/10/18 21:59 POC Glucose 197 H Discharge Diet: No Restrictions Discharge Activity: Return to Normal Activity, May Shower, Use Walker Weight Bearing Status: Partial weight bearing - Weightbearing to left heel only, no weight to toes or ball of left foot. Must use surgical shoe and walker with any weightbearing. Call your doctor if your incision/area has: Continuous Slow Oozing, Sudden Increased Bleeding, Increased Pain/ Swelling, Foul Smelling Discharge Call your doctor if you observe: Fever of 101 or Higher, Coldness, Increased Pain, Shortness of breath, Chest pain, Increased palpitations (irregular heartbeat), Calf discomfort, Uncontrolled pain Cleanse incision/area with: Keep Dressing Clean & Dry - Will need to be changed every other day by home health nurse - cleanse with normal saline solution, paint incision / sutures with betadine solution and apply overlying gauze/armando dressing. Apply topical moisturizing skin cream to dry skin (not to surgical site/sutures) with each dressing change. Home Medications: Medications to take at Discharge Dulaglutide [Trulicity] 1.5 mg SQ ONEIL 01/06/17 Nifedipine [Nifedipine ER] 30 mg PO DAILY 01/06/17 Cholecalciferol (Vitamin D3) [Vitamin D3] 6,000 unit PO DAILY 09/16/18 Cyanocobalamin (Vitamin B-12) [B-12] 1,000 mcg PO DAILY 09/16/18 Gabapentin 600 mg PO TID 09/16/18 Insulin Glargine [Lantus SoloStar Pen] 36 units SC QHS 09/24/18 Acetaminophen [Tylenol] 1,000 mg PO Q6H PRN PRN tablet 10/11/18 Aspirin [Aspirin, Baby] 81 mg PO DAILY@0800 tab.chew 10/11/18 Atorvastatin Calcium [Lipitor] 40 mg PO QHS #30 tablet 10/11/18 Insulin Lispro [Humalog KwikPen] 12 unit SC TIDAC insuln.pen 10/11/18 Lisinopril [Zestril] 5 mg PO DAILY #30 tablet 10/11/18 Menthol/Lanolin/Calamine/Znox [Calmoseptine Ointment] 1 applic TOPICAL 0600,2200 tube 10/11/18 Metformin HCl [Glucophage] 1,000 mg PO BIDCM #60 tablet 10/11/18 Nutritional Supplement [Zhao - [place]ANGE FLAVOR] 1 packet PO BIDCM #60 packet 10/11/18 Nystatin Powder [Mycostatin Powder] 1 applic TOPICAL 0600,2200 bottle 10/11/18 Following Prescrptions Were Given to Patient: Atorvastatin Calcium [Lipitor] 40 mg PO QHS #30 tablet Lisinopril [Zestril] 5 mg PO DAILY #30 tablet Metformin HCl [Glucophage] 1,000 mg PO BIDCM #60 tablet Nutritional Supplement [Zhao - [place]ANGE FLAVOR] 1 packet PO BIDCM #60 packet Primary Care Physician: Dexter Reid DO [Primary Care Provider] - Please follow up with your Primary Care Physician in: 1 week. Please Follow Up With: Maria A Payton DPM When: within 1 week, sooner if needed Please Follow Up With: [facility] When: They will call you to set up a time to come to your home Disposition: Home with Home Health Minutes spent on discharge:: 35 Patient Condition:: Stable Medical Necessity - Tobacco Use Smoking Status: Never smoker Meaningful Use Info Meaningful Use Diagnoses (Choose all that apply): None applicable
--- NOTE | 2018-10-11 20:31 | HHNOTE_ITS ---
Home Health Note - Plan Overview of reason of hospitalization: The patient is a 68 year old Male with below past medical history status post left toe amputation for infected diabetic toe ulcer and osteomyelitis, admitted to TCU with debility, here for rehabilitation, strengthening, prior to discharge home alone. Discharge home alone with Home Health Services for PT/OT. Problems: Patient was seen for (Last Reviewed 09/17/18 @ 16:48 by Sandy Maharaj PA-C) PAD (peripheral artery disease) (Acute) Complete List of Medical Problems (Last Reviewed 09/17/18 @ 16:48 by Sandy Maharaj PA-C) Osteomyelitis of great toe of left foot (Acute) Status post amputation of left great toe (Acute) Hyperlipidemia (Acute) Obstructive sleep apnea (Acute) Acute renal failure (Acute) Morbid obesity (Acute) PAD (peripheral artery disease) (Acute) Type 2 diabetes mellitus with diabetic polyneuropathy (Acute) Type 2 diabetes mellitus with left diabetic foot infection (Acute) Sepsis (Acute) Sinus tachycardia seen on traffic monitor specialist (Acute) 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 (Acute) Chronic ulcer of left foot with necrosis of bone (Chronic) PAD (peripheral artery disease) (Chronic) Hallux varus (acquired), left foot (Chronic) Diabetes mellitus with polyneuropathy (Chronic) Cellulitis of toe, left (Acute) Cellulitis and abscess of foot (Acute) HTN (hypertension) (Chronic) - Requirements and Reasons Disciplines Needed/Ordered: Physical Therapy Reason for Disciplines: Disease Specific Monitoring/education, Medication Management/Knowledge Deficit, Wound Care, Gait Training, Stair Training, Fall Prevention, Home Safety/Equipment Instruction, Balance and/or Posture Training, Transfer Training Related To: Change in Medical Treatment Plan, Limited/Poor Endurance, Physical Impairments, Unsteady Gait/Balance, Fall Risk Patient is unable to leave the home: Without Aid of Supportive Devices (crutches, cane, wheelchair, walker), Without the assistance of another person - Additional Disciplines Additional Disciplines Needed/Ordered: Occupational Therapy
[2018-10-11 20:46] LABS: Bedside Glucose 217 mg/dL (70-110)
[2018-10-11] MEDS: Atorvastatin Calcium 40 MG Tablet PO (22:36)
[2018-10-12] MEDS: NIFEdipine 30 MG Tablet PO (05:36)
[2018-10-12] MEDS: Lisinopril 5 MG Tablet PO (05:36)
[2018-10-12] MEDS: Menthol/Lanolin/Calamine/Znox 113 GM Tube 1 APPLIC TOPICAL (05:36)
[2018-10-12] MEDS: Nystatin Powder 15gm Bottle 1 APPLIC TOPICAL (05:36)
[2018-10-12] MEDS: Gabapentin 600 MG Tablet PO (08:15)
[2018-10-12] MEDS: Cyanocobalamin 500 MCG Tablet 1000 MCG PO (08:15)
[2018-10-12] MEDS: metFORMIN HCl 1,000 MG Tablet 1000 MG PO (08:15)
[2018-10-12] MEDS: Aspirin 81 MG TAB.CHEW PO (08:15)
[2018-10-12] MEDS: Insulin Lispro 100 UNIT/ML INSULN.PEN 12 UNIT SC (08:15)
[2018-10-12 08:18] VITALS: BP 133/73; PULSE 80; RESP 18; O2SAT 97
[2018-10-12 09:41] LABS: Bedside Glucose 146 mg/dL (70-110)
--- NOTE | 2018-10-15 09:48 | CASEMGMT ---
Insurance Notified insurance of d/c home on 10/12/18 with [facility] PT/OT/RN. Auth# [id number] DON Frey
--- NOTE | 2018-10-22 09:53 | MDS.RN ---
Information for the mds was obtained from review of the clinical record, interview of resident, staff, and direct observation of resident's care.
== END 2018-10-12 09:50 | disposition home health service (06) | DRG 560 ==
PROVIDERS: Internal Medicine; Admitting Provider Family Medicine Geriatric Medicine; Family Provider Family Medicine; PCP Family Medicine; Referring Provider Family Medicine Geriatric Medicine; Visit Provider Family Medicine Geriatric Medicine
DX: Z47.81 Encounter for orthopedic aftercare following surgical amputation (principal); Z68.41 Body mass index [BMI] 40.0-44.9, adult; Z89.412 Acquired absence of left great toe; E11.51 Type 2 diabetes mellitus with diabetic peripheral angiopathy without gangrene; I10 Essential (primary) hypertension; E11.42 Type 2 diabetes mellitus with diabetic polyneuropathy; G47.33 Obstructive sleep apnea (adult) (pediatric); E78.5 Hyperlipidemia, unspecified; E66.01 Morbid (severe) obesity due to excess calories; Z71.3 Dietary counseling and surveillance
CPT/HCPCS: 36415; 80048; 82962; 85025; 93970; 97110; 97116; 97163; 97166; 97530; 97535; 97802

== ENCOUNTER 2019-01-02 09:30 | Outpatient (RCR) | payer OTHER, MEDICARE, SELFPAY ==
--- NOTE | 2018-12-04 15:15 | HP.PTEVAL ---
Patient's Visit Information MARCOS VENTURA is a 68 year old M referred to Physical Therapy by Maria A Payton DPM with a diagnosis of Walking Difficulty. Date of Evaluation: 12/04/18 Physical Therapist: Alyx Armstrong DPT - Visit Plan Frequency: 2x /Week Duration: 4 Weeks Plan: Balance and Gait Training- focus on work related tasks- needs to be able to load up to #60 lb boxes into his car and ambulate with them in his hands. - Subjective Findings: Patient reports that his left toe was amputed and he was having problems healing. Was in the TCU for 28 days and then had home health for 1 visit. He has no pain he is just worried about getting back to work. 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 Return to work date has not been set yet. Has been using a cane for the past few weeks- he was progressed from his walker. No cane in the house but does use for community distances. Feels that he needs the cane for balance. Has not had any falls. Is wearing good shoes- new ones from the foot doctor. Goes up 4 stairs daily but he goes slow and uses a ramp most of the time. Goals are to get back to work with better balance and gait pattern - Objective Posture: FH, RS, increased kyphosis. Gait: lumbering- uses straight cane- wide BALDO with toes turned out to the side. Stairs: asc: recip with 2 HR, desc non recip with 2 HR left LE first. HR/TR: able with UE A. SLS: WS but unable to SLS without UE A. ROM: WFL. Strength: Core: fair minus, LE: 4+/5 throughout left. Flex: gastroc: moderate, HS: severe. Balance: sitting: good Standing unable to SLS- able to place one foot in front of the other with step but unable to obtain tandem stance. Endurance: fair minus. - Goals Goal 1:: Patient will be I with HEP and progression Goal Time Frame: 4-6 Weeks Goal 2:: Patient will ambualte >300 feet no AD and able to carry a box safely Goal Time Frame: 4-6 Weeks Goal 3:: Patient will SLS for 10 seconds without LOB Goal Time Frame: 4-6 Weeks Goal 4:: Patient will perform 10 box lifts with proper technique safely Goal Time Frame: 4-6 Weeks - Rehabilitation Potential Physical Therapy Diagnosis: Patient presents with hypomobility- he has decreased strength and muscular endurance leading to decreased balance and abnormal gait pattern Rehabilitation Potential: Fair - Anticipated Interventions Therapeutic Exercise to Include: Strength training, Endurance training, Balance training, Body mechanics, Postural training, Flexibilty training, Gait and locomotor training, Dynamic Lumbar Stabilization For the Purpose of:: To improve muscle performance and motor function Functional Training to Include: Gait training Thank you for the opportunity to evaluate your patient. For Medicare and Medicare HMO plans, please review the plan of care and approve it. It will need to be FAXED BACK to us at [phone] for Medicare purposes. For Medicare only, by signing this I certify the plan of care. Please let me know if there are questions or concerns regarding this plan of care. Physician Signature: Date:
--- NOTE | 2019-01-02 09:44 | HP.PTDCSUM ---
HP - PT D/C Summary It has been my pleasure to treat MARCOS VENTURA under orders from Maria A Payton DPM, for the diagnosis of Walking Difficulty for a total of 9 visit(s). Discharge Date: Please see the following information for a summary of their discharge status. - Subjective Subjective: Patient reports that he is doing great- He saw the MD last week and she released him back to work. Starts back Sunday. He does feel that he can do his job without issues. No falls- he feels that he is buidling endurance and stamina - Overall Improvement % Improvement: 90 - Objective Objective/Function: Posture: FH, RS, increased kyphosis. Gait: lumbering- no AD- wide BALDO with toes turned out to the side. Stairs: asc/desc: recip with 1 HR, HR/TR: able with UE A. SLS: 2-3 seconds without LOB ROM: WFL. Strength: Core: fair minus, LE: Ankle/Knee: 5/5 throughout Hip: 4+/5 throughout. Flex: gastroc: moderate, HS: moderate. Endurance: fair. Able to perform job simulated tasks without incidence or LOB- does have mild SOB and fatigues with long distances - Goals Goal 1:: Patient will be I with HEP and progression Goal Progress: Goal Met Goal 2:: Patient will ambualte >300 feet no AD and able to carry a box safely Goal Progress: Goal Met Goal 3:: Patient will SLS for 10 seconds without LOB Goal Progress: Progressing Goal 4:: Patient will perform 10 box lifts with proper technique safely Goal Progress: Goal Met - Plan Plan: Discharge to home exercise program - D/C Information If there are questions or concerns regarding this patient's physical therapy, please feel free to call me at [phone]. Thank you for the referral of this patient. Sincerely, Alyx Armstrong DPT
== END 2019-01-02 10:22 | disposition home or self-care (01) ==
LOC: PT 09:30
PROVIDERS: Family Provider Family Medicine; PCP Family Medicine; Visit Provider Podiatrist
DX: R26.2 Difficulty in walking, not elsewhere classified (principal)
CPT/HCPCS: 97110; 97161; 97164

== ENCOUNTER → 2019-01-10 | Outpatient (CLI) | payer OTHER, MEDICARE, SELFPAY ==
[2019-01-10 09:46] LABS: Absolute Lymphocyte Count 1.83 X10^3/uL (0.83-4.51); Absolute Neutrophil Count 11.9 X10^3/uL (2.0-7.7); Basophil# 0.08 X10^3/uL; Basophil% 0.5 % (0-1); Eosinophils% 1.3 % (0-5); Hematocrit 43.4 % (40-54); Hemoglobin 14.4 g/dL (13.0-16.5); Lymphocyte # 1.83 X10^3/ul (4.0); Lymphocyte % 11.5 % (19-41); Mean Corp Hgb Conc 33.2 g/dL (32-36); Mean Corpuscular Hgb 30.4 pg (27.0-32.0); Mean Corpuscular Volume 91.8 fL (80-94); Mean Platelet Vol. 10.9 fl (6.2-12.0); Monocyte# 1.74 X10^3/uL; NRBC Flagged by Analyzer 0 % (0-5); Neutrophil # 11.93 X10^3/uL (2.7-7.7); Neutrophil % 75.1 % (47-70); POSITIVE DIFFERENTIAL YES; POSITIVE MORPHOLOGY YES; Platelet Count 263 K/mm3 (150-450); RBC Distribution Width CV 12.3 % (11.6-14.6); RBC Distribution Width SD 41.1 fl (35.1-43.9); Red Blood Count 4.73 M/mm3 (4.6-6.2); White Blood Count 15.9 K/mm3 (4.4-11.0)
[2019-01-10 09:52] LABS: Differential Indicated SCAN CRITERIA MET
[2019-01-10 09:59] LABS: Erythrocyte Sedimentation Rate 59 mm/hr (0-20)
[2019-01-10 10:01] LABS: ALB/GLOB Ratio 0.8 RATIO (0.9-2.4); AST(SGOT) 9 U/L (15-37); Alanine Aminotransfer ALT/SGPT 18 U/L (16-61); Albumin, Serum 3.5 g/dL (3.2-5.0); Alkaline Phosphatase 50 U/L (45-117); Anion Gap 9 (5-15); BUN 21 mg/dL (7-18); BUN/Creat Ratio 18.6 RATIO (10-20); Calcium,Total 9.2 mg/dL (8.5-10.1); Chloride 101 mmol/L (98-107); Creatinine, Serum 1.13 mg/dL (0.70-1.30); EST Glomerular Filtration Rate 69 mL/min (>60); Est Glom Filt Rate - Afr Amer 83 mL/min (>60); Globulin 4.2 g/dL (2.2-4.2); Glucose 286 mg/dL (74-106); Potassium 4.8 mmol/L (3.5-5.1); Protein, Total 7.7 g/dL (6.4-8.2); Sodium Level 136 mmol/L (136-145)
[2019-01-13 11:07] LABS: Pathologist Review Reviewed
== END | disposition home or self-care (01) ==
LOC: LAB 09:23
PROVIDERS: Family Provider Family Medicine; PCP Family Medicine; Referring Provider Podiatrist; Visit Provider Podiatrist
DX: L98.499 Non-pressure chronic ulcer of skin of other sites with unspecified severity (principal); L08.9 Local infection of the skin and subcutaneous tissue, unspecified
CPT/HCPCS: 36415; 80053; 85025; 85652; 86140

== ENCOUNTER → 2019-01-10 | Outpatient (CLI) | payer OTHER, MEDICARE, SELFPAY ==
[2019-01-10 17:14] LABS: M R Staph aureus DNA By PCR Negative (Negative); Probe Check PASS; Specimen Processing Control PASS; Staph aureus DNA By PCR POSITIVE (Negative)
== END | disposition home or self-care (01) ==
LOC: LABSPEC 15:31
PROVIDERS: Family Provider Family Medicine; PCP Family Medicine; Referring Provider Podiatrist; Visit Provider Podiatrist
DX: L98.499 Non-pressure chronic ulcer of skin of other sites with unspecified severity (principal); L08.9 Local infection of the skin and subcutaneous tissue, unspecified
CPT/HCPCS: 87070; 87075; 87077; 87186; 87205; 87640

== ENCOUNTER 2019-01-12 09:44 | Emergency (ER) | payer OTHER, MEDICARE, SELFPAY ==
[2019-01-12 09:45] VITALS: BP 158/75; PULSE 111; RESP 18; TEMP 36.4; O2SAT 97; BMI 42.0
--- NOTE | 2019-01-12 10:18 | ED.DCSUM_ITS ---
History of Present Illness Chief Complaint: Lower Extremity Injury Informant: Patient, Family Onset: Yesterday Current Severity: Mild Narrative: Patient is diabetic has history of diabetic foot infection as well as left foot multiple amputations he currently has a diabetic foot infection involving the second toe left foot he is being seen for by his child care specialist Dr. molina he saw them Sunday and antibiotic told he might likely require amputation is a concern for ostium myelitis told to follow-up next week for further management indicates he wanted wound check today and he came in for evaluation there is really no change to it there is no drainage no fever no cough no trauma Past Medical History - Allergies and Home Meds Allergies/Adverse Reactions: Allergies No Known Allergies Allergy (Verified 01/12/19 09:45) Primary Care Physician: Dexter Reid DO [Primary Care Provider] - Surgical History: no surgical history, angioplasty, - - left toe amputation Smoking Status: Never smoker - Family History Maternal Family History: Family History (Last Reviewed 09/17/18 @ 16:48 by Sandy Maharaj PA-C) Mother Diabetes CVA (cerebral vascular accident) Family History: Reports: No pertinent history Review of Systems General: Denies: Chills, Fever, Sweats Eyes: Denies: Visual changes - bilaterally, Diplopia ENT: Denies: Rhinorrhea, Sore throat Cardiovascular: Denies: Chest pain, Palpitations Respiratory: Denies: Dyspnea, Cough, Dyspnea on exertion Gastrointestinal: Denies: Abdominal pain, Nausea, Vomiting, Diarrhea, Melena, Hematochezia Genitourinary: Denies: Dysuria, Hematuria, Frequency Musculoskeletal: Denies: Back pain, Extremity Pain Skin: Denies: Rash, Wounds Neurological: Denies: Headache, Weakness, Numbness Physical Exam Vital Signs/Narrative: Vital Signs Temp Pulse Resp BP Pulse Ox 01/12/19 09:45 97.6 F L 111 H 18 158/75 H 97 Extremities: - - The left second toe the tip of that toe seems excoriated this appears to be some beefy granulation tissue there is very minimal tenderness there is some edema to the foot that is not unusual he has really no pain there is no lymphangitic streaking crepitance signs of sepsis or deep-seated infection and as I discussed issues with him and the brother this really has been not significantly changed he is taken 1 Augmentin tablet Diagnostic/Tx/Re-eval - Medical Decision Making Had a long conversation with the patient the brother at this time given that he is only taken 1 Augmentin tablet his outpatient providers are aware of the infection the concept of osteomyelitis has been explained to him, the concept that he ultimately might require amputation of that toe as he had amputation of great toe and fifth toe he will continue the antibiotic follow-up with his child care specialist as instructed and return for change in symptoms discomfort with this plan ED Disposition - Plan for ED Patient: Diagnosis: Diabetic infection of left foot Instructions: Diabetes: Treating Severe Foot Infections Referrals: Dexter Reid DO [Primary Care Provider] -
== END 2019-01-12 11:05 | disposition home or self-care (01) ==
LOC: ED 10:48
PROVIDERS: Emergency Provider Emergency Medicine; Family Provider Family Medicine; PCP Family Medicine
DX: E11.628 Type 2 diabetes mellitus with other skin complications (principal); L08.9 Local infection of the skin and subcutaneous tissue, unspecified; Z89.412 Acquired absence of left great toe; Z89.422 Acquired absence of other left toe(s); Z79.4 Long term (current) use of insulin
CPT/HCPCS: 99282

== ENCOUNTER → 2019-02-03 | Outpatient (CLI) | payer OTHER, MEDICARE, SELFPAY ==
[2019-01-12 09:45] VITALS: BMI 42.0
--- NOTE | 2019-02-03 08:30 | BON_PTH ---
PATIENT: MARCOS VENTURA LOC: [facility] U#:[id number] AGE/SX: 68/M ROOM: RE02/03/[address]: Dr. Maria A Payton DPM : 1950 BED: DIS: 02/03/2019 SPEC #: [id number] RECD: 02/03/19 17:38 STATUS: [place]OL[place]ANG JESSICA #: [id number] OZZIE: 02/03/19 08:[address]: Maria A Payton DEPT: SURGICAL PATHOLOGY RECD BY: Jose Cadena ENTERED: 02/04/19 14:08 CHRISTINE TYPE: Bone OTHR DR: Dr. Dexter Reid, DO Tissues: Bone of foot, NOS Procedures: Decalcification bone/plaque Surgery Specimen Level III HEADER OPERATION: Not noted PRE-OP DIAGNOSIS: Osteomyelitis (M86.9) TISSUE SUBMITTED: Left 2nd toe bone from chronic ulcer MICROSCOPIC DIAGNOSIS Left second toe bone, biopsy: A piece of bone with acute osteomyelitis. SJ:christine 02/07/19 COMMENT Case has been reviewed in consultation with Dr. Spence who concurs with the above diagnosis. IDC:AM MICROSCOPIC DESCRIPTION Slides are reviewed. GROSS DESCRIPTION Received in fixative is one container labeled with the patient's name and designated left second digit. The specimen consists of a piece of bone measuring 0.5 x 0.5 x 0.2 cm. The specimen is totally submitted in one cassette after decalcification. /FIDEL:christine 02/04/19 TC: 2 CPT: 55726, 92807
== END | disposition home or self-care (01) ==
LOC: LABSPEC 02-04 08:13
PROVIDERS: Family Provider Family Medicine; PCP Family Medicine; Referring Provider Podiatrist; Visit Provider Podiatrist
DX: M86.9 Osteomyelitis, unspecified (principal)
CPT/HCPCS: 88304; 88311

== ENCOUNTER → 2019-02-03 | Outpatient (CLI) | payer OTHER, MEDICARE, SELFPAY ==
[2019-01-12 09:45] VITALS: BMI 42.0
== END | disposition home or self-care (01) ==
PROVIDERS: Family Provider Family Medicine; PCP Family Medicine; Referring Provider Podiatrist; Visit Provider Podiatrist
DX: M86.9 Osteomyelitis, unspecified (principal)
CPT/HCPCS: 87015; 87070; 87075; 87101; 87116; 87205; 87206

== ENCOUNTER 2019-04-04 12:46 | Inpatient (IN) | payer OTHER, MEDICARE, SELFPAY ==
--- NOTE | 2019-04-03 17:18 | PN_ITS ---
Subjective: I reviewed his preoperative history, physical, and clearance performed by Dr. Salinas on 03/19/19. There are no known H & P changes. He is scheduled for surgery on 04/04/19 for transmetatarsal amputation and gastrocnemius recession of the left lower extremity. - Physical Exam Vitals/I&O's: Body Mass Index (BMI) 42.0 Current Medications Lactated Ringer's () 1,000 mls @ 80 mls/hr IV .[id number] ONESIMO Cefazolin Sodium 2 gm/ Sodium (Chloride) 110 mls @ 150 mls/hr IV PREOP ONE Stop: 04/04/19 09:58 Medical Necessity - Tobacco Use Smoking Status: Never smoker Assessment/Plan All Active Problems (Last Reviewed 09/17/18 @ 16:48 by Sandy Maharaj PA-C) Osteomyelitis of great toe of left foot (Acute) Status post amputation of left great toe (Acute) Hyperlipidemia (Acute) Obstructive sleep apnea (Acute) Acute renal failure (Acute) Morbid obesity (Acute) PAD (peripheral artery disease) (Acute) Type 2 diabetes mellitus with diabetic polyneuropathy (Acute) Type 2 diabetes mellitus with left diabetic foot infection (Acute) Sepsis (Acute) Sinus tachycardia seen on residential monitor (Acute) 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 (Acute) Cellulitis of toe, left (Acute) Chronic ulcer of left foot with fat layer exposed (Resolved) Cellulitis and abscess of foot (Acute)
[2019-04-04] VITALS (11 sets, daily range): BP systolic 109–151; BP diastolic 70–89; PULSE 64–91; RESP 16–18; TEMP 36.1–36.7; O2SAT 92–99; BMI 41.3
--- NOTE | 2019-04-04 08:32 | EKG12_ITS ---
Test Reason : PRE OP Blood Pressure : / mmHG Vent. Rate : 084 BPM Atrial Rate : 084 BPM P-R Int : 190 ms QRS Dur : 088 ms QT Int : 366 ms P-R-T Axes : 034 023 030 degrees QTc Int : 432 ms Normal sinus rhythm Normal ECG When compared with ECG of 18-SEP-2018 07:36, No significant change was found Confirmed by KAYLA GALICIA, GIRMA ([id number]), proposal editor ANGIE HILL ([id number]) on 04/07/2019 11:38:19 AM Referred By: Maria A Payton Confirmed By:GIRMA GARZA MD
[2019-04-04] MEDS: Lactated Ringers 1,000 ML 80 ML IV ×2 (09:02→13:29)
[2019-04-04 09:05] LABS: Absolute Lymphocyte Count 1.57 X10^3/uL (0.83-4.51); Absolute Neutrophil Count 8.7 X10^3/uL (2.0-7.7); Basophil# 0.15 X10^3/uL; Basophil% 1.3 % (0-1); Eosinophil# 0.29 X10^3/uL; Eosinophils% 2.4 % (0-5); Hematocrit 48.1 % (40-54); Hemoglobin 15.5 g/dL (13.0-16.5); Lymphocyte # 1.57 X10^3/ul (4.0); Lymphocyte % 13.2 % (19-41); Mean Corp Hgb Conc 32.2 g/dL (32-36); Mean Corpuscular Hgb 29.9 pg (27.0-32.0); Mean Corpuscular Volume 92.9 fL (80-94); Mean Platelet Vol. 11.6 fl (6.2-12.0); Monocyte# 1.16 X10^3/uL; Monocyte% 9.7 % (0-10); NRBC Flagged by Analyzer 0 % (0-5); Neutrophil # 8.67 X10^3/uL (2.7-7.7); Neutrophil % 72.6 % (47-70); Platelet Count 225 K/mm3 (150-450); RBC Distribution Width CV 13.1 % (11.6-14.6); RBC Distribution Width SD 44.4 fl (35.1-43.9); Red Blood Count 5.18 M/mm3 (4.6-6.2); White Blood Count 11.9 K/mm3 (4.4-11.0)
[2019-04-04 09:22] LABS: AST(SGOT) 24 U/L (15-37); Alanine Aminotransfer ALT/SGPT 33 U/L (16-61); Albumin, Serum 4.1 g/dL (3.2-5.0); Alkaline Phosphatase 46 U/L (45-117); Anion Gap 5 (5-15); BUN 21 mg/dL (7-18); BUN/Creat Ratio 20.2 RATIO (10-20); Calcium,Total 9.5 mg/dL (8.5-10.1); Chloride 102 mmol/L (98-107); Creatinine, Serum 1.04 mg/dL (0.70-1.30); EST Glomerular Filtration Rate 75 mL/min (>60); Est Glom Filt Rate - Afr Amer 91 mL/min (>60); Estimated Creatinine Clearance 63.56 ml/min; Glucose 120 mg/dL (74-106); Potassium 5.1 mmol/L (3.5-5.1); Protein, Total 8.1 g/dL (6.4-8.2); Sodium Level 136 mmol/L (136-145)
--- NOTE | 2019-04-04 09:30 | AMP_PTH ---
PATIENT: MARCOS VENTURA LOC: [facility] U#:[id number] AGE/SX: 68/M ROOM: MS305 RE04/05/[address]: Dr. Tracy Wheeler MD : 1950 BED: 1 DIS: 04/09/2019 SPEC #: [id number] RECD: 04/04/19 14:35 STATUS: WOLFGANG JESSICA #: [id number] OZZIE: 04/04/19 09:[address]: Maria A Payton DEPT: SURGICAL PATHOLOGY RECD BY: Kory Murillo ENTERED: 04/07/19 09:38 SP TYPE: Amputation OTHR DR: DO Dr. Garo Ford MD Dr. Ghasem E Ashelfah, MD Tissues: Left foot Procedures: Decalcification bone/plaque Elastin Stain (control) Special Stain Group II Surgery Specimen Level V HEADER OPERATION: Transmetatarsal amputation with open gastrocnemius PRE-OP DIAGNOSIS: Left foot osteomyelitis, equinus TISSUE SUBMITTED: Left foot soft tissue and bone MICROSCOPIC DIAGNOSIS Left foot, transmetatarsal amputation: Severe occlusive atherosclerotic vascular disease with associated microcalcifications. No evidence of osteomyelitis. See comment. AM:karyn 04/10/19 COMMENT Elastin stain with matched control supports the above diagnosis. Case has been reviewed in consultation with Dr. Coffey who concurs with the above diagnosis. IDC:FIDEL MICROSCOPIC DESCRIPTION Slides are reviewed. GROSS DESCRIPTION Received in fixative is one container labeled with the patient's name and designated left foot soft tissue and bone. The specimen consists of a portion of foot containing middle three toes measuring 10 x 9 x 3.5 cm. Also present in the container is a detached piece of skin with soft tissue measuring 5 x 2 x 2 cm. Also present in the container are three detached pieces of bone consistent with metatarsal bone measuring in aggregate 4.5 x 6 x 2.8 cm. No area of ulceration is noted. Lining Repairer sections are submitted in one cassette. More sections of bone will be submitted after decalcification. / FIDEL:karyn 04/07/19 Additional specimen submitted: 2 - phalangeal bone, 3-6 - customer relations representative metatarsal bone. / AM:karyn 04/08/19 TC:5 CPT: 69147, 64036, 75512
--- NOTE | 2019-04-04 10:00 | RAD_ITS ---
STUDY: X-RAY - LEFT FOOT CLINICAL: Male, 68 years old. Surgery TECHNIQUE: 3 view(s) of the foot. COMPARISON: 09/20/2018 FINDINGS: 5 seconds of fluoroscopy the right foot demonstrates patient is status post transmetatarsal amputation of the foot. RAD/Foot min 3 Views IMPRESSION: Fluoroscopy during surgery. Electronically Signed: Grupo Moreno MD at 13:33 EDT Tel , Service support ,
[2019-04-04] MEDS: Cefazolin 2 GM in 0.9% Normal Saline 100 ML IV (10:28)
[2019-04-04] MEDS: Bupivacaine Mpf 0.5% 30 ML VIAL (10:45)
--- NOTE | 2019-04-04 12:25 | OP.PCM_ITS ---
Problem List (1) Hammer toe of left foot Status: Chronic (2) Gastrocnemius equinus of left lower extremity Status: Resolved (3) Status post amputation of left great toe Status: Chronic (4) Type 2 diabetes mellitus with diabetic polyneuropathy Status: Chronic Report of Operation Date of Procedure: 04/04/19 Pre-Operative Diagnosis: Chronic left forefoot deformities including hallux varus, hammer digit syndrome, and partial first and fifth toe amputations with recurrent ulcers and infections. Gastrocnemius equinus left Post-Operative Diagnosis: Chronic left forefoot deformities including hallux varus, hammer digit syndrome, and partial first and fifth toe amputations with recurrent ulcers and infections. Gastrocnemius equinus left Surgery/Procedure Performed:: Left transmetatarsal amputation. Left open gastrocnemius recession Description of Surgical Findings:: Hemostasis: Controlled with left thigh tourniquet, 315 mmHg, 35 minutes Materials: 2-0 and 3-0 Vicryl, 2-0 and 3-0 nylon Specimens: None Complications: None The patient tolerated the procedure and anesthesia well. He was transported to the PACU with vital signs stable and vascular status intact to the left lower extremity. He will be transferred to the medical surgical floor upon continued stability and will be evaluated tomorrow from a physical therapy standpoint. He will be considered for half-way facility placement while he recovers. His postoperative x-rays were reviewed prior to leaving the operating room demonstrating adequate transmetatarsal amputation performed without acute injuries. There is a well-maintained amputation parabola. All of his postoperative orders were entered electronically. nps: none - surgeon:Maria A Payton DPM. Bisque Finisher: Bridgette Driver PGY2 Type of Anesthesia:: General, Local - Preoperative: One-to-one mixture 1% lidocaine plain and 0.5% Marcaine plain ministered and typical left ankle block fashion, 15 cc Intraoperative: 1% lidocaine with epinephrine administered to gastrocnemius recession site, 7 cc Specimen's removed: bone and soft tissue left foot sent to general pathology Estimated Blood Loss (mL): < 100mL Description of Procedure: Indications: This 68-year-old male with significant past medical history of diabetes with neuropathy, sleep apnea, obesity, rheumatoid arthritis, hypertension, and hyperlipidemia continues to have left foot forefoot deformities with recurrent infections including cellulitis, sepsis, and osteomyelitis, ulcers, and amputations. He elects to proceed with a curative transmetatarsal amputation surgery. It is also noted that he has been previously diagnosed with small vessel disease in which additional intervention was not recommended after his last procedure. He does not have a current ulcer or infection at this time. The preoperative indications, planned procedure, possible benefits, risk, complications, and anticipated healing time and management were discussed with the patient. He understands and elects to proceed with surgery at this time. The informed consent and surgical limb were signed. No guarantees were made. He understands risks and complications include but are not limited to the following: pain, swelling, scarring, need for further surgery, allergic reaction, blood clot, loss of limb, function, life, chronic pain syndrome, transfer lesion, need for revisional surgery, over under correction. The preoperative radiographs revealed partial first and fifth toe amputations without acute fracture, dislocation, soft tissue emphysema, or foreign body. Clinically there are no ulcers or infection noted. His second and third toe have continued callous formation and this is a adrian prominence site. His preoperative history and physical with clearance exam was reviewed. His preoperative diagnostic data was also reviewed without acute gross abnormality including lab work and electrocardiogram. Answered all of his questions. Procedure in detail: The patient was transported to the operating room via cart and placed on the operating table in the supine position. Final verification of patient, surgery, limb designation was performed via the timeout procedure. LMA was initiated by the anesthesia team. The podiatry team administered the local anesthetic to the left lower extremity. A well-padded pneumatic left thigh tourniquet was placed. The left lower extremity is prepped and draped in the usual aseptic manner. Surgery began the following manner without a tourniquet in place: Attention was first directed to the posterior medial aspect of the lower left leg approximately three fingerbreadths distal to the medial gastrocnemius head. Intra operative lidocaine with epinephrine was administered at the gastrocnemius recession site. The incision was approximately two and a half centimeters in length through the skin. Care was taken to identify, protect, and retract all neurovascular structures at this point and throughout the remainder of the procedure. Blunt dissection was performed down to the fascial layer in which a rent was made to enter and expose the gastrocnemius aponeurosis. This was i solated from adjacent structures and was carefully released in a transverse total manner. This wound was irrigated with normal saline and deep closure was performed with 3-0 Vicryl. The skin was reapproximated with 4-0 nylon. Next, an Esmarch bandage was used to exsanguinate the left lower extremity and the tourniquet was inflated at this time. Attention was next directed to the left foot in which a fishmouth incision was made to the forefoot and the soft tissue was reflected off of the distal metatarsals to the midshaft region. A sagittal saw was used to create the transmetatarsal amputation bone cuts taking care to bevel these cuts and maintain a good parabola. Next, the remainder of the forefoot was removed in total from the table. It is noted that there was no purulence, necrosis, or infection at this time. Healthy bleeding tissue was noted. Any additional avascular structures such as tendons and plantar plates were carefully dissected and removed from the open amputation flap site. The x- ray was obtained at this time demonstrating adequate resection without acute injury, foreign body, or fracture. Copious saline irrigation was performed. The tourniquet was deflated and the flap was remodeled. Capillary fill time was brisk and noted to dorsal and plantar aspect of the amputation site and adequate perfusion was also noted indicative of healing potential. Hemostasis was controlled and electrocauterization and pressure were used to control bleeding. Deep closure was achieved with 2-0 Vicryl and the skin was reapproximated with 2-0 and 3-0 nylon utilizing horizontal, vertical mattress, and retention simple sutures. A postoperative dressing consisting of Adaptic soaked in betadine, 4 x 4 gauze, abdominal pads, Kerlix, and webril was applied. An additional well- padded posterior mold was applied with the left lower extremity in a rectus position and this was secured with an Keo wrap. After procedure: The patient tolerated the procedure and anesthesia well. He was transported to the PACU with vital signs stable and vascular status intact to the left lower extremity. He will be admitted for postoperative pain control and medical management. He will be considered for half-way facility placement after physical therapy performs an assessment tomorrow. He was advised to ice and elevate for pain and inflammation management. Pain medication will also be ordered if needed. He will continue incentive spirometry. The hospitalist is also on consultation for medical management and appreciated. DVT prophylaxis will be initiated tomorrow morning. He was advised to maintain a strict nonweightbearing status to left lower extremity with the use of an assistive device. He will work with physical therapy over the weekend and half-way facility placement is recommended. Again, there is no infection or necrosis noted at the time of surgery today. His postoperative orders were entered electronically. Maria A Payton DPM, [facility] Grafts/Implants Used: none - Complications none - Admit VTE Documentation VTE Present on Admission: No VTE Mechan Device Prophylaxis: SCD's VTE Pharm Prophylaxis ordered?: Yes
--- NOTE | 2019-04-04 12:27 | PCM.HP.STD ---
Problem List (1) Hammer toe of left foot Status: Chronic (2) Gastrocnemius equinus of left lower extremity Status: Chronic (3) Status post amputation of left great toe Status: Chronic (4) Type 2 diabetes mellitus with diabetic polyneuropathy Status: Chronic (5) Hypertension Status: Chronic (6) Sleep apnea Status: Chronic History of Present Illness Date of Admission: 04/04/19 Chief Complaint: Postoperative left foot and leg The patient is a 68 year old M has a chronic history of amputations of the toes, infection, and recurrent ulcers. He has deformity of the forefoot, diabetes with neuropathy, and small vessel disease which make him at risk for ongoing complications. He is undergone outpatient conservative care including wound care, offloading, and activity modifications. He elects to proceed forward with a more definitive curative surgery such as a transmetatarsal amputation today. Past Medical History Past Medical History (Chronic Problems): Chronic Problems (Last Reviewed 09/17/18 @ 16:48 by Sandy Maharaj PA-C) Status post amputation of left great toe (Chronic) Hammer toe of left foot (Chronic) Gastrocnemius equinus of left lower extremity (Chronic) Hypertension (Chronic) Sleep apnea (Chronic) Type 2 diabetes mellitus with diabetic polyneuropathy (Chronic) Chronic ulcer of left foot with necrosis of bone (Chronic) PAD (peripheral artery disease) (Chronic) Hallux varus (acquired), left foot (Chronic) Diabetes mellitus with polyneuropathy (Chronic) HTN (hypertension) (Chronic) Medical History: Medical History (Last Reviewed 09/17/18 @ 16:48 by Sandy Maharaj PA-C) PAD (peripheral artery disease) (Chronic) I73.9 Hallux varus (acquired), left foot (Chronic) M20.32 Diabetes mellitus with polyneuropathy (Chronic) E11.42 Cellulitis of toe, left (Acute) L03.032 HTN (hypertension) (Chronic) I10 History of amputation of toe Onset Date: ~2012 Z89.429 PAD (peripheral artery disease) I73.9 Sleep apnea G47.30 Allergies No Known Allergies Allergy (Verified 04/04/19 08:42) Home Medications: Ambulatory Orders Medication Instructions Recorded Dulaglutide [Trulicity] 1.5 mg SQ MO 01/06/17 Nifedipine [Nifedipine ER] 30 mg PO DAILY 01/06/17 Cholecalciferol (Vitamin D3) 6,000 unit PO DAILY 09/16/18 [Vitamin D3] Cyanocobalamin (Vitamin B-12) 1,000 mcg PO DAILY 09/16/18 [B-12] Gabapentin 600 mg PO TID 09/16/18 Insulin Glargine [Lantus SoloStar 72 units SC QHS 09/24/18 Pen] Aspirin [Aspirin, Baby] 81 mg PO DAILY@0800 tab.chew 10/11/18 Atorvastatin Calcium [Lipitor] 40 mg PO QHS #30 tablet 10/11/18 Insulin Lispro [Humalog KwikPen] 12 unit SC TIDAC insuln.pen 10/11/18 Lisinopril [Zestril] 5 mg PO DAILY #30 tablet 10/11/18 Nystatin Powder [Mycostatin Powder] 1 applic TOPICAL 0600,2200 bottle 10/11/18 metFORMIN HCl [Glucophage] 1,000 mg PO BIDCM #60 tablet 10/11/18 Amoxicillin/Potassium Clav [Amox 1 ea PO BID 01/12/19 Tr-K Clv 875-125 mg Tab] Surgical History: Surgical History (Last Reviewed 09/17/18 @ 16:48 by Sandy Maharaj PA-C) History of detached retina repair Z98.890, Z86.69 S/P peripheral artery angioplasty Onset Date: ~2016 Z98.62 Status post peripheral artery angioplasty Z98.62 Surgical History: no surgical history, angioplasty, - - left toe amputation Psychiatric History: No pertinent psych hx Smoking Status: Never smoker - *Family History Maternal Family History: Family History (Last Reviewed 09/17/18 @ 16:48 by Sandy Maharaj PA-C) Mother Diabetes CVA (cerebral vascular accident) History Items: No pertinent history Review of Systems Constitutional: Denies: Chills, Fever HEENT: Denies: Sore Throat Cardiovascular: Denies: Chest Pain, Claudication, Orthopnea Respiratory: Denies: Shortness of Breath Gastrointestinal: Denies: Nausea, Vomiting Musculoskeletal: Denies: Leg Pain Skin: Denies: Wounds Neurological: Reports: Numbness, Tingling Psychiatric: Reports: Anxiety VTE Information - Inpt Only VTE Present on Admission: No VTE Mechan Device Prophylaxis: SCD's VTE Pharm Prophylaxis ordered?: Yes - Physical Exam Vitals/I&O's: Vital Signs Temp Pulse Resp BP Pulse Ox 97.7 F L 89 18 140/89 H 99 04/04/19 08:43 04/04/19 08:43 04/04/19 08:43 04/04/19 08:43 04/04/19 08:43 Oxygen Delivery Method Room Air Weight: 121.5 kg Body Mass Index (BMI) 41.3 General: Alert, Oriented x3, Cooperative HEENT: Atraumatic Oral: Moist Mucosa Lungs: Diminished Cardiovascular: Regular rate, Regular Rhythm Abdomen: Obese, Hernia Extremities: No Calf Tenderness, Diminished Peripheral Pulses, Edema, - - Transmetatarsal amputation left Skin: Incision - Dressing intact left lower extremity in splint in place Musculoskeletal: No Tenderness to Palpation of Joints or Extremities, Muscle Wasting Neurological: - - Lack of normal epicritic sensation consistent with neuropathy to light touch to lower extremities Psych/Mental Status: Normal Affect, Appropriate Laboratory Results 04/04/19 08:45: WBC 11.9 H, RBC 5.18, Hgb 15.5, Hct 48.1, MCV 92.9, MCH 29.9, MCHC 32.2, RDW Std Deviation 44.4 H, RDW Coeff of Adriana 13.1, Plt Count 225, MPV 11.6, Immature Gran % (Auto) 0.800, Neut % (Auto) 72.6 H, Lymph % (Auto) 13.2 L, Letcher % (Auto) 9.7, Eos % (Auto) 2.4, Baso % (Auto) 1.3 H, Absolute Neuts (auto) 8.7 H, Absolute Lymphs (auto) 1.57, Nucleated RBC % 0 04/04/19 08:45: Sodium 136, Potassium 5.1, Chloride 102, Carbon Dioxide 29.0, Anion Gap 5, BUN 21 H, Creatinine 1.04, Estim Creat Clear Calc 63.56, Est GFR (MDRD) Af Amer 91, Est GFR (MDRD) Non-Af 75, BUN/Creatinine Ratio 20.2 H, Glucose 120 H, Calcium 9.5, Total Bilirubin 1.00, AST 24, ALT 33, Alkaline Phosphatase 46, Total Protein 8.1, Albumin 4.1, Globulin 4.0, Albumin/Globulin Ratio 1.0 Current Medications Lactated Ringer's () 1,000 mls @ 80 mls/hr IV .[id number] ONESIMO Last Admin: 04/04/19 09:02 Dose: 80 mls/hr Documented by: Assessment/Plan All Active Problems (Last Reviewed 09/17/18 @ 16:48 by Sandy Maharaj PA-C) Osteomyelitis of great toe of left foot (Acute) Hyperlipidemia (Acute) Obstructive sleep apnea (Acute) Acute renal failure (Acute) Morbid obesity (Acute) PAD (peripheral artery disease) (Acute) Type 2 diabetes mellitus with left diabetic foot infection (Acute) Sepsis (Acute) Sinus tachycardia seen on monitoring and evaluation advisor (Acute) 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 (Acute) Cellulitis of toe, left (Acute) Chronic ulcer of left foot with fat layer exposed (Resolved) Cellulitis and abscess of foot (Acute) Status post left transmetatarsal amputation and open gastrocnemius recession secondary to chronic forefoot deformities with recurrent ulcers infections and amputations. Diabetes with neuropathy Other comorbidities including sleep apnea, hypertension, hyperlipidemia, obesity Small vessel disease He is postoperative status this afternoon. He will be admitted for pain control medical management. He will likely need long term facility placement. I reviewed the case with hospitalist who is on consult for management of medical comorbidities. Input is greatly appreciated. He is to maintain a strict nonweightbearing status to left lower extremity. He is advised to ice and elevate. Pain medication will be ordered. There is no active infection at this time. He is unable to safely transport home. I will request physical and occupational therapy assessment for tomorrow for long term facility placement. All of his orders are entered electronically. Please not hesitate to call if you have any questions. Maria A Payton DPM, [facility] [phone]
--- NOTE | 2019-04-04 12:39 | CASEMGMT ---
LW/POA forms scanned into summary tab of [facility]. Oskar Mayberry is listed as pt's medical POA. ROSITA Uribe
--- NOTE | 2019-04-04 12:54 | RAD_ITS ---
STUDY: X-RAY - LEFT FOOT CLINICAL: Male, 68 years old. Transmetatarsal amputation TECHNIQUE: 3 view(s) of the foot. COMPARISON: 09/20/2018 FINDINGS: Normal talus, calcaneus, and tarsal bones. Normal visualized subtalar, talonavicular, calcaneocuboid, tarsal and tarsometatarsal articulations. Interval transmetatarsal amputation of the foot. RAD/Foot min 3 Views IMPRESSION: Interval transmetatarsal amputation the foot. Electronically Signed: Grupo Moreno MD at 13:39 EDT Tel , Service support ,
[2019-04-04 12:55] LABS: Bedside Glucose 100 mg/dL (70-110)
--- NOTE | 2019-04-04 13:08 | PCM.PN.HOSP ---
Subjective: CC follow-up transmetatarsal amputation and gastrocnemius recession of the left lower extremity. Objective: GENERAL: cooperative HEENT: Atraumatic; EYES; Anicteric, Normal Conjunctiva NECK; supple, normal thyroid, RESPIRATORY: Diminished to auscultation CARDIOVASCULAR: Regular S1 S2, GI: soft, normoactive bowel sounds, : No Renal angle tenderness; EXTREMITIES: No edema, no clubbing, MUSCULOSKELETAL: Left foot in surgical dressing NEURO: Awake; no lateralizing signs. SKIN: No Rash PSYCH; Flat affect Vitals/I&O's: Vital Signs Temp Pulse Resp BP Pulse Ox 97 F L 91 16 151/72 H 93 04/04/19 12:32 04/04/19 12:32 04/04/19 12:32 04/04/19 12:32 04/04/19 12:32 Oxygen Flow Rate (L/min) 10 Oxygen Delivery Method Simple Mask Weight: 121.5 kg Body Mass Index (BMI) 41.3 Laboratory Results 04/04/19 08:45: WBC 11.9 H, RBC 5.18, Hgb 15.5, Hct 48.1, MCV 92.9, MCH 29.9, MCHC 32.2, RDW Std Deviation 44.4 H, RDW Coeff of Adriana 13.1, Plt Count 225, MPV 11.6, Immature Gran % (Auto) 0.800, Neut % (Auto) 72.6 H, Lymph % (Auto) 13.2 L, Nye % (Auto) 9.7, Eos % (Auto) 2.4, Baso % (Auto) 1.3 H, Absolute Neuts (auto) 8.7 H, Absolute Lymphs (auto) 1.57, Nucleated RBC % 0 04/04/19 08:45: Sodium 136, Potassium 5.1, Chloride 102, Carbon Dioxide 29.0, Anion Gap 5, BUN 21 H, Creatinine 1.04, Estim Creat Clear Calc 63.56, Est GFR (MDRD) Af Amer 91, Est GFR (MDRD) Non-Af 75, BUN/Creatinine Ratio 20.2 H, Glucose 120 H, Calcium 9.5, Total Bilirubin 1.00, AST 24, ALT 33, Alkaline Phosphatase 46, Total Protein 8.1, Albumin 4.1, Globulin 4.0, Albumin/Globulin Ratio 1.0 04/04/19 12:51: POC Glucose 100 Current Medications Dextrose (D50w Syringe) 0 gm IV X1 PRN; Protocol PRN Reason: Hypoglycemia Docusate Sodium (Colace) 200 mg PO BID PRN PRN PRN Reason: Constipation Glucagon () 1 mg IM .X1 PRN PRN Reason: Hypoglycemia Lactated Ringer's () 1,000 mls @ 80 mls/hr IV .[id number] ONESIMO Last Admin: 04/04/19 09:02 Dose: 80 mls/hr Documented by: Naloxone HCl 4 mg/ Dextrose 504 mls @ 0 mls/hr IV .Q0M PRN; Protocol PRN Reason: To maintain Resp. rate >10 Naloxone HCl (Narcan) 0.02 mg IV Q1M PRN PRN Reason: RR <10 and pt unresponsive STROKE Vital Signs/Narrative: Vital Signs Temp Pulse Resp BP Pulse Ox 04/04/19 12:32 97 F L 91 16 151/72 H 93 Medical Necessity - Tobacco Use Smoking Status: Never smoker Assessment/Plan All Active Problems (Last Reviewed 09/17/18 @ 16:48 by Sandy Maharaj PA-C) Osteomyelitis of great toe of left foot (Acute) Hyperlipidemia (Acute) Obstructive sleep apnea (Acute) Acute renal failure (Acute) Morbid obesity (Acute) PAD (peripheral artery disease) (Acute) Type 2 diabetes mellitus with left diabetic foot infection (Acute) Sepsis (Acute) Sinus tachycardia seen on telemetry monitor (Acute) 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 Payton on 04/04/2019. The hospitalist service was consulted to assist with management of patient medical comorbidities 1. Status post transmetatarsal amputation and gastrocnemius recession of the left lower extremity by Dr. Payton on 04/04/2019 2. Hypertension ~ blood pressure controlled, home medications continued with dose adjustment as needed 3. Dyslipidemia ~patient is on statin therapy, continued at home dose 4. Diabetes mellitus type II ~ patient's oral hypoglycemics held. Placed on long acting insulin, Accu-Cheks a.c. and at bedtime and covered with sliding scale insulin 5. Peripheral arterial disease ~ Is on antiplatelet did continue 6. Obstructive sleep apnea ~on CPAP 7. Obesity with BMI of 41.3 ~ weight loss advised 8. DVT prophylaxis ~enoxaparin Active Medications Hydrocodone Bitart/Acetaminophen ([place] 5mg-325mg) 1 - 2 tablet PO Q6H PRN PRN PRN Reason: Pain Score 1-5/10 Dextrose (D50w Syringe) 0 gm IV X1 PRN; Protocol PRN Reason: Hypoglycemia Docusate Sodium (Colace) 200 mg PO BID PRN PRN PRN Reason: Constipation Enoxaparin Sodium (Lovenox) 40 mg SC DAILY@0600 ONESIMO Glucagon () 1 mg IM .X1 PRN PRN Reason: Hypoglycemia Naloxone HCl 4 mg/ Dextrose 504 mls @ 0 mls/hr IV .Q0M PRN; Protocol PRN Reason: To maintain Resp. rate >10 Morphine Sulfate () 2 mg IV Q3H PRN PRN PRN Reason: Pain Score 6-10/10 Naloxone HCl (Narcan) 0.02 mg IV Q1M PRN PRN Reason: RR <10 and pt unresponsive Ondansetron HCl (Zofran) 4 mg IV Q8H PRN PRN PRN Reason: Nausea Code Visit Inpatient E&M: 81603 Subs Hosp L2
[2019-04-04 15:40] LABS: Bedside Glucose 119 mg/dL (70-110)
[2019-04-04] MEDS: HYDROcodone Bitartrate/Apap 5/325 Tablet PO ×2 (16:14→22:00)
[2019-04-04] MEDS: Gabapentin 600 MG Tablet PO (16:15)
[2019-04-04] MEDS: Glucerna Shake 120 ML LIQUID PO (16:17)
[2019-04-04] MEDS: Insulin Lispro 100 UNIT/ML INSULN.PEN 12 UNIT SC (17:05)
[2019-04-04] MEDS: Morphine 2 MG/ML Syringe IV (20:41)
[2019-04-04] MEDS: 0.9% Saline Lock 10 ML Syringe IV (20:45)
[2019-04-04 22:00] LABS: Bedside Glucose 125 mg/dL (70-110)
[2019-04-04] MEDS: Atorvastatin Calcium 40 MG Tablet PO (22:00)
[2019-04-05 05:57] VITALS: BP 154/76; PULSE 79; RESP 16; TEMP 36.8; O2SAT 95
[2019-04-05] MEDS: oxyCODONE 5 MG Tablet PO ×4 (06:32→20:43)
[2019-04-05] MEDS: Enoxaparin 40 MG/0.4 ML Syringe SC (06:32)
--- NOTE | 2019-04-05 07:19 | PCM.PN.HOSP ---
Subjective: CC follow-up transmetatarsal amputation and gastrocnemius recession of the left lower extremity. Postoperative day 1 patient complains of significant pain in the left foot rating pain 7 out of 10. Objective: GENERAL: cooperative HEENT: Atraumatic; EYES; Anicteric, Normal Conjunctiva NECK; supple, normal thyroid, RESPIRATORY: Diminished to auscultation CARDIOVASCULAR: Regular S1 S2, GI: soft, normoactive bowel sounds, : No Renal angle tenderness; EXTREMITIES: No edema, no clubbing, MUSCULOSKELETAL: Left foot in surgical dressing NEURO: Awake; no lateralizing signs. SKIN: No Rash PSYCH; Flat affect Vitals/I&O's: Vital Signs Temp Pulse Resp BP Pulse Ox 98.3 F 79 16 154/76 H 95 04/05/19 05:57 04/05/19 05:57 04/05/19 05:57 04/05/19 05:57 04/05/19 05:57 Oxygen Flow Rate (L/min) 2 Oxygen Delivery Method Room Air Weight: 121.5 kg Body Mass Index (BMI) 41.3 Intake and Output for Last 24 Hours 04/03/19 04/04/19 04/05/19 23:59 23:59 23:59 Intake Total 1760 / 2260 1500 / 1500 Output Total 700 / 2100 2100 / 2100 Balance 1060 / 160 -600 / -600 Laboratory Results 04/04/19 08:45: WBC 11.9 H, RBC 5.18, Hgb 15.5, Hct 48.1, MCV 92.9, MCH 29.9, MCHC 32.2, RDW Std Deviation 44.4 H, RDW Coeff of Adriana 13.1, Plt Count 225, MPV 11.6, Immature Gran % (Auto) 0.800, Neut % (Auto) 72.6 H, Lymph % (Auto) 13.2 L, [place] % (Auto) 9.7, Eos % (Auto) 2.4, Baso % (Auto) 1.3 H, Absolute Neuts (auto) 8.7 H, Absolute Lymphs (auto) 1.57, Nucleated RBC % 0 04/04/19 08:45: Sodium 136, Potassium 5.1, Chloride 102, Carbon Dioxide 29.0, Anion Gap 5, BUN 21 H, Creatinine 1.04, Estim Creat Clear Calc 63.56, Est GFR (MDRD) Af Amer 91, Est GFR (MDRD) Non-Af 75, BUN/Creatinine Ratio 20.2 H, Glucose 120 H, Calcium 9.5, Total Bilirubin 1.00, AST 24, ALT 33, Alkaline Phosphatase 46, Total Protein 8.1, Albumin 4.1, Globulin 4.0, Albumin/Globulin Ratio 1.0 04/04/19 12:51: POC Glucose 100 04/04/19 15:30: POC Glucose 119 H 04/04/19 21:57: POC Glucose 125 H Current Medications Aspirin (Aspirin, Baby) 81 mg PO DAILY@0800 [facility] Atorvastatin Calcium (Lipitor) 40 mg PO QHS [facility] Last Admin: 04/04/19 22:00 Dose: 40 mg Documented by: Cyanocobalamin (Vitamin B12) 1,000 mcg PO DAILYCM [facility] Dextrose (D50w Syringe) 0 gm IV X1 PRN; Protocol PRN Reason: Hypoglycemia Docusate Sodium (Colace) 200 mg PO BID PRN PRN PRN Reason: Constipation Enoxaparin Sodium (Lovenox) 40 mg SC DAILY@0600 [facility] Last Admin: 04/05/19 06:32 Dose: 40 mg Documented by: Gabapentin (Neurontin) 600 mg PO TIDCM [facility] Last Admin: 04/04/19 16:15 Dose: 600 mg Documented by: Glucagon () 1 mg IM .X1 PRN PRN Reason: Hypoglycemia Naloxone HCl 4 mg/ Dextrose 504 mls @ 0 mls/hr IV .Q0M PRN; Protocol PRN Reason: To maintain Resp. rate >10 Sodium Chloride () 250 mls @ 15 mls/hr IV .[id number] PRN PRN Reason: Saline Flush Insulin Glargine (Lantus (Bkc)) 72 units SC QHS [facility] Last Admin: 04/04/19 22:01 Dose: 72 units Documented by: Insulin Human Lispro (Humalog Kwikpen (Bkc)) 12 unit SC TIDAC [facility] Last Admin: 04/04/19 17:05 Dose: 12 u Documented by: Insulin Human Lispro (Humalog Kwikpen (Bkc)) 0 unit SC ACHS [facility]; Protocol Last Admin: 04/04/19 22:00 Dose: Not Given Documented by: Lisinopril (Zestril) 5 mg PO DAILY [facility] Morphine Sulfate () 2 mg IV Q3H PRN PRN PRN Reason: Pain Score 6-10/10 Last Admin: 04/04/19 20:41 Dose: 2 mg Documented by: Naloxone HCl (Narcan) 0.02 mg IV Q1M PRN PRN Reason: RR <10 and pt unresponsive Nifedipine (Procardia Xl) 30 mg PO DAILY [facility] Non-Formulary Medication (Dulaglutide) 1.5 mg SQ MO [facility] Nutritional Formula (Lactose Free) (Glucerna Shake) 120 ml PO TIDCM [facility] Last Admin: 04/04/19 16:17 Dose: 120 ml Documented by: Ondansetron HCl (Zofran) 4 mg IV Q8H PRN PRN PRN Reason: Nausea Oxycodone HCl (Oxyir) 5 mg PO Q4H PRN PRN PRN Reason: Pain Score 6-10/10 Last Admin: 04/05/19 06:32 Dose: 5 mg Documented by: Sodium Chloride () 10 - 40 ml IV UD PRN PRN Reason: SALINE FLUSH Last Admin: 04/04/19 20:45 Dose: 10 ml Documented by: STROKE Vital Signs/Narrative: Vital Signs Temp Pulse Resp BP Pulse Ox 04/05/19 05:57 98.3 F 79 16 154/76 H 95 Medical Necessity - Tobacco Use Smoking Status: Never smoker Assessment/Plan All Active Problems (Last Reviewed 09/17/18 @ 16:48 by Sandy Maharaj PA-C) Osteomyelitis of great toe of left foot (Acute) Hyperlipidemia (Acute) Obstructive sleep apnea (Acute) Acute renal failure (Acute) Morbid obesity (Acute) PAD (peripheral artery disease) (Acute) Type 2 diabetes mellitus with left diabetic foot infection (Acute) Sepsis (Acute) Sinus tachycardia seen on air sampling and monitoring (Acute) 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 Payton on 04/04/2019. The hospitalist service was consulted to assist with management of patient medical comorbidities 1. Status post transmetatarsal amputation and gastrocnemius recession of the left lower extremity by Dr. Payton on 04/04/2019 ?04/05/2019 Postoperative day 1 patient complains of significant pain in the left foot rating pain 7 out of 10. 2. Hypertension ~ blood pressure controlled, home medications continued with dose adjustment as needed 3. Dyslipidemia ~patient is on statin therapy, continued at home dose 4. Diabetes mellitus type II ~ patient's oral hypoglycemics held. Placed on long acting insulin, Accu-Cheks a.c. and at bedtime and covered with sliding scale insulin ?04/05/2019: Patient blood glucose well controlled. 5. Peripheral arterial disease ~ Patient is on antiplatelet did continue 6. Obstructive sleep apnea ~on CPAP 7. Obesity with BMI of 41.3 ~ weight loss advised 8. DVT prophylaxis ~enoxaparin Code Visit Inpatient E&M: 19787 Subs Hosp L2
[2019-04-05 07:44] LABS: Hematocrit 43.7 % (40-54); Hemoglobin 14.2 g/dL (13.0-16.5); Mean Corp Hgb Conc 32.5 g/dL (32-36); Mean Corpuscular Volume 92.4 fL (80-94); Mean Platelet Vol. 11.6 fl (6.2-12.0); Platelet Count 192 K/mm3 (150-450); RBC Distribution Width CV 12.9 % (11.6-14.6); RBC Distribution Width SD 43.5 fl (35.1-43.9); Red Blood Count 4.73 M/mm3 (4.6-6.2); White Blood Count 13.6 K/mm3 (4.4-11.0)
[2019-04-05 08:12] LABS: Anion Gap 5 (5-15); BUN 15 mg/dL (7-18); BUN/Creat Ratio 19.7 RATIO (10-20); Calcium,Total 8.7 mg/dL (8.5-10.1); Chloride 101 mmol/L (98-107); Creatinine, Serum 0.76 mg/dL (0.70-1.30); EST Glomerular Filtration Rate 108 mL/min (>60); Est Glom Filt Rate - Afr Amer 130 mL/min (>60); Glucose 63 mg/dL (74-106); Magnesium 1.6 mg/dL (1.6-2.6); Potassium 4.2 mmol/L (3.5-5.1); Sodium Level 136 mmol/L (136-145)
[2019-04-05 08:41] VITALS: BP 155/82; PULSE 90; RESP 20; TEMP 36.9; O2SAT 93
[2019-04-05] MEDS: NIFEdipine 30 MG Tablet PO (08:44)
[2019-04-05] MEDS: Aspirin 81 MG TAB.CHEW PO (08:44)
[2019-04-05] MEDS: Gabapentin 600 MG Tablet PO ×3 (08:44→16:26)
[2019-04-05] MEDS: Lisinopril 5 MG Tablet PO (08:44)
[2019-04-05] MEDS: Cyanocobalamin 500 MCG Tablet 1000 MCG PO (08:47)
[2019-04-05] MEDS: Glucerna Shake 120 ML LIQUID PO ×3 (08:47→16:24)
[2019-04-05 08:51] LABS: Bedside Glucose 88 mg/dL (70-110)
--- NOTE | 2019-04-05 10:27 | PCM.PROGNOTE ---
Subjective: This 60-year-old male with diabetic neuropathy seen bedside postoperative day #1 left transmetatarsal amputation open gastrocnemius recession. He denies fever, chill, nausea, vomiting, chest pain, shortness of breath, loss of appetite, constipation, or urinary retention. His pain is moderate and his pain medication was adjusted this morning. Most of his pain is to the back of his leg at the tendon release site. He is waiting to work with physical therapy. - Physical Exam Vitals/I&O's: Vital Signs Temp Pulse Resp BP Pulse Ox 98.4 F 90 20 H 155/82 H 93 04/05/19 08:41 04/05/19 08:41 04/05/19 08:41 04/05/19 08:41 04/05/19 08:41 Oxygen Flow Rate (L/min) 2 Oxygen Delivery Method Room Air Weight: 121.5 kg Body Mass Index (BMI) 41.3 Intake and Output for Last 24 Hours 04/03/19 04/04/19 04/05/19 23:59 23:59 23:59 Intake Total 1760 / 2260 1500 / 1500 Output Total 700 / 2100 2100 / 2100 Balance 1060 / 160 -600 / -600 General: Alert, Oriented x3, Cooperative HEENT: Atraumatic Lungs: Clear to auscultation, Diminished Cardiovascular: Regular rate, Regular Rhythm Extremities: No cyanosis, Capillary Refill Less than 3 Seconds, No Calf Tenderness - negative aponte sign bilateral, Diminished Peripheral Pulses, Edema, - - rectus left lower extremity with splint in place. Some relief is noted when the Keo wrap was adjusted and offloading Mary Ellen rolls were applied to take pressure off the gastrocnemius recession site. No fluctuance or bogginess on palpation. Compartments are soft to left lower extremity. Skin: - - The left lower extremity dressing is clean, dry, and intact without strikethrough. No proximal streaking noted Musculoskeletal: Muscle Wasting, Tenderness Neurological: - - Lack of normal epicritic sensation to light touch is consistent with his neuropathy status Psych/Mental Status: Normal Affect, Appropriate Laboratory Results 04/04/19 12:51: POC Glucose 100 04/04/19 15:30: POC Glucose 119 H 04/04/19 21:57: POC Glucose 125 H 04/05/19 06:32: WBC 13.6 H, RBC 4.73, Hgb 14.2, Hct 43.7, MCV 92.4, MCH 30.0, MCHC 32.5, RDW Std Deviation 43.5, RDW Coeff of Adriana 12.9, Plt Count 192, MPV 11.6 04/05/19 06:32: Sodium 136, Potassium 4.2, Chloride 101, Carbon Dioxide 30.0, Anion Gap 5, BUN 15, Creatinine 0.76, Estim Creat Clear Calc 66.10, Est GFR (MDRD) Af Amer 130, Est GFR (MDRD) Non-Af 108, BUN/Creatinine Ratio 19.7, Glucose 63 L, Calcium 8.7, Magnesium 1.6 04/05/19 08:39: POC Glucose 88 Current Medications Aspirin (Aspirin, Baby) 81 mg PO DAILY@0800 [facility] Last Admin: 04/05/19 08:44 Dose: 81 mg Documented by: Atorvastatin Calcium (Lipitor) 40 mg PO QHS [facility] Last Admin: 04/04/19 22:00 Dose: 40 mg Documented by: Cyanocobalamin (Vitamin B12) 1,000 mcg PO DAILYCM [facility] Last Admin: 04/05/19 08:47 Dose: 1,000 mcg Documented by: Dextrose (D50w Syringe) 0 gm IV X1 PRN; Protocol PRN Reason: Hypoglycemia Docusate Sodium (Colace) 200 mg PO BID PRN PRN PRN Reason: Constipation Enoxaparin Sodium (Lovenox) 40 mg SC DAILY@0600 [facility] Last Admin: 04/05/19 06:32 Dose: 40 mg Documented by: Gabapentin (Neurontin) 600 mg PO TIDCM [facility] Last Admin: 04/05/19 08:44 Dose: 600 mg Documented by: Glucagon () 1 mg IM .X1 PRN PRN Reason: Hypoglycemia Naloxone HCl 4 mg/ Dextrose 504 mls @ 0 mls/hr IV .Q0M PRN; Protocol PRN Reason: To maintain Resp. rate >10 Sodium Chloride () 250 mls @ 15 mls/hr IV .[id number] PRN PRN Reason: Saline Flush Insulin Glargine (Lantus ([facility])) 72 units SC QHS [facility] Last Admin: 04/04/19 22:01 Dose: 72 units Documented by: Insulin Human Lispro (Humalog Kwikpen ([facility])) 12 unit SC TIDAC [facility] Last Admin: 10/26/19 08:43 Dose: Not Given Documented by: Insulin Human Lispro (Humalog Kwikpen (Bkc)) 0 unit SC ACHS [facility]; Protocol Last Admin: 04/05/19 08:43 Dose: Not Given Documented by: Lisinopril (Zestril) 5 mg PO DAILY [facility] Last Admin: 04/05/19 08:44 Dose: 5 mg Documented by: Morphine Sulfate () 2 mg IV Q3H PRN PRN PRN Reason: Pain Score 6-10/10 Last Admin: 04/04/19 20:41 Dose: 2 mg Documented by: Naloxone HCl (Narcan) 0.02 mg IV Q1M PRN PRN Reason: RR <10 and pt unresponsive Nifedipine (Procardia Xl) 30 mg PO DAILY [facility] Last Admin: 04/05/19 08:44 Dose: 30 mg Documented by: Non-Formulary Medication (Dulaglutide) 1.5 mg SQ MO [facility] Nutritional Formula (Lactose Free) (Glucerna Shake) 120 ml PO TIDCM [facility] Last Admin: 04/05/19 08:47 Dose: 120 ml Documented by: Ondansetron HCl (Zofran) 4 mg IV Q8H PRN PRN PRN Reason: Nausea Oxycodone HCl (Oxyir) 5 mg PO Q4H PRN PRN PRN Reason: Pain Score 6-10/10 Last Admin: 04/05/19 06:32 Dose: 5 mg Documented by: Sodium Chloride () 10 - 40 ml IV UD PRN PRN Reason: SALINE FLUSH Last Admin: 04/04/19 20:45 Dose: 10 ml Documented by: Medical Necessity - Tobacco Use Smoking Status: Never smoker Assessment/Plan All Active Problems (Last Reviewed 09/17/18 @ 16:48 by Sandy Maharaj PA-C) Osteomyelitis of great toe of left foot (Acute) Hyperlipidemia (Acute) Obstructive sleep apnea (Acute) Acute renal failure (Acute) Morbid obesity (Acute) PAD (peripheral artery disease) (Acute) Type 2 diabetes mellitus with left diabetic foot infection (Acute) Sepsis (Acute) Sinus tachycardia seen on nuclear monitoring technician (Acute) 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 His admission status will be changed to inpatient. He will likely need custodial facility placement which is what I recommend. Physical and occupational therapy will see him later today. His pain was not controlled overnight and his pain medications have been adjusted. He is resting comfortably at the time of the exam. His dressing was kept intact. His splint was adjusted to take further relief off of the posterior gastric venous recession site. He was reassured no signs of infection or necrosis were noted intraoperative. We will change his dressing tomorrow. He was advised to maintain a strict nonweightbearing status. He is advised to ice and elevate. Medical management and DVT prophylaxis per primary team is greatly appreciated. It is okay to resume DVT prophylaxis medical therapy today. Please not hesitate to call if you have any questions. I will continue to follow him closely while in house. Maria A Payton DPM, [facility] [phone]
[2019-04-05 11:30] VITALS: O2SAT 92
[2019-04-05] MEDS: Insulin Lispro 100 UNIT/ML INSULN.PEN SC ×3 (11:33→21:44)
[2019-04-05] MEDS: Insulin Lispro 100 UNIT/ML INSULN.PEN 12 UNIT SC ×2 (11:33→16:25)
[2019-04-05 11:41] LABS: Bedside Glucose 180 mg/dL (70-110)
--- NOTE | 2019-04-05 13:12 | CASEMGMT ---
SOCIAL WORK MET WITH PATIENT IN ROOM. INTRODUCED ROLE AND REASON FOR REFERRAL. PATIENT REPORTS SURGERY YESTERDAY AND DISCUSSED WITH DOCTOR WHO IS RECOMMENDING REHAB PRIOR TO HOME GOING. PATIENT REQUESTING REFERRAL TO TCU. REFERRAL TO BE CALLED TO THE REFERRAL LINE. INFORMED PATIENT A PROCUREMENT SERVICES MANAGER WILL BE FOLLOWING UP ON SUNDAY. PLAN: REFERRAL TO TCU [facility], [facility].
--- NOTE | 2019-04-05 14:05 | CASEMGMT ---
SOCIAL WORK CALL TO TCU REFERRAL LINE. LEFT MESSAGE REGARDING REFERRAL. Maurizio NAYLOR MSW, [employer].
[2019-04-05 14:34] VITALS: BP 147/66; PULSE 106; RESP 18; TEMP 37.1; O2SAT 96
[2019-04-05 16:31] LABS: Bedside Glucose 218 mg/dL (70-110)
[2019-04-05 20:07] VITALS: BP 152/79; PULSE 107; RESP 18; TEMP 37.7; O2SAT 98
[2019-04-05 21:41] VITALS: TEMP 37.6
[2019-04-05] MEDS: Atorvastatin Calcium 40 MG Tablet PO (21:47)
[2019-04-05 22:36] LABS: Bedside Glucose 278 mg/dL (70-110)
[2019-04-06] MEDS: oxyCODONE 5 MG Tablet PO ×2 (02:21→09:23)
[2019-04-06 02:26] VITALS: BP 124/75; PULSE 85; RESP 18; TEMP 36.9; O2SAT 95
[2019-04-06] MEDS: Enoxaparin 40 MG/0.4 ML Syringe SC (05:52)
--- NOTE | 2019-04-06 06:54 | PCM.PROGNOTE ---
Subjective: This 68-year-old male with diabetic neuropathy seen bedside postoperative day #2 left transmetatarsal amputation open gastrocnemius recession. He denies fever, chill, nausea, vomiting, chest pain, shortness of breath, loss of appetite, constipation, or urinary retention. His pain is at worse a 6/10 and his splint is irritating. He has been working with social work and physical therapy to consider rehab placement. - Physical Exam Vitals/I&O's: Vital Signs Temp Pulse Resp BP Pulse Ox 98.5 F 85 18 124/75 H 95 04/06/19 02:26 04/06/19 02:26 04/06/19 02:26 04/06/19 02:26 04/06/19 02:26 Oxygen Flow Rate (L/min) 2 Oxygen Delivery Method Room Air Weight: 121.5 kg Body Mass Index (BMI) 41.3 Intake and Output for Last 24 Hours 04/04/19 04/05/19 04/06/19 23:59 23:59 23:59 Intake Total 1760 / 2260 2220 / 2370 350 / 350 Output Total 700 / 2100 2750 / 3850 1850 / 1850 Balance 1060 / 160 -530 / -1480 -1500 / -1500 General: Alert, Oriented x3, Cooperative HEENT: Atraumatic Lungs: Diminished Cardiovascular: Regular rate, Regular Rhythm Extremities: No cyanosis, Capillary Refill Less than 3 Seconds, No Calf Tenderness - Negative Laci at that time bilateral, Peripheral Pulses Normal - Palpable Skin: Incision - Sutures are well aligned and coapted to transmetatarsal amputation site and gastrocnemius recession site to the posterior leg. There is no gapping, infection, necrosis, erythema, streaking or odor. His adjacent skin is atrophic. Musculoskeletal: No Tenderness to Palpation of Joints or Extremities, Muscle Wasting, - - Pain on palpation gastrocnemius recession site and not to dictation site. Transmetatarsal amputation of the left. There is improved ankle dorsiflexion noted now with the knee extended to about 10 degrees. Neurological: - - Lack of normal epicritic sensation light touch is with neuropathy status Psych/Mental Status: Normal Affect, Appropriate Laboratory Results 04/05/19 06:32: WBC 13.6 H, RBC 4.73, Hgb 14.2, Hct 43.7, MCV 92.4, MCH 30.0, MCHC 32.5, RDW Std Deviation 43.5, RDW Coeff of Adriana 12.9, Plt Count 192, MPV 11.6 04/05/19 06:32: Sodium 136, Potassium 4.2, Chloride 101, Carbon Dioxide 30.0, Anion Gap 5, BUN 15, Creatinine 0.76, Estim Creat Clear Calc 66.10, Est GFR (MDRD) Af Amer 130, Est GFR (MDRD) Non-Af 108, BUN/Creatinine Ratio 19.7, Glucose 63 L, Calcium 8.7, Magnesium 1.6 04/05/19 08:39: POC Glucose 88 04/05/19 11:32: POC Glucose 180 H 04/05/19 16:24: POC Glucose 218 H 04/05/19 21:43: POC Glucose 278 H 04/06/19 05:38: Sodium Pending, Potassium Pending, Chloride Pending, Carbon Dioxide Pending, Anion Gap Pending, BUN Pending, Creatinine Pending, Est GFR (MDRD) Af Amer Pending, Est GFR (MDRD) Non-Af Pending, BUN/Creatinine Ratio Pending, Glucose Pending, Calcium Pending Current Medications Aspirin (Aspirin, Baby) 81 mg PO DAILY@0800 [facility] Last Admin: 04/05/19 08:44 Dose: 81 mg Documented by: Atorvastatin Calcium (Lipitor) 40 mg PO QHS [facility] Last Admin: 04/05/19 21:47 Dose: 40 mg Documented by: Cyanocobalamin (Vitamin B12) 1,000 mcg PO DAILYCM [facility] Last Admin: 04/05/19 08:47 Dose: 1,000 mcg Documented by: Dextrose (D50w Syringe) 0 gm IV X1 PRN; Protocol PRN Reason: Hypoglycemia Docusate Sodium (Colace) 200 mg PO BID PRN PRN PRN Reason: Constipation Enoxaparin Sodium (Lovenox) 40 mg SC DAILY@0600 [facility] Last Admin: 04/06/19 05:52 Dose: 40 mg Documented by: Gabapentin (Neurontin) 600 mg PO TIDCM [facility] Last Admin: 04/05/19 16:26 Dose: 600 mg Documented by: Glucagon () 1 mg IM .X1 PRN PRN Reason: Hypoglycemia Naloxone HCl 4 mg/ Dextrose 504 mls @ 0 mls/hr IV .Q0M PRN; Protocol PRN Reason: To maintain Resp. rate >10 Sodium Chloride () 250 mls @ 15 mls/hr IV .[id number] PRN PRN Reason: Saline Flush Insulin Glargine (Lantus (Bkc)) 72 units SC QHS [facility] Last Admin: 04/05/19 21:46 Dose: 72 units Documented by: Insulin Human Lispro (Humalog Kwikpen ([facility])) 12 unit SC TIDAC [facility] Last Admin: 04/05/19 16:25 Dose: 12 u Documented by: Insulin Human Lispro (Humalog Kwikpen (Bkc)) 0 unit SC ACHS [facility]; Protocol Last Admin: 04/05/19 21:44 Dose: 9 u Documented by: Lisinopril (Zestril) 5 mg PO DAILY [facility] Last Admin: 04/05/19 08:44 Dose: 5 mg Documented by: Morphine Sulfate () 2 mg IV Q3H PRN PRN PRN Reason: Pain Score 6-10/10 Last Admin: 04/04/19 20:41 Dose: 2 mg Documented by: Naloxone HCl (Narcan) 0.02 mg IV Q1M PRN PRN Reason: RR <10 and pt unresponsive Nifedipine (Procardia Xl) 30 mg PO DAILY [facility] Last Admin: 04/05/19 08:44 Dose: 30 mg Documented by: Non-Formulary Medication (Dulaglutide) 1.5 mg SQ MO [facility] Nutritional Formula (Lactose Free) (Glucerna Shake) 120 ml PO TIDCM [facility] Last Admin: 04/05/19 16:24 Dose: 120 ml Documented by: Ondansetron HCl (Zofran) 4 mg IV Q8H PRN PRN PRN Reason: Nausea Oxycodone HCl (Oxyir) 5 mg PO Q4H PRN PRN PRN Reason: Pain Score 6-10/10 Last Admin: 04/06/19 02:21 Dose: 5 mg Documented by: Sodium Chloride () 10 - 40 ml IV UD PRN PRN Reason: SALINE FLUSH Last Admin: 04/04/19 20:45 Dose: 10 ml Documented by: Medical Necessity - Tobacco Use Smoking Status: Never smoker Assessment/Plan All Active Problems (Last Reviewed 09/17/18 @ 16:48 by Sandy Maharaj PA-C) Osteomyelitis of great toe of left foot (Acute) Hyperlipidemia (Acute) Obstructive sleep apnea (Acute) Acute renal failure (Acute) Morbid obesity (Acute) PAD (peripheral artery disease) (Acute) Type 2 diabetes mellitus with left diabetic foot infection (Acute) Sepsis (Acute) Sinus tachycardia seen on manager cardiac cath (Acute) 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 His surgical dressing was changed today and a new Betadine gauze well-padded gauze and Kerlix dressing was applied. This was secured in place with Keo wraps was will also help with his edema. His splint will be discontinued at this time. I recommend fpc facility placement; social work placement is pending. Physical and occupational therapy are on consultation. His pain was slightly improved. He is resting comfortably at the time of the exam. He was advised to maintain a strict nonweightbearing status. He is advised to ice and elevate. Medical management and DVT prophylaxis per primary team is greatly appreciated. Please not hesitate to call if you have any questions. I will continue to follow him closely while in house. Maria A Payton DPM, [facility] [phone]
[2019-04-06 07:13] LABS: Anion Gap 5 (5-15); BUN 17 mg/dL (7-18); BUN/Creat Ratio 19.2 RATIO (10-20); Calcium,Total 9.2 mg/dL (8.5-10.1); Chloride 101 mmol/L (98-107); Creatinine, Serum 0.89 mg/dL (0.70-1.30); EST Glomerular Filtration Rate 91 mL/min (>60); Est Glom Filt Rate - Afr Amer 110 mL/min (>60); Estimated Creatinine Clearance 74.27 ml/min; Glucose 128 mg/dL (74-106); Potassium 4.5 mmol/L (3.5-5.1); Sodium Level 134 mmol/L (136-145)
[2019-04-06 07:18] LABS: Absolute Lymphocyte Count 1.96 X10^3/uL (0.83-4.51); Absolute Neutrophil Count 11.4 X10^3/uL (2.0-7.7); Basophil# 0.13 X10^3/uL; Basophil% 0.8 % (0-1); Eosinophil# 0.27 X10^3/uL; Eosinophils% 1.6 % (0-5); Hematocrit 43.2 % (40-54); Hemoglobin 13.8 g/dL (13.0-16.5); Lymphocyte # 1.96 X10^3/ul (4.0); Lymphocyte % 11.7 % (19-41); Mean Corp Hgb Conc 31.9 g/dL (32-36); Mean Corpuscular Hgb 29.4 pg (27.0-32.0); Mean Corpuscular Volume 91.9 fL (80-94); Mean Platelet Vol. 11.8 fl (6.2-12.0); Monocyte# 2.85 X10^3/uL; NRBC Flagged by Analyzer 0 % (0-5); Neutrophil # 11.37 X10^3/uL (2.7-7.7); Neutrophil % 67.9 % (47-70); POSITIVE DIFFERENTIAL YES; Platelet Count 188 K/mm3 (150-450); RBC Distribution Width CV 12.8 % (11.6-14.6); RBC Distribution Width SD 43.5 fl (35.1-43.9); White Blood Count 16.7 K/mm3 (4.4-11.0)
[2019-04-06 07:23] LABS: Differential Indicated SCAN CRITERIA MET
[2019-04-06 07:32] VITALS: BP 132/74; PULSE 87; RESP 16; TEMP 37; O2SAT 95
--- NOTE | 2019-04-06 07:32 | PN_ITS ---
Subjective: CC follow-up ; Status post transmetatarsal amputation Patient seen pain is relatively well controlled. Blood glucose on blood pressure levels optimal at this point. Patient did request possible transfer to jail facility consult subsequently placed to adoption social worker. Objective: GENERAL: cooperative HEENT: Atraumatic; EYES; Anicteric, Normal Conjunctiva NECK; supple, normal thyroid, RESPIRATORY: Diminished to auscultation CARDIOVASCULAR: Regular S1 S2, GI: soft, normoactive bowel sounds, : No Renal angle tenderness; EXTREMITIES: No edema, no clubbing, MUSCULOSKELETAL: Left foot in surgical dressing NEURO: Awake; no lateralizing signs. SKIN: No Rash PSYCH; Flat affect Vitals/I&O's: Vital Signs Temp Pulse Resp BP Pulse Ox 98.5 F 85 18 124/75 H 95 04/06/19 02:26 04/06/19 02:26 04/06/19 02:26 04/06/19 02:26 04/06/19 02:26 Oxygen Flow Rate (L/min) 2 Oxygen Delivery Method Room Air Weight: 121.5 kg Body Mass Index (BMI) 41.3 Intake and Output for Last 24 Hours 04/04/19 04/05/19 04/06/19 23:59 23:59 23:59 Intake Total 1760 / 2260 2220 / 2370 350 / 350 Output Total 700 / 2100 2750 / 3850 1850 / 1850 Balance 1060 / 160 -530 / -1480 -1500 / -1500 Laboratory Results 04/05/19 06:32: WBC 13.6 H, RBC 4.73, Hgb 14.2, Hct 43.7, MCV 92.4, MCH 30.0, MCHC 32.5, RDW Std Deviation 43.5, RDW Coeff of Adriana 12.9, Plt Count 192, MPV 11.6 04/05/19 06:32: Sodium 136, Potassium 4.2, Chloride 101, Carbon Dioxide 30.0, Anion Gap 5, BUN 15, Creatinine 0.76, Estim Creat Clear Calc 66.10, Est GFR (MDRD) Af Amer 130, Est GFR (MDRD) Non-Af 108, BUN/Creatinine Ratio 19.7, Glucose 63 L, Calcium 8.7, Magnesium 1.6 04/05/19 08:39: POC Glucose 88 04/05/19 11:32: POC Glucose 180 H 04/05/19 16:24: POC Glucose 218 H 04/05/19 21:43: POC Glucose 278 H 04/06/19 05:38: Sodium 134 L, Potassium 4.5, Chloride 101, Carbon Dioxide 28.0, Anion Gap 5, BUN 17, Creatinine 0.89, Estim Creat Clear Calc 74.27, Est GFR (MDRD) Af Amer 110, Est GFR (MDRD) Non-Af 91, BUN/Creatinine Ratio 19.2, Glucose 128 H, Calcium 9.2 04/06/19 05:38: WBC 16.7 H, RBC 4.70, Hgb 13.8, Hct 43.2, MCV 91.9, MCH 29.4, MCHC 31.9 L, RDW Std Deviation 43.5, RDW Coeff of Adriana 12.8, Plt Count 188, MPV 11.8, Immature Gran % (Auto) 1.000 H, Neut % (Auto) 67.9, Lymph % (Auto) 11.7 L, [place] % (Auto) 17.0 H, Eos % (Auto) 1.6, Baso % (Auto) 0.8, Absolute Neuts (auto) 11.4 H, Absolute Lymphs (auto) 1.96, Nucleated RBC % 0 Current Medications Aspirin (Aspirin, Baby) 81 mg PO DAILY@0800 [facility] Last Admin: 04/05/19 08:44 Dose: 81 mg Documented by: Atorvastatin Calcium (Lipitor) 40 mg PO QHS [facility] Last Admin: 04/05/19 21:47 Dose: 40 mg Documented by: Cyanocobalamin (Vitamin B12) 1,000 mcg PO DAILYCM [facility] Last Admin: 04/05/19 08:47 Dose: 1,000 mcg Documented by: Dextrose (D50w Syringe) 0 gm IV X1 PRN; Protocol PRN Reason: Hypoglycemia Docusate Sodium (Colace) 200 mg PO BID PRN PRN PRN Reason: Constipation Enoxaparin Sodium (Lovenox) 40 mg SC DAILY@0600 [facility] Last Admin: 04/06/19 05:52 Dose: 40 mg Documented by: Gabapentin (Neurontin) 600 mg PO TIDCM [facility] Last Admin: 04/05/19 16:26 Dose: 600 mg Documented by: Glucagon () 1 mg IM .X1 PRN PRN Reason: Hypoglycemia Naloxone HCl 4 mg/ Dextrose 504 mls @ 0 mls/hr IV .Q0M PRN; Protocol PRN Reason: To maintain Resp. rate >10 Sodium Chloride () 250 mls @ 15 mls/hr IV .[id number] PRN PRN Reason: Saline Flush Insulin Glargine (Lantus (Bkc)) 72 units SC QHS [facility] Last Admin: 04/05/19 21:46 Dose: 72 units Documented by: Insulin Human Lispro (Humalog Kwikpen (Bk)) 12 unit SC TIDAC [facility] Last Admin: 04/05/19 16:25 Dose: 12 u Documented by: Insulin Human Lispro (Humalog Kwikpen (Bkc)) 0 unit SC ACHS [facility]; Protocol Last Admin: 04/05/19 21:44 Dose: 9 u Documented by: Lisinopril (Zestril) 5 mg PO DAILY [facility] Last Admin: 04/05/19 08:44 Dose: 5 mg Documented by: Morphine Sulfate () 2 mg IV Q3H PRN PRN PRN Reason: Pain Score 6-10/10 Last Admin: 04/04/19 20:41 Dose: 2 mg Documented by: Naloxone HCl (Narcan) 0.02 mg IV Q1M PRN PRN Reason: RR <10 and pt unresponsive Nifedipine (Procardia Xl) 30 mg PO DAILY [facility] Last Admin: 04/05/19 08:44 Dose: 30 mg Documented by: Non-Formulary Medication (Dulaglutide) 1.5 mg SQ MO [facility] Nutritional Formula (Lactose Free) (Glucerna Shake) 120 ml PO TIDCM [facility] Last Admin: 04/05/19 16:24 Dose: 120 ml Documented by: Ondansetron HCl (Zofran) 4 mg IV Q8H PRN PRN PRN Reason: Nausea Oxycodone HCl (Oxyir) 5 mg PO Q4H PRN PRN PRN Reason: Pain Score 6-10/10 Last Admin: 04/06/19 02:21 Dose: 5 mg Documented by: Sodium Chloride () 10 - 40 ml IV UD PRN PRN Reason: SALINE FLUSH Last Admin: 04/04/19 20:45 Dose: 10 ml Documented by: Medical Necessity - Tobacco Use Smoking Status: Never smoker Assessment/Plan All Active Problems (Last Reviewed 09/17/18 @ 16:48 by Sandy Maharaj PA-C) Osteomyelitis of great toe of left foot (Acute) Hyperlipidemia (Acute) Obstructive sleep apnea (Acute) Acute renal failure (Acute) Morbid obesity (Acute) PAD (peripheral artery disease) (Acute) Type 2 diabetes mellitus with left diabetic foot infection (Acute) Sepsis (Acute) Sinus tachycardia seen on spray applicator (Acute) 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 Payton on 04/04/2019. The hospitalist service was consulted to assist with management of patient medical comorbidities 1. Status post transmetatarsal amputation and gastrocnemius recession of the left lower extremity by Dr. Payton on 04/04/2019 ?04/05/2019 Postoperative day 1 patient complains of significant pain in the left foot rating pain 7 out of 10. ?04/06/2019; POD #2 Patient seen pain is relatively well controlled. Blood glucose on blood pressure levels optimal at this point. Patient did request possible transfer to jail facility consult subsequently placed to adoption social worker. 2. Hypertension ~ blood pressure controlled, home medications continued with dose adjustment as needed 3. Dyslipidemia ~patient is on statin therapy, continued at home dose 4. Diabetes mellitus type II ~ patient's oral hypoglycemics held. Placed on long acting insulin, Accu-Cheks a.c. and at bedtime and covered with sliding scale insulin ?04/05/2019: Patient blood glucose well controlled. 5. Peripheral arterial disease ~ Patient is on antiplatelet did continue 6. Obstructive sleep apnea ~on CPAP 7. Obesity with BMI of 41.3 ~ weight loss advised 8. DVT prophylaxis ~enoxaparin Disposition: To jail facility pending insurance precertification Code Visit Inpatient E&M: 62562 Subs Hosp L2
[2019-04-06] MEDS: Aspirin 81 MG TAB.CHEW PO (07:37)
[2019-04-06] MEDS: Lisinopril 5 MG Tablet PO (07:37)
[2019-04-06] MEDS: NIFEdipine 30 MG Tablet PO (07:37)
[2019-04-06] MEDS: Gabapentin 600 MG Tablet PO ×3 (07:38→16:54)
[2019-04-06] MEDS: Cyanocobalamin 500 MCG Tablet 1000 MCG PO (07:38)
[2019-04-06] MEDS: Insulin Lispro 100 UNIT/ML INSULN.PEN SC ×4 (07:38→22:23)
[2019-04-06] MEDS: Insulin Lispro 100 UNIT/ML INSULN.PEN 12 UNIT SC ×3 (07:39→16:55)
[2019-04-06] MEDS: Glucerna Shake 120 ML LIQUID PO ×3 (07:41→16:54)
[2019-04-06 07:46] LABS: Bedside Glucose 172 mg/dL (70-110)
[2019-04-06 07:59] LABS: Platelet Estimate ADEQUATE (ADEQ); Red Cell Morphology NORM C+C NORMAL (NORM C&C)
[2019-04-06 08:55] VITALS: O2SAT 95
[2019-04-06 11:20] LABS: Bedside Glucose 244 mg/dL (70-110)
[2019-04-06 11:31] VITALS: BP 151/66; PULSE 77; RESP 16; TEMP 36.8; O2SAT 95
[2019-04-06 14:20] VITALS: BP 136/67; PULSE 81; RESP 16; TEMP 36.8; O2SAT 94
[2019-04-06 16:25] LABS: Bedside Glucose 214 mg/dL (70-110)
[2019-04-06 20:55] VITALS: BP 132/58; PULSE 86; RESP 18; TEMP 36.7; O2SAT 95
[2019-04-06] MEDS: Atorvastatin Calcium 40 MG Tablet PO (21:02)
[2019-04-06 22:31] LABS: Bedside Glucose 311 mg/dL (70-110)
[2019-04-07] VITALS (9 sets, daily range): BP systolic 131–151; BP diastolic 65–82; PULSE 80–93; RESP 14–18; TEMP 36.4–37; O2SAT 94–97
[2019-04-07] MEDS: Enoxaparin 40 MG/0.4 ML Syringe SC (05:58)
[2019-04-07 06:05] LABS: Anion Gap 6 (5-15); BUN 18 mg/dL (7-18); BUN/Creat Ratio 21.1 RATIO (10-20); Chloride 100 mmol/L (98-107); Creatinine, Serum 0.85 mg/dL (0.70-1.30); EST Glomerular Filtration Rate 95 mL/min (>60); Est Glom Filt Rate - Afr Amer 115 mL/min (>60); Estimated Creatinine Clearance 77.76 ml/min; Glucose 149 mg/dL (74-106); Potassium 4.6 mmol/L (3.5-5.1); Sodium Level 133 mmol/L (136-145)
--- NOTE | 2019-04-07 07:18 | PN_ITS ---
Patient Problems: Active and Suspected Problems (Last Updated 04/07/19 @ 08:13 by Tracy Wheeler MD) Left forefoot deformities (Acute) Recurrent left forefoot infected ulcers (Acute) Subjective: This 68-year-old male with diabetic neuropathy seen bedside postoperative day #3 left transmetatarsal amputation open gastrocnemius recession. He denies fever, chill, nausea, vomiting, chest pain, loss of appetite, constipation, or urinary retention. His pain is at worse a 5/10 and his splint is irritating. He has been working with social work and physical therapy to consider rehab placement. He relates he has intermittent shortness of breath. He continues to use his incentive spirometer. - Physical Exam Vitals/I&O's: Vital Signs Temp Pulse Resp BP Pulse Ox 98 F 83 18 131/66 H 96 04/07/19 03:24 04/07/19 03:24 04/07/19 03:24 04/07/19 03:24 04/07/19 07:09 Oxygen Flow Rate (L/min) 2 Oxygen Delivery Method Room Air Weight: 121.5 kg Body Mass Index (BMI) 41.3 Intake and Output for Last 24 Hours 04/05/19 04/06/19 04/07/19 23:59 23:59 23:59 Intake Total 2220 / 2370 1700 / 2500 1000 / 1000 Output Total 2750 / 3850 2275 / 3175 2500 / 2500 Balance -530 / -1480 -575 / -675 -1500 / -1500 General: Alert, Oriented x3, Cooperative Lungs: Clear to auscultation, Diminished Cardiovascular: Regular rate, Regular Rhythm Extremities: No Calf Tenderness - negative aponte sign left, - - transmetatarsal amputation left Skin: - - dressing intact without strikethrough Musculoskeletal: No Tenderness to Palpation of Joints or Extremities, Muscle Wasting Psych/Mental Status: Normal Affect, Appropriate Laboratory Results 04/06/19 05:38: WBC 16.7 H, RBC 4.70, Hgb 13.8, Hct 43.2, MCV 91.9, MCH 29.4, MCHC 31.9 L, RDW Std Deviation 43.5, RDW Coeff of Adriana 12.8, Plt Count 188, MPV 11.8, Immature Gran % (Auto) 1.000 H, Neut % (Auto) 67.9, Lymph % (Auto) 11.7 L, [place] % (Auto) 17.0 H, Eos % (Auto) 1.6, Baso % (Auto) 0.8, Absolute Neuts (auto) 11.4 H, Absolute Lymphs (auto) 1.96, Nucleated RBC % 0, Diff Path Review May foll, Platelet Estimate ADEQUATE, RBC Morphology NORM C+C 04/06/19 07:28: POC Glucose 172 H 04/06/19 11:03: POC Glucose 244 H 04/06/19 16:23: POC Glucose 214 H 04/06/19 22:21: POC Glucose 311 H 04/07/19 05:14: Sodium 133 L, Potassium 4.6, Chloride 100, Carbon Dioxide 27.0, Anion Gap 6, BUN 18, Creatinine 0.85, Estim Creat Clear Calc 77.76, Est GFR (MDRD) Af Amer 115, Est GFR (MDRD) Non-Af 95, BUN/Creatinine Ratio 21.1 H, Gluc ose 149 H, Calcium 9.0 Current Medications Aspirin (Aspirin, Baby) 81 mg PO DAILY@0800 [facility] Last Admin: 04/06/19 07:37 Dose: 81 mg Documented by: Atorvastatin Calcium (Lipitor) 40 mg PO QHS [facility] Last Admin: 04/06/19 21:02 Dose: 40 mg Documented by: Cyanocobalamin (Vitamin B12) 1,000 mcg PO DAILYCM [facility] Last Admin: 04/06/19 07:38 Dose: 1,000 mcg Documented by: Dextrose (D50w Syringe) 0 gm IV X1 PRN; Protocol PRN Reason: Hypoglycemia Docusate Sodium (Colace) 200 mg PO BID PRN PRN PRN Reason: Constipation Enoxaparin Sodium (Lovenox) 40 mg SC DAILY@0600 [facility] Last Admin: 04/07/19 05:58 Dose: 40 mg Documented by: Gabapentin (Neurontin) 600 mg PO TIDCM [facility] Last Admin: 04/06/19 16:54 Dose: 600 mg Documented by: Glucagon () 1 mg IM .X1 PRN PRN Reason: Hypoglycemia Naloxone HCl 4 mg/ Dextrose 504 mls @ 0 mls/hr IV .Q0M PRN; Protocol PRN Reason: To maintain Resp. rate >10 Sodium Chloride () 250 mls @ 15 mls/hr IV .[id number] PRN PRN Reason: Saline Flush Insulin Glargine (Lantus (Bkc)) 72 units SC QHS [facility] Last Admin: 04/06/19 22:22 Dose: 72 units Documented by: Insulin Human Lispro (Humalog Kwikpen (Bk)) 12 unit SC TIDAC [facility] Last Admin: 04/06/19 16:55 Dose: 12 u Documented by: Insulin Human Lispro (Humalog Kwikpen (Bk)) 0 unit SC ACHS [facility]; Protocol Last Admin: 04/06/19 22:23 Dose: 9 u Documented by: Lisinopril (Zestril) 5 mg PO DAILY [facility] Last Admin: 04/06/19 07:37 Dose: 5 mg Documented by: Morphine Sulfate () 2 mg IV Q3H PRN PRN PRN Reason: Pain Score 6-10/10 Last Admin: 04/04/19 20:41 Dose: 2 mg Documented by: Naloxone HCl (Narcan) 0.02 mg IV Q1M PRN PRN Reason: RR <10 and pt unresponsive Nifedipine (Procardia Xl) 30 mg PO DAILY [facility] Last Admin: 04/06/19 07:37 Dose: 30 mg Documented by: Non-Formulary Medication (Dulaglutide) 1.5 mg SQ MO [facility] Nutritional Formula (Lactose Free) (Glucerna Shake) 120 ml PO TIDCM [facility] Last Admin: 04/06/19 16:54 Dose: 120 ml Documented by: Ondansetron HCl (Zofran) 4 mg IV Q8H PRN PRN PRN Reason: Nausea Oxycodone HCl (Oxyir) 5 mg PO Q4H PRN PRN PRN Reason: Pain Score 6-10/10 Last Admin: 04/06/19 09:23 Dose: 5 mg Documented by: Sodium Chloride () 10 - 40 ml IV UD PRN PRN Reason: SALINE FLUSH Last Admin: 04/04/19 20:45 Dose: 10 ml Documented by: Medical Necessity - Tobacco Use Smoking Status: Never smoker Assessment/Plan All Active Problems (Last Updated 04/07/19 @ 08:13 by Tracy Wheeler MD) Left forefoot deformities (Acute) Recurrent left forefoot infected ulcers (Acute) Status post left transmetatarsal amputation and open gastrocnemius recession secondary to chronic forefoot deformities with recurrent ulcers infections and amputations: POD#3 Diabetes with neuropathy Other comorbidities including sleep apnea, hypertension, hyperlipidemia, obesity Small vessel disease He is postoperative day #3. His surgical dressing was kept intact. There was no necrosis or infection noted with dressing change yesterday. This will be changed next week; to keep intact. His splint was temporarily discontinued. I recommend [facility] facility placement; social work placement is pending. Physical and occupational therapy are on consultation. His pain has improved to intermittent 5/10 and he has not taken pain medication since yesterday. He is resting comfortably at the time of the exam. He was advised to maintain a strict nonweightbearing status. He is advised to ice and elevate. Medical management and DVT prophylaxis per primary team is greatly appreciated. Please do not hesitate to call if you have any questions. I will continue to follow him closely while in house. Transfer/discharge order will be placed if he is medically stable and after social work plan is confirmed. His leukocytosis is noted. He does not appear to be ill. This may be reactive secondary to anesthesia or from other etiology. Labs pending this morning. This will be reviewed with medicine team given his reported shortness of breath. It is also noted he has not had a bowel movement during this admission and he denies constipation. His leukocytosis is relatively the same and per medical team note evaluation, there is not acute process. He has been cleared from a medical standpoint for transfer pending placement. Maria A Payton DPM, [facility] [phone]
[2019-04-07 07:32] LABS: Absolute Neutrophil Count 11.4 X10^3/uL (2.0-7.7); Basophil# 0.11 X10^3/uL; Basophil% 0.7 % (0-1); Eosinophil# 0.37 X10^3/uL; Eosinophils% 2.2 % (0-5); Hematocrit 41.3 % (40-54); Hemoglobin 13.8 g/dL (13.0-16.5); Lymphocyte % 13.3 % (19-41); Mean Corp Hgb Conc 33.4 g/dL (32-36); Mean Corpuscular Hgb 30.5 pg (27.0-32.0); Mean Corpuscular Volume 91.2 fL (80-94); Mean Platelet Vol. 12.1 fl (6.2-12.0); Monocyte# 2.41 X10^3/uL; Monocyte% 14.5 % (0-10); NRBC Flagged by Analyzer 0 % (0-5); Neutrophil # 11.35 X10^3/uL (2.7-7.7); Neutrophil % 68.3 % (47-70); POSITIVE DIFFERENTIAL YES; Platelet Count 197 K/mm3 (150-450); RBC Distribution Width CV 12.8 % (11.6-14.6); RBC Distribution Width SD 42.5 fl (35.1-43.9); Red Blood Count 4.53 M/mm3 (4.6-6.2); White Blood Count 16.6 K/mm3 (4.4-11.0)
[2019-04-07 07:36] LABS: Bedside Glucose 158 mg/dL (70-110)
[2019-04-07 07:36] LABS: Differential Indicated SCAN CRITERIA MET
[2019-04-07] MEDS: Insulin Lispro 100 UNIT/ML INSULN.PEN SC ×4 (08:00→21:57)
[2019-04-07] MEDS: Insulin Lispro 100 UNIT/ML INSULN.PEN 12 UNIT SC ×3 (08:00→16:55)
[2019-04-07] MEDS: Lisinopril 5 MG Tablet PO (08:01)
[2019-04-07] MEDS: Gabapentin 600 MG Tablet PO ×3 (08:01→16:57)
[2019-04-07] MEDS: NIFEdipine 30 MG Tablet PO (08:01)
[2019-04-07] MEDS: Aspirin 81 MG TAB.CHEW PO (08:01)
[2019-04-07] MEDS: Cyanocobalamin 500 MCG Tablet 1000 MCG PO (08:02)
[2019-04-07] MEDS: Glucerna Shake 120 ML LIQUID PO ×3 (08:06→17:00)
--- NOTE | 2019-04-07 08:14 | PN_ITS ---
Patient Problems: Active and Suspected Problems (Last Updated 04/07/19 @ 08:13 by Tracy Wheeler MD) Left forefoot deformities (Acute) Recurrent left forefoot infected ulcers (Acute) Subjective: Chief complaint: Follow-up after consultation for postoperative medical management. Patient seen and examined. No acute events overnight. He denies any significant left foot pain. He got his last dose of pain medicine yesterday morning. Denies fever chills. Denies chest pain or shortness of breath. His vital signs are stable, afebrile. - Physical Exam Vitals/I&O's: Vital Signs Temp Pulse Resp BP Pulse Ox 97.5 F L 80 16 142/80 H 94 04/07/19 07:52 04/07/19 07:52 04/07/19 07:52 04/07/19 07:52 04/07/19 07:52 Oxygen Flow Rate (L/min) 2 Oxygen Delivery Method Room Air Weight: 267 lb 13.786 oz Body Mass Index (BMI) 41.3 Intake and Output for Last 24 Hours 04/05/19 04/06/19 04/07/19 23:59 23:59 23:59 Intake Total 2220 / 2370 1700 / 2500 1000 / 1000 Output Total 2750 / 3850 2275 / 3175 2500 / 2500 Balance -530 / -1480 -575 / -675 -1500 / -1500 General: Alert, Oriented x3, Cooperative, No apparent distress HEENT: Atraumatic, PERRLA, EOMI, Normocephalic Oral: Moist Mucosa, No Gingival or Mucosal Lesions/ Ulcerations Neck: Supple, No JVD, Negative Carotid Bruits, Trachea Midline, Thyroid Normal Size and Texture Lungs: Clear to auscultation, Normal air movement, No rhonchi, No wheeze, No rales Cardiovascular: Regular rate, Regular Rhythm, Normal S1, Normal S2, PMI Normal Abdomen: Bowel Sounds Present, Soft, Non Tender, Non-Distended, No Hepato- splenomegaly Extremities: No clubbing, No cyanosis, No edema, - - Status post left transmetatarsal amputation. Skin: No rashes, Incision Lymphatic: No Cervical, Supraclavicular, or Inguinal Adenopathy Neurological: Cranial nerves II-XII grossly intact, Motor Exam 5/5 strength throughout Psych/Mental Status: Normal Affect, Appropriate, Alert and oriented to time, place, person, mood and affect Laboratory Results 04/06/19 11:03: POC Glucose 244 H 04/06/19 16:23: POC Glucose 214 H 04/06/19 22:21: POC Glucose 311 H 04/07/19 05:14: Sodium 133 L, Potassium 4.6, Chloride 100, Carbon Dioxide 27.0, Anion Gap 6, BUN 18, Creatinine 0.85, Estim Creat Clear Calc 77.76, Est GFR (MDRD) Af Amer 115, Est GFR (MDRD) Non-Af 95, BUN/Creatinine Ratio 21.1 H, Glucose 149 H, Calcium 9.0 04/07/19 05:14: WBC 16.6 H, RBC 4.53 L, Hgb 13.8, Hct 41.3, MCV 91.2, MCH 30.5, MCHC 33.4, RDW Std Deviation 42.5, RDW Coeff of Adriana 12.8, Plt Count 197, MPV 12.1 H, Immature Gran % (Auto) 1.000 H, Neut % (Auto) 68.3, Lymph % (Auto) 13.3 L, [place] % (Auto) 14.5 H, Eos % (Auto) 2.2, Baso % (Auto) 0.7, Absolute Neuts (auto) 11.4 H, Absolute Lymphs (auto) 2.20, Nucleated RBC % 0, Differential Comment COMMENT, Diff Path Review October04/07/19 07:29: POC Glucose 158 H Current Medications Aspirin (Aspirin, Baby) 81 mg PO DAILY@0800 [facility] Last Admin: 04/07/19 08:01 Dose: 81 mg Documented by: Atorvastatin Calcium (Lipitor) 40 mg PO QHS [facility] Last Admin: 04/06/19 21:02 Dose: 40 mg Documented by: Cyanocobalamin (Vitamin B12) 1,000 mcg PO DAILYCM [facility] Last Admin: 04/07/19 08:02 Dose: 1,000 mcg Documented by: Dextrose (D50w Syringe) 0 gm IV X1 PRN; Protocol PRN Reason: Hypoglycemia Docusate Sodium (Colace) 200 mg PO BID PRN PRN PRN Reason: Constipation Enoxaparin Sodium (Lovenox) 40 mg SC DAILY@0600 [facility] Last Admin: 04/07/19 05:58 Dose: 40 mg Documented by: Gabapentin (Neurontin) 600 mg PO TIDCM [facility] Last Admin: 04/07/19 08:01 Dose: 600 mg Documented by: Glucagon () 1 mg IM .X1 PRN PRN Reason: Hypoglycemia Naloxone HCl 4 mg/ Dextrose 504 mls @ 0 mls/hr IV .Q0M PRN; Protocol PRN Reason: To maintain Resp. rate >10 Sodium Chloride () 250 mls @ 15 mls/hr IV .[id number] PRN PRN Reason: Saline Flush Insulin Glargine (Lantus (Bkc)) 72 units SC QHS [facility] Last Admin: 04/06/19 22:22 Dose: 72 units Documented by: Insulin Human Lispro (Humalog Kwikpen ([facility])) 12 unit SC TIDAC [facility] Last Admin: 04/07/19 08:00 Dose: 12 u Documented by: Insulin Human Lispro (Humalog Kwikpen (Bk)) 0 unit SC ACHS [facility]; Protocol Last Admin: 04/07/19 08:00 Dose: 3 u Documented by: Lisinopril (Zestril) 5 mg PO DAILY [facility] Last Admin: 04/07/19 08:01 Dose: 5 mg Documented by: Morphine Sulfate () 2 mg IV Q3H PRN PRN PRN Reason: Pain Score 6-10/10 Last Admin: 04/04/19 20:41 Dose: 2 mg Documented by: Naloxone HCl (Narcan) 0.02 mg IV Q1M PRN PRN Reason: RR <10 and pt unresponsive Nifedipine (Procardia Xl) 30 mg PO DAILY [facility] Last Admin: 04/07/19 08:01 Dose: 30 mg Documented by: Non-Formulary Medication (Dulaglutide) 1.5 mg SQ MO [facility] Nutritional Formula (Lactose Free) (Glucerna Shake) 120 ml PO TIDCM [facility] Last Admin: 04/07/19 08:06 Dose: 120 ml Documented by: Ondansetron HCl (Zofran) 4 mg IV Q8H PRN PRN PRN Reason: Nausea Oxycodone HCl (Oxyir) 5 mg PO Q4H PRN PRN PRN Reason: Pain Score 6-10/10 Last Admin: 04/06/19 09:23 Dose: 5 mg Documented by: Sodium Chloride () 10 - 40 ml IV UD PRN PRN Reason: SALINE FLUSH Last Admin: 04/04/19 20:45 Dose: 10 ml Documented by: Medical Necessity - Tobacco Use Smoking Status: Never smoker Assessment/Plan All Active Problems (Last Updated 04/07/19 @ 08:13 by Tracy Wheeler MD) Left forefoot deformities (Acute) Recurrent left forefoot infected ulcers (Acute) This is a 68 years old male patient underwent left forefoot transmetatarsal amputation for chronic left forefoot deformities and recurrent diabetic ulcers and infections and I am seeing this patient for follow-up after consultation for postoperative medical management. #1 status post left forefoot transmetatarsal amputation/left open gastrocnemius recession: Post operative date 3. This was done for chronic left forefoot deformities, recurrent infections and ulcers as well as gastrocnemius equinus. He is not on antibiotics. He has been afebrile, does have leukocytosis which seemed to be chronic. His vital signs are stable. From medical standpoint, patient can be discharged to [facility]. This leukocytosis is likely reactive versus chronic. Patient denies any shortness of breath to me. #2 type 2 diabetes mellitus: Blood sugar stable, on Humalog insulin 3 times daily as well as sliding scale. Hemoglobin A1c was 6.8% on September,. #3 hypertension: Blood pressure stable, continue lisinopril and nifedipine. #4 peripheral vascular disease: Stable, on aspirin and statins. #5 hyperlipidemia: On statins. #6 obstructive sleep apnea: Continue CPAP. #7 DVT prophylaxis: Subcu Lovenox. This note was generated with [employer] dictation software. It may contain incorrect words, spelling, and punctuation that were not noted in checking the note before signing. Code Visit Inpatient E&M: 56398 Subs Hosp L2
[2019-04-07 11:11] LABS: Bedside Glucose 198 mg/dL (70-110)
--- NOTE | 2019-04-07 11:44 | CASEMGMT ---
Addendum entered by Chaya Clark 04/07/19 15:29: SW updated pt on acceptance to TCU pending pre-cert. Pt states understanding. Original Note: Social Work Note SW placed a call to referral line and asked for update regarding referral. SW received message from Iveth with TCU stating TCU is able to accept pt and will submit for pre-cert. Plan: TCU pending pre-cert Chaya Clark [employer], [employer] CLAIMS MANAGER
[2019-04-07 14:26] LABS: Pathologist Review Reviewed
[2019-04-07 14:28] LABS: Pathologist Review Reviewed
[2019-04-07 16:01] LABS: Bedside Glucose 281 mg/dL (70-110)
[2019-04-07] MEDS: Docusate Sodium 100 MG Capsule 200 MG PO (17:00)
[2019-04-07] MEDS: Atorvastatin Calcium 40 MG Tablet PO (21:21)
[2019-04-07] MEDS: 0.9% Saline Lock 10 ML Syringe IV (21:58)
[2019-04-07 22:05] LABS: Bedside Glucose 281 mg/dL (70-110)
[2019-04-08 02:00] VITALS: BP 125/77; PULSE 78; RESP 16; TEMP 36.6; O2SAT 97
[2019-04-08] MEDS: Enoxaparin 40 MG/0.4 ML Syringe SC (05:13)
[2019-04-08 07:32] VITALS: O2SAT 95
--- NOTE | 2019-04-08 08:07 | PN_ITS ---
Subjective: Chief complaint: Follow-up after consultation for postoperative medical management. Patient seen and examined. No acute events overnight. Left foot pain is manageable, 3-4 out of 10 in severity and he is not requiring any significant amount of pain medications. His vital signs are stable. - Physical Exam Vitals/I&O's: Vital Signs Temp Pulse Resp BP Pulse Ox 97.8 F 78 16 125/77 H 95 04/08/19 02:00 04/08/19 02:00 04/08/19 02:00 04/08/19 02:00 04/08/19 07:32 Oxygen Flow Rate (L/min) 2 Oxygen Delivery Method Room Air Weight: 267 lb 13.786 oz Body Mass Index (BMI) 41.3 Intake and Output for Last 24 Hours 04/06/19 04/07/19 04/08/19 23:59 23:59 23:59 Intake Total 1700 / 2500 1800 / 2200 700 / 700 Output Total 2275 / 3175 4700 / 5700 1700 / 1700 Balance -575 / -675 -2900 / -3500 -1000 / -1000 General: Alert, Oriented x3, Cooperative, No apparent distress HEENT: Atraumatic, PERRLA, EOMI, Normocephalic Oral: Moist Mucosa, No Gingival or Mucosal Lesions/ Ulcerations Neck: Supple, No JVD, Negative Carotid Bruits, Trachea Midline, Thyroid Normal Size and Texture Lungs: Clear to auscultation, Normal air movement, No rhonchi, No wheeze, No rales, Diminished Cardiovascular: Regular rate, Regular Rhythm, Normal S1, Normal S2, PMI Normal Abdomen: Bowel Sounds Present, Soft, Non Tender, Non-Distended, No Hepato- splenomegaly Extremities: No clubbing, No cyanosis, No edema Skin: No rashes, Incision Lymphatic: No Cervical, Supraclavicular, or Inguinal Adenopathy Neurological: Cranial nerves II-XII grossly intact, Neuro grossly intact Psych/Mental Status: Normal Affect, Appropriate, Alert and oriented to time, place, person, mood and affect Laboratory Results 04/06/19 05:38: Diff Path Review Reviewed 04/07/19 05:14: Diff Path Review Reviewed 04/07/19 11:07: POC Glucose 198 H 04/07/19 15:57: POC Glucose 281 H 04/07/19 21:57: POC Glucose 281 H Current Medications Aspirin (Aspirin, Baby) 81 mg PO DAILY@0800 [facility] Last Admin: 04/07/19 08:01 Dose: 81 mg Documented by: Atorvastatin Calcium (Lipitor) 40 mg PO QHS [facility] Last Admin: 04/07/19 21:21 Dose: 40 mg Documented by: Cyanocobalamin (Vitamin B12) 1,000 mcg PO DAILYCM [facility] Last Admin: 04/07/19 08:02 Dose: 1,000 mcg Documented by: Dextrose (D50w Syringe) 0 gm IV X1 PRN; Protocol PRN Reason: Hypoglycemia Docusate Sodium (Colace) 200 mg PO BID PRN PRN PRN Reason: Constipation Last Admin: 04/07/19 17:00 Dose: 200 mg Documented by: Enoxaparin Sodium (Lovenox) 40 mg SC DAILY@0600 [facility] Last Admin: 04/08/19 05:13 Dose: 40 mg Documented by: Gabapentin (Neurontin) 600 mg PO TIDCM [facility] Last Admin: 04/07/19 16:57 Dose: 600 mg Documented by: Glucagon () 1 mg IM .X1 PRN PRN Reason: Hypoglycemia Naloxone HCl 4 mg/ Dextrose 504 mls @ 0 mls/hr IV .Q0M PRN; Protocol PRN Reason: To maintain Resp. rate >10 Sodium Chloride () 250 mls @ 15 mls/hr IV .[id number] PRN PRN Reason: Saline Flush Insulin Glargine (Lantus (Bkc)) 72 units SC QHS [facility] Last Admin: 04/07/19 21:57 Dose: 72 units Documented by: Insulin Human Lispro (Humalog Kwikpen (Bkc)) 12 unit SC TIDAC [facility] Last Admin: 04/07/19 16:55 Dose: 12 u Documented by: Insulin Human Lispro (Humalog Kwikpen (Bkc)) 0 unit SC ACHS [facility]; Protocol Last Admin: 04/07/19 21:57 Dose: 9 u Documented by: Lisinopril (Zestril) 5 mg PO DAILY [facility] Last Admin: 04/07/19 08:01 Dose: 5 mg Documented by: Morphine Sulfate () 2 mg IV Q3H PRN PRN PRN Reason: Pain Score 6-10/10 Last Admin: 04/04/19 20:41 Dose: 2 mg Documented by: Naloxone HCl (Narcan) 0.02 mg IV Q1M PRN PRN Reason: RR <10 and pt unresponsive Nifedipine (Procardia Xl) 30 mg PO DAILY [facility] Last Admin: 04/07/19 08:01 Dose: 30 mg Documented by: Nutritional Formula (Lactose Free) (Glucerna Shake) 120 ml PO TIDCM [facility] Last Admin: 04/07/19 17:00 Dose: 120 ml Documented by: Ondansetron HCl (Zofran) 4 mg IV Q8H PRN PRN PRN Reason: Nausea Oxycodone HCl (Oxyir) 5 mg PO Q4H PRN PRN PRN Reason: Pain Score 6-10/10 Last Admin: 04/06/19 09:23 Dose: 5 mg Documented by: Sodium Chloride () 10 - 40 ml IV UD PRN PRN Reason: SALINE FLUSH Last Admin: 04/07/19 21:58 Dose: 10 ml Documented by: Medical Necessity - Tobacco Use Smoking Status: Never smoker Assessment/Plan All Active Problems (Last Updated 04/07/19 @ 08:13 by Tracy Wheeler MD) Left forefoot deformities (Acute) Recurrent left forefoot infected ulcers (Acute) This is a 68 years old male patient underwent left forefoot transmetatarsal amputation for chronic left forefoot deformities and recurrent diabetic ulcers and infections and I am seeing this patient for follow-up after consultation for postoperative medical management. #1 status post left forefoot transmetatarsal amputation/left open gastrocnemius recession: Post operative day 3. This was done for chronic left forefoot deformities, recurrent infections and ulcers as well as gastrocnemius equinus. He is not on antibiotics. Leukocytosis attributed to be reactive versus heel painter neno. Patient has been afebrile. Awaiting insurance approval for placement to retirement facility. From medical standpoint, patient can be discharged to retirement facility. #2 type 2 diabetes mellitus: Blood sugar under fair control, on Lantus nightly, Humalog insulin 3 times daily as well as sliding scale. Hemoglobin A1c was 6.8% on September,. #3 hypertension: Blood pressure stable, continue lisinopril and nifedipine. #4 peripheral vascular disease: Stable, on aspirin and statins. #5 hyperlipidemia: On statins. #6 obstructive sleep apnea: Continue CPAP. #7 DVT prophylaxis: Subcu Lovenox. This note was generated with basno dictation software. It may contain incorrect words, spelling, and punctuation that were not noted in checking the note before signing. Code Visit Inpatient E&M: 05988 Subs Hosp L2
[2019-04-08 08:21] LABS: Bedside Glucose 241 mg/dL (70-110)
[2019-04-08 08:30] VITALS: BP 148/79; PULSE 103; RESP 16; TEMP 36.6; O2SAT 95
[2019-04-08] MEDS: Insulin Lispro 100 UNIT/ML INSULN.PEN 12 UNIT SC ×3 (08:32→16:54)
[2019-04-08] MEDS: Insulin Lispro 100 UNIT/ML INSULN.PEN SC ×4 (08:32→22:16)
[2019-04-08] MEDS: Lisinopril 5 MG Tablet PO (08:33)
[2019-04-08] MEDS: NIFEdipine 30 MG Tablet PO (08:33)
[2019-04-08] MEDS: Aspirin 81 MG TAB.CHEW PO (08:34)
[2019-04-08] MEDS: Gabapentin 600 MG Tablet PO ×3 (08:34→16:54)
[2019-04-08] MEDS: Cyanocobalamin 500 MCG Tablet 1000 MCG PO (08:34)
[2019-04-08] MEDS: Glucerna Shake 120 ML LIQUID PO ×3 (08:37→16:53)
--- NOTE | 2019-04-08 10:32 | PCM.PROGNOTE ---
Subjective: This 68-year-old male with diabetic neuropathy seen bedside postoperative day #4 left transmetatarsal amputation open gastrocnemius recession. He denies fever, chill, nausea, vomiting, chest pain, loss of appetite, constipation, or urinary retention again today. His relates that his pain is much more controlled today. No adverse events over night. - Physical Exam Vitals/I&O's: Vital Signs Temp Pulse Resp BP Pulse Ox 97.9 F 103 H 16 148/79 H 95 04/08/19 08:30 04/08/19 08:30 04/08/19 08:30 04/08/19 08:30 04/08/19 08:30 Oxygen Flow Rate (L/min) 2 Oxygen Delivery Method Room Air Weight: 121.5 kg Body Mass Index (BMI) 41.3 Intake and Output for Last 24 Hours 04/06/19 04/07/19 04/08/19 23:59 23:59 23:59 Intake Total 1700 / 2500 1800 / 2200 700 / 700 Output Total 2275 / 3175 4700 / 5700 1700 / 1700 Balance -575 / -675 -2900 / -3500 -1000 / -1000 General: Alert, Oriented x3, Cooperative Extremities: No Calf Tenderness - Negative Eldridge sign left Skin: - - Dressing left in place today. There is no strikethrough appreciated. Musculoskeletal: No Tenderness to Palpation of Joints or Extremities Psych/Mental Status: Normal Affect, Appropriate Laboratory Results 04/06/19 05:38: Diff Path Review Reviewed 04/07/19 05:14: Diff Path Review Reviewed 04/07/19 11:07: POC Glucose 198 H 04/07/19 15:57: POC Glucose 281 H 04/07/19 21:57: POC Glucose 281 H 04/08/19 08:10: POC Glucose 241 H Current Medications Aspirin (Aspirin, Baby) 81 mg PO DAILY@0800 [facility] Last Admin: 04/08/19 08:34 Dose: 81 mg Documented by: Atorvastatin Calcium (Lipitor) 40 mg PO QHS [facility] Last Admin: 04/07/19 21:21 Dose: 40 mg Documented by: Cyanocobalamin (Vitamin B12) 1,000 mcg PO DAILYCM [facility] Last Admin: 04/08/19 08:34 Dose: 1,000 mcg Documented by: Dextrose (D50w Syringe) 0 gm IV X1 PRN; Protocol PRN Reason: Hypoglycemia Docusate Sodium (Colace) 200 mg PO BID PRN PRN PRN Reason: Constipation Last Admin: 04/07/19 17:00 Dose: 200 mg Documented by: Enoxaparin Sodium (Lovenox) 40 mg SC DAILY@0600 [facility] Last Admin: 04/08/19 05:13 Dose: 40 mg Documented by: Gabapentin (Neurontin) 600 mg PO TIDCM [facility] Last Admin: 04/08/19 08:34 Dose: 600 mg Documented by: Glucagon () 1 mg IM .X1 PRN PRN Reason: Hypoglycemia Naloxone HCl 4 mg/ Dextrose 504 mls @ 0 mls/hr IV .Q0M PRN; Protocol PRN Reason: To maintain Resp. rate >10 Sodium Chloride () 250 mls @ 15 mls/hr IV .[id number] PRN PRN Reason: Saline Flush Insulin Glargine (Lantus (Bkc)) 72 units SC QHS [facility] Last Admin: 04/07/19 21:57 Dose: 72 units Documented by: Insulin Human Lispro (Humalog Kwikpen (Bkc)) 12 unit SC TIDAC [facility] Last Admin: 04/08/19 08:32 Dose: 12 u Documented by: Insulin Human Lispro (Humalog Kwikpen (Bkc)) 0 unit SC ACHS [facility]; Protocol Last Admin: 04/08/19 08:32 Dose: 6 u Documented by: Lisinopril (Zestril) 5 mg PO DAILY [facility] Last Admin: 04/08/19 08:33 Dose: 5 mg Documented by: Morphine Sulfate () 2 mg IV Q3H PRN PRN PRN Reason: Pain Score 6-10/10 Last Admin: 04/04/19 20:41 Dose: 2 mg Documented by: Naloxone HCl (Narcan) 0.02 mg IV Q1M PRN PRN Reason: RR <10 and pt unresponsive Nifedipine (Procardia Xl) 30 mg PO DAILY [facility] Last Admin: 04/08/19 08:33 Dose: 30 mg Documented by: Nutritional Formula (Lactose Free) (Glucerwaldo Martin) 120 ml PO TIDCM [facility] Last Admin: 04/08/19 08:37 Dose: 120 ml Documented by: Ondansetron HCl (Zofran) 4 mg IV Q8H PRN PRN PRN Reason: Nausea Oxycodone HCl (Oxyir) 5 mg PO Q4H PRN PRN PRN Reason: Pain Score 6-10/10 Last Admin: 04/06/19 09:23 Dose: 5 mg Documented by: Sodium Chloride () 10 - 40 ml IV UD PRN PRN Reason: SALINE FLUSH Last Admin: 04/07/19 21:58 Dose: 10 ml Documented by: Medical Necessity - Tobacco Use Smoking Status: Never smoker Assessment/Plan All Active Problems (Last Updated 04/07/19 @ 08:13 by Tracy Wheeler MD) Left forefoot deformities (Acute) Recurrent left forefoot infected ulcers (Acute) Status post left transmetatarsal amputation and open gastrocnemius recession secondary to chronic forefoot deformities with recurrent ulcers infections and amputations: POD#4 Diabetes with neuropathy Other comorbidities including sleep apnea, hypertension, hyperlipidemia, obesity Small vessel disease This patient was carefully examined and evaluated resting in a chair by his bed today. He is postoperative day #4. His surgical dressing was kept intact. This will be changed next week again. The plan is for patient to be transferred to TCU. Physical and occupational therapy are on consultation. The patient relates that his pain continues to improve. He was again advised to maintain a strict nonweightbearing status. He is advised to ice and elevate as needed. Medical management and DVT prophylaxis per primary team is greatly appreciated. Podiatry will continue to follow this patient while in house. He has been cleared from a medical standpoint for transfer pending placement.
--- NOTE | 2019-04-08 11:28 | PCM.DC.SUM ---
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 Summary of Care Provided: The patient is a 68 year old M [] - Physical Exam Vitals/I&O's: Vital Signs Temp Pulse Resp BP Pulse Ox 97.9 F 103 H 16 148/79 H 95 04/08/19 08:30 04/08/19 08:30 04/08/19 08:30 04/08/19 08:30 04/08/19 08:30 Oxygen Flow Rate (L/min) 2 Oxygen Delivery Method Room Air Weight: 121.5 kg Body Mass Index (BMI) 41.3 Intake and Output for Last 24 Hours 04/06/19 04/07/19 04/08/19 23:59 23:59 23:59 Intake Total 1700 / 2500 1800 / 2200 700 / 700 Output Total 2275 / 3175 4700 / 5700 1700 / 1700 Balance -575 / -675 -2900 / -3500 -1000 / -1000 Laboratory Results 04/06/19 05:38: Diff Path Review Reviewed 04/07/19 05:14: Diff Path Review Reviewed 04/07/19 15:57: POC Glucose 281 H 04/07/19 21:57: POC Glucose 281 H 04/08/19 08:10: POC Glucose 241 H Current Medications Aspirin (Aspirin, Baby) 81 mg PO DAILY@0800 [facility] Last Admin: 04/08/19 08:34 Dose: 81 mg Documented by: Atorvastatin Calcium (Lipitor) 40 mg PO QHS [facility] Last Admin: 04/07/19 21:21 Dose: 40 mg Documented by: Cyanocobalamin (Vitamin B12) 1,000 mcg PO DAILYCM [facility] Last Admin: 04/08/19 08:34 Dose: 1,000 mcg Documented by: Dextrose (D50w Syringe) 0 gm IV X1 PRN; Protocol PRN Reason: Hypoglycemia Docusate Sodium (Colace) 200 mg PO BID PRN PRN PRN Reason: Constipation Last Admin: 04/07/19 17:00 Dose: 200 mg Documented by: Enoxaparin Sodium (Lovenox) 40 mg SC DAILY@0600 [facility] Last Admin: 04/08/19 05:13 Dose: 40 mg Documented by: Gabapentin (Neurontin) 600 mg PO TIDCM [facility] Last Admin: 04/08/19 08:34 Dose: 600 mg Documented by: Glucagon () 1 mg IM .X1 PRN PRN Reason: Hypoglycemia Naloxone HCl 4 mg/ Dextrose 504 mls @ 0 mls/hr IV .Q0M PRN; Protocol PRN Reason: To maintain Resp. rate >10 Sodium Chloride () 250 mls @ 15 mls/hr IV .[id number] PRN PRN Reason: Saline Flush Insulin Glargine (Lantus (Bkc)) 72 units SC QHS [facility] Last Admin: 04/07/19 21:57 Dose: 72 units Documented by: Insulin Human Lispro (Humalog Kwikpen (Bkc)) 12 unit SC TIDAC [facility] Last Admin: 04/08/19 08:32 Dose: 12 u Documented by: Insulin Human Lispro (Humalog Kwikpen (Bkc)) 0 unit SC ACHS [facility]; Protocol Last Admin: 04/08/19 08:32 Dose: 6 u Documented by: Lisinopril (Zestril) 5 mg PO DAILY [facility] Last Admin: 04/08/19 08:33 Dose: 5 mg Documented by: Morphine Sulfate () 2 mg IV Q3H PRN PRN PRN Reason: Pain Score 6-10/10 Last Admin: 04/04/19 20:41 Dose: 2 mg Documented by: Naloxone HCl (Narcan) 0.02 mg IV Q1M PRN PRN Reason: RR <10 and pt unresponsive Nifedipine (Procardia Xl) 30 mg PO DAILY [facility] Last Admin: 04/08/19 08:33 Dose: 30 mg Documented by: Nutritional Formula (Lactose Free) (Matteo Martin) 120 ml PO TIDCM [facility] Last Admin: 04/08/19 08:37 Dose: 120 ml Documented by: Ondansetron HCl (Zofran) 4 mg IV Q8H PRN PRN PRN Reason: Nausea Oxycodone HCl (Oxyir) 5 mg PO Q4H PRN PRN PRN Reason: Pain Score 6-10/10 Last Admin: 04/06/19 09:23 Dose: 5 mg Documented by: Sodium Chloride () 10 - 40 ml IV UD PRN PRN Reason: SALINE FLUSH Last Admin: 04/07/19 21:58 Dose: 10 ml Documented by: Home Medications: Medications to take at Discharge Dulaglutide [Trulicity] 1.5 mg SQ MO 01/06/17 Nifedipine [Nifedipine ER] 30 mg PO DAILY 01/06/17 Cholecalciferol (Vitamin D3) [Vitamin D3] 6,000 unit PO DAILY 09/16/18 Cyanocobalamin (Vitamin B-12) [B-12] 1,000 mcg PO DAILY 09/16/18 Gabapentin 600 mg PO TID 09/16/18 Insulin Glargine [Lantus SoloStar Pen] 72 units SC QHS 09/24/18 Aspirin [Aspirin, Baby] 81 mg PO DAILY@0800 tab.chew 10/11/18 Atorvastatin Calcium [Lipitor] 40 mg PO QHS #30 tablet 10/11/18 Insulin Lispro [Humalog KwikPen] 12 unit SC TIDAC insuln.pen 10/11/18 Lisinopril [Zestril] 5 mg PO DAILY #30 tablet 10/11/18 Nystatin Powder [Mycostatin Powder] 1 applic TOPICAL 0600,2200 bottle 10/11/18 metFORMIN HCl [Glucophage] 1,000 mg PO BIDCM #60 tablet 10/11/18 Amoxicillin/Potassium Clav [Amox Tr-K Clv 875-125 mg Tab] 1 ea PO BID 01/12/19 Hydrocodone/Acetaminophen [Hydrocodon-Acetaminophen 5-325] 1 - 2 tab PO Q6H PRN PRN 7 Days #30 tab 04/07/19 Following Prescrptions Were Given to Patient: Hydrocodone/Acetaminophen [Hydrocodon-Acetaminophen 5-325] 1 - 2 tab PO Q6H PRN PRN 7 Days #30 tab PRN Reason: Pain Prescription Printed Primary Care Physician: Dexter Reid DO [Primary Care Provider] - Medical Necessity - Tobacco Use Smoking Status: Never smoker
--- NOTE | 2019-04-08 11:29 | PCM.TXEXTCAR ---
- Diet 04/04/19 12:55 Diet: Carbohydrate Controlled - Routine Orders/Code Status Code Status: Full Code - Wound(s) LT FOOT Wound Type: surgical incision to posterior left leg also Dressing Change: keep clean and intact - Therapies Weight Bearing: Non weight bearing - left lower extremity Extremity Affected:: Left Lower Physical Therapy: Eval and Treat Occupational Therapy: Eval and Treat - Problem/Diagnosis (1) Gastrocnemius equinus of left lower extremity Status: Resolved (2) Status post amputation of left great toe Status: Chronic (3) Type 2 diabetes mellitus with diabetic polyneuropathy Status: Chronic - Allergies/Procedures Done in Hospital Allergies/Adverse Reactions: Allergies No Known Allergies Allergy (Verified 04/04/19 08:42) - Type of Care/Length of Stay Estimated LOS: Convalescent Care Less Than 30 days Type of Care Needed: Skilled Rehab Potential: Good Prognosis: Good - Additional Orders/Day of Discharge H&P will serve as current which was dated: 04/04/19 Day of Discharge: 04/09/19 - Dietary and Speech Recommendations Dietitian Recommendations/Changes: May benefit from 1 packet Zhao BID. Continue CHO controlled diet. Continue Glucerna TID. - Follow Up Care Primary Care Physician: Dexter Reid DO [Primary Care Provider] - Please Follow Up With: Maria A Payton DPM When: within a week
[2019-04-08 11:55] LABS: Bedside Glucose 231 mg/dL (70-110)
--- NOTE | 2019-04-08 13:50 | CASEMGMT ---
Addendum entered by Chaya Clark 04/08/19 15:11: CARMELA received call from Anusha in TCU stating pre-cert was not submitted correctly yesterday and pre-cert was just submitted today. Pre-cert likely won't be obtained today. Original Note: Social Work Note CARMELA placed a call to Iveth with TCU who states pre-cert is still pending. Plan: TCU pending pre-cert Cahya Clark [employer]
[2019-04-08 14:18] VITALS: BP 154/99; PULSE 97; RESP 16; TEMP 36.6; O2SAT 97
[2019-04-08 17:01] LABS: Bedside Glucose 285 mg/dL (70-110)
[2019-04-08 19:47] VITALS: BP 158/82; PULSE 98; RESP 16; TEMP 37.3; O2SAT 100
[2019-04-08] MEDS: Atorvastatin Calcium 40 MG Tablet PO (22:15)
[2019-04-08 22:21] LABS: Bedside Glucose 241 mg/dL (70-110)
[2019-04-09 02:09] VITALS: BP 145/75; PULSE 84; RESP 14; TEMP 37.2; O2SAT 95
[2019-04-09] MEDS: Enoxaparin 40 MG/0.4 ML Syringe SC (05:09)
[2019-04-09 06:50] VITALS: O2SAT 94
--- NOTE | 2019-04-09 07:54 | PN_ITS ---
Subjective: Chief complaint: Follow-up after consultation for postoperative medical management. Patient seen and examined. No acute events overnight. Patient is doing fine, pain on the left foot is around 4 oxygen in severity, manageable. Denies any other complaints. His vital signs are stable. - Physical Exam Vitals/I&O's: Vital Signs Temp Pulse Resp BP Pulse Ox 98.9 F 84 14 145/75 H 94 04/09/19 02:09 04/09/19 02:09 04/09/19 02:09 04/09/19 02:09 04/09/19 06:50 Oxygen Flow Rate (L/min) 2 Oxygen Delivery Method Room Air Weight: 267 lb 13.786 oz Body Mass Index (BMI) 41.3 Intake and Output for Last 24 Hours 04/07/19 04/08/19 04/09/19 23:59 23:59 23:59 Intake Total 1800 / 2200 2000 / 2250 1150 / 1150 Output Total 4700 / 5700 2400 / 2400 1325 / 1325 Balance -2900 / -3500 -400 / -150 -175 / -175 General: Alert, Oriented x3, Cooperative, No apparent distress HEENT: Atraumatic, PERRLA, EOMI, Normocephalic Oral: Moist Mucosa, No Gingival or Mucosal Lesions/ Ulcerations Neck: Supple, No JVD, Negative Carotid Bruits, Trachea Midline, Thyroid Normal Size and Texture Lungs: Clear to auscultation, Normal air movement, No rhonchi, No wheeze, No rales, Diminished Cardiovascular: Regular rate, Regular Rhythm, Normal S1, Normal S2, PMI Normal Abdomen: Bowel Sounds Present, Soft, Non Tender, Non-Distended, No Hepato- splenomegaly, Obese Extremities: No clubbing, No cyanosis, No edema Skin: No rashes, Incision Lymphatic: No Cervical, Supraclavicular, or Inguinal Adenopathy Neurological: Cranial nerves II-XII grossly intact, Neuro grossly intact Psych/Mental Status: Normal Affect, Appropriate, Alert and oriented to time, place, person, mood and affect Laboratory Results 04/08/19 08:10: POC Glucose 241 H 04/08/19 11:39: POC Glucose 231 H 04/08/19 16:51: POC Glucose 285 H 04/08/19 22:14: POC Glucose 241 H Current Medications Aspirin (Aspirin, Baby) 81 mg PO DAILY@0800 [facility] Last Admin: 04/08/19 08:34 Dose: 81 mg Documented by: Atorvastatin Calcium (Lipitor) 40 mg PO QHS [facility] Last Admin: 04/08/19 22:15 Dose: 40 mg Documented by: Cyanocobalamin (Vitamin B12) 1,000 mcg PO DAILYCM [facility] Last Admin: 04/08/19 08:34 Dose: 1,000 mcg Documented by: Dextrose (D50w Syringe) 0 gm IV X1 PRN; Protocol PRN Reason: Hypoglycemia Docusate Sodium (Colace) 200 mg PO BID PRN PRN PRN Reason: Constipation Last Admin: 04/07/19 17:00 Dose: 200 mg Documented by: Enoxaparin Sodium (Lovenox) 40 mg SC DAILY@0600 [facility] Last Admin: 04/09/19 05:09 Dose: 40 mg Documented by: Gabapentin (Neurontin) 600 mg PO TIDCM [facility] Last Admin: 04/08/19 16:54 Dose: 600 mg Documented by: Glucagon () 1 mg IM .X1 PRN PRN Reason: Hypoglycemia Naloxone HCl 4 mg/ Dextrose 504 mls @ 0 mls/hr IV .Q0M PRN; Protocol PRN Reason: To maintain Resp. rate >10 Sodium Chloride () 250 mls @ 15 mls/hr IV .[id number] PRN PRN Reason: Saline Flush Insulin Glargine (Lantus (Bkc)) 72 units SC QHS [facility] Last Admin: 04/08/19 22:15 Dose: 72 units Documented by: Insulin Human Lispro (Humalog Kwikpen (Bkc)) 12 unit SC TIDAC [facility] Last Admin: 04/08/19 16:54 Dose: 12 u Documented by: Insulin Human Lispro (Humalog Kwikpen (Bkc)) 0 unit SC ACHS [facility]; Protocol Last Admin: 04/08/19 22:16 Dose: 6 u Documented by: Lisinopril (Zestril) 5 mg PO DAILY [facility] Last Admin: 04/08/19 08:33 Dose: 5 mg Documented by: Morphine Sulfate () 2 mg IV Q3H PRN PRN PRN Reason: Pain Score 6-10/10 Last Admin: 04/04/19 20:41 Dose: 2 mg Documented by: Naloxone HCl (Narcan) 0.02 mg IV Q1M PRN PRN Reason: RR <10 and pt unresponsive Nifedipine (Procardia Xl) 30 mg PO DAILY [facility] Last Admin: 04/08/19 08:33 Dose: 30 mg Documented by: Nutritional Formula (Lactose Free) (Glucerna Mario) 120 ml PO TIDCM [facility] Last Admin: 04/08/19 16:53 Dose: 120 ml Documented by: Ondansetron HCl (Zofran) 4 mg IV Q8H PRN PRN PRN Reason: Nausea Oxycodone HCl (Oxyir) 5 mg PO Q4H PRN PRN PRN Reason: Pain Score 6-10/10 Last Admin: 04/06/19 09:23 Dose: 5 mg Documented by: Sodium Chloride () 10 - 40 ml IV UD PRN PRN Reason: SALINE FLUSH Last Admin: 04/07/19 21:58 Dose: 10 ml Documented by: Medical Necessity - Tobacco Use Smoking Status: Never smoker Assessment/Plan All Active Problems (Last Updated 04/07/19 @ 08:13 by Tracy Wheeler MD) Left forefoot deformities (Acute) Recurrent left forefoot infected ulcers (Acute) Gastrocnemius equinus of left lower extremity (Resolved) This is a 68 years old male patient underwent left forefoot transmetatarsal amputation for chronic left forefoot deformities and recurrent diabetic ulcers and infections and I am seeing this patient for follow-up after consultation for postoperative medical management. #1 status post left forefoot transmetatarsal amputation/left open gastrocnemius recession: Post operative day 4. This was done for chronic left forefoot deformities, recurrent infections and ulcers as well as gastrocnemius equinus. His vital signs are stable, afebrile. Pain is manageable. He is on IV morphine and OxyIR PRN for pain. Awaiting insurance approval for placement to fdc facility. From medical standpoint, patient can be discharged to fdc facility on the same previous medications that he has been taking witho ut any changes. #2 type 2 diabetes mellitus: Blood sugar under fair control, on Lantus nightly, Humalog insulin 3 times daily as well as sliding scale. Hemoglobin A1c was 6.8% on September,. #3 hypertension: Blood pressure stable, continue lisinopril and nifedipine. #4 peripheral vascular disease: Stable, on aspirin and statins. #5 hyperlipidemia: On statins. #6 obstructive sleep apnea: Continue CPAP. #7 DVT prophylaxis: Subcu Lovenox. This note was generated with [employer] dictation software. It may contain incorrect words, spelling, and punctuation that were not noted in checking the note before signing. Code Visit Inpatient E&M: 86529 Subs Hosp L2
[2019-04-09] MEDS: Insulin Lispro 100 UNIT/ML INSULN.PEN 12 UNIT SC ×2 (08:07→11:53)
[2019-04-09] MEDS: Insulin Lispro 100 UNIT/ML INSULN.PEN SC ×2 (08:07→11:54)
[2019-04-09] MEDS: Aspirin 81 MG TAB.CHEW PO (08:09)
[2019-04-09] MEDS: Cyanocobalamin 500 MCG Tablet 1000 MCG PO (08:09)
[2019-04-09] MEDS: Lisinopril 5 MG Tablet PO (08:09)
[2019-04-09 08:10] VITALS: BP 143/63; PULSE 80; RESP 18; TEMP 36.3; O2SAT 98
[2019-04-09] MEDS: NIFEdipine 30 MG Tablet PO (08:10)
[2019-04-09] MEDS: Glucerna Shake 120 ML LIQUID PO ×2 (08:10→11:53)
[2019-04-09] MEDS: Gabapentin 600 MG Tablet PO ×2 (08:10→11:53)
[2019-04-09 08:36] LABS: Bedside Glucose 153 mg/dL (70-110)
--- NOTE | 2019-04-09 11:26 | CASEMGMT ---
LW[place]PO[place]. Oskar Mayberry is listed as pt's Medical POA. ROSITA Uribe
[2019-04-09 12:01] LABS: Bedside Glucose 219 mg/dL (70-110)
--- NOTE | 2019-04-09 13:14 | CASEMGMT ---
Social Work Note SW placed a call to Anusha in TCU and updated her that this worker is leaving soon for the day and to call [facility] floor if pre-cert is obtained. Plan: TCU pending pre-cert Chaya Clark [employer] MACHINE, PAD MACHINE OFFBEARER
[2019-04-09 14:45] VITALS: BP 145/83; PULSE 82; RESP 18; TEMP 36.7; O2SAT 94
--- NOTE | 2019-04-09 15:04 | NURSING ---
This nurse received a phone call from Anusha Mackenzie RN/TCU corporate traffic manager, she stated that Pt has been approved to go to TCU and can come anytime. This nurse texted [employer] Payton to inform her.
--- NOTE | 2019-04-11 13:50 | DS.PCM_ITS ---
Discharge Date and Diagnosis - Problem List Patient Problems: Active and Suspected Problems (Last Reviewed 09/17/18 @ 16:48 by Sandy Maharaj PA-C) Debility (Acute) History of amputation of left foot through metatarsal bone (Acute) Date of Admission: 04/04/19 Date of Discharge: 04/09/19 - Primary Discharge Diagnosis Active and Suspected Problems (Last Reviewed 09/17/18 @ 16:48 by Sandy Maharaj PA-C) Debility (Acute) History of amputation of left foot through metatarsal bone (Acute) - transmetatarsal amputation h/o chronic foot deformities, ulcers, infections, and toe amputations diabetes with neuropathy difficulty walking - Secondary Discharge Diagnosis Chronic Problems (Last Updated 04/07/19 @ 08:13 by Tracy Wheeler MD) Body mass index (BMI) 40.0-44.9, adult (Chronic) Vitamin D deficiency (Chronic) Vitamin B12 deficiency (Chronic) Diabetic polyneuropathy (Chronic) Tinea corporis (Chronic) 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 (Chronic) 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 (Chronic) Hyperlipidemia (Chronic) Obstructive sleep apnea (Chronic) Hammer toe of left foot (Chronic) Sleep apnea (Chronic) PAD (peripheral artery disease) (Chronic) Hallux varus (acquired), left foot (Chronic) HTN (hypertension) (Chronic) Hospital Course and Treatment medicine service was consulted for management of medical comorbidities PT/OT Operations: None, - - left transmetatarsal amputation left gastrocnemius recession Procedures: None Summary of Care Provided: The patient is a 68 year old male with significant past medical history of diabetes with neuropathy, sleep apnea, obesity, rheumatoid arthritis, hypertension, and hyperlipidemia continues to have left foot forefoot deformities with recurrent infections including cellulitis, sepsis, and osteomyelitis, ulcers, and amputations. He elects to proceed with a curative transmetatarsal amputation surgery. His deformities included hallux varus, hammer toes, and gastrocnemius equinus. It is also noted that he has been previously diagnosed with small vessel disease in which additional intervention was not recommended after his last procedure. He did not have a current ulcer or infection at the time of this staged planned procedure. He had surgery on 04/04/19 including left transmetatarsal amputation and open gastrocnemius recession. He was admitted for post operative medical management, pain control, and functionality assessment. He remained stable after surgery. Physical therapy worked with him and [facility] facility placement was recommended. This was approved by the insurance and he was transferred to [facility] transitional care unit for further deconditioning prevention, left non weightbearing gait training, and medical management. The medicine team was also on consult for medical comorbidity management. He was transferred in a stable condition. Patient Problems: Active and Suspected Problems (Last Reviewed 09/17/18 @ 16:48 by Sandy Maharaj PA-C) Debility (Acute) History of amputation of left foot through metatarsal bone (Acute) - Physical Exam Vitals/I&O's: Vital Signs Temp Pulse Resp BP Pulse Ox 98.1 F 82 18 145/83 H 94 04/09/19 14:45 04/09/19 14:45 04/09/19 14:45 04/09/19 14:45 04/09/19 14:45 Oxygen Flow Rate (L/min) 2 Oxygen Delivery Method Room Air Weight: 121.5 kg Body Mass Index (BMI) 41.3 Intake and Output for Last 24 Hours 04/09/19 04/10/19 04/11/19 23:59 23:59 23:59 Intake Total 1150 / 1150 Output Total 1325 / 1325 Balance -175 / -175 General: Alert, Oriented x3, Cooperative HEENT: Atraumatic Lungs: Clear to auscultation, Diminished Cardiovascular: Regular rate, Regular Rhythm Extremities: Capillary Refill Less than 3 Seconds, No Calf Tenderness - negative aponte sign left and right, Edema - mild left lower extremity Skin: Ulcer/ Wound - dressing and splint clean, dry, intact without strikethrough or adjacent redness Musculoskeletal: No Tenderness to Palpation of Joints or Extremities, Muscle Wasting, - - transmetatarsal amputation left noted. left ankle improved dorsiflexion noted Neurological: - - lack of normal epicritic sensation to light touch is consistent with neuropathy Psych/Mental Status: Normal Affect, Appropriate Discharge Diet: Carb Control Diet Discharge Activity: Use Walker Weight Bearing Status: No weight bearing Keep extremity elevated above heart level: Left Leg Call your doctor if your incision/area has: Continuous Slow Oozing, Sudden Increased Bleeding, Increased Pain/ Swelling, Increased Redness, Foul Smelling Discharge, Swelling at the incision site Call your doctor if you observe: Fever of 101 or Higher, Coldness, Increased Pain, Numbness or Tingling, Chest pain, Calf discomfort, Uncontrolled pain Cleanse incision/area with: Keep Dressing Clean & Dry Home Medications: Medications to take at Discharge Dulaglutide [Trulicity] 1.5 mg SQ MO 01/06/17 Nifedipine [Nifedipine ER] 30 mg PO DAILY 01/06/17 Cholecalciferol (Vitamin D3) [Vitamin D3] 6,000 unit PO DAILY 09/16/18 Cyanocobalamin (Vitamin B-12) [B-12] 1,000 mcg PO DAILY 09/16/18 Gabapentin 600 mg PO TID 09/16/18 Insulin Glargine [Lantus SoloStar Pen] 72 units SC QHS 09/24/18 Lisinopril [Zestril] 5 mg PO DAILY #30 tablet 10/11/18 Amoxicillin/Potassium Clav [Amox Tr-K Clv 875-125 mg Tab] 1 ea PO BID 01/12/19 Hydrocodone/Acetaminophen [Hydrocodon-Acetaminophen 5-325] 1 - 2 tab PO Q6H PRN PRN 7 Days #30 tab 04/07/19 Aspirin [Aspirin, Baby] 81 mg PO DAILY@0800 04/09/19 Atorvastatin Calcium [Lipitor] 40 mg PO QHS 04/09/19 Insulin Lispro [Humalog KwikPen] 12 unit SUBCUT TIDAC 04/09/19 Nystatin Powder [Mycostatin Powder] 1 applic TOPICAL 0600,2200 04/09/19 metFORMIN HCl [Glucophage] 1,000 mg PO BIDCM 04/09/19 Following Prescrptions Were Given to Patient: Hydrocodone/Acetaminophen [Hydrocodon-Acetaminophen 5-325] 1 - 2 tab PO Q6H PRN PRN 7 Days #30 tab PRN Reason: Pain Prescription Printed Primary Care Physician: Dexter Reid DO [Primary Care Provider] - Please Follow Up With: Maria A Payton DPM When: within a week Disposition: Residential facility [facility] Transitional Care [facility] Minutes spent on discharge:: 20 Patient Condition:: Stable Medical Necessity - Tobacco Use Smoking Status: Never smoker Meaningful Use Info Meaningful Use Diagnoses (Choose all that apply): None applicable
== END 2019-04-09 16:23 | DRG 475 ==
LOC: SDC 13:02
PROVIDERS: Internal Medicine; Admitting Provider Podiatrist; Family Provider Family Medicine; PCP Family Medicine; Referring Provider Podiatrist; Visit Provider Hospitalist
PROC: (CPT 28805; principal; 2019-04-04 09:15)
DX: M21.6X2 Other acquired deformities of left foot (principal); Z68.41 Body mass index [BMI] 40.0-44.9, adult; M20.42 Other hammer toe(s) (acquired), left foot; E11.42 Type 2 diabetes mellitus with diabetic polyneuropathy; I10 Essential (primary) hypertension; Z79.4 Long term (current) use of insulin; E66.01 Morbid (severe) obesity due to excess calories; E78.5 Hyperlipidemia, unspecified; E55.9 Vitamin D deficiency, unspecified; E53.8 Deficiency of other specified B group vitamins; E11.51 Type 2 diabetes mellitus with diabetic peripheral angiopathy without gangrene; G47.33 Obstructive sleep apnea (adult) (pediatric); Z89.412 Acquired absence of left great toe
CPT/HCPCS: 36415; 73630; 76000; 80048; 80053; 82962; 83735; 85025; 85027; 88307; 88311; 88313; 93005; 94762; 97110; 97162; 97166; 97530; 97535; 97802; J7120; A4216; J2405

== ENCOUNTER 2019-04-09 16:55 | Inpatient (IN) | payer MEDICARE, OTHER, SELFPAY ==
[2019-04-04 14:09] VITALS: BMI 41.3
[2019-04-09 17:08] VITALS: BP 172/79; PULSE 104; RESP 22; TEMP 37.2; O2SAT 96
[2019-04-09 17:12] VITALS: BMI 41.3
[2019-04-09 17:16] LABS: Bedside Glucose 257 mg/dL (70-110)
[2019-04-09 17:17] VITALS: BMI 41.4
[2019-04-09] MEDS: Insulin Lispro 100 UNIT/ML INSULN.PEN 12 UNIT SC (18:27)
--- NOTE | 2019-04-09 21:11 | HP.PCM_ITS ---
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 The patient is a 68 year old Male with below past medical history with followin04/04/2019 EKG normal sinus rhythm, normal EKG. 04/04/2019 Admit to Hospital. 04/04/2019 Dr. Payton performed left metatarsal amputation. Left open gastrocnemius recession. Pain control, medical management. Non-weight bearing left lower extremity. PT/OT in consideration for Intermediate Facility placement. 04/04/2019 X-ray left foot, status post transmetatarsal amputation of foot. 04/04/2019 Long acting insulin, sliding scale insulin for Diabetes Mellitus II. DVT prophylaxis with Lovenox. 04/05/2019 Pain 7 out of 10, Pain medications adjusted. 04/06/2019 Pain improved. 04/07/2019 Elevated WBC chronic, A1c 6.8, sugar well controlled. CPAP for obstructive sleep apnea. 04/08/2019 Await insurance approval for Intermediate Facility. 04/09/2019 Admit to TCU with debility, here for rehabilitation, strengthening, prior to discharge home alone. 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 (Chronic) 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 (Chronic) Hyperlipidemia (Chronic) Obstructive sleep apnea (Chronic) Hammer toe of left foot (Chronic) Sleep apnea (Chronic) PAD (peripheral artery disease) (Chronic) Hallux varus (acquired), left foot (Chronic) HTN (hypertension) (Chronic) Medical History: Medical History (Last Updated 04/07/19 @ 08:13 by Tracy Wheeler MD) PAD (peripheral artery disease) (Chronic) I73.9 Hallux varus (acquired), left foot (Chronic) M20.32 HTN (hypertension) (Chronic) I10 History of amputation of toe Onset Date: ~2012 Z89.429 Sleep apnea G47.30 Allergies No Known Allergies Allergy (Verified 04/04/19 08:42) Home Medications: Ambulatory Orders Medication Instructions Recorded Dulaglutide [Trulicity] 1.5 mg SQ MO 01/06/17 Nifedipine [Nifedipine ER] 30 mg PO DAILY 01/06/17 Cholecalciferol (Vitamin D3) 6,000 unit PO DAILY 09/16/18 [Vitamin D3] Cyanocobalamin (Vitamin B-12) 1,000 mcg PO DAILY 09/16/18 [B-12] Gabapentin 600 mg PO TID 09/16/18 Insulin Glargine [Lantus SoloStar 72 units SC QHS 09/24/18 Pen] Lisinopril [Zestril] 5 mg PO DAILY #30 tablet 10/11/18 Amoxicillin/Potassium Clav [Amox 1 ea PO BID 01/12/19 Tr-K Clv 875-125 mg Tab] Hydrocodone/Acetaminophen 1 - 2 tab PO Q6H PRN PRN 7 Days 04/07/19 [Hydrocodon-Acetaminophen 5-325] #30 tab Aspirin [Aspirin, Baby] 81 mg PO DAILY@0800 04/09/19 Atorvastatin Calcium [Lipitor] 40 mg PO QHS 04/09/19 Insulin Lispro [Humalog KwikPen] 12 unit SUBCUT TIDAC 04/09/19 Nystatin Powder [Mycostatin Powder] 1 applic TOPICAL 0600,2200 04/09/19 metFORMIN HCl [Glucophage] 1,000 mg PO BIDCM 04/09/19 Surgical History: Surgical History (Last Reviewed 09/17/18 @ 16:48 by Sandy Maharaj PA-C) History of detached retina repair Z98.890, Z86.69 S/P peripheral artery angioplasty Onset Date: ~2017 Z98.62 Status post peripheral artery angioplasty Z98.62 Surgical History: angioplasty, - - Left great toe amputation, left metatarsal amputation, left open gastrocnemius recession. Psychiatric History: No pertinent psych hx Lives: Alone Smoking Status: Never smoker Tobacco Use: Non-smoker Alcohol: Occasional Drugs: None - *Family History Maternal Family History: Family History (Last Reviewed 09/17/18 @ 16:48 by Sandy Maharaj PA-C) Mother Diabetes CVA (cerebral vascular accident) History Items: No pertinent history Review of Systems Constitutional: Denies: Chills, Fever, Weight Change HEENT: Denies: Head Aches, Sinus Congestion, Sinus Drainage Cardiovascular: Denies: Chest Pain, Palpitations Respiratory: Denies: Cough, Shortness of breath at rest, Sputum production Gastrointestinal: Denies: Abdominal Pain, Nausea, Vomiting Genitourinary: Denies: Dysuria Musculoskeletal: Denies: Joint Pain, Joint Tenderness Skin: Denies: Rash, Wounds Neurological: Denies: Numbness, Tingling, Focal weakness Psychiatric: Denies: Anxiety, Depression, Homicidal Ideations, Suicidal Ideations Hematologic/ Lymphatic: Denies: Easy Bruising, Easy Bleeding VTE Information - Inpt Only VTE Present on Admission: No VTE Mechan Device Prophylaxis: Knee High NEREYDA Hose VTE Pharm Prophylaxis ordered?: Yes Patient Problems: Active and Suspected Problems (Last Reviewed 09/17/18 @ 16:48 by Sandy Maharaj PA-C) Debility (Acute) History of amputation of left foot through metatarsal bone (Acute) - Physical Exam Vitals/I&O's: Vital Signs Temp Pulse Resp BP Pulse Ox 98.9 F 104 H 22 H 172/79 H 96 04/09/19 17:08 04/09/19 17:08 04/09/19 17:08 04/09/19 17:08 04/09/19 17:08 Oxygen Delivery Method Room Air Weight: 119.8 kg Body Mass Index (BMI) 41.3 Intake and Output for Last 24 Hours 04/07/19 04/08/19 04/09/19 23:59 23:59 23:59 Intake Total 360 / 360 Balance 360 / 360 General: Alert, Oriented x3, Cooperative HEENT: Atraumatic, PERRLA, EOMI, Normocephalic Neck: Supple, No JVD, Negative Carotid Bruits Lungs: Clear to auscultation, Normal air movement Cardiovascular: Regular rate, No murmurs Abdomen: Bowel Sounds Present, Soft, Non Tender Extremities: No edema, Capillary Refill Less than 3 Seconds, - - Left lower extremity dressed. Skin: No rashes, No breakdown Musculoskeletal: No Tenderness to Palpation of Joints or Extremities Neurological: Cranial nerves II-XII grossly intact Psych/Mental Status: Normal Affect, Appropriate Laboratory Results 04/09/19 17:09: POC Glucose 257 H Current Medications Hydrocodone Bitart/Acetaminophen (Castor 5mg-325mg) 1 - 2 tablet PO Q6H PRN PRN PRN Reason: Pain Score 1-1010 Amoxicillin/Clavulanate Potassium (Augmentin Tablet) 875 mg PO BIDCM [facility] Aspirin (Aspirin, Baby) 81 mg PO DAILY@0800 [facility] Atorvastatin Calcium (Lipitor) 40 mg PO QHS [facility] Cholecalciferol (Vitamin D) 6,000 unit PO DAILY [facility] Cyanocobalamin (Vitamin B12) 1,000 mcg PO DAILY [facility] Gabapentin (Neurontin) 600 mg PO TID [facility] Insulin Glargine (Lantus (Bkc)) 72 units SC QHS [facility] Insulin Human Lispro (Humalog Kwikpen (Bkc)) 12 unit SC TIDAC [facility] Last Admin: 04/09/19 18:27 Dose: 12 units Documented by: Lisinopril (Zestril) 5 mg PO DAILY [facility] Metformin HCl (Glucophage) 1,000 mg PO BIDCM [facility] Nifedipine (Procardia Xl) 30 mg PO DAILY [facility] Non-Formulary Medication (Dulaglutide) 1.5 mg SQ MO ONESIMO Nystatin (Mycostatin Powder) 1 applic TOPICAL 0600,2200 [facility]; Protocol Tuberculin PPD (Tubersol, Aplisol, Ppd) 5 tu ID X1 ONE Stop: 04/10/19 10:01 Tuberculin PPD (Tubersol, Aplisol, Ppd) 5 tu ID X1 ONE Stop: 04/17/19 10:01 Assessment/Plan All Active Problems (Last Updated 04/07/19 @ 08:13 by Tracy Wheeler MD) Debility (Acute) History of amputation of left foot through metatarsal bone (Acute) Left forefoot deformities (Acute) Recurrent left forefoot infected ulcers (Acute) Gastrocnemius equinus of left lower extremity (Resolved) 68 year old male with below past medical history significant for non-healing left diabetic foot ulcer, hospitalized for left metatarsal amputation, left open gastrocnemius recession 04/04/[address] Payton, admitted to TCU with debility, here for rehabilitation, strengthening, prior to discharge home alone. * Debility - PT/OT. * Pain - Tylenol 1000MG Q6H PRN pain (1-3), Oxycodone 5MG Q4H PRN pain (4-10). * Bowel - Miralax 17GM daily, Senna/colace 2 tablets BID, Dulcolax 10MG daily PRN. * Adult immunization - Flushot as necessary, Administer Prevnar 13 and/or Pneumovax 23 as necessary. * DVT prophylaxis - Lovenox 40MG SC daily. * Left foot infection status post left metatarsal amputation - Augmentin 875MG BID, stop date per Dr. Payton. * CV prophylaxis - Aspirin 81MG daily. * Hyperlipidemia - Atorvastatin 40MG QHS. * Vitamin D deficiency - D3 6000IU daily. * Vitamin B 12 deficiency - B12 1000MCG daily. * Diabetes Mellitus II - Metformin 1000MG BID, Trulicity 1.5MG per week, Lantus 72 units daily, Humalog 12 units TIDAC, monitor blood sugars. * Hypertension - Nifedipine 30MG daily, Lisinopril 5MG daily. * Tinea Corporis - Nystatin powder BID. * Obstructive sleep apnea - CPAP when sleeping, napping.
[2019-04-09 21:16] LABS: Bedside Glucose 297 mg/dL (70-110)
[2019-04-09] MEDS: Atorvastatin Calcium 40 MG Tablet PO (21:38)
[2019-04-09] MEDS: Gabapentin 600 MG Tablet PO (21:39)
[2019-04-09] MEDS: Nystatin Powder 15gm Bottle 1 APPLIC TOPICAL (21:39)
[2019-04-10 05:36] VITALS: BP 144/70; PULSE 90
[2019-04-10] MEDS: Enoxaparin 40 MG/0.4 ML Syringe SC (05:37)
[2019-04-10] MEDS: Gabapentin 600 MG Tablet PO ×3 (05:38→21:40)
[2019-04-10] MEDS: NIFEdipine 30 MG Tablet PO (05:38)
[2019-04-10] MEDS: Lisinopril 5 MG Tablet PO (05:39)
[2019-04-10] MEDS: Cyanocobalamin 500 MCG Tablet 1000 MCG PO (05:39)
[2019-04-10] MEDS: Nystatin Powder 15gm Bottle 1 APPLIC TOPICAL ×2 (05:43→21:43)
[2019-04-10 05:48] LABS: Absolute Lymphocyte Count 2.13 X10^3/uL (0.83-4.51); Absolute Neutrophil Count 12.1 X10^3/uL (2.0-7.7); Basophil# 0.15 X10^3/uL; Basophil% 0.9 % (0-1); Eosinophil# 0.34 X10^3/uL; Hematocrit 42.1 % (40-54); Hemoglobin 13.6 g/dL (13.0-16.5); Lymphocyte # 2.13 X10^3/ul (4.0); Lymphocyte % 12.2 % (19-41); Mean Corp Hgb Conc 32.3 g/dL (32-36); Mean Corpuscular Hgb 29.5 pg (27.0-32.0); Mean Corpuscular Volume 91.3 fL (80-94); Mean Platelet Vol. 11.2 fl (6.2-12.0); Monocyte# 2.45 X10^3/uL; Monocyte% 14.1 % (0-10); NRBC Flagged by Analyzer 0 % (0-5); Neutrophil # 12.05 X10^3/uL (2.7-7.7); Neutrophil % 69.2 % (47-70); POSITIVE DIFFERENTIAL YES; Platelet Count 257 K/mm3 (150-450); Red Blood Count 4.61 M/mm3 (4.6-6.2); White Blood Count 17.4 K/mm3 (4.4-11.0)
[2019-04-10 06:01] LABS: Differential Indicated SCAN CRITERIA MET
[2019-04-10 06:14] LABS: Anion Gap 9 (5-15); BUN 25 mg/dL (7-18); BUN/Creat Ratio 26.2 RATIO (10-20); Calcium,Total 9.2 mg/dL (8.5-10.1); Chloride 98 mmol/L (98-107); Creatinine, Serum 0.96 mg/dL (0.70-1.30); EST Glomerular Filtration Rate 83 mL/min (>60); Est Glom Filt Rate - Afr Amer 100 mL/min (>60); Estimated Creatinine Clearance 68.85 ml/min; Glucose 188 mg/dL (74-106); Potassium 4.7 mmol/L (3.5-5.1); Sodium Level 133 mmol/L (136-145)
[2019-04-10 06:16] LABS: Bedside Glucose 185 mg/dL (70-110)
[2019-04-10 06:41] LABS: Differential Comment SCANNED
[2019-04-10] MEDS: Amox/Clavulanate 875 MG Tablet PO ×2 (09:27→17:19)
[2019-04-10] MEDS: Aspirin 81 MG TAB.CHEW PO (09:27)
[2019-04-10] MEDS: metFORMIN HCl 1,000 MG Tablet 1000 MG PO ×2 (09:27→17:19)
[2019-04-10] MEDS: Insulin Lispro 100 UNIT/ML INSULN.PEN 12 UNIT SC ×3 (09:27→17:19)
[2019-04-10 10:46] LABS: Bedside Glucose 314 mg/dL (70-110)
[2019-04-10] MEDS: Tuberculin,Purif.prot.deriv. 50 TU/ML Vial 5 ML ID (11:27)
[2019-04-10] MEDS: Glucerna Shake 120 ML LIQUID PO ×2 (11:43→17:19)
[2019-04-10 13:45] LABS: Pathologist Review Reviewed
--- NOTE | 2019-04-10 15:32 | NURSING ---
DR. HARE CALLED. AWARE OF CONSULT FOR DR. DIAZ AND DRESSING CHANGES. STATED SOMEONE WILL BE IN EITHER TOMORROW OR THIS WEEKEND FOR DRESSING CHANGE.
[2019-04-10 16:00] VITALS: BP 140/72; PULSE 95; RESP 18; TEMP 36.8; O2SAT 94
[2019-04-10 17:16] LABS: Bedside Glucose 266 mg/dL (70-110)
[2019-04-10] MEDS: Atorvastatin Calcium 40 MG Tablet PO (21:40)
[2019-04-10 21:41] LABS: Bedside Glucose 276 mg/dL (70-110)
[2019-04-11] MEDS: Cyanocobalamin 500 MCG Tablet 1000 MCG PO (05:51)
[2019-04-11] MEDS: NIFEdipine 30 MG Tablet PO (05:51)
[2019-04-11] MEDS: Lisinopril 5 MG Tablet PO (05:51)
[2019-04-11] MEDS: Enoxaparin 40 MG/0.4 ML Syringe SC (05:51)
[2019-04-11] MEDS: Gabapentin 600 MG Tablet PO ×3 (05:52→21:52)
[2019-04-11] MEDS: Nystatin Powder 15gm Bottle 1 APPLIC TOPICAL ×2 (05:53→21:53)
[2019-04-11 06:40] LABS: Bedside Glucose 242 mg/dL (70-110)
[2019-04-11] MEDS: Glucerna Shake 120 ML LIQUID PO ×3 (08:45→17:43)
[2019-04-11] MEDS: Insulin Lispro 100 UNIT/ML INSULN.PEN 12 UNIT SC ×3 (08:46→17:41)
[2019-04-11] MEDS: Aspirin 81 MG TAB.CHEW PO (08:48)
[2019-04-11] MEDS: Amox/Clavulanate 875 MG Tablet PO ×2 (08:48→17:41)
[2019-04-11] MEDS: metFORMIN HCl 1,000 MG Tablet 1000 MG PO ×2 (08:48→17:40)
[2019-04-11 10:41] LABS: Bedside Glucose 249 mg/dL (70-110)
--- NOTE | 2019-04-11 12:24 | PN_ITS ---
Patient Problems: Active and Suspected Problems (Last Reviewed 09/17/18 @ 16:48 by Sandy Maharaj PA-C) Debility (Acute) History of amputation of left foot through metatarsal bone (Acute) Subjective: This 68-year-old male with diabetic neuropathy seen bedside s/p left transmetatarsal amputation open gastrocnemius recession by Dr. Payton. He denies fever, chill, nausea, vomiting, chest pain, shortness of breath, loss of appetite, constipation, or urinary retention. Patient relates that his pain is currently very well controlled and he is currently having no discomfort. - Physical Exam Vitals/I&O's: Vital Signs Temp Pulse Resp BP Pulse Ox 98.3 F 95 18 140/72 H 94 04/10/19 16:00 04/10/19 16:00 04/10/19 16:00 04/10/19 16:00 04/10/19 16:00 Oxygen Delivery Method Room Air Weight: 119.8 kg Body Mass Index (BMI) 41.3 Intake and Output for Last 24 Hours 04/09/19 04/10/19 04/11/19 23:59 23:59 23:59 Intake Total 360 / 360 1320 / 1320 240 / 240 Balance 360 / 360 1320 / 1320 240 / 240 General: Alert, Oriented x3, Cooperative Extremities: No cyanosis, Capillary Refill Less than 3 Seconds - To distal surgical site, No Calf Tenderness - Negative Laci and Eldridge signs bilateral, Peripheral Pulses Normal Skin: Incision - Sutures are well aligned and coapted to transmetatarsal amputation site and gastrocnemius recession site to the posterior leg. There is no gapping, infection, necrosis, erythema, streaking or extending cellulitis, or malodor. His adjacent skin is atrophic. Musculoskeletal: No Tenderness to Palpation of Joints or Extremities, - - Transmetatarsal amputation of the left Neurological: - - Lack of normal epicritic sensation consistent with patient's diabetic neuropathy Psych/Mental Status: Normal Affect, Appropriate Laboratory Results 04/10/19 05:30: Diff Path Review Reviewed 04/10/19 17:13: POC Glucose 266 H 04/10/19 21:38: POC Glucose 276 H 04/11/19 06:25: POC Glucose 242 H 04/11/19 10:35: POC Glucose 249 H Current Medications Acetaminophen (Tylenol) 1,000 mg PO Q6H PRN PRN PRN Reason: Pain Score 1-3/10 Amoxicillin/Clavulanate Potassium (Augmentin Tablet) 875 mg PO BIDCM [facility] Last Admin: 04/11/19 08:48 Dose: 875 mg Documented by: Aspirin (Aspirin, Baby) 81 mg PO DAILY@0800 [facility] Last Admin: 04/11/19 08:48 Dose: 81 mg Documented by: Atorvastatin Calcium (Lipitor) 40 mg PO QHS [facility] Last Admin: 04/10/19 21:40 Dose: 40 mg Documented by: Bisacodyl (Dulcolax) 10 mg PO DAILY PRN PRN Reason: Constipation Cholecalciferol (Vitamin D) 6,000 unit PO DAILY [facility] Last Admin: 04/11/19 05:51 Dose: 6,000 unit Documented by: Cyanocobalamin (Vitamin B12) 1,000 mcg PO DAILY [facility] Last Admin: 04/11/19 05:51 Dose: 1,000 mcg Documented by: Enoxaparin Sodium (Lovenox) 40 mg SC DAILY@0600 [facility] Last Admin: 04/11/19 05:51 Dose: 40 mg Documented by: Gabapentin (Neurontin) 600 mg PO TID [facility] Last Admin: 04/11/19 05:52 Dose: 600 mg Documented by: Insulin Glargine (Lantus (Bkc)) 72 units SC QHS [facility] Last Admin: 04/10/19 21:40 Dose: 72 units Documented by: Insulin Human Lispro (Humalog Kwikpen (Bkc)) 12 unit SC TIDAC [facility] Last Admin: 04/11/19 11:30 Dose: 12 units Documented by: Lisinopril (Zestril) 5 mg PO DAILY [facility] Last Admin: 04/11/19 05:51 Dose: 5 mg Documented by: Metformin HCl (Glucophage) 1,000 mg PO BIDCM [facility] Last Admin: 04/11/19 08:48 Dose: 1,000 mg Documented by: Nifedipine (Procardia Xl) 30 mg PO DAILY [facility] Last Admin: 04/11/19 05:51 Dose: 30 mg Documented by: Nutritional Formula (Zhao - [place] Flavor) 1 packet PO BIDCM [facility] Last Admin: 04/11/19 11:30 Dose: 1 packet Documented by: Nutritional Formula (Lactose Free) (Glucerna Shake) 120 ml PO TIDCM [facility] Last Admin: 04/11/19 12:04 Dose: 120 ml Documented by: Nystatin (Mycostatin Powder) 1 applic TOPICAL 0600,2200 [facility]; Protocol Last Admin: 04/11/19 05:53 Dose: 1 applicatio Documented by: Oxycodone HCl (Oxyir) 5 mg PO Q4H PRN PRN PRN Reason: Pain Score 4-10/10 Polyethylene Glycol (Miralax) 17 gm PO DAILY [facility] Last Admin: 04/11/19 05:51 Dose: Not Given Documented by: Senna/Docusate Sodium (Senokot-S, Shantell-Colace) 2 tablet PO BID [facility] Last Admin: 04/11/19 05:51 Dose: Not Given Documented by: Tuberculin PPD (Tubersol, Aplisol, Ppd) 5 tu ID X1 ONE Stop: 04/17/19 10:01 Medical Necessity - Tobacco Use Smoking Status: Never smoker Tobacco Use: Non-smoker Assessment/Plan All Active Problems (Last Updated 04/07/19 @ 08:13 by Tracy Wheeler MD) Debility (Acute) History of amputation of left foot through metatarsal bone (Acute) Left forefoot deformities (Acute) Recurrent left forefoot infected ulcers (Acute) Gastrocnemius equinus of left lower extremity (Resolved) Status post left transmetatarsal amputation and open gastrocnemius recession by Dr. Payton Diabetes with neuropathy Other comorbidities including sleep apnea, hypertension, hyperlipidemia, obesity Small vessel disease This patient was carefully examined and evaluated resting in a chair by his bed this afternoon. His surgical dressing was changed today. Surgical site appears to be healing well with the skin edges still well coapted and sutures intact. There are currently no signs of local infection appreciated. Betadine was then painted to each surgical site, and then a new Betadine well-padded gauze and Kerlix dressing was applied followed by Keo wraps to help with his edema. Patient's pain is well controlled at this time. He was advised to maintain a strict nonweightbearing status. He is advised to ice and elevate. Medical management and DVT prophylaxis per primary team is greatly appreciated. Podiatry will continue to follow him closely while in house.
--- NOTE | 2019-04-11 14:12 | PHA.CONS_ITS ---
<VannaPaola M - Last Filed: 04/11/19 14:12> Progress Note - Pharmacy Subjective: TCU ADMISSION Objective: Allergies No Known Allergies Allergy (Verified 04/04/19 08:42) Current Medications Generic Name Dose Route Start Last Admin Trade Name Freq PRN Reason Stop Dose Admin Acetaminophen 1,000 mg 04/09/19 21:30 Tylenol PO Q6H PRN PRN Pain Score 1-3/10 Amoxicillin/Clavulanate Potassium 875 mg 04/10/19 08:00 04/11/19 08:48 Augmentin Tablet PO 875 mg BIDCM ONESIMO Administration Aspirin 81 mg 04/10/19 08:00 04/11/19 08:48 Aspirin, Baby PO 81 mg DAILY@0800 ONESIMO Administration Atorvastatin Calcium 40 mg 04/09/19 22:00 04/10/19 21:40 Lipitor PO 40 mg QHS ONESIMO Administration Bisacodyl 10 mg 04/09/19 21:31 Dulcolax PO DAILY PRN Constipation Cholecalciferol 6,000 unit 04/10/19 06:00 04/11/19 05:51 Vitamin D PO 6,000 unit DAILY ONESIMO Administration Cyanocobalamin 1,000 mcg 04/10/19 06:00 04/11/19 05:51 Vitamin B12 PO 1,000 mcg DAILY ONESIMO Administration Enoxaparin Sodium 40 mg 04/10/19 06:00 04/11/19 05:51 Lovenox SC 40 mg DAILY@0600 ONESIMO Administration Gabapentin 600 mg 04/09/19 22:00 04/11/19 13:40 Neurontin PO 600 mg TID ONESIMO Administration Insulin Glargine 72 units 04/09/19 22:00 04/10/19 21:40 Lantus (Bkc) SC 72 units QHS ONESIMO Administration Insulin Human Lispro 12 unit 04/10/19 06:45 04/11/19 11:30 Humalog Kwikpen (Bkc) SC 12 units TIDAC [facility] Administration Lisinopril 5 mg 04/10/19 06:00 04/11/19 05:51 Zestril PO 5 mg DAILY ONESIMO Administration Metformin HCl 1,000 mg 04/10/19 08:00 04/11/19 08:48 Glucophage PO 1,000 mg BIDCM ONESIMO Administration Nifedipine 30 mg 04/10/19 06:00 04/11/19 05:51 Procardia Xl PO 30 mg DAILY ONESIMO Administration Nutritional Formula 1 packet 04/11/19 08:00 04/11/19 11:30 Zhao - [place] Flavor PO 1 packet BIDCM ONESIMO Administration Nutritional Formula (Lactose Free) 120 ml 04/10/19 12:45 04/11/19 12:04 Glucerna Shake PO 120 ml TIDCM ONESIMO Administration Nystatin 1 applic 04/09/19 22:00 04/11/19 05:53 Mycostatin Powder TOPICAL 1 applicatio 0600,2200 ONESIMO Administration Protocol Oxycodone HCl 5 mg 04/09/19 21:31 Oxyir PO Q4H PRN PRN Pain Score 4-03/20 Polyethylene Glycol 17 gm 04/10/19 06:00 04/11/19 05:51 Miralax PO Not Given DAILY ONESIMO Senna/Docusate Sodium 2 tablet 04/10/19 06:00 04/11/19 05:51 Senokot-S, Shantell-Colace PO Not Given BID ONESIMO Tuberculin PPD 5 tu 04/17/19 10:00 Tubersol, Aplisol, Ppd ID 04/17/19 10:01 X1 ONE Problem List (Last Updated 04/07/19 @ 08:13 by Tracy Wheeler MD) Debility (Acute) History of amputation of left foot through metatarsal bone (Acute) Body mass index (BMI) 40.0-44.9, adult (Chronic) Vitamin D deficiency (Chronic) Vitamin B12 deficiency (Chronic) Diabetic polyneuropathy (Chronic) Tinea corporis (Chronic) Vital Signs Temp Pulse Resp BP Pulse Ox 98.3 F 95 18 140/72 H 94 04/10/19 16:00 04/10/19 16:00 04/10/19 16:00 04/10/19 16:00 04/10/19 16:00 Oxygen Delivery Method Room Air Weight: 119.8 kg Body Mass Index (BMI) 41.3 Sodium 133 mmol/L (136-145) L 04/10/19 05:30 Potassium 4.7 mmol/L (3.5-5.1) 04/10/19 05:30 Chloride 98 mmol/L (98-107) 04/10/19 05:30 Carbon Dioxide 26.0 mmol/L (21.0-32.0) 04/10/19 05:30 Anion Gap 9 (5-15) 04/10/19 05:30 BUN 25 mg/dL (7-18) H 04/10/19 05:30 Creatinine 0.96 mg/dL (0.70-1.30) 04/10/19 05:30 Est GFR (MDRD) Af Amer 100 mL/min (>60) 04/10/19 05:30 Est GFR (MDRD) Non-Af 83 mL/min (>60) 04/10/19 05:30 BUN/Creatinine Ratio 26.2 RATIO (10-20) H 04/10/19 05:30 Glucose 188 mg/dL (74-106) H 04/10/19 05:30 Assessment/Plan: 1. Pain: Tylenol 1000mg PO Q6H PRN pain (1-08/18), Oxycodone 5mg PO Q4H PRN pain (4-03/20). Please continue to monitor PRN usage and for signs of increased/decreased pain 2. DVT prophylaxis: Lovenox 40MG SC daily. Please continue to monitor renal function, and for S/S bleeding/bruising 3. Left foot infection: Augmentin 875mg PO BID. Please continue to monitor renal function, for diarrhea/stomach upset, and microbiology data if applicable. Of note: no stopdate. but per H/P stop date to be determined by podiatry service. 4. CV prophylaxis: Aspirin 81mg PO daily. Please continue to monitor for S/S bleeding/bruising 5. Hyperlipidemia: Atorvastatin 40mg PO QHS. Please continue to monitor lipids and recheck lipid panel as clinically necessary 6. Diabetes Mellitus II: Metformin 1000mg PO BID, Lantus 72 units SC QHS, Humalog 12 units SC TIDAC. Please continue to monitor blood glucose, renal function, and for S/S hyper/hypoglycemia 7. Hypertension: Nifedipine 30mg PO daily, Lisinopril 5mg PO daily. Please continue to monitor blood pressure, pulse, and potassium as clinically appropriate 8. Diabetic Neuropathy: Gabapentin 600mg PO TID. Please continue to monitor disease progression and renal function 9. General Wellness: Cholecalciferol 6000 units PO daily, Cyanocobalamin 1000mg PO daily. Please continue to monitor Psychotropic Medications: None Unnecessary Medications: None Bowel Regimen: Miralax 17g PO daily, Senna/Docusate 2 tablets PO BID, Dulcolax 10mg PO daily PRN. Please continue to monitor PRN usage and for S/S constipation and/or diarrhea Date of Note:: 04/11/19 - Provider Comments Provider responsibility: Provider responsible to enter orders to implement recommendations <Diaz Buitrago Chi - Last Filed: 04/11/19 14:46> Progress Note - Pharmacy Subjective: [] Objective: Allergies No Known Allergies Allergy (Verified 04/04/19 08:42) Current Medications Generic Name Dose Route Start Last Admin Trade Name Freq PRN Reason Stop Dose Admin Acetaminophen 1,000 mg 04/09/19 21:30 Tylenol PO Q6H PRN PRN Pain Score 1-3/10 Amoxicillin/Clavulanate Potassium 875 mg 04/10/19 08:00 04/11/19 08:48 Augmentin Tablet PO 875 mg BIDCM ONESIMO Administration Aspirin 81 mg 04/10/19 08:00 04/11/19 08:48 Aspirin, Baby PO 81 mg DAILY@0800 ONESIMO Administration Atorvastatin Calcium 40 mg 04/09/19 22:00 04/10/19 21:40 Lipitor PO 40 mg QHS ONESIMO Administration Bisacodyl 10 mg 04/09/19 21:31 Dulcolax PO DAILY PRN Constipation Cholecalciferol 6,000 unit 04/10/19 06:00 04/11/19 05:51 Vitamin D PO 6,000 unit DAILY ONESIMO Administration Cyanocobalamin 1,000 mcg 04/10/19 06:00 04/11/19 05:51 Vitamin B12 PO 1,000 mcg DAILY ONESIMO Administration Enoxaparin Sodium 40 mg 04/10/19 06:00 04/11/19 05:51 Lovenox SC 40 mg DAILY@0600 ONESIMO Administration Gabapentin 600 mg 04/09/19 22:00 04/11/19 13:40 Neurontin PO 600 mg TID ONESIMO Administration Insulin Glargine 72 units 04/09/19 22:00 04/10/19 21:40 Lantus (Bkc) SC 72 units QHS ONESIMO Administration Insulin Human Lispro 12 unit 04/10/19 06:45 04/11/19 11:30 Humalog Kwikpen (Bkc) SC 12 units TIDAC ONESIMO Administration Lisinopril 5 mg 04/10/19 06:00 04/11/19 05:51 Zestril PO 5 mg DAILY ONESIMO Administration Metformin HCl 1,000 mg 04/10/19 08:00 04/11/19 08:48 Glucophage PO 1,000 mg BIDCM ONESIMO Administration Nifedipine 30 mg 04/10/19 06:00 04/11/19 05:51 Procardia Xl PO 30 mg DAILY ONESIMO Administration Nutritional Formula 1 packet 04/11/19 08:00 04/11/19 11:30 Zhao - [place] Flavor PO 1 packet BIDCM ONESIMO Administration Nutritional Formula (Lactose Free) 120 ml 04/10/19 12:45 04/11/19 12:04 Glucerna Shake PO 120 ml TIDCM ONESIMO Administration Nystatin 1 applic 04/09/19 22:00 04/11/19 05:53 Mycostatin Powder TOPICAL 1 applicatio 0600,2200 ONESIMO Administration Protocol Oxycodone HCl 5 mg 04/09/19 21:31 Oxyir PO Q4H PRN PRN Pain Score 4-10/10 Polyethylene Glycol 17 gm 04/10/19 06:00 04/11/19 05:51 Miralax PO Not Given DAILY ONESIMO Senna/Docusate Sodium 2 tablet 04/10/19 06:00 04/11/19 05:51 Senokot-S, Shantell-Colace PO Not Given BID [facility] Tuberculin PPD 5 tu 04/17/19 10:00 Tubersol, Aplisol, Ppd ID 04/17/19 10:01 X1 ONE Problem List (Last Updated 04/07/19 @ 08:13 by Tracy Wheeler MD) Debility (Acute) History of amputation of left foot through metatarsal bone (Acute) Body mass index (BMI) 40.0-44.9, adult (Chronic) Vitamin D deficiency (Chronic) Vitamin B12 deficiency (Chronic) Diabetic polyneuropathy (Chronic) Tinea corporis (Chronic) Vital Signs Temp Pulse Resp BP Pulse Ox 98.3 F 95 18 140/72 H 94 04/10/19 16:00 04/10/19 16:00 04/10/19 16:00 04/10/19 16:00 04/10/19 16:00 Oxygen Delivery Method Room Air Weight: 119.8 kg Body Mass Index (BMI) 41.3 Sodium 133 mmol/L (136-145) L 04/10/19 05:30 Potassium 4.7 mmol/L (3.5-5.1) 04/10/19 05:30 Chloride 98 mmol/L (98-107) 04/10/19 05:30 Carbon Dioxide 26.0 mmol/L (21.0-32.0) 04/10/19 05:30 Anion Gap 9 (5-15) 04/10/19 05:30 BUN 25 mg/dL (7-18) H 04/10/19 05:30 Creatinine 0.96 mg/dL (0.70-1.30) 04/10/19 05:30 Est GFR (MDRD) Af Amer 100 mL/min (>60) 04/10/19 05:30 Est GFR (MDRD) Non-Af 83 mL/min (>60) 04/10/19 05:30 BUN/Creatinine Ratio 26.2 RATIO (10-20) H 04/10/19 05:30 Glucose 188 mg/dL (74-106) H 04/10/19 05:30 Assessment/Plan: Psychotropic Medications: Unnecessary Medications: Bowel Regimen: - Provider Comments Provider responsibility: Provider responsible to enter orders to implement recommendations Provider Comments to Recommendations by Pharmacy: Agree
[2019-04-11 16:00] VITALS: BP 132/65; PULSE 90; RESP 16; TEMP 36.7; O2SAT 95
[2019-04-11 16:55] LABS: Bedside Glucose 192 mg/dL (70-110)
[2019-04-11 21:31] LABS: Bedside Glucose 244 mg/dL (70-110)
[2019-04-11] MEDS: Atorvastatin Calcium 40 MG Tablet PO (21:52)
[2019-04-12] MEDS: Lisinopril 5 MG Tablet PO (05:57)
[2019-04-12] MEDS: Gabapentin 600 MG Tablet PO ×3 (05:57→20:00)
[2019-04-12] MEDS: Enoxaparin 40 MG/0.4 ML Syringe SC (05:58)
[2019-04-12] MEDS: Cyanocobalamin 500 MCG Tablet 1000 MCG PO (05:58)
[2019-04-12] MEDS: NIFEdipine 30 MG Tablet PO (05:58)
[2019-04-12] MEDS: Nystatin Powder 15gm Bottle 1 APPLIC TOPICAL ×2 (06:03→20:00)
[2019-04-12 06:35] LABS: Bedside Glucose 162 mg/dL (70-110)
[2019-04-12] MEDS: Glucerna Shake 120 ML LIQUID PO ×3 (07:48→17:50)
[2019-04-12] MEDS: Amox/Clavulanate 875 MG Tablet PO ×2 (07:49→17:48)
[2019-04-12] MEDS: Aspirin 81 MG TAB.CHEW PO (07:49)
[2019-04-12] MEDS: metFORMIN HCl 1,000 MG Tablet 1000 MG PO ×2 (07:49→17:48)
[2019-04-12] MEDS: Insulin Lispro 100 UNIT/ML INSULN.PEN 12 UNIT SC ×2 (07:49→11:55)
[2019-04-12 15:22] VITALS: BP 141/69; PULSE 83; RESP 16; TEMP 36.6; O2SAT 95
[2019-04-12 16:52] LABS: Bedside Glucose 118 mg/dL (70-110)
[2019-04-12] MEDS: Atorvastatin Calcium 40 MG Tablet PO (20:00)
[2019-04-12 21:15] LABS: Bedside Glucose 209 mg/dL (70-110)
[2019-04-13] MEDS: Enoxaparin 40 MG/0.4 ML Syringe SC (05:43)
[2019-04-13] MEDS: Cyanocobalamin 500 MCG Tablet 1000 MCG PO (05:44)
[2019-04-13] MEDS: NIFEdipine 30 MG Tablet PO (05:44)
[2019-04-13] MEDS: Gabapentin 600 MG Tablet PO ×3 (05:44→20:59)
[2019-04-13] MEDS: Lisinopril 5 MG Tablet PO (05:45)
[2019-04-13] MEDS: Nystatin Powder 15gm Bottle 1 APPLIC TOPICAL ×2 (05:47→21:03)
[2019-04-13 06:31] LABS: Bedside Glucose 135 mg/dL (70-110)
[2019-04-13] MEDS: Insulin Lispro 100 UNIT/ML INSULN.PEN 12 UNIT SC ×3 (08:01→17:11)
[2019-04-13] MEDS: Amox/Clavulanate 875 MG Tablet PO ×2 (08:02→17:09)
[2019-04-13] MEDS: Aspirin 81 MG TAB.CHEW PO (08:02)
[2019-04-13] MEDS: metFORMIN HCl 1,000 MG Tablet 1000 MG PO ×2 (08:03→17:09)
[2019-04-13] MEDS: Glucerna Shake 120 ML LIQUID PO ×3 (08:06→17:10)
[2019-04-13 12:05] LABS: Bedside Glucose 136 mg/dL (70-110)
[2019-04-13 15:22] VITALS: BP 144/73; PULSE 94; RESP 16; TEMP 36.9; O2SAT 95
[2019-04-13 16:41] LABS: Bedside Glucose 139 mg/dL (70-110)
[2019-04-13] MEDS: Atorvastatin Calcium 40 MG Tablet PO (20:59)
[2019-04-13 21:06] LABS: Bedside Glucose 203 mg/dL (70-110)
[2019-04-14] MEDS: Cyanocobalamin 500 MCG Tablet 1000 MCG PO (06:02)
[2019-04-14] MEDS: Gabapentin 600 MG Tablet PO ×3 (06:02→21:21)
[2019-04-14] MEDS: Enoxaparin 40 MG/0.4 ML Syringe SC (06:02)
[2019-04-14] MEDS: Lisinopril 5 MG Tablet PO (06:03)
[2019-04-14] MEDS: Nystatin Powder 15gm Bottle 1 APPLIC TOPICAL ×2 (06:03→21:22)
[2019-04-14] MEDS: NIFEdipine 30 MG Tablet PO (06:03)
[2019-04-14 06:26] LABS: Bedside Glucose 121 mg/dL (70-110)
[2019-04-14] MEDS: metFORMIN HCl 1,000 MG Tablet 1000 MG PO ×2 (07:40→17:21)
[2019-04-14] MEDS: Amox/Clavulanate 875 MG Tablet PO ×2 (07:40→17:22)
[2019-04-14] MEDS: Insulin Lispro 100 UNIT/ML INSULN.PEN 12 UNIT SC ×3 (07:41→18:19)
[2019-04-14] MEDS: Aspirin 81 MG TAB.CHEW PO (07:41)
[2019-04-14] MEDS: Glucerna Shake 120 ML LIQUID PO ×3 (07:42→17:21)
[2019-04-14 11:00] LABS: Bedside Glucose 164 mg/dL (70-110)
[2019-04-14 16:00] VITALS: BP 129/69; PULSE 84; RESP 16; TEMP 36.9
[2019-04-14 16:45] LABS: Bedside Glucose 97 mg/dL (70-110)
[2019-04-14 18:26] LABS: Bedside Glucose 155 mg/dL (70-110)
[2019-04-14 21:21] LABS: Bedside Glucose 183 mg/dL (70-110)
[2019-04-14] MEDS: Atorvastatin Calcium 40 MG Tablet PO (21:21)
[2019-04-15] MEDS: Enoxaparin 40 MG/0.4 ML Syringe SC (04:28)
[2019-04-15] MEDS: NIFEdipine 30 MG Tablet PO (04:29)
[2019-04-15] MEDS: Lisinopril 5 MG Tablet PO (04:29)
[2019-04-15] MEDS: Cyanocobalamin 500 MCG Tablet 1000 MCG PO (04:29)
[2019-04-15] MEDS: Gabapentin 600 MG Tablet PO ×3 (04:29→21:56)
[2019-04-15] MEDS: Nystatin Powder 15gm Bottle 1 APPLIC TOPICAL ×2 (04:32→21:57)
[2019-04-15 06:30] LABS: Bedside Glucose 128 mg/dL (70-110)
[2019-04-15] MEDS: DULAGLUTIDE 1.5 MG/0.5 ML PEN.INJCTR SQ (08:15)
[2019-04-15] MEDS: Glucerna Shake 120 ML LIQUID PO ×3 (08:40→17:32)
[2019-04-15] MEDS: Insulin Lispro 100 UNIT/ML INSULN.PEN 12 UNIT SC ×3 (08:40→17:28)
[2019-04-15] MEDS: Aspirin 81 MG TAB.CHEW PO (08:40)
[2019-04-15] MEDS: metFORMIN HCl 1,000 MG Tablet 1000 MG PO ×2 (08:40→17:29)
[2019-04-15] MEDS: Amox/Clavulanate 875 MG Tablet PO ×2 (08:40→17:30)
[2019-04-15 11:06] LABS: Bedside Glucose 190 mg/dL (70-110)
[2019-04-15 16:00] VITALS: BP 134/73; PULSE 85; RESP 16; TEMP 36.6; O2SAT 97
[2019-04-15 17:00] LABS: Bedside Glucose 116 mg/dL (70-110)
[2019-04-15 21:36] LABS: Bedside Glucose 173 mg/dL (70-110)
[2019-04-15] MEDS: Atorvastatin Calcium 40 MG Tablet PO (21:56)
[2019-04-16] MEDS: Enoxaparin 40 MG/0.4 ML Syringe SC (05:46)
[2019-04-16] MEDS: Nystatin Powder 15gm Bottle 1 APPLIC TOPICAL ×2 (05:46→21:28)
[2019-04-16] MEDS: Lisinopril 5 MG Tablet PO (05:47)
[2019-04-16] MEDS: Gabapentin 600 MG Tablet PO ×3 (05:47→21:25)
[2019-04-16] MEDS: Cyanocobalamin 500 MCG Tablet 1000 MCG PO (05:47)
[2019-04-16] MEDS: NIFEdipine 30 MG Tablet PO (05:47)
[2019-04-16 06:41] LABS: Bedside Glucose 96 mg/dL (70-110)
[2019-04-16] MEDS: Aspirin 81 MG TAB.CHEW PO (08:37)
[2019-04-16] MEDS: Insulin Lispro 100 UNIT/ML INSULN.PEN 12 UNIT SC ×3 (08:37→17:53)
[2019-04-16] MEDS: Amox/Clavulanate 875 MG Tablet PO ×2 (08:37→17:06)
[2019-04-16] MEDS: metFORMIN HCl 1,000 MG Tablet 1000 MG PO ×2 (08:38→17:06)
[2019-04-16] MEDS: Glucerna Shake 120 ML LIQUID PO ×3 (08:40→17:05)
--- NOTE | 2019-04-16 10:14 | CASEMGMT ---
Social Work IDT met with patient and brother for care plan meeting. Discussed patient's progress in therapy. Pt is SBA for all ADLs, hopping 10ft CGA with FWW. but at w/c level. Pt is using slide board to transfer and working on stand pivot transfers. Pt is on Zhao for healing of the foot, Glucerna shake and 1800 calorie diet - pt is eating well. Explained insurance update is 04/16 and continued stay is not guaranteed. Will continue to follow. Beverley Rodriguez, RAG CUTTING MACHINE OPERATOR GAMES MANAGER
[2019-04-16 11:00] LABS: Bedside Glucose 159 mg/dL (70-110)
[2019-04-16 16:00] VITALS: BP 119/63; PULSE 85; RESP 16; TEMP 36.8
[2019-04-16 17:06] LABS: Bedside Glucose 96 mg/dL (70-110)
[2019-04-16 21:06] LABS: Bedside Glucose 288 mg/dL (70-110)
[2019-04-16] MEDS: Atorvastatin Calcium 40 MG Tablet PO (21:24)
[2019-04-17 05:39] LABS: Absolute Lymphocyte Count 2.53 X10^3/uL (0.83-4.51); Absolute Neutrophil Count 8.6 X10^3/uL (2.0-7.7); Basophil# 0.11 X10^3/uL; Basophil% 0.8 % (0-1); Eosinophil# 0.62 X10^3/uL; Eosinophils% 4.6 % (0-5); Hematocrit 42.1 % (40-54); Hemoglobin 13.5 g/dL (13.0-16.5); Lymphocyte # 2.53 X10^3/ul (4.0); Lymphocyte % 18.9 % (19-41); Mean Corp Hgb Conc 32.1 g/dL (32-36); Mean Corpuscular Hgb 29.6 pg (27.0-32.0); Mean Corpuscular Volume 92.3 fL (80-94); Mean Platelet Vol. 10.8 fl (6.2-12.0); Monocyte# 1.31 X10^3/uL; Monocyte% 9.8 % (0-10); NRBC Flagged by Analyzer 0 % (0-5); Neutrophil # 8.57 X10^3/uL (2.7-7.7); Neutrophil % 64.1 % (47-70); Platelet Count 297 K/mm3 (150-450); RBC Distribution Width CV 12.8 % (11.6-14.6); RBC Distribution Width SD 43.1 fl (35.1-43.9); Red Blood Count 4.56 M/mm3 (4.6-6.2); White Blood Count 13.4 K/mm3 (4.4-11.0)
[2019-04-17 06:00] LABS: Anion Gap 6 (5-15); BUN 28 mg/dL (7-18); Calcium,Total 9.1 mg/dL (8.5-10.1); Chloride 100 mmol/L (98-107); Creatinine, Serum 0.93 mg/dL (0.70-1.30); EST Glomerular Filtration Rate 85 mL/min (>60); Est Glom Filt Rate - Afr Amer 103 mL/min (>60); Estimated Creatinine Clearance 71.08 ml/min; Glucose 104 mg/dL (74-106); Potassium 4.6 mmol/L (3.5-5.1); Sodium Level 138 mmol/L (136-145)
[2019-04-17] MEDS: NIFEdipine 30 MG Tablet PO (06:03)
[2019-04-17] MEDS: Gabapentin 600 MG Tablet PO ×3 (06:03→20:37)
[2019-04-17] MEDS: Enoxaparin 40 MG/0.4 ML Syringe SC (06:03)
[2019-04-17] MEDS: Lisinopril 5 MG Tablet PO (06:03)
[2019-04-17] MEDS: Cyanocobalamin 500 MCG Tablet 1000 MCG PO (06:03)
[2019-04-17] MEDS: Nystatin Powder 15gm Bottle 1 APPLIC TOPICAL ×2 (06:04→20:39)
[2019-04-17 06:31] LABS: Bedside Glucose 94 mg/dL (70-110)
[2019-04-17] MEDS: Insulin Lispro 100 UNIT/ML INSULN.PEN 7 UNIT SC ×3 (07:47→17:55)
[2019-04-17] MEDS: Glucerna Shake 120 ML LIQUID PO ×3 (07:47→17:23)
[2019-04-17] MEDS: Aspirin 81 MG TAB.CHEW PO (07:48)
[2019-04-17] MEDS: metFORMIN HCl 1,000 MG Tablet 1000 MG PO ×2 (07:48→17:20)
[2019-04-17] MEDS: Amox/Clavulanate 875 MG Tablet PO ×2 (07:48→17:20)
[2019-04-17] MEDS: Tuberculin,Purif.prot.deriv. 50 TU/ML Vial 5 ML ID (10:58)
[2019-04-17 11:00] LABS: Bedside Glucose 117 mg/dL (70-110)
--- NOTE | 2019-04-17 11:05 | NURSING ---
THIS NURSE ASKED PT IF IT WOULD BE OK IF HE WOULD MOVE TO ROOM 6 DUE TO NEEDING HIS ROOM FOR A CONFUSED PT. PT VERY HAPPY AND STATED YES AND I HAVE SEEN THAT ROOM. REPORTED TO RENNY BARNARD
[2019-04-17 16:00] VITALS: BP 127/67; PULSE 92; RESP 18; TEMP 36.8
--- NOTE | 2019-04-17 16:11 | CASEMGMT ---
Social Work Received notification from [employer] that patient's insurance coverage terminated 04/10; however, if pt paid for continued benefits and is still active, insurance approved pt's stay with next review date 04/23. Director verified benefits and [employer] did term 04/10. MMO Medicare is secondary that would assume primary. Spoke with patient to relay and inquire about above information. Pt stated he did not pay for April benefits. Assisted pt in calling [facility] to notify them they will assume primary insurance and pt is in SNF and will be submitting for retro precert. Asset Manager stated primary will begin 04/11/19. Director submitted for retro precert. Will await outcome. If pt is not approved, he will discharge home. Will continue to follow, NANDO Lozoya
[2019-04-17 17:01] LABS: Bedside Glucose 138 mg/dL (70-110)
[2019-04-17] MEDS: Atorvastatin Calcium 40 MG Tablet PO (20:38)
[2019-04-17 20:50] LABS: Bedside Glucose 198 mg/dL (70-110)
[2019-04-18] MEDS: Enoxaparin 40 MG/0.4 ML Syringe SC (06:01)
[2019-04-18] MEDS: Cyanocobalamin 500 MCG Tablet 1000 MCG PO (06:03)
[2019-04-18] MEDS: Lisinopril 5 MG Tablet PO (06:03)
[2019-04-18] MEDS: NIFEdipine 30 MG Tablet PO (06:04)
[2019-04-18] MEDS: Gabapentin 600 MG Tablet PO ×3 (06:04→22:26)
[2019-04-18] MEDS: Nystatin Powder 15gm Bottle 1 APPLIC TOPICAL ×2 (06:07→22:30)
[2019-04-18 06:15] VITALS: BP 143/79; PULSE 80; RESP 16; O2SAT 95
[2019-04-18 06:31] LABS: Bedside Glucose 100 mg/dL (70-110)
[2019-04-18] MEDS: Aspirin 81 MG TAB.CHEW PO (08:11)
[2019-04-18] MEDS: Amox/Clavulanate 875 MG Tablet PO ×2 (08:12→17:43)
[2019-04-18] MEDS: Insulin Lispro 100 UNIT/ML INSULN.PEN 7 UNIT SC ×3 (08:12→17:43)
[2019-04-18] MEDS: metFORMIN HCl 1,000 MG Tablet 1000 MG PO ×2 (08:12→17:43)
[2019-04-18] MEDS: Glucerna Shake 120 ML LIQUID PO ×3 (08:16→17:42)
[2019-04-18 10:46] LABS: Bedside Glucose 171 mg/dL (70-110)
--- NOTE | 2019-04-18 13:32 | PN_ITS ---
Patient Problems: Active and Suspected Problems (Last Reviewed 09/17/18 @ 16:48 by Sandy Maharaj PA-C) Debility (Acute) History of amputation of left foot through metatarsal bone (Acute) Subjective: This 68-year-old male with diabetic neuropathy seen bedside s/p left transmetatarsal amputation open gastrocnemius recession performed approximately 2 weeks ago. He denies fever, chill, nausea, vomiting, chest pain, shortness of breath, loss of appetite, constipation, or urinary retention. He denies pain. He continues to use his incentive spirometer. He relates rehabilitation is going well. - Physical Exam Vitals/I&O's: Vital Signs Temp Pulse Resp BP Pulse Ox 98.2 F 80 16 143/79 H 95 04/17/19 16:00 04/18/19 06:15 04/18/19 06:15 04/18/19 06:15 04/18/19 06:15 Oxygen Flow Rate (L/min) 96 Oxygen Delivery Method Room Air Weight: 120.746 kg Body Mass Index (BMI) 41.3 Intake and Output for Last 24 Hours 04/16/19 04/17/19 04/18/19 23:59 23:59 23:59 Intake Total 1200 / 1200 1750 / 1750 480 / 480 Balance 1200 / 1200 1750 / 1750 480 / 480 General: Alert, Oriented x3, Cooperative HEENT: Atraumatic Extremities: No cyanosis, Capillary Refill Less than 3 Seconds, No Calf Tenderness - Negative Laci and Eldridge sign left, Edema - Decreased to surgical limb, Tenderness - decreased pain to palpate gastrocnemius recession site Musculoskeletal: No Tenderness to Palpation of Joints or Extremities, Muscle Wasting, - - Compartment soft to palpate left lower extremity. Rectus left lower extremity noted. Transmetatarsal amputation left. Improved ankle joint dorsiflexion to about 10 degrees with the knee flexed and extended Neurological: - - Lack of normal epicritic sensation light touch consistent with neuropathy status Psych/Mental Status: Normal Affect, Appropriate Laboratory Results 04/17/19 16:55: POC Glucose 138 H 04/17/19 20:41: POC Glucose 198 H 04/18/19 06:20: POC Glucose 100 04/18/19 10:36: POC Glucose 171 H Current Medications Acetaminophen (Tylenol) 1,000 mg PO Q6H PRN PRN PRN Reason: Pain Score 1-3/10 Amoxicillin/Clavulanate Potassium (Augmentin Tablet) 875 mg PO BIDCM [facility] Last Admin: 04/18/19 08:12 Dose: 875 mg Documented by: Aspirin (Aspirin, Baby) 81 mg PO DAILY@0800 [facility] Last Admin: 04/18/19 08:11 Dose: 81 mg Documented by: Atorvastatin Calcium (Lipitor) 40 mg PO QHS [facility] Last Admin: 04/17/19 20:38 Dose: 40 mg Documented by: Bisacodyl (Dulcolax) 10 mg PO DAILY PRN PRN Reason: Constipation Cholecalciferol (Vitamin D) 6,000 unit PO DAILY [facility] Last Admin: 04/18/19 06:02 Dose: 6,000 unit Documented by: Cyanocobalamin (Vitamin B12) 1,000 mcg PO DAILY [facility] Last Admin: 04/18/19 06:03 Dose: 1,000 mcg Documented by: Enoxaparin Sodium (Lovenox) 40 mg SC DAILY@0600 [facility] Last Admin: 04/18/19 06:01 Dose: 40 mg Documented by: Gabapentin (Neurontin) 600 mg PO TID [facility] Last Admin: 04/18/19 06:04 Dose: 600 mg Documented by: Insulin Glargine (Lantus (Bkc)) 50 units SC QHS [facility] Insulin Human Lispro (Humalog Kwikpen (Bkc)) 7 unit SC TIDAC [facility] Last Admin: 04/18/19 11:41 Dose: 7 units Documented by: Lisinopril (Zestril) 5 mg PO DAILY [facility] Last Admin: 04/18/19 06:03 Dose: 5 mg Documented by: Metformin HCl (Glucophage) 1,000 mg PO BIDCM [facility] Last Admin: 04/18/19 08:12 Dose: 1,000 mg Documented by: Nifedipine (Procardia Xl) 30 mg PO DAILY [facility] Last Admin: 04/18/19 06:04 Dose: 30 mg Documented by: Nutritional Formula (Zhao - [place] Flavor) 1 packet PO BIDCM [facility] Last Admin: 04/18/19 08:12 Dose: 1 packet Documented by: Nutritional Formula (Lactose Free) (Glucerna Shake) 120 ml PO TIDCM [facility] Last Admin: 04/18/19 11:40 Dose: 120 ml Documented by: Nystatin (Mycostatin Powder) 1 applic TOPICAL 0600,2200 [facility]; Protocol Last Admin: 04/18/19 06:07 Dose: 1 applicatio Documented by: Oxycodone HCl (Oxyir) 5 mg PO Q4H PRN PRN PRN Reason: Pain Score 4-10/10 Polyethylene Glycol (Miralax) 17 gm PO DAILY [facility] Last Admin: 04/18/19 06:02 Dose: Not Given Documented by: Senna/Docusate Sodium (Senokot-S, Shantell-Colace) 2 tablet PO DAILY PRN PRN PRN Reason: Constipation Medical Necessity - Tobacco Use Smoking Status: Never smoker Tobacco Use: Non-smoker Assessment/Plan All Active Problems (Last Updated 04/07/19 @ 08:13 by Tracy Wheeler MD) Debility (Acute) History of amputation of left foot through metatarsal bone (Acute) Left forefoot deformities (Acute) Recurrent left forefoot infected ulcers (Acute) Gastrocnemius equinus of left lower extremity (Resolved) Status post left transmetatarsal amputation and open gastrocnemius recession (DOS 04/04/19) Diabetes with neuropathy Other comorbidities including sleep apnea, hypertension, hyperlipidemia, obesity Small vessel disease Deconditioning and fall risk This patient was carefully examined and evaluated resting in a chair by his bed this afternoon. He is afebrile and his vital signs remained stable. His po stoperative leukocytosis is downtrending. His pathology surgical specimen was negative for osteomyelitis. His surgical dressing was changed today. Surgical site appears to be healing well with the skin edges still well coapted and sutures intact. There are currently no signs of local infection appreciated. Betadine was then painted to each surgical site, and then a new Betadine well- padded gauze and Kerlix dressing was applied followed by Keo wraps to help with his edema. The sutures to the posterior leg were removed and the foot sutures were kept intact. Additionally a well-padded fiberglass posterior mold was applied with the left lower extremity in a rectus position for additional protection. Patient's pain is well controlled at this time. He was advised to maintain a strict nonweightbearing status. To continue rehabilitation for safe ambulation and deconditioning prevention. He is advised to ice and elevate. To continue incentive spirometry while awake. Medical management and DVT prophylaxis per primary team is greatly appreciated. Podiatry will continue to follow him closely while in house. He will be seen on a weekly basis by the podiatry team. Please not hesitate to call sooner if there are any questions or concerns. Maria A Payton DPM, [facility] [phone]
--- NOTE | 2019-04-18 14:00 | CASEMGMT ---
Social Work MMO approved pt with NRD 04/22. Will continue to follow. Beverley Rodriguez, AIRPLANE NAVIGATOR PROTECTION CONSULTANT
[2019-04-18 15:36] VITALS: BP 128/70; PULSE 90; RESP 20; TEMP 36.7; O2SAT 99
[2019-04-18 16:46] LABS: Bedside Glucose 72 mg/dL (70-110)
[2019-04-18 20:55] LABS: Bedside Glucose 126 mg/dL (70-110)
[2019-04-18] MEDS: Atorvastatin Calcium 40 MG Tablet PO (22:25)
[2019-04-19] MEDS: Gabapentin 600 MG Tablet PO ×3 (05:57→20:29)
[2019-04-19] MEDS: Cyanocobalamin 500 MCG Tablet 1000 MCG PO (05:57)
[2019-04-19] MEDS: Lisinopril 5 MG Tablet PO (05:57)
[2019-04-19] MEDS: Enoxaparin 40 MG/0.4 ML Syringe SC (05:57)
[2019-04-19] MEDS: Nystatin Powder 15gm Bottle 1 APPLIC TOPICAL ×2 (05:57→20:29)
[2019-04-19] MEDS: NIFEdipine 30 MG Tablet PO (05:57)
[2019-04-19 06:45] LABS: Bedside Glucose 130 mg/dL (70-110)
[2019-04-19] MEDS: metFORMIN HCl 1,000 MG Tablet 1000 MG PO ×2 (08:06→17:44)
[2019-04-19] MEDS: Aspirin 81 MG TAB.CHEW PO (08:06)
[2019-04-19] MEDS: Insulin Lispro 100 UNIT/ML INSULN.PEN 7 UNIT SC ×3 (08:06→17:43)
[2019-04-19] MEDS: Amox/Clavulanate 875 MG Tablet PO ×2 (08:06→17:44)
[2019-04-19] MEDS: Glucerna Shake 120 ML LIQUID PO ×3 (08:11→17:50)
[2019-04-19 10:36] LABS: Bedside Glucose 192 mg/dL (70-110)
[2019-04-19 15:38] VITALS: BP 109/63; PULSE 90; RESP 16; TEMP 36.6; O2SAT 96
[2019-04-19 17:00] LABS: Bedside Glucose 152 mg/dL (70-110)
[2019-04-19] MEDS: Atorvastatin Calcium 40 MG Tablet PO (20:29)
[2019-04-19 21:05] LABS: Bedside Glucose 224 mg/dL (70-110)
[2019-04-20] MEDS: Cyanocobalamin 500 MCG Tablet 1000 MCG PO (05:49)
[2019-04-20] MEDS: NIFEdipine 30 MG Tablet PO (05:49)
[2019-04-20] MEDS: Gabapentin 600 MG Tablet PO ×3 (05:49→20:35)
[2019-04-20] MEDS: Lisinopril 5 MG Tablet PO (05:50)
[2019-04-20] MEDS: Enoxaparin 40 MG/0.4 ML Syringe SC (05:50)
[2019-04-20] MEDS: Nystatin Powder 15gm Bottle 1 APPLIC TOPICAL ×2 (05:50→20:36)
[2019-04-20 06:46] LABS: Bedside Glucose 142 mg/dL (70-110)
[2019-04-20] MEDS: Amox/Clavulanate 875 MG Tablet PO ×2 (07:34→17:11)
[2019-04-20] MEDS: metFORMIN HCl 1,000 MG Tablet 1000 MG PO ×2 (07:35→17:11)
[2019-04-20] MEDS: Insulin Lispro 100 UNIT/ML INSULN.PEN 7 UNIT SC ×3 (07:35→17:12)
[2019-04-20] MEDS: Aspirin 81 MG TAB.CHEW PO (07:35)
[2019-04-20] MEDS: Glucerna Shake 120 ML LIQUID PO ×3 (07:42→17:15)
[2019-04-20 10:45] LABS: Bedside Glucose 163 mg/dL (70-110)
[2019-04-20 15:05] VITALS: BP 132/68; PULSE 91; RESP 18; TEMP 37; O2SAT 96
[2019-04-20 16:50] LABS: Bedside Glucose 170 mg/dL (70-110)
[2019-04-20] MEDS: Atorvastatin Calcium 40 MG Tablet PO (20:35)
[2019-04-20 21:30] LABS: Bedside Glucose 139 mg/dL (70-110)
[2019-04-21] MEDS: Enoxaparin 40 MG/0.4 ML Syringe SC (06:15)
[2019-04-21] MEDS: Gabapentin 600 MG Tablet PO ×3 (06:16→20:24)
[2019-04-21] MEDS: Lisinopril 5 MG Tablet PO (06:16)
[2019-04-21] MEDS: Nystatin Powder 15gm Bottle 1 APPLIC TOPICAL ×2 (06:16→20:26)
[2019-04-21] MEDS: NIFEdipine 30 MG Tablet PO (06:16)
[2019-04-21] MEDS: Cyanocobalamin 500 MCG Tablet 1000 MCG PO (06:16)
[2019-04-21 07:02] LABS: Bedside Glucose 150 mg/dL (70-110)
[2019-04-21] MEDS: Aspirin 81 MG TAB.CHEW PO (07:59)
[2019-04-21] MEDS: metFORMIN HCl 1,000 MG Tablet 1000 MG PO ×2 (08:00→17:12)
[2019-04-21] MEDS: Amox/Clavulanate 875 MG Tablet PO ×2 (08:00→17:12)
[2019-04-21] MEDS: Insulin Lispro 100 UNIT/ML INSULN.PEN 7 UNIT SC ×3 (08:00→17:13)
[2019-04-21] MEDS: Glucerna Shake 120 ML LIQUID PO ×3 (08:08→17:11)
[2019-04-21 10:00] VITALS: RESP 16; O2SAT 96
[2019-04-21 11:35] LABS: Bedside Glucose 197 mg/dL (70-110)
[2019-04-21 15:32] VITALS: BP 114/65; PULSE 87; RESP 18; TEMP 36.9; O2SAT 93
[2019-04-21 17:01] LABS: Bedside Glucose 135 mg/dL (70-110)
[2019-04-21] MEDS: Atorvastatin Calcium 40 MG Tablet PO (20:25)
[2019-04-21 21:21] LABS: Bedside Glucose 186 mg/dL (70-110)
[2019-04-22] MEDS: Enoxaparin 40 MG/0.4 ML Syringe SC (06:23)
[2019-04-22] MEDS: Gabapentin 600 MG Tablet PO ×3 (06:37→21:13)
[2019-04-22] MEDS: Lisinopril 5 MG Tablet PO (06:37)
[2019-04-22] MEDS: NIFEdipine 30 MG Tablet PO (06:38)
[2019-04-22] MEDS: Cyanocobalamin 500 MCG Tablet 1000 MCG PO (06:38)
[2019-04-22 06:41] LABS: Bedside Glucose 141 mg/dL (70-110)
[2019-04-22 06:55] VITALS: PULSE 76; RESP 16; O2SAT 98
--- NOTE | 2019-04-22 07:08 | MDS.RN ---
Information for the mds was obtained from review of the clinical record, interview of resident, staff, and direct observation of resident's care . Admission/5 day assessment was completed on 04/21/2019. unable to file assessment complete because even though Section O completed, [employer] program has grayed out the area to code complete at end of Section O. [facility] information systems and [employer] aware on 04/21/2019.
[2019-04-22] MEDS: Insulin Lispro 100 UNIT/ML INSULN.PEN 7 UNIT SC ×3 (08:16→17:43)
[2019-04-22] MEDS: Amox/Clavulanate 875 MG Tablet PO ×2 (08:16→17:42)
[2019-04-22] MEDS: Aspirin 81 MG TAB.CHEW PO (08:16)
[2019-04-22] MEDS: metFORMIN HCl 1,000 MG Tablet 1000 MG PO ×2 (08:16→17:42)
[2019-04-22] MEDS: Glucerna Shake 120 ML LIQUID PO ×3 (08:22→17:41)
[2019-04-22] MEDS: DULAGLUTIDE 1.5 MG/0.5 ML PEN.INJCTR SQ (11:04)
[2019-04-22 11:50] LABS: Bedside Glucose 110 mg/dL (70-110)
[2019-04-22 16:00] VITALS: BP 122/62; PULSE 94; RESP 18; TEMP 36.4; O2SAT 96
[2019-04-22 16:51] LABS: Bedside Glucose 157 mg/dL (70-110)
[2019-04-22] MEDS: Atorvastatin Calcium 40 MG Tablet PO (21:13)
[2019-04-22 21:46] LABS: Bedside Glucose 239 mg/dL (70-110)
[2019-04-23 06:31] LABS: Bedside Glucose 131 mg/dL (70-110)
[2019-04-23] MEDS: Cyanocobalamin 500 MCG Tablet 1000 MCG PO (06:39)
[2019-04-23] MEDS: Lisinopril 5 MG Tablet PO (06:39)
[2019-04-23] MEDS: NIFEdipine 30 MG Tablet PO (06:39)
[2019-04-23] MEDS: Gabapentin 600 MG Tablet PO ×3 (06:39→22:15)
[2019-04-23] MEDS: Enoxaparin 40 MG/0.4 ML Syringe SC (06:43)
[2019-04-23] MEDS: metFORMIN HCl 1,000 MG Tablet 1000 MG PO ×2 (07:55→17:44)
[2019-04-23] MEDS: Aspirin 81 MG TAB.CHEW PO (07:55)
[2019-04-23] MEDS: Amox/Clavulanate 875 MG Tablet PO ×2 (07:55→17:44)
[2019-04-23] MEDS: Insulin Lispro 100 UNIT/ML INSULN.PEN 7 UNIT SC ×3 (07:56→17:44)
[2019-04-23] MEDS: Glucerna Shake 120 ML LIQUID PO ×3 (08:00→17:42)
[2019-04-23 10:10] VITALS: PULSE 87; RESP 18; O2SAT 98
[2019-04-23 11:20] LABS: Bedside Glucose 163 mg/dL (70-110)
[2019-04-23 16:00] VITALS: BP 130/73; PULSE 94; RESP 18; TEMP 36.5; O2SAT 96
[2019-04-23 16:50] LABS: Bedside Glucose 171 mg/dL (70-110)
--- NOTE | 2019-04-23 17:01 | CASEMGMT ---
Social Work Patient approved from insurance update with NRD 04/28. Pt satisfied. Will continue to follow. Beverley Rodriguez, [employer]
[2019-04-23 21:06] LABS: Bedside Glucose 234 mg/dL (70-110)
[2019-04-23] MEDS: Atorvastatin Calcium 40 MG Tablet PO (22:15)
[2019-04-23] MEDS: Nystatin Powder 15gm Bottle 1 APPLIC TOPICAL (22:15)
[2019-04-24] MEDS: Enoxaparin 40 MG/0.4 ML Syringe SC (05:13)
[2019-04-24] MEDS: Gabapentin 600 MG Tablet PO ×3 (05:14→21:28)
[2019-04-24] MEDS: Cyanocobalamin 500 MCG Tablet 1000 MCG PO (05:14)
[2019-04-24] MEDS: Lisinopril 5 MG Tablet PO (05:14)
[2019-04-24] MEDS: NIFEdipine 30 MG Tablet PO (05:14)
[2019-04-24 05:37] LABS: Absolute Lymphocyte Count 3.16 X10^3/uL (0.83-4.51); Absolute Neutrophil Count 10.8 X10^3/uL (2.0-7.7); Basophil# 0.14 X10^3/uL; Basophil% 0.8 % (0-1); Eosinophils% 4.2 % (0-5); Hematocrit 44.5 % (40-54); Hemoglobin 14.3 g/dL (13.0-16.5); Lymphocyte # 3.16 X10^3/ul (4.0); Lymphocyte % 18.9 % (19-41); Mean Corp Hgb Conc 32.1 g/dL (32-36); Mean Corpuscular Hgb 29.7 pg (27.0-32.0); Mean Corpuscular Volume 92.5 fL (80-94); Mean Platelet Vol. 11.5 fl (6.2-12.0); Monocyte# 1.71 X10^3/uL; Monocyte% 10.2 % (0-10); NRBC Flagged by Analyzer 0 % (0-5); Neutrophil % 64.8 % (47-70); POSITIVE DIFFERENTIAL YES; Platelet Count 256 K/mm3 (150-450); RBC Distribution Width SD 43.9 fl (35.1-43.9); Red Blood Count 4.81 M/mm3 (4.6-6.2); White Blood Count 16.7 K/mm3 (4.4-11.0)
[2019-04-24 05:47] LABS: Differential Indicated SCAN CRITERIA MET
[2019-04-24 05:53] LABS: Anion Gap 5 (5-15); BUN 25 mg/dL (7-18); BUN/Creat Ratio 28.8 RATIO (10-20); Calcium,Total 9.5 mg/dL (8.5-10.1); Chloride 101 mmol/L (98-107); Creatinine, Serum 0.87 mg/dL (0.70-1.30); EST Glomerular Filtration Rate 93 mL/min (>60); Est Glom Filt Rate - Afr Amer 112 mL/min (>60); Estimated Creatinine Clearance 75.98 ml/min; Glucose 150 mg/dL (74-106); Potassium 4.5 mmol/L (3.5-5.1); Sodium Level 136 mmol/L (136-145)
[2019-04-24 06:26] LABS: Bedside Glucose 154 mg/dL (70-110)
--- NOTE | 2019-04-24 06:47 | MDS.RN ---
Able to finalize 5 day MDS assessment, blayne 04/16/19.
[2019-04-24] MEDS: Glucerna Shake 120 ML LIQUID PO ×3 (08:58→17:58)
[2019-04-24] MEDS: Amox/Clavulanate 875 MG Tablet PO ×2 (09:01→17:48)
[2019-04-24] MEDS: Insulin Lispro 100 UNIT/ML INSULN.PEN 7 UNIT SC ×3 (09:02→17:47)
[2019-04-24] MEDS: metFORMIN HCl 1,000 MG Tablet 1000 MG PO ×2 (09:02→17:48)
[2019-04-24] MEDS: Aspirin 81 MG TAB.CHEW PO (09:02)
[2019-04-24 10:51] LABS: Bedside Glucose 226 mg/dL (70-110)
[2019-04-24 16:00] VITALS: BP 170/84; PULSE 80; RESP 17; TEMP 37; O2SAT 95
[2019-04-24 16:51] LABS: Bedside Glucose 161 mg/dL (70-110)
[2019-04-24 21:21] LABS: Bedside Glucose 240 mg/dL (70-110)
[2019-04-24] MEDS: Atorvastatin Calcium 40 MG Tablet PO (21:28)
[2019-04-25] MEDS: Lisinopril 5 MG Tablet PO (06:14)
[2019-04-25] MEDS: Cyanocobalamin 500 MCG Tablet 1000 MCG PO (06:14)
[2019-04-25] MEDS: NIFEdipine 30 MG Tablet PO (06:14)
[2019-04-25] MEDS: Enoxaparin 40 MG/0.4 ML Syringe SC (06:14)
[2019-04-25] MEDS: Gabapentin 600 MG Tablet PO ×3 (06:14→20:28)
[2019-04-25 06:35] LABS: Bedside Glucose 151 mg/dL (70-110)
[2019-04-25] MEDS: Insulin Lispro 100 UNIT/ML INSULN.PEN 7 UNIT SC ×3 (08:44→17:54)
[2019-04-25] MEDS: Aspirin 81 MG TAB.CHEW PO (08:45)
[2019-04-25] MEDS: metFORMIN HCl 1,000 MG Tablet 1000 MG PO ×2 (08:45→19:22)
[2019-04-25] MEDS: Amox/Clavulanate 875 MG Tablet PO ×2 (08:45→17:53)
[2019-04-25] MEDS: Glucerna Shake 120 ML LIQUID PO ×3 (09:00→18:03)
[2019-04-25 11:26] LABS: Bedside Glucose 180 mg/dL (70-110)
[2019-04-25 16:00] VITALS: BP 114/64; PULSE 82; RESP 18; TEMP 36.8; O2SAT 95
[2019-04-25 17:00] LABS: Bedside Glucose 134 mg/dL (70-110)
[2019-04-25] MEDS: Atorvastatin Calcium 40 MG Tablet PO (20:28)
[2019-04-25 20:51] LABS: Bedside Glucose 244 mg/dL (70-110)
[2019-04-26] MEDS: Cyanocobalamin 500 MCG Tablet 1000 MCG PO (05:46)
[2019-04-26] MEDS: Gabapentin 600 MG Tablet PO ×3 (05:46→21:52)
[2019-04-26] MEDS: Enoxaparin 40 MG/0.4 ML Syringe SC (05:46)
[2019-04-26] MEDS: Lisinopril 5 MG Tablet PO (05:52)
[2019-04-26] MEDS: NIFEdipine 30 MG Tablet PO (06:18)
[2019-04-26 06:55] LABS: Bedside Glucose 146 mg/dL (70-110)
--- NOTE | 2019-04-26 07:47 | PN_ITS ---
Patient Problems: Active and Suspected Problems (Last Reviewed 09/17/18 @ 16:48 by Sandy Maharaj PA-C) Debility (Acute) History of amputation of left foot through metatarsal bone (Acute) Subjective: This 68-year-old male with diabetic neuropathy seen bedside s/p left transmetatarsal amputation open gastrocnemius recession performed approximately 3 weeks ago. He denies fever, chill, nausea, vomiting, chest pain, shortness of breath, loss of appetite, constipation, or urinary retention. He denies pain. He continues to use his incentive spirometer. He relates rehabilitation is going well. He denies other illness. - Physical Exam Vitals/I&O's: Vital Signs Temp Pulse Resp BP Pulse Ox 98.3 F 82 18 114/64 95 04/25/19 16:00 04/25/19 16:00 04/25/19 16:00 04/25/19 16:00 04/25/19 16:00 Oxygen Flow Rate (L/min) 96 Oxygen Delivery Method Room Air Weight: 123.15 kg Body Mass Index (BMI) 41.3 Intake and Output for Last 24 Hours 04/24/19 04/25/19 04/26/19 23:59 23:59 23:59 Intake Total 1200 / 1200 910 / 910 120 / 120 Balance 1200 / 1200 910 / 910 120 / 120 General: Alert, Oriented x3, Cooperative HEENT: Atraumatic Extremities: No cyanosis, Capillary Refill Less than 3 Seconds - Dorsal and plantar aspect left foot surgical site, Diminished Peripheral Pulses, Edema - Mild to surgery Skin: Incision - Well aligned and coapted with half of the sutures removed today. There is no gapping, purulence, erythema, streaking, odor, infection. Shantell-surgical site inflammation has resolved. The open gastrocnemius recession site is fully healed, - - His skin is atrophic and hairless Musculoskeletal: No Tenderness to Palpation of Joints or Extremities, Muscle Wasting, - - rectus transmetatarsal amputation stump site. Ankle dorsiflexion improvement is maintained postoperative. Compartment soft to palpate left lower extremity Neurological: - - Lack of normal operating sensation light touch consistent with neuropathy Psych/Mental Status: Normal Affect, Appropriate, - - pleasant Laboratory Results 04/25/19 11:19: POC Glucose 180 H 04/25/19 16:53: POC Glucose 134 H 04/25/19 20:42: POC Glucose 244 H 04/26/19 06:21: POC Glucose 146 H Current Medications Acetaminophen (Tylenol) 1,000 mg PO Q6H PRN PRN PRN Reason: Pain Score 1-3/10 Amoxicillin/Clavulanate Potassium (Augmentin Tablet) 875 mg PO BIDCM [facility] Last Admin: 04/25/19 17:53 Dose: 875 mg Documented by: Aspirin (Aspirin, Baby) 81 mg PO DAILY@0800 [facility] Last Admin: 04/25/19 08:45 Dose: 81 mg Documented by: Atorvastatin Calcium (Lipitor) 40 mg PO QHS [facility] Last Admin: 04/25/19 20:28 Dose: 40 mg Documented by: Bisacodyl (Dulcolax) 10 mg PO DAILY PRN PRN Reason: Constipation Cholecalciferol (Vitamin D) 6,000 unit PO DAILY [facility] Last Admin: 04/26/19 05:47 Dose: 6,000 unit Documented by: Cyanocobalamin (Vitamin B12) 1,000 mcg PO DAILY [facility] Last Admin: 04/26/19 05:46 Dose: 1,000 mcg Documented by: Dextrose (D50w Syringe) 0 gm IV X1 PRN; Protocol PRN Reason: Hypoglycemia Enoxaparin Sodium (Lovenox) 40 mg SC DAILY@0600 [facility] Last Admin: 04/26/19 05:46 Dose: 40 mg Documented by: Gabapentin (Neurontin) 600 mg PO TID [facility] Last Admin: 04/26/19 05:46 Dose: 600 mg Documented by: Glucagon () 1 mg IM .X1 PRN PRN Reason: Hypoglycemia Insulin Glargine (Lantus (Bkc)) 40 units SC QHS [facility] Last Admin: 04/25/19 22:24 Dose: 40 units Documented by: Insulin Human Lispro (Humalog Kwikpen (Bk)) 7 unit SC TIDAC [facility] Last Admin: 04/25/19 17:54 Dose: 7 units Documented by: Lisinopril (Zestril) 5 mg PO DAILY [facility] Last Admin: 04/26/19 05:52 Dose: 5 mg Documented by: Metformin HCl (Glucophage) 1,000 mg PO BIDCM [facility] Last Admin: 04/25/19 19:22 Dose: 1,000 mg Documented by: Nifedipine (Procardia Xl) 30 mg PO DAILY [facility] Last Admin: 04/26/19 06:18 Dose: 30 mg Documented by: Nutritional Formula (Zhao - [place] Flavor) 1 packet PO BIDCM [facility] Last Admin: 04/25/19 17:53 Dose: 1 packet Documented by: Nutritional Formula (Lactose Free) (Glucerna Shake) 120 ml PO TIDCM [facility] Last Admin: 04/25/19 18:03 Dose: 120 ml Documented by: Nystatin (Mycostatin Powder) 1 applic TOPICAL 0600,2200 [facility]; Protocol Last Admin: 04/26/19 05:47 Dose: Not Given Documented by: Oxycodone HCl (Oxyir) 5 mg PO Q4H PRN PRN PRN Reason: Pain Score 4-1010 Polyethylene Glycol (Miralax) 17 gm PO DAILY [facility] Last Admin: 04/26/19 05:47 Dose: Not Given Documented by: Senna/Docusate Sodium (Senokot-S, Shantell-Colace) 2 tablet PO DAILY PRN PRN PRN Reason: Constipation Medical Necessity - Tobacco Use Smoking Status: Never smoker Tobacco Use: Non-smoker Assessment/Plan All Active Problems (Last Updated 04/07/19 @ 08:13 by Tracy Wheeler MD) Debility (Acute) History of amputation of left foot through metatarsal bone (Acute) Left forefoot deformities (Acute) Recurrent left forefoot infected ulcers (Acute) Gastrocnemius equinus of left lower extremity (Resolved) Status post left transmetatarsal amputation and open gastrocnemius recession (DOS 04/04/19) Diabetes with neuropathy Other comorbidities including sleep apnea, hypertension, hyperlipidemia, obesity Small vessel disease Deconditioning and fall risk This patient was carefully examined and evaluated resting in a chair by his bed this morning. He is afebrile and his vital signs remained stable. His persistent leukocytosis is noted however there are no other systemic signs of illness or local signs of infection to the left lower extremity. His pathology surgical specimen was negative for osteomyelitis. His surgical dressing was changed today and half of the surgical site sutures were removed this morning. Surgical site appears to be healing well with the skin edges still well coapted. A dressing and the splint were reapplied. Additional suture removal and transition into a cam walker with partial weightbearing will be considered next week. He is progressing as anticipated so far. He is advised to ice and elevate. To continue incentive spirometry while awake. Medical management and DVT prophylaxis per primary team is greatly appreciated. Podiatry will continue to follow him closely while in the transitional care unit. He will be seen on a weekly basis by the podiatry team. Please do not hesitate to call sooner if there are any questions or concerns. Maria A Payton DPM, [facility] [phone]
[2019-04-26] MEDS: Amox/Clavulanate 875 MG Tablet PO ×2 (07:49→17:46)
[2019-04-26] MEDS: metFORMIN HCl 1,000 MG Tablet 1000 MG PO ×2 (07:49→17:46)
[2019-04-26] MEDS: Insulin Lispro 100 UNIT/ML INSULN.PEN 7 UNIT SC ×3 (07:49→17:49)
[2019-04-26] MEDS: Aspirin 81 MG TAB.CHEW PO (07:49)
[2019-04-26] MEDS: Glucerna Shake 120 ML LIQUID PO ×3 (07:53→17:46)
--- NOTE | 2019-04-26 07:57 | NURSING ---
ONE IN TO CHANGE PT DRESSING. PER PT STATED SHE WOULD BE BACK ON SUNDAY AND MIGHT PUT A BOOT ON PT FOOT.
[2019-04-26 09:10] VITALS: PULSE 94; RESP 18; O2SAT 95
[2019-04-26 11:46] LABS: Bedside Glucose 162 mg/dL (70-110)
[2019-04-26 15:29] VITALS: BP 125/69; PULSE 88; RESP 18; TEMP 36.5; O2SAT 96
[2019-04-26 17:00] LABS: Bedside Glucose 197 mg/dL (70-110)
[2019-04-26] MEDS: Atorvastatin Calcium 40 MG Tablet PO (21:52)
[2019-04-26] MEDS: Nystatin Powder 15gm Bottle 1 APPLIC TOPICAL (21:57)
[2019-04-26 22:45] LABS: Bedside Glucose 228 mg/dL (70-110)
[2019-04-27] MEDS: NIFEdipine 30 MG Tablet PO (05:33)
[2019-04-27] MEDS: Cyanocobalamin 500 MCG Tablet 1000 MCG PO (05:33)
[2019-04-27] MEDS: Gabapentin 600 MG Tablet PO ×3 (05:33→21:49)
[2019-04-27] MEDS: Enoxaparin 40 MG/0.4 ML Syringe SC (05:33)
[2019-04-27] MEDS: Lisinopril 5 MG Tablet PO (05:37)
[2019-04-27 06:36] LABS: Bedside Glucose 187 mg/dL (70-110)
[2019-04-27] MEDS: Amox/Clavulanate 875 MG Tablet PO ×2 (07:54→17:20)
[2019-04-27] MEDS: metFORMIN HCl 1,000 MG Tablet 1000 MG PO ×2 (07:54→17:20)
[2019-04-27] MEDS: Aspirin 81 MG TAB.CHEW PO (07:54)
[2019-04-27] MEDS: Glucerna Shake 120 ML LIQUID PO ×3 (07:57→17:19)
[2019-04-27] MEDS: Insulin Lispro 100 UNIT/ML INSULN.PEN 7 UNIT SC ×3 (07:58→17:21)
[2019-04-27 12:00] LABS: Bedside Glucose 225 mg/dL (70-110)
[2019-04-27 15:43] VITALS: BP 128/65; PULSE 91; RESP 19; TEMP 36.6; O2SAT 94
[2019-04-27 17:15] LABS: Bedside Glucose 218 mg/dL (70-110)
[2019-04-27 21:21] LABS: Bedside Glucose 224 mg/dL (70-110)
[2019-04-27] MEDS: Atorvastatin Calcium 40 MG Tablet PO (21:49)
[2019-04-28] MEDS: NIFEdipine 30 MG Tablet PO (06:26)
[2019-04-28] MEDS: Lisinopril 5 MG Tablet PO (06:26)
[2019-04-28] MEDS: Cyanocobalamin 500 MCG Tablet 1000 MCG PO (06:27)
[2019-04-28] MEDS: Enoxaparin 40 MG/0.4 ML Syringe SC (06:27)
[2019-04-28] MEDS: Gabapentin 600 MG Tablet PO ×3 (06:28→21:12)
[2019-04-28] MEDS: Insulin Lispro 100 UNIT/ML INSULN.PEN 10 UNIT SC ×3 (06:29→17:31)
[2019-04-28 06:31] LABS: Bedside Glucose 172 mg/dL (70-110)
[2019-04-28] MEDS: Glucerna Shake 120 ML LIQUID PO ×3 (06:34→17:36)
[2019-04-28] MEDS: metFORMIN HCl 1,000 MG Tablet 1000 MG PO ×2 (08:25→17:31)
[2019-04-28] MEDS: Amox/Clavulanate 875 MG Tablet PO ×2 (08:25→17:31)
[2019-04-28] MEDS: Aspirin 81 MG TAB.CHEW PO (08:26)
--- NOTE | 2019-04-28 08:37 | NURSING ---
functional abilities and goal per therapies notes
[2019-04-28 09:45] LABS: Pathologist Review Reviewed
[2019-04-28 11:01] LABS: Bedside Glucose 234 mg/dL (70-110)
[2019-04-28 15:40] VITALS: BP 139/87; PULSE 102; RESP 18; TEMP 36.4; O2SAT 95
--- NOTE | 2019-04-28 16:55 | CASEMGMT ---
Addendum entered by Beverley Rodriguez 04/29/19 12:19: Pt chose [facility]. Referral made. Original Note: Social Work Insurance issued LCD 04/30, DC 05/01 for pt. Pt agreeable. No DME needs. Provided list of [facility] agencies for pt to choose for PT/OT/SN. Pt will notify . Plan: DC home 05/01 with [facility] PT/OT/SN. No DME needs. Beverley Rodriguez, NANDO GARCIAW
[2019-04-28 17:10] LABS: Bedside Glucose 190 mg/dL (70-110)
--- NOTE | 2019-04-28 19:52 | DCINST_ITS ---
- Discharge Diagnoses Current Active Problems: Current Active and Chronic Problems (Last Updated 04/07/19 @ 08:13 by Tracy Wheeler MD) Debility (Acute) History of amputation of left foot through metatarsal bone (Acute) Body mass index (BMI) 40.0-44.9, adult (Chronic) Vitamin D deficiency (Chronic) Vitamin B12 deficiency (Chronic) Diabetic polyneuropathy (Chronic) Tinea corporis (Chronic) You will use the following diet at home:: No restrictions, Regular Your food should be the consistency of: Regular Your liquids should be the consistency of: Regular/Thin Discharge Activity: Return to Normal Activity, May Shower, Use Walker Weight Bearing Status: No weight bearing - Right lower extremity. Keep extremity elevated above heart level: Operative Extremity, Right Leg Call your doctor if you observe: Fever of 101 or Higher, Inability to urinate, Inability to have a bowel movement, Shortness of breath, Chest pain, Uncontrolled pain Allergies/Adverse Reactions: Allergies No Known Allergies Allergy (Verified 04/04/19 08:42) Medications to take at Discharge Dulaglutide [Trulicity] 1.5 mg SQ MO 01/06/17 Nifedipine [Nifedipine ER] 30 mg PO DAILY 01/06/17 Cholecalciferol (Vitamin D3) [Vitamin D3] 6,000 unit PO DAILY 09/16/18 Cyanocobalamin (Vitamin B-12) [B-12] 1,000 mcg PO DAILY 09/16/18 Gabapentin 600 mg PO TID 09/16/18 Insulin Glargine [Lantus SoloStar Pen] 72 units SC QHS 09/24/18 Lisinopril [Zestril] 5 mg PO DAILY #30 tablet 10/11/18 Aspirin [Aspirin, Baby] 81 mg PO DAILY@0800 04/09/19 Atorvastatin Calcium [Lipitor] 40 mg PO QHS 04/09/19 Insulin Lispro [Humalog KwikPen] 12 unit SUBCUT TIDAC 04/09/19 Nystatin Powder [Mycostatin Powder] 1 applic TOPICAL 0600,2200 04/09/19 metFORMIN HCl [Glucophage] 1,000 mg PO BIDCM 04/09/19 Acetaminophen [Tylenol] 1,000 mg PO Q6H PRN PRN tablet 04/28/19 Nutritional Supplement [Zhao - [place]ANGE FLAVOR] 1 packet PO BIDCM #60 packet 04/28/19 The following prescriptions were given: Nutritional Supplement [Zhao - [place]ANGE FLAVOR] 1 packet PO BIDCM #60 packet Transmission Status: Pending to [facility] Primary Care Physician: Dexter Reid DO [Primary Care Provider] - Please follow up with your Primary Care Physician in: 1 week. Test Results: Test results from this visit will be discussed in further detail at your follow- up appointment, if applicable. Proposed Discharge Date: 05/01/19
--- NOTE | 2019-04-28 19:54 | DS.PCM_ITS ---
Discharge Date and Diagnosis - Problem List Patient Problems: Active and Suspected Problems (Last Reviewed 09/17/18 @ 16:48 by Sandy Maharaj PA-C) Debility (Acute) History of amputation of left foot through metatarsal bone (Acute) Date of Admission: 04/04/19 Date of Discharge: 05/01/19 - Primary Discharge Diagnosis Active and Suspected Problems (Last Reviewed 09/17/18 @ 16:48 by Sandy Maharaj PA-C) Debility (Acute) History of amputation of left foot through metatarsal bone (Acute) - Secondary Discharge Diagnosis Chronic Problems (Last Updated 04/07/19 @ 08:13 by Tracy Wheeler MD) Body mass index (BMI) 40.0-44.9, adult (Chronic) Vitamin D deficiency (Chronic) Vitamin B12 deficiency (Chronic) Diabetic polyneuropathy (Chronic) Tinea corporis (Chronic) 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 (Chronic) 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 (Chronic) Hyperlipidemia (Chronic) Obstructive sleep apnea (Chronic) Hammer toe of left foot (Chronic) Sleep apnea (Chronic) PAD (peripheral artery disease) (Chronic) Hallux varus (acquired), left foot (Chronic) HTN (hypertension) (Chronic) Hospital Course and Treatment Imaging Results: 04/09/19 17:45 Diet: Calorie Controlled Is pt able to select menu?: Yes How many daily calories?: 1800 calorie Labs (Last 48 Hours) 04/24/19 04/26/19 04/27/19 05:15 21:51 06:29 Diff Path Review Reviewed POC Glucose 228 H 187 H 04/27/19 04/27/19 04/27/19 11:32 17:01 21:10 Diff Path Review POC Glucose 225 H 218 H 224 H 04/28/19 04/28/19 04/28/19 06:22 10:50 17:03 Diff Path Review POC Glucose 172 H 234 H 190 H Operations: None, - - left transmetatarsal amputation left gastrocnemius recession Procedures: None Summary of Care Provided: The patient is a 68 year old Male with below past medical history significant for non-healing left diabetic foot ulcer, hospitalized for left metatarsal amputation, left open gastrocnemius recession 04/04/[address] Payton, admitted to TCU with debility, here for rehabilitation, strengthening, prior to discharge home alone. Discharge home with brother, Home Health Care for PT/OT/SN. Patient Problems: Active and Suspected Problems (Last Reviewed 09/17/18 @ 16:48 by Sandy Maharaj PA-C) Debility (Acute) History of amputation of left foot through metatarsal bone (Acute) - Physical Exam Vitals/I&O's: Vital Signs Temp Pulse Resp BP Pulse Ox 97.5 F L 102 H 18 139/87 H 95 04/28/19 15:40 04/28/19 15:40 04/28/19 15:40 04/28/19 15:40 04/28/19 15:40 Oxygen Flow Rate (L/min) 96 Oxygen Delivery Method Room Air Weight: 123.15 kg Body Mass Index (BMI) 41.3 Intake and Output for Last 24 Hours 04/26/19 04/27/19 04/28/19 23:59 23:59 23:59 Intake Total 1780 / 1780 1590 / 1590 960 / 960 Balance 1780 / 1780 1590 / 1590 960 / 960 Laboratory Results 04/24/19 05:15: Diff Path Review Reviewed 04/27/19 21:10: POC Glucose 224 H 04/28/19 06:22: POC Glucose 172 H 04/28/19 10:50: POC Glucose 234 H 04/28/19 17:03: POC Glucose 190 H Current Medications Acetaminophen (Tylenol) 1,000 mg PO Q6H PRN PRN PRN Reason: Pain Score 1-3/10 Amoxicillin/Clavulanate Potassium (Augmentin Tablet) 875 mg PO BIDCM [facility] Last Admin: 04/28/19 17:31 Dose: 875 mg Documented by: Aspirin (Aspirin, Baby) 81 mg PO DAILY@0800 [facility] Last Admin: 04/28/19 08:26 Dose: 81 mg Documented by: Atorvastatin Calcium (Lipitor) 40 mg PO QHS [facility] Last Admin: 04/27/19 21:49 Dose: 40 mg Documented by: Bisacodyl (Dulcolax) 10 mg PO DAILY PRN PRN Reason: Constipation Cholecalciferol (Vitamin D) 6,000 unit PO DAILY [facility] Last Admin: 04/28/19 06:26 Dose: 6,000 unit Documented by: Cyanocobalamin (Vitamin B12) 1,000 mcg PO DAILY [facility] Last Admin: 04/28/19 06:27 Dose: 1,000 mcg Documented by: Dextrose (D50w Syringe) 0 gm IV X1 PRN; Protocol PRN Reason: Hypoglycemia Enoxaparin Sodium (Lovenox) 40 mg SC DAILY@0600 [facility] Last Admin: 04/28/19 06:27 Dose: 40 mg Documented by: Gabapentin (Neurontin) 600 mg PO TID [facility] Last Admin: 04/28/19 14:19 Dose: 600 mg Documented by: Glucagon () 1 mg IM .X1 PRN PRN Reason: Hypoglycemia Insulin Glargine (Lantus ([facility])) 40 units SC QHS [facility] Last Admin: 04/27/19 21:51 Dose: 40 units Documented by: Insulin Human Lispro (Humalog Kwikpen ([facility])) 10 unit SC TIDAC [facility] Last Admin: 04/28/19 17:31 Dose: 10 units Documented by: Lisinopril (Zestril) 5 mg PO DAILY [facility] Last Admin: 04/28/19 06:26 Dose: 5 mg Documented by: Metformin HCl (Glucophage) 1,000 mg PO BIDCM [facility] Last Admin: 04/28/19 17:31 Dose: 1,000 mg Documented by: Nifedipine (Procardia Xl) 30 mg PO DAILY [facility] Last Admin: 04/28/19 06:26 Dose: 30 mg Documented by: Nutritional Formula (Zhao - [place] Flavor) 1 packet PO BIDCM [facility] Last Admin: 04/28/19 17:32 Dose: 1 packet Documented by: Nutritional Formula (Lactose Free) (Glucerna Shake) 120 ml PO TIDCM [facility] Last Admin: 04/28/19 17:36 Dose: 120 ml Documented by: Nystatin (Mycostatin Powder) 1 applic TOPICAL 0600,2200 [facility]; Protocol Last Admin: 04/28/19 06:28 Dose: Not Given Documented by: Oxycodone HCl (Oxyir) 5 mg PO Q4H PRN PRN PRN Reason: Pain Score 4-10/10 Polyethylene Glycol (Miralax) 17 gm PO DAILY [facility] Last Admin: 04/28/19 06:27 Dose: Not Given Documented by: Senna/Docusate Sodium (Senokot-S, Shantell-Colace) 2 tablet PO DAILY PRN PRN PRN Reason: Constipation Discharge Diet: No Restrictions Discharge Activity: Return to Normal Activity, May Shower, Use Walker Weight Bearing Status: No weight bearing - Right lower extremity. Keep extremity elevated above heart level: Operative Extremity, Right Leg Call your doctor if you observe: Fever of 101 or Higher, Inability to urinate, Inability to have a bowel movement, Shortness of breath, Chest pain, Uncontrolled pain Home Medications: Medications to take at Discharge Dulaglutide [Trulicity] 1.5 mg SQ MO 01/06/17 Nifedipine [Nifedipine ER] 30 mg PO DAILY 01/06/17 Cholecalciferol (Vitamin D3) [Vitamin D3] 6,000 unit PO DAILY 09/16/18 Cyanocobalamin (Vitamin B-12) [B-12] 1,000 mcg PO DAILY 09/16/18 Gabapentin 600 mg PO TID 09/16/18 Insulin Glargine [Lantus SoloStar Pen] 72 units SC QHS 09/24/18 Lisinopril [Zestril] 5 mg PO DAILY #30 tablet 10/11/18 Aspirin [Aspirin, Baby] 81 mg PO DAILY@0800 04/09/19 Atorvastatin Calcium [Lipitor] 40 mg PO QHS 04/09/19 Insulin Lispro [Humalog KwikPen] 12 unit SUBCUT TIDAC 04/09/19 Nystatin Powder [Mycostatin Powder] 1 applic TOPICAL 0600,2200 04/09/19 metFORMIN HCl [Glucophage] 1,000 mg PO BIDCM 04/09/19 Acetaminophen [Tylenol] 1,000 mg PO Q6H PRN PRN tablet 04/28/19 Nutritional Supplement [Zhao - ORANGE FLAVOR] 1 packet PO BIDCM #60 packet 04/28/19 Following Prescrptions Were Given to Patient: Nutritional Supplement [Zhao - ORANGE FLAVOR] 1 packet PO BIDCM #60 packet Transmission Status: Pending to [facility] Primary Care Physician: Dexter Reid DO [Primary Care Provider] - Please follow up with your Primary Care Physician in: 1 week. Please Follow Up With: Maria A Payton DPM When: 1 week. Disposition: Home with Home Health Minutes spent on discharge:: 35 Patient Condition:: Stable Medical Necessity - Tobacco Use Smoking Status: Never smoker Tobacco Use: Non-smoker Meaningful Use Info Meaningful Use Diagnoses (Choose all that apply): None applicable
--- NOTE | 2019-04-28 19:56 | HHNOTE_ITS ---
Home Health Note - Plan Overview of reason of hospitalization: The patient is a 68 year old Male with below past medical history significant for non-healing left diabetic foot ulcer, hospitalized for left metatarsal amputation, left open gastrocnemius recession 04/04/[address] Payton, admitted to TCU with debility, here for rehabilitation, strengthening, prior to discharge home alone. Discharge home with brother, Home Health Care for PT/OT/SN. Problems: Patient was seen for (Last Updated 04/07/19 @ 08:13 by Tracy Wheeler MD) Debility (Acute) History of amputation of left foot through metatarsal bone (Acute) Body mass index (BMI) 40.0-44.9, adult (Chronic) Vitamin D deficiency (Chronic) Vitamin B12 deficiency (Chronic) Diabetic polyneuropathy (Chronic) Tinea corporis (Chronic) Complete List of Medical Problems (Last Updated 04/07/19 @ 08:13 by Tracy Wheeler MD) Debility (Acute) History of amputation of left foot through metatarsal bone (Acute) Body mass index (BMI) 40.0-44.9, adult (Chronic) Vitamin D deficiency (Chronic) Vitamin B12 deficiency (Chronic) Diabetic polyneuropathy (Chronic) Tinea corporis (Chronic) Left forefoot deformities (Acute) Recurrent left forefoot infected ulcers (Acute) 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 (Chronic) 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 (Chronic) Hyperlipidemia (Chronic) Obstructive sleep apnea (Chronic) Hammer toe of left foot (Chronic) Sleep apnea (Chronic) PAD (peripheral artery disease) (Chronic) Hallux varus (acquired), left foot (Chronic) HTN (hypertension) (Chronic) - Requirements and Reasons Disciplines Needed/Ordered: [facility], Physical Therapy Reason for Disciplines: Disease Specific Monitoring/education, Medication Management/Knowledge Deficit, Wound Care, Gait Training, Stair Training, Fall Prevention, Home Safety/Equipment Instruction, Balance and/or Posture Training, Transfer Training Related To: Change in Medical Treatment Plan, Limited/Poor Endurance, Physical I mpairments, Unsteady Gait/Balance, Fall Risk Patient is unable to leave the home: Without Aid of Supportive Devices (crutches, cane, wheelchair, walker), Without the assistance of another person, Because it is medically contraindicated Medically Contraindicated related to: Weight Bearing Status - Additional Disciplines Additional Disciplines Needed/Ordered: Occupational Therapy
[2019-04-28] MEDS: Atorvastatin Calcium 40 MG Tablet PO (21:12)
[2019-04-28 21:16] LABS: Bedside Glucose 226 mg/dL (70-110)
[2019-04-29] MEDS: NIFEdipine 30 MG Tablet PO (05:45)
[2019-04-29] MEDS: Gabapentin 600 MG Tablet PO ×3 (05:45→21:23)
[2019-04-29] MEDS: Lisinopril 5 MG Tablet PO (05:45)
[2019-04-29] MEDS: Cyanocobalamin 500 MCG Tablet 1000 MCG PO (05:45)
[2019-04-29] MEDS: Enoxaparin 40 MG/0.4 ML Syringe SC (05:46)
[2019-04-29 06:21] LABS: Bedside Glucose 171 mg/dL (70-110)
[2019-04-29] MEDS: Insulin Lispro 100 UNIT/ML INSULN.PEN 10 UNIT SC ×3 (07:54→17:38)
[2019-04-29] MEDS: Amox/Clavulanate 875 MG Tablet PO ×2 (07:56→17:41)
[2019-04-29] MEDS: Aspirin 81 MG TAB.CHEW PO (07:57)
[2019-04-29] MEDS: metFORMIN HCl 1,000 MG Tablet 1000 MG PO ×2 (07:58→17:41)
[2019-04-29] MEDS: Glucerna Shake 120 ML LIQUID PO ×3 (08:00→17:37)
[2019-04-29] MEDS: DULAGLUTIDE 1.5 MG/0.5 ML PEN.INJCTR SQ (09:56)
[2019-04-29 11:06] LABS: Bedside Glucose 191 mg/dL (70-110)
[2019-04-29 15:01] VITALS: BP 125/70; PULSE 96; RESP 16; TEMP 36.9; O2SAT 96
[2019-04-29 17:11] LABS: Bedside Glucose 201 mg/dL (70-110)
[2019-04-29] MEDS: Atorvastatin Calcium 40 MG Tablet PO (21:23)
[2019-04-29 21:26] LABS: Bedside Glucose 182 mg/dL (70-110)
[2019-04-30] MEDS: Lisinopril 5 MG Tablet PO (05:41)
[2019-04-30] MEDS: Gabapentin 600 MG Tablet PO ×3 (05:41→22:06)
[2019-04-30] MEDS: NIFEdipine 30 MG Tablet PO (05:41)
[2019-04-30] MEDS: Cyanocobalamin 500 MCG Tablet 1000 MCG PO (05:41)
[2019-04-30] MEDS: Enoxaparin 40 MG/0.4 ML Syringe SC (05:42)
[2019-04-30 06:31] LABS: Bedside Glucose 132 mg/dL (70-110)
[2019-04-30] MEDS: Insulin Lispro 100 UNIT/ML INSULN.PEN 10 UNIT SC ×3 (08:26→17:52)
[2019-04-30] MEDS: Amox/Clavulanate 875 MG Tablet PO ×2 (08:28→17:16)
[2019-04-30] MEDS: metFORMIN HCl 1,000 MG Tablet 1000 MG PO ×2 (08:28→17:16)
[2019-04-30] MEDS: Aspirin 81 MG TAB.CHEW PO (08:28)
[2019-04-30] MEDS: Glucerna Shake 120 ML LIQUID PO ×3 (08:33→17:13)
[2019-04-30 11:25] LABS: Bedside Glucose 220 mg/dL (70-110)
[2019-04-30 15:37] VITALS: BP 122/67; PULSE 89; RESP 18; TEMP 36.8; O2SAT 96
[2019-04-30 16:51] LABS: Bedside Glucose 163 mg/dL (70-110)
[2019-04-30 21:06] LABS: Bedside Glucose 210 mg/dL (70-110)
[2019-04-30] MEDS: Atorvastatin Calcium 40 MG Tablet PO (22:06)
[2019-04-30] MEDS: Nystatin Powder 15gm Bottle 1 APPLIC TOPICAL (22:11)
[2019-05-01] MEDS: Gabapentin 600 MG Tablet PO (05:52)
[2019-05-01] MEDS: NIFEdipine 30 MG Tablet PO (05:52)
[2019-05-01] MEDS: Lisinopril 5 MG Tablet PO (05:52)
[2019-05-01] MEDS: Cyanocobalamin 500 MCG Tablet 1000 MCG PO (05:52)
[2019-05-01] MEDS: Nystatin Powder 15gm Bottle 1 APPLIC TOPICAL (06:12)
[2019-05-01 06:51] LABS: Bedside Glucose 156 mg/dL (70-110)
[2019-05-01] MEDS: Glucerna Shake 120 ML LIQUID PO (07:53)
[2019-05-01] MEDS: metFORMIN HCl 1,000 MG Tablet 1000 MG PO (07:54)
[2019-05-01] MEDS: Amox/Clavulanate 875 MG Tablet PO (07:54)
[2019-05-01] MEDS: Insulin Lispro 100 UNIT/ML INSULN.PEN 10 UNIT SC (07:55)
[2019-05-01] MEDS: Aspirin 81 MG TAB.CHEW PO (07:55)
[2019-05-01 10:15] VITALS: PULSE 90; RESP 18
[2019-05-01 12:38] VITALS: BP 132/70; PULSE 88; RESP 18; TEMP 36.8; O2SAT 97
== END 2019-05-01 11:20 | disposition home health service (06) | DRG 560 ==
PROVIDERS: Admitting Provider Family Medicine Geriatric Medicine; Family Provider Family Medicine; PCP Family Medicine; Referring Provider Family Medicine Geriatric Medicine; Visit Provider Family Medicine Geriatric Medicine
DX: Z47.81 Encounter for orthopedic aftercare following surgical amputation (principal); Z68.41 Body mass index [BMI] 40.0-44.9, adult; Z89.432 Acquired absence of left foot; G47.33 Obstructive sleep apnea (adult) (pediatric); I10 Essential (primary) hypertension; E78.5 Hyperlipidemia, unspecified; E11.42 Type 2 diabetes mellitus with diabetic polyneuropathy; B35.4 Tinea corporis; E11.51 Type 2 diabetes mellitus with diabetic peripheral angiopathy without gangrene; E55.9 Vitamin D deficiency, unspecified; E53.8 Deficiency of other specified B group vitamins; E66.9 Obesity, unspecified; Z71.3 Dietary counseling and surveillance
CPT/HCPCS: 36415; 80048; 82962; 85025; 97110; 97116; 97162; 97166; 97530; 97535; 97802

== ENCOUNTER → 2019-10-09 | Outpatient (CLI) | payer MEDICARE, SELFPAY ==
[2019-10-09 09:26] LABS: PSA,Total- Diagnostic 0.59 ng/mL (0.0-4.0)
== END | disposition home or self-care (01) ==
LOC: LAB 08:19
PROVIDERS: PCP Family Medicine; Referring Provider Urology; Visit Provider Urology
DX: R97.20 Elevated prostate specific antigen [PSA] (principal)
CPT/HCPCS: 36415; 84153

== ENCOUNTER → 2021-01-17 08:36 | Outpatient (CLI) | payer MEDICARE, SELFPAY ==
[2021-01-17 10:00] LABS: PSA,Total- Diagnostic 0.58 ng/mL (0.0-4.0)
== END ==
PROVIDERS: PCP Family Medicine; Referring Provider Nurse Practitioner Adult Health; Visit Provider Nurse Practitioner Adult Health
DX: R97.20 Elevated prostate specific antigen [PSA] (principal)
CPT/HCPCS: 36415; 84153

== ENCOUNTER → 2023-02-26 | Outpatient (CLI) | payer MEDICARE, SELFPAY ==
[2023-02-26 16:54] LABS: PSA,Total- Diagnostic 0.78 ng/mL (0.0-4.0)
== END | disposition home or self-care (01) ==
LOC: LAB 16:12
PROVIDERS: PCP Family Medicine; Referring Provider Urology; Visit Provider Urology
DX: R97.20 Elevated prostate specific antigen [PSA] (principal)
CPT/HCPCS: 36415; 84153

== ENCOUNTER → 2023-03-08 | Outpatient (CLI) | payer MEDICARE, SELFPAY ==
--- NOTE | 2023-03-08 08:00 | CT_ITS ---
STUDY: CT ABDOMEN AND PELVIS WITH AND WITHOUT CONTRAST REASON FOR EXAM: Male, 72 years old. GROSS HEMATURIA RADIATION DOSAGE (If Supplied By Facility): CTDIvol = ( 22.09 ) mGy, DLP = ( 2202.48 ) mGycm TECHNIQUE: Transaxial images were obtained from the dome of the diaphragm to the symphysis pubis without oral contrast. IV 100mL Isovue-370 was administered. Sagittal and coronal images were reconstructed. Individualized dose optimization techniques were used for this CT. COMPARISON: None. FINDINGS: The visualized lung bases are unremarkable. Coronary artery calcification. There is decreased attenuation of the liver consistent with steatosis. Calcified granulomas in the left lobe of the liver as well as in the medial right lobe of the liver. Normal gallbladder and extrahepatic biliary system. Normal spleen. Normal pancreas. Normal bilateral adrenal glands. There is a 2.9 cm cyst in the upper medial posterior aspect of the right kidney. There is also evidence of a 1.2 cm cyst in the lateral aspect of the right kidney. Normal left kidney. Incidental note is made of a retroaortic left renal vein. Normal visualized stomach. Normal small intestine. Normal colon. The appendix is visualized and appears normal. Normal abdominal aorta. Normal inferior vena cava. Normal retroperitoneum. There is evidence of a anterior bladder wall thickening. There are prostatic calcifications. Normal abdominal wall. There are diffuse degenerative changes of the visualized lumbar spine. Loss of the normal lumbar lordosis. CT/CT Abd/Pelvis W/WO Contrast IMPRESSION: Fatty infiltration of the liver. Right renal cysts. Anterior bladder wall thickening. Prostatic calcifications. Electronically Signed: Riccardo Swanson MD at 15:45 EDT ,
[2023-03-08 08:35] LABS: CREATININE FINGERSTICK < 0.9 mg/dL (0.70-1.30); EGFR FINGERSTICK > 60.0000 mL/min (>60)
== END | disposition home or self-care (01) ==
LOC: CT 07:52
PROVIDERS: PCP Family Medicine; Referring Provider Urology; Visit Provider Urology
DX: R31.0 Gross hematuria (principal)
CPT/HCPCS: 74178; Q9967

== ENCOUNTER → 2024-03-27 | Outpatient (CLI) | payer MEDICARE, SELFPAY ==
[2024-03-27 11:49] LABS: PSA,Total- Diagnostic 0.77 ng/mL (0.0-4.0)
== END | disposition home or self-care (01) ==
LOC: LAB 10:37
PROVIDERS: PCP Family Medicine; Referring Provider Nurse Practitioner; Visit Provider Nurse Practitioner
DX: R97.20 Elevated prostate specific antigen [PSA] (principal)
CPT/HCPCS: 36415; 84153

== ENCOUNTER → 2025-03-23 | Outpatient (CLI) | payer MEDICARE, SELFPAY ==
[2025-03-23 11:58] LABS: PSA,Total- Diagnostic 0.66 ng/mL (0.00-4.00)
== END | disposition home or self-care (01) ==
LOC: LAB 10:49
PROVIDERS: PCP Family Medicine; Referring Provider Urology; Visit Provider Urology
DX: R97.20 Elevated prostate specific antigen [PSA] (principal)
CPT/HCPCS: 36415; 84153